=== PATIENT | male | born 1950 | race Caucasian/White ===

== ENCOUNTER → 2016-06-01 | Outpatient (CLI) | payer OTHER ==
[~2016-06-01] MED LIST: ACET325T96 PO; ASCO250T4 PO; ASPI81TA28 PO; ATOR-24 PO; BACL10TA PO; BISA10SU3 PR; BUME0.5T3 PO; CHOL100010 PO; CHOL20007 PO; CITA10TA8 PO; CMD5 PO; CYAN10005 PO; EMOL1CRE10 TOP; ENOX1INJ14 INJ; ERGO500037 PO; ESCI10TA17 PO; FAMO20TA11 PO; FENO160T PO; FERR325T5 PO; INSDGI SC; INSDGIPEN SC; LACT3000 PO; LACTASE PO; LOPE1TAB25 PO; LSN25 PO; LUTE6TAB PO; MAGN400T5 PO; METF1000 PO; MULT-513 PO; NVLG SC; NVLGI SC; NYST100010 TOP; OXYC-164 PO; OXYC1TAB3 PO; OYST500T12 PO; PANT1TAB48 PO; PANT40TA PO; POLY335019 PO; PROM25SU28 PR; SENN-61 PO; WARF3TAB6 PO; WARF4TAB8 PO; [UNRECOGNIZED DRUG - CODE] PO; senna
[2016-06-01 09:21] LABS: PROTHROMBIN TIME (PATIENT) 21.9 SECONDS (9.0-12.0)
== END | disposition home or self-care (01) ==
LOC: C.LABUPUNI 08:54
PROVIDERS: ATTEND Family Medicine
DX: I50.9 Heart failure, unspecified (principal)

== ENCOUNTER → 2016-06-09 | Outpatient (CLI) | payer OTHER ==
[2016-06-09 09:23] LABS: INR 2.4 (0.9-1.1); PROTHROMBIN TIME (PATIENT) 26.8 SECONDS (9.0-12.0)
== END ==
LOC: C.LABUPUNI 09:03
PROVIDERS: ATTEND Family Medicine
DX: R79.1 Abnormal coagulation profile (principal)

== ENCOUNTER → 2016-06-19 | Outpatient (CLI) | payer OTHER ==
[2016-06-19 08:58] LABS: INR 2.4 (0.9-1.1); PROTHROMBIN TIME (PATIENT) 26.3 SECONDS (9.0-12.0)
== END | disposition home or self-care (01) ==
LOC: C.LABUPUNI 08:20
PROVIDERS: ATTEND Family Medicine
DX: D64.9 Anemia, unspecified (principal)

== ENCOUNTER → 2016-07-03 | Outpatient (CLI) | payer OTHER ==
[2016-07-03 09:19] LABS: INR 1.5 (0.9-1.1); PROTHROMBIN TIME (PATIENT) 15.9 SECONDS (9.0-12.0)
== END ==
LOC: C.LABUPUNI 08:56
PROVIDERS: ATTEND Family Medicine
DX: Z79.01 Long term (current) use of anticoagulants (principal)

== ENCOUNTER → 2016-07-04 | Outpatient (CLI) | payer OTHER ==
[2016-07-04 07:32] LABS: BASO % 0.1 %; BASO ABS # 0.01 K/uL (0-0.2); COMPLETE YES; HEMATOCRIT 33.3 % (42-52); IG% 0.3 %; MEAN CELL VOLUME 86.7 fL (80-100); MEAN CORPUSCULAR HEMOGLOBIN 26.3 pg (25-34); MEAN CORPUSCULAR HGB CONC 30.3 g/dl (32-36); MEAN PLATELET VOLUME 10.6 fL (7.4-10.4); MONO % 5.6 %; PLATELET COUNT 282 K/uL (130-400); RED BLOOD COUNT 3.84 M/uL (4.7-6.1); WHITE BLOOD COUNT 10.02 K/uL (4.8-10.8)
[2016-07-04 07:41] LABS: ALT/SGPT 16 U/L (12-78); BLOOD UREA NITROGEN 55 mg/dl (7-18); BUN/CREATININE RATIO 49.8 (10-20); CALCIUM 8.6 mg/dl (8.5-10.1); CARBON DIOXIDE 29 mmol/L (21-32); CHLORIDE 103 mmol/L (98-107); CHOLESTEROL 82 mg/dl (0-200); GLUCOSE 120 mg/dl (70-99); POTASSIUM 4.3 mmol/L (3.5-5.1); SODIUM 139 mmol/L (136-145); TRIGLYCERIDES 138 mg/dl (0-150); VERY LOW DENSITY LIPOPROT CALC 28 mg/dl
[2016-07-04 07:50] LABS: ALB/GLOB RATIO 0.7 (0.9-2); ALKALINE PHOSPHATASE 44 U/L (45-117); AST/SGOT 13 U/L (15-37); CHOLESTEROL/HDL RATIO 2.1; FERRITIN 29.5 ng/ml (8.0-388.0); HDL CHOLESTEROL 40 mg/dl; LDL CHOLESTEROL CALCULATED 14 mg/dl; TOTAL IRON BINDING CAPACITY 439 mcg/dl (250-450)
[2016-07-04 08:41] LABS: ESTIMATED AVERAGE GLUCOSE 111 mg/dl; HA1C FLAG Normal (Normal)
== END ==
LOC: C.LABUPUNI 12:24
PROVIDERS: ATTEND Family Medicine
DX: E11.9 Type 2 diabetes mellitus without complications (principal); L02.31 Cutaneous abscess of buttock; D50.9 Iron deficiency anemia, unspecified; E78.5 Hyperlipidemia, unspecified; E55.9 Vitamin D deficiency, unspecified; E66.01 Morbid (severe) obesity due to excess calories; Z90.49 Acquired absence of other specified parts of digestive tract

== ENCOUNTER → 2016-07-06 | Outpatient (CLI) | payer OTHER ==
[2016-07-06 09:07] LABS: INR 1.9 (0.9-1.1); PROTHROMBIN TIME (PATIENT) 21.4 SECONDS (9.0-12.0)
== END ==
LOC: C.LABUPUNI 08:39
PROVIDERS: ATTEND Family Medicine
DX: I48.2 Chronic atrial fibrillation (principal)

== ENCOUNTER → 2016-07-20 | Outpatient (CLI) | payer OTHER ==
[2016-07-20 09:40] LABS: INR 1.8 (0.9-1.1); PROTHROMBIN TIME (PATIENT) 19.4 SECONDS (9.0-12.0)
== END ==
LOC: C.LABUPUNI 09:14
PROVIDERS: ATTEND Family Medicine
DX: I48.91 Unspecified atrial fibrillation (principal)

== ENCOUNTER → 2016-08-03 | Outpatient (CLI) | payer OTHER ==
[2016-08-03 10:38] LABS: PROTHROMBIN TIME (PATIENT) 65.5 SECONDS (9.0-12.0)
[2016-08-03 10:46] LABS: INR 5.7 (0.9-1.1)
== END ==
LOC: C.LABUPBEA 09:56
PROVIDERS: ATTEND Family Medicine
DX: I48.2 Chronic atrial fibrillation (principal)

== ENCOUNTER → 2016-08-05 | Outpatient (CLI) | payer OTHER ==
[~2016-08-05] MED LIST changes: -CITA10TA8 PO; -CMD5 PO; -senna
[2016-08-05 09:23] LABS: INR 2.5 (0.9-1.1); PROTHROMBIN TIME (PATIENT) 27.8 SECONDS (9.0-12.0)
== END ==
LOC: C.LABUPBEA 09:00
PROVIDERS: ATTEND Family Medicine
DX: I48.2 Chronic atrial fibrillation (principal)

== ENCOUNTER → 2016-08-12 | Outpatient (CLI) | payer OTHER ==
[2016-08-12 10:21] LABS: INR 1.7 (0.9-1.1)
--- NOTE | 2016-08-13 10:09 | CODING QUERY NO DIAGNOSIS ---
TREATMENT RENDERED WITHOUT A DIAGNOSIS To promote full compliance with coding requirements relating to patient care, physician participation is requested in all cases of plastic molding operator uncertainty. Please assist us with providing a diagnosis/symptom for the test(s) below: A diagnosis/symptom was not documented on your Order. A valid diagnosis/symptom is required to bill all insurances. Please remember that we are unable to code a diagnosis of rule out, probable, possible, questionable, or suspected. Tests that require a diagnosis: DOS 08/12 * PTINR DIAGNOSIS: Provider Signature: Date: Thank you Ivette El [facility] Information Management Once completed, please kindly fax back to [phone] For questions please call [phone]
== END ==
LOC: C.LABUPBEA 09:52
PROVIDERS: ATTEND Family Medicine
DX: Z76.89 Persons encountering health services in other specified circumstances (principal)

== ENCOUNTER → 2016-08-19 | Outpatient (CLI) | payer OTHER ==
[2016-08-19 09:31] LABS: INR 2.2 (0.9-1.1); PROTHROMBIN TIME (PATIENT) 24.1 SECONDS (9.0-12.0)
== END ==
LOC: C.LABUPBEA 09:04
PROVIDERS: ATTEND Family Medicine
DX: I48.91 Unspecified atrial fibrillation (principal)

== ENCOUNTER → 2016-08-26 | Outpatient (CLI) | payer OTHER ==
[2016-08-26 09:56] LABS: INR 2.2 (0.9-1.1); PROTHROMBIN TIME (PATIENT) 24.7 SECONDS (9.0-12.0)
--- NOTE | 2016-08-27 09:21 | CODING QUERY NO DIAGNOSIS ---
TREATMENT RENDERED WITHOUT A DIAGNOSIS To promote full compliance with coding requirements relating to patient care, physician participation is requested in all cases of remote medical coder uncertainty. Please assist us with providing a diagnosis/symptom for the test(s) below: A diagnosis/symptom was not documented on your Order. A valid diagnosis/symptom is required to bill all insurances. Please remember that we are unable to code a diagnosis of rule out, probable, possible, questionable, or suspected. Tests that require a diagnosis: DOS: 08/26/16 * PT/INR DIAGNOSIS: Provider Signature: Date: Thank you Shanel Quorum [facility] Information Management Once completed, please kindly fax back to [phone] For questions please call [phone]
== END ==
LOC: C.LABUPUNI 08:48
PROVIDERS: ATTEND Family Medicine
DX: Z51.81 Encounter for therapeutic drug level monitoring (principal); Z79.01 Long term (current) use of anticoagulants

== ENCOUNTER → 2016-09-08 | Outpatient (CLI) | payer OTHER ==
[2016-09-08 08:54] LABS: INR 1.8 (0.9-1.1); PROTHROMBIN TIME (PATIENT) 19.2 SECONDS (9.0-12.0)
== END ==
LOC: C.LABUPUNI 08:08
PROVIDERS: ATTEND Family Medicine
DX: I48.91 Unspecified atrial fibrillation (principal)

== ENCOUNTER → 2016-09-15 | Outpatient (CLI) | payer OTHER ==
[2016-09-15 09:48] LABS: INR 1.8 (0.9-1.1); PROTHROMBIN TIME (PATIENT) 19.3 SECONDS (9.0-12.0)
== END | disposition home or self-care (01) ==
LOC: C.LABUPUNI 09:26
PROVIDERS: ATTEND Family Medicine
DX: I48.91 Unspecified atrial fibrillation (principal)

== ENCOUNTER → 2016-09-18 | Outpatient (CLI) | payer OTHER ==
[2016-09-18 09:07] LABS: PROTHROMBIN TIME (PATIENT) 21.8 SECONDS (9.0-12.0)
== END | disposition home or self-care (01) ==
LOC: C.LABUPUNI 08:30
PROVIDERS: ATTEND Family Medicine
DX: I48.91 Unspecified atrial fibrillation (principal)

== ENCOUNTER → 2016-09-25 | Outpatient (CLI) | payer OTHER ==
[2016-09-25 09:25] LABS: INR 2.4 (0.9-1.1); PROTHROMBIN TIME (PATIENT) 26.2 SECONDS (9.0-12.0)
== END ==
LOC: C.LABUPUNI 08:52
PROVIDERS: ATTEND Nurse Practitioner Family
DX: I48.91 Unspecified atrial fibrillation (principal)

== ENCOUNTER → 2016-10-02 | Outpatient (CLI) | payer OTHER ==
[2016-10-02 10:32] LABS: INR 2.5 (0.9-1.1); PROTHROMBIN TIME (PATIENT) 27.3 SECONDS (9.0-12.0)
== END ==
LOC: C.LABUPUNI 09:28
PROVIDERS: ATTEND Nurse Practitioner Family
DX: D64.9 Anemia, unspecified (principal)

== ENCOUNTER → 2016-10-16 | Outpatient (CLI) | payer OTHER ==
[2016-10-16 10:14] LABS: PROTHROMBIN TIME (PATIENT) 22.2 SECONDS (9.0-12.0)
== END ==
LOC: C.LABUPUNI 09:39
PROVIDERS: ATTEND Family Medicine
DX: I48.2 Chronic atrial fibrillation (principal)

== ENCOUNTER → 2016-10-22 | Outpatient (CLI) | payer OTHER ==
[2016-10-22 10:10] LABS: HEMATOCRIT 35.7 % (42-52); MEAN CELL VOLUME 87.9 fL (80-100); MEAN CORPUSCULAR HEMOGLOBIN 26.6 pg (25-34); MEAN CORPUSCULAR HGB CONC 30.3 g/dl (32-36); MEAN PLATELET VOLUME 10.7 fL (7.4-10.4); PLATELET COUNT 252 K/uL (130-400); RED BLOOD COUNT 4.06 M/uL (4.7-6.1); WHITE BLOOD COUNT 7.44 K/uL (4.8-10.8)
[2016-10-22 10:25] LABS: ESTIMATED AVERAGE GLUCOSE 123 mg/dl; HA1C FLAG Normal (Normal)
[2016-10-22 10:32] LABS: CALCIUM 9.2 mg/dl (8.5-10.1)
[2016-10-22 10:35] LABS: ALT/SGPT 16 U/L (12-78); BLOOD UREA NITROGEN 37 mg/dl (7-18); BUN/CREATININE RATIO 37.2 (10-20); CARBON DIOXIDE 32 mmol/L (21-32); CHLORIDE 104 mmol/L (98-107); CHOLESTEROL 89 mg/dl (0-200); GLUCOSE 135 mg/dl (70-99); POTASSIUM 4.3 mmol/L (3.5-5.1); SODIUM 140 mmol/L (136-145); TRIGLYCERIDES 136 mg/dl (0-150); VERY LOW DENSITY LIPOPROT CALC 27 mg/dl
[2016-10-22 10:43] LABS: ALB/GLOB RATIO 0.8 (0.9-2); ALKALINE PHOSPHATASE 41 U/L (45-117); AST/SGOT 14 U/L (15-37); CHOLESTEROL/HDL RATIO 2.5; FERRITIN 34.2 ng/ml (8.0-388.0); HDL CHOLESTEROL 36 mg/dl; LDL CHOLESTEROL CALCULATED 26 mg/dl; THYROID STIMULATING HORMONE 0.796 uIu/ml (0.300-4.500)
== END ==
LOC: C.LABUPUNI 09:00
PROVIDERS: ATTEND Nurse Practitioner Family
DX: E11.9 Type 2 diabetes mellitus without complications (principal); I50.9 Heart failure, unspecified; I10 Essential (primary) hypertension; D64.9 Anemia, unspecified; E78.9 Disorder of lipoprotein metabolism, unspecified; E55.9 Vitamin D deficiency, unspecified; R53.82 Chronic fatigue, unspecified

== ENCOUNTER → 2016-11-12 | Outpatient (CLI) | payer OTHER ==
[2016-11-12 09:18] LABS: INR 2.6 (0.9-1.1); PROTHROMBIN TIME (PATIENT) 28.8 SECONDS (9.0-12.0)
== END ==
LOC: C.LABUPUNI 08:31
PROVIDERS: ATTEND Nurse Practitioner Family
DX: I48.2 Chronic atrial fibrillation (principal)

== ENCOUNTER → 2016-11-20 | Outpatient (CLI) | payer OTHER ==
[2016-11-20 10:38] LABS: BASO % 0.2 %; BASO ABS # 0.02 K/uL (0-0.2); COMPLETE YES; IG% 0.5 %; LYMPH % 25.2 %; MEAN CELL VOLUME 91.3 fL (80-100); MEAN CORPUSCULAR HEMOGLOBIN 26.7 pg (25-34); MEAN CORPUSCULAR HGB CONC 29.2 g/dl (32-36); MEAN PLATELET VOLUME 10.7 fL (7.4-10.4); MONO % 6.9 %; NEUT % 66.2 %; PLATELET COUNT 255 K/uL (130-400); RED BLOOD COUNT 4.16 M/uL (4.7-6.1); WHITE BLOOD COUNT 9.11 K/uL (4.8-10.8)
[2016-11-20 10:58] LABS: INR 2.4 (0.9-1.1); PROTHROMBIN TIME (PATIENT) 26.1 SECONDS (9.0-12.0)
== END ==
LOC: C.LABUPUNI 09:20
PROVIDERS: ATTEND Family Medicine
DX: I50.9 Heart failure, unspecified (principal); D50.9 Iron deficiency anemia, unspecified; I48.2 Chronic atrial fibrillation

== ENCOUNTER → 2016-11-27 | Outpatient (CLI) | payer OTHER ==
[2016-11-27 09:27] LABS: PROTHROMBIN TIME (PATIENT) 21.7 SECONDS (9.0-12.0)
== END ==
LOC: C.LABUPUNI 08:34
PROVIDERS: ATTEND Nurse Practitioner Family
DX: I48.2 Chronic atrial fibrillation (principal)

== ENCOUNTER → 2016-12-10 | Outpatient (CLI) | payer OTHER ==
[2016-12-10 08:58] LABS: INR 1.8 (0.9-1.1); PROTHROMBIN TIME (PATIENT) 20.1 SECONDS (9.0-12.0)
--- NOTE | 2016-12-12 12:24 | CODING QUERY MEDICAL NECESSITY ---
CQTREATMENT RENDERED WITHOUT A DIAGNOSIS To promote full compliance with coding requirements relating to patient care, physician participation is requested in all cases of floor mechanic uncertainty. Please assist us with providing a diagnosis/symptom for the test(s) below: A diagnosis/symptom was not documented on your Order. A valid diagnosis/symptom is required to bill all insurances. Please remember that we are unable to code a diagnosis of rule out, probable, possible, questionable, or suspected. Tests that require a diagnosis: DOS 12/10/16 DIAGNOSIS IS ON CHART I48.2 BUT NO SIGNATURE IS ON ORDER PLEASE RETURN QUERY WITH DIAGNOSIS AND SIGNATURE THANK YOU Provider Signature: Date: Thank you Leighann Lopes Health Information Management Once completed, please kindly fax back to [phone] For questions please call [phone]
== END | disposition home or self-care (01) ==
LOC: C.LABUPUNI 08:40
PROVIDERS: ATTEND Family Medicine
DX: I48.2 Chronic atrial fibrillation (principal)

== ENCOUNTER 2016-12-13 21:46 | Inpatient (IN) | payer OTHER ==
[~2016-12-13] VITALS: Ht 188 cm; Wt 217.0 kg
[~2016-12-13 21:46] MED LIST changes: -ASCO250T4 PO; -CHOL20007 PO; -ENOX1INJ14 INJ; -ERGO500037 PO; -INSDGIPEN SC; -LACT3000 PO; -NVLG SC; -OXYC-164 PO; -OYST500T12 PO; -PANT1TAB48 PO; -PANT40TA PO; -WARF3TAB6 PO
[2016-12-13] MEDS ORDERED: SODIUM CHLORIDE 0.9% 1000ML 1,000 ML IV STA (21:54)
[2016-12-13] MEDS ORDERED: ONDANSETRON INJ 2 MG/ML 2 ML VIAL IV STA ×2 (21:57→22:59)
[2016-12-13 22:18] LABS: BASO % 0.1 %; BASO ABS # 0.01 K/uL (0-0.2); COMPLETE YES; HEMATOCRIT 42.4 % (42-52); IG% 0.4 %; LYMPH % 5.7 %; LYMPH ABS # 0.98 K/uL (1.2-3.4); MEAN CELL VOLUME 87.8 fL (80-100); MEAN CORPUSCULAR HEMOGLOBIN 26.7 pg (25-34); MEAN CORPUSCULAR HGB CONC 30.4 g/dl (32-36); MEAN PLATELET VOLUME 10.5 fL (7.4-10.4); MONO % 4.6 %; NEUT % 89.2 %; PLATELET COUNT 324 K/uL (130-400); RED BLOOD COUNT 4.83 M/uL (4.7-6.1); WHITE BLOOD COUNT 17.12 K/uL (4.8-10.8)
[2016-12-13] MEDS ORDERED: ERGO500037 PO (22:18)
[2016-12-13] MEDS ORDERED: OYST500T12 PO (22:18)
[2016-12-13] MEDS ORDERED: ASCO250T4 PO (22:18)
[2016-12-13] MEDS ORDERED: NVLG SC ×3 (22:18)
[2016-12-13] MEDS ORDERED: INSDGIPEN SC (22:18)
[2016-12-13] MEDS ORDERED: OXYC-164 PO (22:18)
[2016-12-13] MEDS ORDERED: CHOL20007 PO (22:18)
[2016-12-13] MEDS ORDERED: WARF3TAB6 PO (22:18)
[2016-12-13] MEDS ORDERED: LACT3000 PO (22:18)
[2016-12-13 22:30] LABS: ISTAT HEMOGLOBIN 14.3 g/dl (14.0-18.0); ISTAT IONIZED CALCIUM 1.13 mmol/l (1.12-1.32)
[2016-12-13 22:30] LABS: INR 2.2 (0.9-1.1); PARTIAL THROMBOPLASTIN RATIO 1.4; PROTHROMBIN TIME (PATIENT) 23.8 SECONDS (9.0-12.0)
[2016-12-13 22:39] LABS: BUN/CREATININE RATIO 41.9 (10-20); CALCIUM 9.5 mg/dl (8.5-10.1); POTASSIUM 4.2 mmol/L (3.5-5.1)
[2016-12-13] MEDS ORDERED: PANTOprazole INJ 80 MG in DEXTROSE 5% 100ML IV STA (23:30)
[2016-12-13] MEDS ORDERED: PANTOprazole INJ 40 MG in DEXTROSE 5% 100ML IV SCH (23:45)
[2016-12-14] VITALS (10 sets, daily range): BP systolic 125–186; BP diastolic 65–101; PULSE 55–96; TEMP 36.8–37.2; O2SAT 93–98; Ht 188 cm; Wt 217.0 kg
--- NOTE | 2016-12-14 00:05 | EMERGENCY ROOM VISIT NOTE ---
History Report prepared by Niko: Ismael Dubois Under the Supervision of: Dr. Quoc Nick D.O. First contact with patient: 21:47 Chief Complaint: GI ASSESSMENT Stated Complaint: GI ASSESSMENT History of Present Illness The patient is a 66 year old male who presents to the Emergency Room via EMS from [facility] with complaints of vomiting starting today. The patient describes the vomit as clear, intermittently containing a small amount of blood. His emesis was tested which was positive for blood. He reports abdominal fullness but currently denies any abdominal pain. He has not had a bowel movement in the past few days. He has a history of constipation and states that he is due for a suppository. The patient denies any worse than normal difficulty breathing. Pt denies headache, change in vision, fevers, chest pain, diarrhea, pain with urination, and melena. He is on Coumadin. Source of History: patient Onset: today Position: other (global) Quality: other (vomiting) Associated Symptoms: No fevers, No headache, No chest pain, No abdominal pain, No diarrhea Review of Systems See HPI for pertinent positives & negatives. A total of 10 systems reviewed and were otherwise negative. Past Medical & Surgical Medical Problems: (1) Atrial fibrillation (2) Chronic venous stasis (3) Diabetes mellitus, type II (4) History of osteomyelitis (5) Hyperlipidemia (6) Hypertension (7) Klinefelter syndrome (8) Obesity Family History Coronary artery disease FATHER Social History Marital Status: single Occupation Status: disabled Current/Historical Medications Scheduled Ascorbic Acid (Vitamin C), 250 MG PO BID Aspirin (Aspirin Ec), 81 MG PO WK Atorvastatin (Lipitor), 40 MG PO HS Bumetanide (Bumetanide), 0.5 MG PO DAILY Cholecalciferol (Vitamin D3), 2,000 UNITS PO DAILY Cyanocobalamin (Vitamin B-12), 1,000 MCG PO DAILY Ergocalciferol (Vitamin D 61855 Unit), 50,000 UNIT PO WK Escitalopram (Lexapro), 15 MG PO HS Fenofibrate (Tricor), 160 MG PO HS Ferrous Sulfate (Ferrous Sulfate), 325 MG PO TID Insulin Aspart (Novolog), 4 UNITS SC PM Insulin Aspart (Novolog), 6 UNITS SC DAILY Insulin Aspart (Novolog), 7 UNITS SC HS Insulin Glargine (Lantus Solostar), 54 UNITS SC HS Lactase (Lactaid), 1 TAB PO TIDM Lisinopril (Lisinopril), 2.5 MG PO DAILY Lutein-Zeaxanthin (Lutein W/Zeaxanthin), 1 TAB PO BID Magnesium Oxide (Mag-Ox), 400 MG PO DAILY Metformin Hcl (Glucophage), 1,000 MG PO BID Multivitamins/Minerals (Mvi With Minerals), 1 TAB PO DAILY Oxycodone Hcl (Oxycodone Hcl), 10 MG PO TID Oyster Shell (Oyster Shell), 250 MG PO BID Polyethylene Glycol 3350 (Miralax), 17 GM PO DAILY Senna (Senokot), 1 TAB PO DAILY Warfarin Sod (Jantoven), 4 MG PO 4XWK Warfarin Sod (Jantoven), 3 MG PO 3XWK Scheduled PRN Acetaminophen Tab (Tylenol), 650 MG PO Q6H PRN for MILD PAIN/FEVER Baclofen (Lioresal), 10 MG PO Q8H PRN for Muscle Spasms Promethazine Hcl (Phenergan Suppository), 25 MG CA Q4H PRN for Nausea Allergies Coded Allergies: No Known Allergies (Verified , NONE, 08/04/16) Physical Exam Vital Signs Date Time Temp Pulse Resp B/P (MAP) Pulse Ox O2 Delivery O2 Flow Rate FiO2 12/14/16 00:18 80 18 158/75 96 Room Air 12/13/16 23:53 82 22 152/119 95 Nasal Cannula 12/13/16 23:14 86 18 177/109 94 Nasal Cannula 2.0 12/13/16 22:00 95 Nasal Cannula 2.0 12/13/16 21:59 Room Air 12/13/16 21:55 88 12/13/16 21:47 36.8 87 20 160/101 88 Room Air Physical Exam GENERAL: Morbidly obese, chronically ill appearing, sitting in bed, disheveled, in no acute distress. EYE EXAM: normal conjunctiva, PERRL and EOM's grossly intact OROPHARYNX: no exudate, no erythema, lips, buccal mucosa, and tongue normal and mucous membranes are moist NECK: supple, no nuchal rigidity, no adenopathy, non-tender LUNGS: Clear to auscultation. Normal chest wall mechanics HEART: no murmurs, S1 normal and S2 normal ABDOMEN: abdomen soft, non-tender, normo-active bowel sounds, no masses, no rebound or guarding. Obese and distended. Old midline incision with scabs in place. RECTAL: Heme negative. BACK: Back is symmetrical on inspection and there is no deformity, no midline tenderness, no CVA tenderness. SKIN: no rashes and no bruising UPPER EXTREMITIES: upper extremities are grossly normal. LOWER EXTREMITIES: No pitting edema. Calves are equal bilaterally. NEURO EXAM: Normal sensorium, cranial nerves II-XII grossly intact, normal speech, no gross weakness of arms, no gross weakness of legs. Medical Decision & Procedures ER Provider Diagnostic Interpretation: X-ray as per my interpretation: Portable AP upright one view Cephalization with calcified aortic arch. Enlarged heart. CT:Per my review, radiologist interpretation. CT ABDOMEN AND PELVIS Compared to 01/12/16. Portions of the left lateral abdomen not entirely included in the field-of- view. Markedly distended stomach. Distended duodenum is also noted with transition to normal caliber jejunum. No obstructing mass or lesion is noted. Correlate with clinical history for possibility of gastroparesis or other etiology. No evidence of free air. Mild duodenal wall thickening. No evidence of small bowel obstruction. Diverticulosis. Large amount of stool in the rectum. Prior bowel surgery noted. Duodenal diverticulum. Ventral hernia containing fat and nonobstructed bowel. Cholelithiasis. Age-indeterminate compression deformities at the T12-L2 vertebral bodies, new since 2016. Left adrenal nodule. Hepatosplenomegaly. Additional incidental findings. Radiologist: :subha Ann MD Laboratory Results 12/13/16 22:09 Red Blood Count 4.83, Mean Corpuscular Volume 87.8, Mean Corpuscular Hemoglobin 26.7, Mean Corpuscular Hemoglobin Concent 30.4, Mean Platelet Volume 10.5, Neutrophils (%) (Auto) 89.2, Lymphocytes (%) (Auto) 5.7, Monocytes (%) (Auto) 4.6, Eosinophils (%) (Auto) 0.0, Basophils (%) (Auto) 0.1, Neutrophils # (Auto) 15.28, Lymphocytes # (Auto) 0.98, Monocytes # (Auto) 0.79, Eosinophils # (Auto) 0.00, Basophils # (Auto) 0.01 12/13/16 22:09 Test 12/13/16 22:09 12/13/16 22:13 White Blood Count 17.12 K/uL (4.8-10.8) Red Blood Count 4.83 M/uL (4.7-6.1) Hemoglobin 12.9 g/dL (14.0-18.0) Hematocrit 42.4 % (42-52) Mean Corpuscular Volume 87.8 fL (80-100) Mean Corpuscular Hemoglobin 26.7 pg (25-34) Mean Corpuscular Hemoglobin Concent 30.4 g/dl (32-36) Platelet Count 324 K/uL (130-400) Mean Platelet Volume 10.5 fL (7.4-10.4) Neutrophils (%) (Auto) 89.2 % Lymphocytes (%) (Auto) 5.7 % Monocytes (%) (Auto) 4.6 % Eosinophils (%) (Auto) 0.0 % Basophils (%) (Auto) 0.1 % Neutrophils # (Auto) 15.28 K/uL (1.4-6.5) Lymphocytes # (Auto) 0.98 K/uL (1.2-3.4) Monocytes # (Auto) 0.79 K/uL (0.11-0.59) Eosinophils # (Auto) 0.00 K/uL (0-0.5) Basophils # (Auto) 0.01 K/uL (0-0.2) RDW Standard Deviation 53.7 fL (36.4-46.3) RDW Coefficient of Variation 16.9 % (11.5-14.5) Immature Granulocyte % (Auto) 0.4 % Immature Granulocyte # (Auto) 0.06 K/uL (0.00-0.02) Prothrombin Time 23.8 SECONDS (9.0-12.0) Prothromb Time International Ratio 2.2 (0.9-1.1) Activated Partial Thromboplast Time 37.3 SECONDS (21.0-31.0) Partial Thromboplastin Ratio 1.4 Est Creatinine Clear Calc Drug Dose 113.4 ml/min Estimated GFR () 90.5 Estimated GFR (Non- 78.1 BUN/Creatinine Ratio 41.9 (10-20) Calcium Level 9.5 mg/dl (8.5-10.1) Total Bilirubin 0.4 mg/dl (0.2-1) Direct Bilirubin 0.2 mg/dl (0-0.2) Aspartate Amino Transf (AST/SGOT) 14 U/L (15-37) Alanine Aminotransferase (ALT/SGPT) 17 U/L (12-78) Alkaline Phosphatase 52 U/L (45-117) Total Protein 7.5 gm/dl (6.4-8.2) Albumin 3.2 gm/dl (3.4-5.0) Lipase 198 U/L (73-393) Bedside Hemoglobin 14.3 g/dl (14.0-18.0) Bedside Hematocrit 42 % (42-52) Bedside Sodium 142 mEq/L (135-144) Bedside Potassium 4.1 mEq/L (3.3-5.0) Bedside Chloride 95 mEq/L (101-112) Bedside Total CO2 33 mEq/l (24-31) Anion Gap 19.0 mmol/L (16-25) Bedside Blood Urea Nitrogen 41 mg/dl (7-18) Bedside Creatinine 1.0 mg/dl (0.6-1.3) Bedside Glucose (other) 161 mg/dl (70-99) Bedside Ionized Calcium (Bernadette) 1.13 mmol/l (1.12-1.32) Laboratory results per my review. Medications Administered Medications (Trade) Dose Ordered Sig/Carlton Route Start Time Stop Time Status Last Admin Dose Admin Sodium Chloride 1,000 ml @ 999 mls/hr Q1H1M STAT IV 12/13/16 21:54 12/13/16 22:54 DC 12/13/16 22:16 999 MLS/HR Ondansetron HCl (Zofran Inj) 4 mg NOW STAT IV 12/13/16 21:57 12/13/16 21:58 DC 12/13/16 22:16 4 MG Ondansetron HCl (Zofran Inj) 4 mg NOW STAT IV 12/13/16 22:59 12/13/16 23:00 DC 12/13/16 23:09 4 MG Pantoprazole Sodium (Protonix IV Bolus/Drip) 1 ea NOW STAT IV 12/13/16 23:21 12/13/16 23:23 DC 12/13/16 23:49 1 EA Pantoprazole Sodium 80 mg/ Dextrose 120 ml @ 480 mls/hr NOW STAT IV 12/13/16 23:30 12/13/16 23:44 DC 12/13/16 23:48 480 MLS/HR Pantoprazole Sodium 40 mg/ Dextrose 100 ml @ 20 mls/hr Q5H IV 12/13/16 23:45 12/14/16 04:44 12/14/16 00:18 20 MLS/HR ECG Indication: vomiting Rate (beats per minute): 81 Rhythm: atrial fibrillation Findings: RBBB, T-wave inversion (septal, anterior), left axis deviation, other (Slight ST depression) ED Course ED COURSE: Vital signs were reviewed and showed hypoxic. The patients medical record was reviewed The above diagnostic studies were performed and reviewed. ED treatments and interventions as stated above. 2146: The patient was evaluated in room B12B. A complete history and physical examination was performed. 2153: Sodium Chloride 1000 ml @ 999 mls/hr IV 2156: Zofran Inj 4 mg IV 2201: I discussed the patient's case with [facility]. They reported that the patient has a history of gastric bleeds. His last INR was checked on 11/27 which was 2.0. Yesterday, he started having nausea. Today, the patient started having vomiting with coffee grounds quality. The emesis was checked and it was positive for blood. 2259: Zofran Inj 4 mg IV 2321: Pantoprazole Sodium 1 ea IV 2330: Pantoprazole Sodium 80 mg/Dextrose 120 ml @ 480 mls/hr IV 2345: Pantoprazole Sodium 40 mg/Dextrose 100 ml @ 20 mls/hr IV 0027: Upon reevaluation, the patient is resting comfortably.I discussed my findings with the patient and he understands and agrees with the treatment plan. Based on the patients age, coexisting illnesses, exam and lab findings the decision to treat as an inpatient was made. The patient remained stable while under my care. The patient will be evaluated for further management. 0030: Phytonadione 5 mg/Sodium Chloride 50.5 ml @ 101 mls/hr Protocol IV 0040: I discussed the patient's case [facility] Medical Decision Medication Reconciliation: I attest that I have personally reviewed the patient' s current medication list. Differential diagnoses includes but is not limited to gastritis, peptic ulcer disease, GERD, gallbladder disease, pancreatitis, small bowel obstruction, acute coronary syndrome, pericarditis, ischemic bowel, irritable bowel disease, irritable bowel syndrome, appendicitis, diverticulitis, malignancy, hernia, urinary tract infection, torsion, [/ectopic (if female)], perforation, trauma, infectious. Patient is a 66-year-old male who presents the ER for nausea which started 48 hours ago. Today this gentleman started vomiting blood. He is currently taking Coumadin. He has no abdominal pain. Labs were obtained today show a leukocytosis 17,000. Hemoglobin is 13. BMP along with LFTs, bilirubin and lipase were unremarkable. INR is therapeutic at 2.2. INR will. Reverse with a total of 10 mg of IV vitamin K. Rectal was heme-negative. EKG shows atrial fib. Chest x-ray was fairly unchanged from previous. Patient has no upper respiratory symptoms. CT of the abdomen and pelvis shows a distended stomach and a lot of them within normal gentleman. No obvious cause of obstruction. CT questions gastroparesis. Patient had one episode of vomiting here which was clear with a small amount of blood streaks. Favor the leukocytosis likely secondary to the vomiting. Patient was updated at bedside and will be admitted to internal medicine for hematemesis on Coumadin. An NG was not placed as patient has remained comfortable in the ER with no vomiting for over 2 hours. Patient is a full code. Consults Time Called: 2157 Consulting Physician: Amira Returned Call: 2201 I discussed the patient's case with [facility]. They reported that the patient has a history of gastric bleeds. His last INR was checked on 11/27 which was 2.0. Yesterday, he started having nausea. Today, the patient started having vomiting with coffee grounds quality. The emesis was checked and it was positive for blood. Additional Consults: Time Called: 27 Consulted Physician: [facility] Maxim [facility] Returned Call: 39 Additional Comments: I discussed the patient's case with Dr[facility] Impression Primary Impression: Hematemesis Additional Impressions: Therapeutic INR Leukocytosis Scribe Attestation The scribe's documentation has been prepared under my direction and personally reviewed by me in its entirety. I confirm that the note above accurately reflects all work, treatment, procedures, and medical decision making performed by me. Departure Information Dispostion Being Evaluated By Hospitalist Patient Instructions [facility] Problem Qualifiers Primary Impression: Hematemesis Nausea presence: with nausea Qualified Codes: K92.0 - Hematemesis; R11.0 - Nausea Additional Impressions: Leukocytosis Leukocytosis type: unspecified Qualified Codes: D72.829 - Elevated white blood cell count, unspecified
[2016-12-14] MEDS ORDERED: PHYTONADIONE INJ 5 MG in SODIUM CHLORIDE 0.9% 50ML 50 ML IV ONE ×2 (00:30→00:45)
[2016-12-14] MEDS ORDERED: ONDANSETRON INJ 2 MG/ML 2 ML VIAL IV PRN ×2 (01:30→03:30)
[2016-12-14] MEDS ORDERED: ACETAMINOPHEN 325 MG TAB PO PRN ×2 (01:30→03:30)
--- NOTE | 2016-12-14 01:40 | History and Physical ---
History & Physical Date & Time of Service: Dec 14, 2016 at 01:39 Chief Complaint: Gi Assessment Primary Care Physician: [facility] History of Present Illness Mr Escobar is a 66 year old male resident of [facility] with Klinefelter's and Hx of esophageal rupture in 2016 who presents with nausea, vomiting and hematemesis. He also has some abdominal fullness but denies any pain. He reports feeling nauseous with epigastric palpation. Previous BM 2 days previous, he is on iron tablets therefore his stool is usually dark. He takes a varying range of laxatives and suppositories for chronic constipation at the senior care. He takes warfarin for chronic atrial fibrillation. He denies any presyncope, syncope, chest pain, dizziness or shortness of breath. At baseline he is wheelchair bound due to previous osteomyelitis in his ankle. Past Medical/Surgical History Medical Problems: (1) Atrial fibrillation Status: Chronic (2) Chronic venous stasis Status: Chronic (3) Diabetes mellitus, type II Status: Chronic (4) History of osteomyelitis Status: Chronic (5) Hyperlipidemia Status: Chronic (6) Hypertension Status: Chronic (7) Klinefelter syndrome Status: Chronic (8) Obesity Status: Chronic Family History Coronary artery disease FATHER Social History Smoking Status: Never Smoker Drug Use: none Marital Status: single Housing status: senior care Occupational Status: disabled Immunizations History of Influenza Vaccine: Yes Influenza Vaccine Date: Mar 01, 2014 History of Tetanus Vaccine?: No History of Pneumococcal: No History of Hepatitis B Vaccine: No Multi-Drug Resistant Organisms History of MDRO: Yes Type of MDRO: MRSA Allergies Coded Allergies: No Known Allergies (Verified , NONE, 08/04/16) Home Medications Scheduled Ascorbic Acid (Vitamin C), 250 MG PO BID Aspirin (Aspirin Ec), 81 MG PO WK Atorvastatin (Lipitor), 40 MG PO HS Bumetanide (Bumetanide), 0.5 MG PO DAILY Cholecalciferol (Vitamin D3), 2,000 UNITS PO DAILY Cyanocobalamin (Vitamin B-12), 1,000 MCG PO DAILY Ergocalciferol (Vitamin D 05943 Unit), 50,000 UNIT PO WK Escitalopram (Lexapro), 15 MG PO HS Fenofibrate (Tricor), 160 MG PO HS Ferrous Sulfate (Ferrous Sulfate), 325 MG PO TID Insulin Aspart (Novolog), 4 UNITS SC PM Insulin Aspart (Novolog), 6 UNITS SC DAILY Insulin Aspart (Novolog), 7 UNITS SC HS Insulin Glargine (Lantus Solostar), 54 UNITS SC HS Lactase (Lactaid), 1 TAB PO TIDM Lisinopril (Lisinopril), 2.5 MG PO DAILY Lutein-Zeaxanthin (Lutein W/Zeaxanthin), 1 TAB PO BID Magnesium Oxide (Mag-Ox), 400 MG PO DAILY Metformin Hcl (Glucophage), 1,000 MG PO BID Multivitamins/Minerals (Mvi With Minerals), 1 TAB PO DAILY Oxycodone Hcl (Oxycodone Hcl), 10 MG PO TID Oyster Shell (Oyster Shell), 250 MG PO BID Polyethylene Glycol 3350 (Miralax), 17 GM PO DAILY Senna (Senokot), 1 TAB PO DAILY Warfarin Sod (Jantoven), 4 MG PO 4XWK Warfarin Sod (Jantoven), 3 MG PO 3XWK Scheduled PRN Acetaminophen Tab (Tylenol), 650 MG PO Q6H PRN for MILD PAIN/FEVER Baclofen (Lioresal), 10 MG PO Q8H PRN for Muscle Spasms Promethazine Hcl (Phenergan Suppository), 25 MG CO Q4H PRN for Nausea Review of Systems Constitutional: No fever, No chills Eyes: No worsening of vision, No diplopia ENT: No hearing loss, No trouble swallowing Respiratory: No cough, No sputum, No wheezing, No shortness of breath, No hemoptysis Cardiovascular: + edema (chronic, at baseline), No chest pain Abdomen: + nausea, + vomiting (see HPI), + constipation (chronic), + GI bleeding (blood noted in vomit), No pain, No diarrhea Musculoskeletal: No joint pain, No muscle pain Genitourinary - Male: No hematuria, No dysuria, No urinary frequency Endocrine: No excessive thirst, No excessive urination Integumentary: + problem reported (chronic skin healing areas), No rash, No itch Physical Exam Vital Signs Date Time Temp Pulse Resp B/P (MAP) Pulse Ox O2 Delivery O2 Flow Rate FiO2 12/14/16 01:25 78 12/14/16 00:18 80 18 158/75 96 Room Air 12/13/16 23:53 82 22 152/119 95 Nasal Cannula 12/13/16 23:14 86 18 177/109 94 Nasal Cannula 2.0 12/13/16 22:00 95 Nasal Cannula 2.0 12/13/16 21:59 Room Air 12/13/16 21:55 88 12/13/16 21:47 36.8 87 20 160/101 88 Room Air General Appearance: no apparent distress, + obese Head: atraumatic Eyes: PERRL Neck: supple, trachea midline Respiratory/Chest: chest non-tender, lungs clear (anteriorly and at the sides, patient unable to move enough to listen to back), no respiratory distress, no accessory muscle use, + pertinent finding (gynecomastia) Cardiovascular: regular rate, rhythm, no murmur, normal peripheral pulses, + irregularly irregular Abdomen/GI: normal bowel sounds, non tender, soft Extremities/Musculoskelatal: no calf tenderness, + slow capillary refill (4 seconds) Neurologic/Psych: garment sorter II-XII nml as tested, no motor/sensory deficits, alert, oriented x 3 Skin: no rash, + mottled (cool peripheries), + pertinent finding (multiple areas of healing scars with large scabs. No cellulitic areas seen. Limited examination due to patient mobility.) Diagnostics Laboratory Results Results Past 24 Hours Test 12/13/16 22:09 12/13/16 22:13 12/14/16 01:29 Range/Units White Blood Count 17.12 4.8-10.8 K/uL Red Blood Count 4.83 4.7-6.1 M/uL Hemoglobin 12.9 14.0-18.0 g/dL Hematocrit 42.4 42-52 % Mean Corpuscular Volume 87.8 80-100 fL Mean Corpuscular Hemoglobin 26.7 25-34 pg Mean Corpuscular Hemoglobin Concent 30.4 32-36 g/dl Platelet Count 324 130-400 K/uL Mean Platelet Volume 10.5 7.4-10.4 fL Neutrophils (%) (Auto) 89.2 % Lymphocytes (%) (Auto) 5.7 % Monocytes (%) (Auto) 4.6 % Eosinophils (%) (Auto) 0.0 % Basophils (%) (Auto) 0.1 % Neutrophils # (Auto) 15.28 1.4-6.5 K/uL Lymphocytes # (Auto) 0.98 1.2-3.4 K/uL Monocytes # (Auto) 0.79 0.11-0.59 K/uL Eosinophils # (Auto) 0.00 0-0.5 K/uL Basophils # (Auto) 0.01 0-0.2 K/uL RDW Standard Deviation 53.7 36.4-46.3 fL RDW Coefficient of Variation 16.9 11.5-14.5 % Immature Granulocyte % (Auto) 0.4 % Immature Granulocyte # (Auto) 0.06 0.00-0.02 K/uL Prothrombin Time 23.8 9.0-12.0 SECONDS Prothromb Time International Ratio 2.2 0.9-1.1 Activated Partial Thromboplast Time 37.3 21.0-31.0 SECONDS Partial Thromboplastin Ratio 1.4 Sodium Level 143 136-145 mmol/L Potassium Level 4.2 3.5-5.1 mmol/L Chloride Level 102 98-107 mmol/L Carbon Dioxide Level 35 21-32 mmol/L Anion Gap 6.0 19.0 16-25 mmol/L Blood Urea Nitrogen 42 7-18 mg/dl Creatinine 1.00 0.60-1.40 mg/dl Est Creatinine Clear Calc Drug Dose 113.4 ml/min Estimated GFR () 90.5 Estimated GFR (Non- 78.1 BUN/Creatinine Ratio 41.9 10-20 Random Glucose 154 70-99 mg/dl Calcium Level 9.5 8.5-10.1 mg/dl Total Bilirubin 0.4 0.2-1 mg/dl Direct Bilirubin 0.2 0-0.2 mg/dl Aspartate Amino Transf (AST/SGOT) 14 15-37 U/L Alanine Aminotransferase (ALT/SGPT) 17 12-78 U/L Alkaline Phosphatase 52 45-117 U/L Total Protein 7.5 6.4-8.2 gm/dl Albumin 3.2 3.4-5.0 gm/dl Lipase 198 73-393 U/L Bedside Hemoglobin 14.3 14.0-18.0 g/dl Bedside Hematocrit 42 42-52 % Bedside Sodium 142 135-144 mEq/L Bedside Potassium 4.1 3.3-5.0 mEq/L Bedside Chloride 95 101-112 mEq/L Bedside Total CO2 33 24-31 mEq/l Bedside Blood Urea Nitrogen 41 7-18 mg/dl Bedside Creatinine 1.0 0.6-1.3 mg/dl Bedside Glucose (other) 161 70-99 mg/dl Bedside Ionized Calcium (Bernadette) 1.13 1.12-1.32 mmol/l Diagnostic Radiology CT abdomen/pelvis with IV contrast only - [employer] reading (Marlyn Ann MD) Portions of the left lateral abdomen not entirely included in the field of view. Markedly distended stomach. Distended duodenum is also noted with transition to normal caliber jejunum. No obstructing mass or lesion is noted. Correlate with clinical history for the possibility of gastroparesis or other etiology. No evidence of free air. Mild duodenal wall thickening. No evidence of small bowel obstruction. Diverticulosis. Large amount of stool in rectum. Prior bowel surgery noted. Duodenal diverticulum. Ventral hernia containing fat and non-obstructed bowel. Cholelithiasis Age-inderterminate compression deformities at the T12-L2 vertebral bodies, new since 2016. Left adrenal nodule. Hepatomegaly. Additional incidental findings. EKG Atrial fibrillation TWI in inferior and anterior leads Left anterior fascicular block (new from EKG in Dec 2015) Impression Assessment and Plan 66 year old male with Klinefelter's syndrome and Hx esophageal rupture presents with nausea and hematemesis. Hematemesis - Pantoprazole bolus + drip - type and screen - serial H&H - Vit K 10mg IV given in ER for reversal of warfarin - NPO - Consult GI Gastroparesis - avoid opiate medications if possible - will defer NG tube insertion unless further vomiting due to history of esophageal rupture Elevated WBC - apyrexial, no clear source but suspect he may have aspirated - blood culture x2 - cover for aspiration pneumonia with Unasyn - RUQ US to assess for cholecystitis - known cholelithiasis Type 2 diabetes mellitus - continue lantus 53 units at night - Novolog Correction: 15, carb ratio 5 - diet currently NPO due to above Hyperlipidemia - continue atorvastatin once he can eat and drink HTN - hold lisinopril until H&H known to be stable. VTE Prophylaxis - contraindicated chemical prophylaxis - ABDOUL stockings and SCDs likely to lead to skin breakdown given poor skin integrity Code - Full as per patient wishes Disposition - admission to telemetry. Consider step down tomorrow if H&H remains stable. Attending Addendum: I have physically seen and examined this patient, have supervised the medical residents activities, and agree with the H&P as noted above with the following exceptions: NONE The patient is awake, well-developed and adequately nourished, alert and oriented 3, normocephalic and atraumatic, lying in bed and in no acute distress. HEENT--PERRL, EOMI, mucous membranes and oropharynx dry. Neck--supple, no JVD or bruits, thyroid normal, trachea midline, no adenopathy. Heart--normal S1 and S2, no extra beats, no murmurs, rubs or gallops. Lungs--coarse breath sounds bilaterally, no respiratory distress, no accessory muscle use. Abdomen--normal bowel sounds and soft, nontender and nondistended, no hernias or masses, no organomegaly. Extremities--no cyanosis, clubbing or edema. There are good distal pulses b/l. Dermatologic--normal skin turgor, normal color, warm and dry, no abnormal lymph nodes, no rash. Neurologic--cranial nerves II through XII grossly intact, motor and sensory examination normal. Rheumatologic--normal range of motion, nontender, muscles and joints. Psychiatric--normal affect. Assessment and Plan: 1. Coffee ground emesis/chronic anticoagulation/anemia--The patient will be admitted to telemetry for serial cardiac enzymes, cardiac rhythm monitoring and a 2-D echocardiogram with Dopplers. Reverse his INR of 2.2 with 10 mg of IV vitamin K, and hold warfarin daily. Follow H&H every 6 hours next 48 hours. Pantoprazole bolus then continuous infusion. Nothing by mouth status. Consults gastroenterology for EGD. CT of abdomen and pelvis shows distended stomach, swelling of duodenum. Unsafe for NG tube placement at this time due to history of esophageal rupture. 2. Aspiration pneumonia--place on vancomycin IV and ZosynIV. 3. Diabetes mellitus--place on Accu-Cheks every 6 hours with NovoLog coverage per scale. Reduce evening Lantus from 53 units to 20 units subcutaneous at bedtime while he is nothing by mouth. Level of Care Telemetry Resuscitation Status FULL RESUSCITATION VTE Prophylaxis VTE Risk Assessment Done? Y/N: Yes Risk Level: Moderate Given or contraindicated: Contraindicated Additional Copies To [facility] Resident Tracking Resident Involvement: Resident Care Provided Care Provided: Adult ED
[2016-12-14] MEDS ORDERED: PROMETHAZINE HCL INJ 12.5 MG in SODIUM CHLORIDE 0.9% 50ML 50 ML IV PRN (01:45)
[2016-12-14] MEDS ORDERED: GLUCOSE 40% GEL 15 GM TUBE PO PRN ×2 (03:15→04:45)
[2016-12-14] MEDS ORDERED: DEXTROSE 50% 50 ML SYR IV PRN ×2 (03:15→04:45)
[2016-12-14] MEDS ORDERED: GLUCOSE 10 TABS/TUBE PO PRN ×2 (03:15→04:45)
[2016-12-14] MEDS ORDERED: GLUCAGON FOR INJ 1 MG VIAL SQ PRN ×2 (03:15→04:45)
[2016-12-14] MEDS: AMPICILLIN/SULBACTAM SOD INJ 3,000 MG in SODIUM CHLORIDE 0.9% 100ML 100 ML IV SCH ×4 (03:42→22:01)
[2016-12-14] MEDS: PANTOprazole INJ 40 MG in DEXTROSE 5% 100ML IV SCH ×5 (03:42→23:16)
[2016-12-14] MEDS: SODIUM CHLORIDE 0.9% 1000ML 1,000 ML IV SCH ×3 (03:43→22:02)
[2016-12-14 04:40] LABS: HEMATOCRIT 39.7 % (42-52); MEAN CELL VOLUME 88.6 fL (80-100); MEAN CORPUSCULAR HEMOGLOBIN 27.2 pg (25-34); MEAN CORPUSCULAR HGB CONC 30.7 g/dl (32-36); MEAN PLATELET VOLUME 9.9 fL (7.4-10.4); PLATELET COUNT 291 K/uL (130-400); RED BLOOD COUNT 4.48 M/uL (4.7-6.1); WHITE BLOOD COUNT 14.88 K/uL (4.8-10.8)
[2016-12-14 04:51] LABS: INR 1.6 (0.9-1.1); PARTIAL THROMBOPLASTIN RATIO 1.3; PROTHROMBIN TIME (PATIENT) 17.8 SECONDS (9.0-12.0)
[2016-12-14 04:58] LABS: BUN/CREATININE RATIO 41.1 (10-20); CREATININE 0.92 mg/dl (0.60-1.40); POTASSIUM 4.1 mmol/L (3.5-5.1)
[2016-12-14 05:01] LABS: ALB/GLOB RATIO 0.7 (0.9-2)
[2016-12-14] MEDS: INSULIN ASPART 100 UNITS/ML 3 ML PEN SC SCH ×5 (06:00→20:39)
[2016-12-14 06:25] LABS: BASO % 0.1 %; BASO ABS # 0.01 K/uL (0-0.2); COMPLETE YES; IG% 0.3 %; LYMPH % 6.5 %; LYMPH ABS # 0.99 K/uL (1.2-3.4); MONO % 7.9 %; NEUT % 85.2 %
--- NOTE | 2016-12-14 06:46 | DIAGNOSTIC IMAGING REPORT ---
CT ABD/PELVIS IV CONTRAST ONLY CLINICAL HISTORY: abdominal pain w/ vomiting COMPARISON STUDY: 01/12/2016 TECHNIQUE: Following the IV administration of 115 mL of Optiray-320, CT scan of the abdomen and pelvis was performed from the lung bases to the proximal femurs. Images are reviewed in the axial, sagittal, and coronal planes. IV contrast was administered without complication. CT DOSE: 4800.60 mGy.cm FINDINGS: Lower chest: There are trace bilateral pleural effusions. There is a small hiatal hernia. There is minor basilar atelectasis. Liver: The contrast-enhanced liver is normal in size, contour, and attenuation. There is no intrahepatic biliary ductal dilatation. The hepatic veins and portal veins are patent. Gallbladder: Cholelithiasis. Minimal infiltration of the pericholecystic fat. Spleen: Mildly enlarged measuring 15 cm. Pancreas: Unremarkable. Adrenal glands: There is a 14 mm left adrenal gland nodule. Kidneys: There is symmetric renal cortical enhancement. The kidneys are normal in size without hydronephrosis. Bowel: There is diverticulosis. There is no evidence of acute diverticulitis. There are no findings to indicate acute appendicitis. There is marked gastric distention. There is rectus diastases with a ventral hernia. This does not result in bowel obstruction. Peritoneum: No free air is visualized. Vasculature: The abdominal aorta is normal in course and caliber. Adenopathy: None. Pelvic viscera: The bladder, and pelvic viscera are unremarkable. Skeletal structures: No destructive osseous lesions are seen. T12-L2 vertebral body compression deformities. Portions the left lateral abdomen are not included in the [id number]. IMPRESSION: 1. Marked gastric distention 2. Diverticulosis. No evidence of acute diverticulitis 3. Fecal retention 4. Ventral hernia 5. Splenomegaly 6. Cholelithiasis with minimal stranding of the pericholecystic fat 7. 14 mm left adrenal gland nodule 8. T12-L2 vertebral body compression deformities Electronically signed by: Conner Andres M.D. 12/14/2016 6:45 AM Dictated Date/Time: 12/14/2016 6:36 AM
[2016-12-14] MEDS ORDERED: INSULIN ASPART 100 UNITS/ML 3 ML PEN SC SCH (07:00)
--- NOTE | 2016-12-14 07:02 | DIAGNOSTIC IMAGING REPORT ---
CHEST ONE VIEW PORTABLE CLINICAL HISTORY: 66 years-old Male presenting with cough. TECHNIQUE: Portable upright AP view of the chest was obtained. COMPARISON: CT from 01/12/2016. FINDINGS: Atherosclerosis of the aortic arch. Enlarged cardiac silhouette. Prominence of the pulmonary vasculature. Although image quality is degraded by body habitus, suspected hazy basilar lung opacities. Moderate right and small left pleural effusions. No pneumothorax. IMPRESSION: 1. Cardiomegaly with bilateral pleural effusions and suspected mild pulmonary edema. Electronically signed by: Parker Giles M.D. 12/14/2016 7:00 AM Dictated Date/Time: 12/14/2016 6:58 AM
--- NOTE | 2016-12-14 07:28 | DIAGNOSTIC IMAGING REPORT ---
(LIVER) ABDOMEN LIMITED CLINICAL HISTORY: 66 years-old Male presenting with elevated WBC, cholelithiasis ?CBD dilatation ?thickening of GB. TECHNIQUE: Real-time grayscale and limited color Doppler ultrasound imaging of the abdomen limited to the right upper quadrant was performed. COMPARISON: CT from 12/13/2016. FINDINGS: Pancreas: Largely obscured due to overlying bowel gas. Liver: Mildly hyperechogenic parenchyma, although the right hemidiaphragm remains visible, likely indicating mild steatosis. The liver measures 23.8 cm in maximal sagittal dimension. Main portal vein patent with normal directional flow. Biliary: No intrahepatic biliary ductal dilatation. Common bile duct measures up to 3 mm in diameter. Gallbladder: Gallstones in the nondistended gallbladder. No evidence of gallbladder wall thickening or pericholecystic inflammatory change. Sonographic Valentine's sign negative. Right kidney: Normal. No hydronephrosis. Vasculature: Visualized portions of the IVC and abdominal aorta normal. Ascites: None. IMPRESSION: 1. Cholelithiasis without evidence of cholecystitis or biliary ductal dilatation. 2. Hepatomegaly with possible mild steatosis. Electronically signed by: Parker Giles M.D. 12/14/2016 7:27 AM Dictated Date/Time: 12/14/2016 7:24 AM
--- NOTE | 2016-12-14 08:10 | Medical Student: [facility] ---
Med Student Progress Note Date of Service Dec 14, 2016. Subjective Pt evaluation today including: conversation w/ patient, physical exam, chart review, lab review Pain: denies Voiding: no voiding problems No acute events overnight. Doing well without complaints. Denies any nausea, vomiting or abdominal pain overnight. Denies any fevers, chills, sweats or cough. Has not had a bowel movement in 4 days. He said this occasionally happens and is normally on a bowel regimen at [facility] with occasional need for suppositories. Review of Systems Constitutional: No fever, No chills, No sweats Respiratory: No cough, No sputum Cardiac: No chest pain, No orthopnea, No edema, No palpitations Abdomen: + constipation, No pain, No nausea, No vomiting, No diarrhea Male : No dysuria, No urinary frequency, No incontinence Neurologic: + weakness, No numbness/tingling Objective Vital Signs Date Time Temp Pulse Resp B/P (MAP) Pulse Ox O2 Delivery O2 Flow Rate FiO2 12/14/16 07:11 36.9 96 20 161/97 (118) 98 Nasal Cannula 1.0 12/14/16 04:56 165/101 (122) 12/14/16 03:22 37.2 79 20 186/101 95 Room Air 2.0 12/14/16 02:12 36.8 77 18 173/100 96 12/14/16 01:46 77 18 173/100 96 Nasal Cannula 2.0 12/14/16 01:25 78 12/14/16 00:18 80 18 158/75 96 Room Air 12/13/16 23:53 82 22 152/119 95 Nasal Cannula 12/13/16 23:14 86 18 177/109 94 Nasal Cannula 2.0 12/13/16 22:00 95 Nasal Cannula 2.0 12/13/16 21:59 Room Air 12/13/16 21:55 88 12/13/16 21:47 36.8 87 20 160/101 88 Room Air Physical Exam General Appearance: WD/WN, no apparent distress, + obese Eyes: bilateral eyes PERRL, bilateral eyes EOMI ENT: + pertinent finding (dry mucous membranes) Neck: supple, no adenopathy, no JVD Respiratory/Chest: chest non-tender, + decreased breath sounds Cardiovascular: + irregularly irregular Abdomen: soft, + tenderness (left upper quadrant), + pertinent finding ( scabbed over wound from hemicolectomy in 11/2015, no erythema or purulent drainage) Extremities: non-tender, no pedal edema, no calf tenderness Neurologic/Psychiatric: alert, normal mood/affect, oriented x 3 Skin: warm/dry, + pertinent finding (venous stasis changes on lower extremities bilaterally) Laboratory Results Last 24 Hours Test 12/13/16 22:09 12/13/16 22:13 12/14/16 04:13 12/14/16 06:20 White Blood Count 17.12 K/uL 14.88 K/uL Red Blood Count 4.83 M/uL 4.48 M/uL Hemoglobin 12.9 g/dL 12.2 g/dL Hematocrit 42.4 % 39.7 % Mean Corpuscular Volume 87.8 fL 88.6 fL Mean Corpuscular Hemoglobin 26.7 pg 27.2 pg Mean Corpuscular Hemoglobin Concent 30.4 g/dl 30.7 g/dl Platelet Count 324 K/uL 291 K/uL Mean Platelet Volume 10.5 fL 9.9 fL Neutrophils (%) (Auto) 89.2 % 85.2 % Lymphocytes (%) (Auto) 5.7 % 6.5 % Monocytes (%) (Auto) 4.6 % 7.9 % Eosinophils (%) (Auto) 0.0 % 0.0 % Basophils (%) (Auto) 0.1 % 0.1 % Neutrophils # (Auto) 15.28 K/uL 12.88 K/uL Lymphocytes # (Auto) 0.98 K/uL 0.99 K/uL Monocytes # (Auto) 0.79 K/uL 1.19 K/uL Eosinophils # (Auto) 0.00 K/uL 0.00 K/uL Basophils # (Auto) 0.01 K/uL 0.01 K/uL RDW Standard Deviation 53.7 fL 54.9 fL RDW Coefficient of Variation 16.9 % 16.9 % Immature Granulocyte % (Auto) 0.4 % 0.3 % Immature Granulocyte # (Auto) 0.06 K/uL 0.05 K/uL Prothrombin Time 23.8 SECONDS 17.8 SECONDS Prothromb Time International Ratio 2.2 1.6 Activated Partial Thromboplast Time 37.3 SECONDS 32.6 SECONDS Partial Thromboplastin Ratio 1.4 1.3 Sodium Level 143 mmol/L 144 mmol/L Potassium Level 4.2 mmol/L 4.1 mmol/L Chloride Level 102 mmol/L 102 mmol/L Carbon Dioxide Level 35 mmol/L 36 mmol/L Anion Gap 6.0 mmol/L 19.0 mmol/L 6.0 mmol/L Blood Urea Nitrogen 42 mg/dl 38 mg/dl Creatinine 1.00 mg/dl 0.92 mg/dl Est Creatinine Clear Calc Drug Dose 113.4 ml/min 119.6 ml/min Estimated GFR () 90.5 100.1 Estimated GFR (Non- 78.1 86.4 BUN/Creatinine Ratio 41.9 41.1 Random Glucose 154 mg/dl 155 mg/dl Calcium Level 9.5 mg/dl 9.0 mg/dl Total Bilirubin 0.4 mg/dl 0.4 mg/dl Direct Bilirubin 0.2 mg/dl Aspartate Amino Transf (AST/SGOT) 14 U/L 14 U/L Alanine Aminotransferase (ALT/SGPT) 17 U/L 14 U/L Alkaline Phosphatase 52 U/L 49 U/L Total Protein 7.5 gm/dl 6.8 gm/dl Albumin 3.2 gm/dl 2.9 gm/dl Lipase 198 U/L Bedside Hemoglobin 14.3 g/dl Bedside Hematocrit 42 % Bedside Sodium 142 mEq/L Bedside Potassium 4.1 mEq/L Bedside Chloride 95 mEq/L Bedside Total CO2 33 mEq/l Bedside Blood Urea Nitrogen 41 mg/dl Bedside Creatinine 1.0 mg/dl Bedside Glucose (other) 161 mg/dl Bedside Ionized Calcium (Bernadette) 1.13 mmol/l Nucleated RBC Absolute Count (auto) 0.00 K/uL Nucleated Red Blood Cells % 0.0 % Globulin 3.9 gm/dl Albumin/Globulin Ratio 0.7 Bedside Glucose 137 mg/dl Assessment and Plan Assessment and Plan: 66 year old male with Klinefelter's syndrome, afib on anticoagulation and hx esophageal rupture in 2016 presents with nausea, vomiting and hematemesis. Differential diagnosis includes peptic ulcer disease, gastritis, Georgina Irving tear and vascular lesions. Likely Georgina Irving tear given the clear/yellow emesis prior to hematemesis. Cannot rule out PUD or gastritis given the chronic use of aspirin. Hematemesis - on chronic anticoagulation for Afib, given Vit K 10mg IV in ED for reversal of INR 2.2 - holding aspirin and coumadin - CT Abd: Marked gastric distention, Diverticulosis w/o evidence of acute diverticulitis, Fecal retention - Pantoprazole bolus in ED, currently on drip - will defer NG tube insertion unless further vomiting due to history of esophageal rupture - type and screen - q12hr H&H - NPO for EGD - Consult GI for EGD Leukocytosis - afebrile, no clear source but suspected aspiration pneumonia - blood culture x2 - RUQ US performed to assess for cholecystitis given hx of cholelithiasis - negative - CXR - Cardiomegaly w/ bilateral pleural effusions and suspected mild pulm edema - covering for aspiration pneumonia with ampicillin/sulbactam Type 2 diabetes mellitus - hold metformin, continue lantus to 53u qhs - Novolog Correction: 15, carb ratio 5 - diet currently NPO for EGD Chronic Afib on anticoagulation - coumadin reversed in setting of acute bleed - continue to hold coumadin - continue telemetry Anemia, chronic - baseline Hgb ~9 - has history of B12 deficiency anemia - continue B12 supplementation Constipation, chronic - hold on bowel regimen until after EGD Hyperlipidemia - continue atorvastatin qhs HTN - continue home Bumex and lisinopril Left Adrenal Incidentaloma - 14mm on CT abdomen, unchanged from prior CT in 12/2015 FEN: NPO PPX: anticoagulation contraindicated in setting of acute bleed, ABDOUL and SCD likely to lead to skin breakdown given poor skin integrity Dispo: telemetry, consider step down tomorrow if H&H remains stable Code: Full
[2016-12-14] MEDS: CEROVITE ADV FORMULA TAB PO SCH (08:43)
[2016-12-14] MEDS: MAGNESIUM OXIDE 400 MG TAB PO SCH (08:43)
[2016-12-14] MEDS: CYANOCOBALAMIN 500 MCG TAB (VIT B-12) PO SCH (08:44)
[2016-12-14 08:51] LABS: URINE APPEARANCE CLEAR (CLEAR); URINE BILIRUBIN NEG (NEG); URINE COLOR DK YELLOW; URINE NITRITE NEG (NEG); URINE SPECIFIC GRAVITY > 1.045 (1.000-1.030); UROBILINOGEN POS (NEG); ZZUR CULT IF INDIC CLEAN CATCH NO
[2016-12-14 08:52] LABS: MANUAL MICROSCOPIC REQUIRED? NO; REVIEW REQ? NO
[2016-12-14] MEDS ORDERED: CEROVITE ADV FORMULA TAB PO SCH (09:00)
[2016-12-14] MEDS ORDERED: MAGNESIUM OXIDE 400 MG TAB PO SCH (09:00)
[2016-12-14] MEDS ORDERED: LISINOPRIL 2.5 MG TAB PO SCH (09:00)
[2016-12-14] MEDS ORDERED: BUMETANIDE 1 MG TAB PO SCH (09:00)
[2016-12-14] MEDS ORDERED: CYANOCOBALAMIN 500 MCG TAB (VIT B-12) PO SCH (09:00)
--- NOTE | 2016-12-14 09:00 | Family Medicine Progress Note ---
Progress Note Date of Service Dec 14, 2016. Subjective Pt evaluation today including: conversation w/ patient, physical exam, chart review, lab review Voiding: no voiding problems 66-year-old male with past medical history of Klinefelter's syndrome, atrial fibrillation currently on Coumadin , chronic constipation, type 2 diabetes, esophageal rupture presented to the ER with complaints of nausea vomiting and hematemesis. Last episode of vomiting was in the ER and he had no new episodes of vomiting overnight. afebrile Constitutional: No fever, No chills Eyes: No worsening of vision ENT: No hearing loss Respiratory: No cough, No sputum, No wheezing Cardiovascular: No chest pain Abdomen: + constipation, No pain, No nausea, No vomiting Musculoskeletal: No joint pain Male : No dysuria Neurologic: No memory loss Psychiatric: No depression symptoms Medications Current Inpatient Medications Medications (Trade) Dose Ordered Sig/[place] Route Start Time Stop Time Status Last Admin Dose Admin Promethazine HCl 12.5 mg/Sodium Chloride 50.5 ml @ 204 mls/hr Q6H PRN IV 12/14/16 01:45 01/13/17 01:44 Sodium Chloride 1,000 ml @ 100 mls/hr Q10H IV 12/14/16 02:00 01/13/17 01:59 12/14/16 14:21 100 MLS/HR Ampicillin Sodium/ Sulbactam Sodium 3000 mg/Sodium Chloride 108 ml @ 200 mls/hr Q6H IV 12/14/16 04:00 12/21/16 03:59 12/14/16 10:42 200 MLS/HR Insulin Glargine (Lantus Solostar Pen) 54 units HS SC 12/14/16 21:00 01/13/17 20:59 Glucose (Glucose 40% Gel) 15-30 GRAMS 15 GRAMS... UD PRN PO 12/14/16 03:15 01/13/17 03:14 Glucose (Glucose Chew Tab) 4-8 Tablets 4 Tabl... UD PRN PO 12/14/16 03:15 01/13/17 03:14 Dextrose (Dextrose 50% 50ML Syringe) 25-50ML OF 50% DW IV FOR... UD PRN IV 12/14/16 03:15 01/13/17 03:14 Glucagon (Glucagon Inj) 1 mg UD PRN SQ 12/14/16 03:15 01/13/17 03:14 Acetaminophen (Tylenol Tab) 650 mg Q6H PRN PO 12/14/16 03:30 01/13/17 03:29 Atorvastatin Calcium (Lipitor Tab) 40 mg HS PO 12/14/16 21:00 01/13/17 20:59 Cyanocobalamin (Vitamin B-12 Tab) 1,000 mcg DAILY PO 12/14/16 09:00 01/13/17 08:59 12/14/16 08:44 1,000 MCG Escitalopram Oxalate (Lexapro Tab) 15 mg HS PO 12/14/16 21:00 01/13/17 20:59 Lisinopril (Zestril Tab) 2.5 mg DAILY PO 12/14/16 09:00 01/13/17 08:59 Future Hold Magnesium Oxide (Mag-Ox Tab) 400 mg DAILY PO 12/14/16 09:00 01/13/17 08:59 12/14/16 08:43 400 MG Bumetanide (Bumex Tab) 0.5 mg QAM PO 12/14/16 09:00 01/13/17 08:59 Future Hold Ondansetron HCl (Zofran Inj) 4 mg Q6H PRN IV 12/14/16 03:30 01/13/17 03:29 Multivitamins/ Minerals (Multivitamin W/ Minerals Tab) 1 tab DAILY PO 12/14/16 09:00 01/13/17 08:59 12/14/16 08:43 1 TAB Pantoprazole Sodium 40 mg/ Dextrose 100 ml @ 20 mls/hr Q5H IV 12/14/16 04:30 01/13/17 04:29 12/14/16 14:26 20 MLS/HR Insulin Aspart (novoLOG ASPART) SLIDING SCALE G... Q6H SC 12/14/16 06:00 01/13/17 05:59 Objective Vital Signs Date Time Temp Pulse Resp B/P (MAP) Pulse Ox O2 Delivery O2 Flow Rate FiO2 12/14/16 15:23 37 80 20 124/67 (86) 96 Nasal Cannula 1 12/14/16 12:00 97 Nasal Cannula 1.0 12/14/16 10:44 37.2 82 16 162/73 (102) 95 Nasal Cannula 1.0 12/14/16 08:00 98 Nasal Cannula 1.0 12/14/16 07:11 36.9 96 20 161/97 (118) 98 Nasal Cannula 1.0 12/14/16 04:56 165/101 (122) 12/14/16 03:22 37.2 79 20 186/101 95 Room Air 2.0 12/14/16 02:12 36.8 77 18 173/100 96 12/14/16 01:46 77 18 173/100 96 Nasal Cannula 2.0 12/14/16 01:25 78 12/14/16 00:18 80 18 158/75 96 Room Air 12/13/16 23:53 82 22 152/119 95 Nasal Cannula 12/13/16 23:14 86 18 177/109 94 Nasal Cannula 2.0 12/13/16 22:00 95 Nasal Cannula 2.0 12/13/16 21:59 Room Air 12/13/16 21:55 88 12/13/16 21:47 36.8 87 20 160/101 88 Room Air Physical Exam General Appearance: WD/WN, no apparent distress Eyes: normal inspection ENT: hearing grossly normal Neck: supple Respiratory/Chest: lungs clear, normal breath sounds, no respiratory distress, no accessory muscle use Cardiovascular: + irregularly irregular Abdomen: normal bowel sounds, soft, + tenderness (left upper quadrant), + pertinent finding (midline scar with scabs) Extremities: normal inspection, no pedal edema Neurologic/Psychiatric: alert, normal mood/affect, oriented x 3 Skin: normal color Laboratory Results 12/14/16 04:13 Red Blood Count 4.48, Mean Corpuscular Volume 88.6, Mean Corpuscular Hemoglobin 27.2, Mean Corpuscular Hemoglobin Concent 30.7, Mean Platelet Volume 9.9, Neutrophils (%) (Auto) 85.2, Lymphocytes (%) (Auto) 6.5, Monocytes (%) (Auto) 7.9, Eosinophils (%) (Auto) 0.0, Basophils (%) (Auto) 0.1, Neutrophils # (Auto) 12.88, Lymphocytes # (Auto) 0.99, Monocytes # (Auto) 1.19, Eosinophils # (Auto) 0.00, Basophils # (Auto) 0.01 12/14/16 13:23 12/14/16 04:13 Test 12/13/16 22:09 7/16/17 22:13 12/14/16 04:13 12/14/16 08:10 Direct Bilirubin 0.2 mg/dl (0-0.2) Lipase 198 U/L (73-393) Bedside Hemoglobin 14.3 g/dl (14.0-18.0) Bedside Hematocrit 42 % (42-52) Bedside Sodium 142 mEq/L (135-144) Bedside Potassium 4.1 mEq/L (3.3-5.0) Bedside Chloride 95 mEq/L (101-112) Bedside Total CO2 33 mEq/l (24-31) Bedside Blood Urea Nitrogen 41 mg/dl (7-18) Bedside Creatinine 1.0 mg/dl (0.6-1.3) Bedside Glucose (other) 161 mg/dl (70-99) Bedside Ionized Calcium (Bernadette) 1.13 mmol/l (1.12-1.32) White Blood Count 14.88 K/uL (4.8-10.8) Red Blood Count 4.48 M/uL (4.7-6.1) Hemoglobin 12.2 g/dL (14.0-18.0) Hematocrit 39.7 % (42-52) Mean Corpuscular Volume 88.6 fL (80-100) Mean Corpuscular Hemoglobin 27.2 pg (25-34) Mean Corpuscular Hemoglobin Concent 30.7 g/dl (32-36) Platelet Count 291 K/uL (130-400) Mean Platelet Volume 9.9 fL (7.4-10.4) Neutrophils (%) (Auto) 85.2 % Lymphocytes (%) (Auto) 6.5 % Monocytes (%) (Auto) 7.9 % Eosinophils (%) (Auto) 0.0 % Basophils (%) (Auto) 0.1 % Neutrophils # (Auto) 12.88 K/uL (1.4-6.5) Lymphocytes # (Auto) 0.99 K/uL (1.2-3.4) Monocytes # (Auto) 1.19 K/uL (0.11-0.59) Eosinophils # (Auto) 0.00 K/uL (0-0.5) Basophils # (Auto) 0.01 K/uL (0-0.2) RDW Standard Deviation 54.9 fL (36.4-46.3) RDW Coefficient of Variation 16.9 % (11.5-14.5) Immature Granulocyte % (Auto) 0.3 % Immature Granulocyte # (Auto) 0.05 K/uL (0.00-0.02) Nucleated RBC Absolute Count (auto) 0.00 K/uL (0-0) Nucleated Red Blood Cells % 0.0 % Prothrombin Time 17.8 SECONDS (9.0-12.0) Prothromb Time International Ratio 1.6 (0.9-1.1) Activated Partial Thromboplast Time 32.6 SECONDS (21.0-31.0) Partial Thromboplastin Ratio 1.3 Anion Gap 6.0 mmol/L (3-11) Est Creatinine Clear Calc Drug Dose 119.6 ml/min Estimated GFR () 100.1 Estimated GFR (Non- 86.4 BUN/Creatinine Ratio 41.1 (10-20) Calcium Level 9.0 mg/dl (8.5-10.1) Total Bilirubin 0.4 mg/dl (0.2-1) Aspartate Amino Transf (AST/SGOT) 14 U/L (15-37) Alanine Aminotransferase (ALT/SGPT) 14 U/L (12-78) Alkaline Phosphatase 49 U/L (45-117) Total Protein 6.8 gm/dl (6.4-8.2) Albumin 2.9 gm/dl (3.4-5.0) Globulin 3.9 gm/dl (2.5-4.0) Albumin/Globulin Ratio 0.7 (0.9-2) Urine Color DK YELLOW Urine Appearance CLEAR (CLEAR) Urine pH 6.0 (4.5-7.5) Urine Specific [place] > 1.045 (1.000-1.030) Urine Protein 3+ (NEG) Urine Glucose (UA) NEG (NEG) Urine Ketones NEG (NEG) Urine Occult Blood NEG (NEG) Urine Nitrite NEG (NEG) Urine Bilirubin NEG (NEG) Urine Urobilinogen POS (NEG) Urine Leukocyte Esterase NEG (NEG) Urine WBC (Auto) 1-5 /hpf (0-5) Urine RBC (Auto) 0-4 /hpf (0-4) Urine Hyaline Casts (Auto) 0 /lpf (0-5) Urine Epithelial Cells (Auto) 10-20 /lpf (0-5) Urine Bacteria (Auto) NEG (NEG) Test 12/14/16 11:16 Bedside Glucose 132 mg/dl (70-99) Assessment and Plan 66-year-old male with past medical history of Klinefelter's syndrome, atrial fibrillation currently on Coumadin , chronic constipation, type 2 diabetes, esophageal rupture presented to the ER with complaints of nausea vomiting and hematemesis. Hematemesis/ H/o esophageal rupture - NPO - continue Protonix - EGD scheduled for this afternoon - GI consult - appreciate recs Atrial fibrillation: - Rate controlled - AC with coumadin -currently held - INR reversed with Vitamin K Diastolic heart failure: - Continue Bumex Leucocytosis: ?Stress vs aspiration - WBC count improved from 17 to 14 - Liver US to rule out cholecystitis: 1. Cholelithiasis without evidence of cholecystitis or biliary ductal dilatation. 2. Hepatomegaly with possible mild steatosis. - Continue unasyn Type 2 DM: - ISS Hyperlipidemia: Continue statin Full code DVT prophylaxis: SCDs Dispo: tele History Resident Physician Supervision Note: I was present with Dr. Gonzales during the history and exam. I discussed the case with the resident and agree with the findings and plan as documented in the note. Any exceptions or clarifications are listed here. At time of exam, Mr. Escobar is resting comfortably in bed. He complains of mild abdominal pain over the site of his abdominal surgery which is worse with palpation and with some skin crusting without rash or swelling. I reviewed the finding of the adrenal nodule, and he reports that this finding was discovered previously and he is aware. He reports no n/v, lightheadedness, CP/SOB. General Appearance: no apparent distress, obese Respiratory: lungs clear, normal breath sounds, no respiratory distress Cardiovascular: normal peripheral pulses, no gallop, irregularly irregular Gastrointestinal: normal bowel sounds, soft, tenderness (over surgical scarring ) Assessment/Plan 66 y/o male h/o Klinefelter's, AFib, esophageal rupture hx w/ hematemesis Hematemesis w/ h/o gastroparesis and esophageal rupture - currently on PPI therapy, GI aware and recommendations appreciated. Trending H/H, NPO this AM Atrial fibrillation on AC - warfarin reversed, currently holding AC, will monitor INR Leukocytosis - ?aspiration episode - f/u BCx, continue abx DMII - continue present insulin regimen HLD - will restart statin after no longer NPO HTN - can restart lisinopril now that H/H is stable FULL CODE
[2016-12-14] MEDS ORDERED: METOCLOPRAMIDE HCL INJ 5 MG/ML 2 ML VIAL IM STA (11:57)
--- NOTE | 2016-12-14 12:43 | Gastrointestinal Consultation ---
Gastrointestinal Consultation Date of Consultation: Dec 14, 2016 Attending Physician: Dr. Lance Consulting Physician: Alanna Jean PA-C Reason for Consultation: Hematemesis History of Present Illness Patient is a 66 year old male with a past medical history of a fib, venous stasis, DM2, osteomyelitis, hyperlipidemia, hypertension, and Klinefelter syndrome. The patient reports that he developed nausea and vomiting last evening. He reports hematemesis. He takes daily Coumadin. He denies NSAID use. He denies heartburn or abdominal pain. His nausea and vomiting has subsided. His hemoglobin is presently stable at 12.2. CT imaging shows significant distention of the stomach. The patient has a history of gastroparesis. He denies constipation or diarrhea. He reports chronically dark stools due to iron use. He denies family history of GI malignancy. He is presently on a Protonix infusion. He denies any further symptoms at present. He had an EGD in [address] Casarez that was unremarkable with the exception of a hiatal hernia. He subsequently had a colonoscopy that indicated diverticulosis. Past Medical/Surgical History Medical Problems: (1) Hematemesis Status: Acute (2) Leukocytosis Status: Acute (3) Perforated abdominal viscus Status: Acute (4) Pylephlebitis Status: Acute (5) Upper GI bleeding Status: Acute Past Medical History: A fib, Venous stasis, DM2, osteomyelitis, hypertension, Klinefelter syndrome Patient does not recall an esophageal perforation Past Surgical History: EGD, colonoscopy Family History Coronary artery disease FATHER Social History Smoking Status: Former Smoker Drug Use: none Marital Status: single Housing Status: group home Occupation Status: disabled Allergies Coded Allergies: No Known Allergies (Verified , NONE, 08/04/16) Current Medications Home Meds and Scripts Medications Dose Route/Sig Max Daily Dose Days Date Category Dose Instructions Oxycodone Hcl 10 Mg Tab 10 Mg PO TID 30 12/13/16 Reported Lactaid (Lactase) 3,000 Unit Tab 1 Tab PO TIDM 12/13/16 Reported Vitamin C (Ascorbic Acid) 250 Mg Tab 250 Mg PO BID 12/13/16 Reported Oyster Shell 500 Mg Tab 250 Mg PO BID 12/13/16 Reported Novolog (Insulin Aspart) 100 Units/Ml Inj 7 Units SC HS 12/13/16 Reported Novolog (Insulin Aspart) 100 Units/Ml Inj 6 Units SC DAILY 12/13/16 Reported TO BE GIVEN WITH LUNCH Novolog (Insulin Aspart) 100 Units/Ml Inj 4 Units SC PM 12/13/16 Reported TO BE GIVEN WITH DINNER Lantus Solostar (Insulin Glargine) 100 Unit/Ml Inj 54 Units SC HS 12/13/16 Reported Vitamin D 60053 Unit (Ergocalciferol) 50,000 Unit Cap 50,000 Unit PO WK 12/13/16 Reported SATURDAYS Jantoven (Warfarin Sodium) 3 Mg Tab 3 Mg PO 3XWK 12/13/16 Reported Vitamin D3 (Cholecalciferol) 2,000 Unit Tab 2,000 Units PO DAILY 90 12/13/16 Reported Senokot (Senna) 8.6 Mg Tab 1 Tab PO DAILY 08/04/16 Reported Mvi With Minerals (Multivitamins/Minerals) Tab 1 Tab PO DAILY 08/04/16 Reported Lexapro (Escitalopram Oxalate) 10 Mg Tab 15 Mg PO HS 08/04/16 Reported Jantoven (Warfarin Sodium) 4 Mg Tab 4 Mg PO 4XWK 08/04/16 Reported SUN,TUE,THBRANDON,SAT Lioresal (Baclofen) 10 Mg Tab 10 Mg PO Q8H PRN 08/04/16 Reported Phenergan Suppository (Promethazine HCl) 25 Mg Supp 25 Mg MT Q4H PRN 12/29/15 Reported Miralax (Polyethylene Glycol 3350) 1 Pow Pow 17 Gm PO DAILY 12/29/15 Reported Lisinopril 2.5 Mg Tab 2.5 Mg PO DAILY 12/29/15 Reported Aspirin Ec (Aspirin) 81 Mg Tab 81 Mg PO WK 12/29/15 Reported GIVEN ON WEDNESDAYS Tricor (Fenofibrate) 160 Mg Tab 160 Mg PO HS 12/29/15 Reported Lipitor (Atorvastatin Calcium) 40 Mg Tab 40 Mg PO HS 12/29/15 Reported Lutein W/Zeaxanthin (Lutein-Zeaxanthin) 1 Tab Tab 1 Tab PO BID 11/26/14 Reported Glucophage (Metformin Hcl) 1,000 Mg Tab 1,000 Mg PO BID 08/09/14 Reported Ferrous Sulfate 325 Mg Tab 325 Mg PO TID 08/09/14 Reported Mag-Ox (Magnesium Oxide) 400 Mg Tab 400 Mg PO DAILY 08/30/13 Reported Tylenol (Acetaminophen) 325 Mg Tab 650 Mg PO Q6H PRN 06/01/13 Reported NEEDED FOR MILD PAIN RATED 1-10 ON A SCALE OF "0-10" OR FOR ELEVATED TEMPERATURE GREATER THAN 101 F. DO NOT EXCEED 3 GM APAP/24 HOURS. Bumetanide 0.5 Mg Tab 0.5 Mg PO DAILY 06/01/13 Reported Vitamin B-12 (Cyanocobalamin) 1,000 Mcg Tab 1,000 Mcg PO DAILY 12/03/08 Reported Review of Systems Constitutional: No fever, No chills Eyes: No problem reported Respiratory: + shortness of breath, + dyspnea on exertion, No cough Cardiac: No chest pain Abdomen: + nausea, + vomiting, + GI bleeding, No pain, No diarrhea, No constipation Musculoskeletal: No joint pain Psych: No problem reported Skin: No problem reported Physical Exam Date Time Temp Pulse Resp B/P (MAP) Pulse Ox O2 Delivery O2 Flow Rate FiO2 12/14/16 10:44 37.2 82 16 162/73 (102) 95 Nasal Cannula 1.0 12/14/16 08:00 98 Nasal Cannula 1.0 12/14/16 07:11 36.9 96 20 161/97 (118) 98 Nasal Cannula 1.0 12/14/16 04:56 165/101 (122) 12/14/16 03:22 37.2 79 20 186/101 95 Room Air 2.0 12/14/16 02:12 36.8 77 18 173/100 96 12/14/16 01:46 77 18 173/100 96 Nasal Cannula 2.0 12/14/16 01:25 78 12/14/16 00:18 80 18 158/75 96 Room Air 12/13/16 23:53 82 22 152/119 95 Nasal Cannula 12/13/16 23:14 86 18 177/109 94 Nasal Cannula 2.0 12/13/16 22:00 95 Nasal Cannula 2.0 12/13/16 21:59 Room Air 12/13/16 21:55 88 12/13/16 21:47 36.8 87 20 160/101 88 Room Air General Appearance: WD/WN, no apparent distress Eyes: normal inspection, PERRL ENT: hearing grossly normal Respiratory/Chest: lungs clear Cardiovascular: regular rate, rhythm Abdomen: normal bowel sounds, non tender, soft Extremities: non-tender Neurologic/Psych: alert, oriented x 3 Skin: normal color Laboratory Results Last 24 Hours Test 12/13/16 22:09 12/13/16 22:13 12/14/16 04:13 12/14/16 06:20 White Blood Count 17.12 K/uL 14.88 K/uL Red Blood Count 4.83 M/uL 4.48 M/uL Hemoglobin 12.9 g/dL 12.2 g/dL Hematocrit 42.4 % 39.7 % Mean Corpuscular Volume 87.8 fL 88.6 fL Mean Corpuscular Hemoglobin 26.7 pg 27.2 pg Mean Corpuscular Hemoglobin Concent 30.4 g/dl 30.7 g/dl Platelet Count 324 K/uL 291 K/uL Mean Platelet Volume 10.5 fL 9.9 fL Neutrophils (%) (Auto) 89.2 % 85.2 % Lymphocytes (%) (Auto) 5.7 % 6.5 % Monocytes (%) (Auto) 4.6 % 7.9 % Eosinophils (%) (Auto) 0.0 % 0.0 % Basophils (%) (Auto) 0.1 % 0.1 % Neutrophils # (Auto) 15.28 K/uL 12.88 K/uL Lymphocytes # (Auto) 0.98 K/uL 0.99 K/uL Monocytes # (Auto) 0.79 K/uL 1.19 K/uL Eosinophils # (Auto) 0.00 K/uL 0.00 K/uL Basophils # (Auto) 0.01 K/uL 0.01 K/uL RDW Standard Deviation 53.7 fL 54.9 fL RDW Coefficient of Variation 16.9 % 16.9 % Immature Granulocyte % (Auto) 0.4 % 0.3 % Immature Granulocyte # (Auto) 0.06 K/uL 0.05 K/uL Prothrombin Time 23.8 SECONDS 17.8 SECONDS Prothromb Time International Ratio 2.2 1.6 Activated Partial Thromboplast Time 37.3 SECONDS 32.6 SECONDS Partial Thromboplastin Ratio 1.4 1.3 Sodium Level 143 mmol/L 144 mmol/L Potassium Level 4.2 mmol/L 4.1 mmol/L Chloride Level 102 mmol/L 102 mmol/L Carbon Dioxide Level 35 mmol/L 36 mmol/L Anion Gap 6.0 mmol/L 19.0 mmol/L 6.0 mmol/L Blood Urea Nitrogen 42 mg/dl 38 mg/dl Creatinine 1.00 mg/dl 0.92 mg/dl Est Creatinine Clear Calc Drug Dose 113.4 ml/min 119.6 ml/min Estimated GFR () 90.5 100.1 Estimated GFR (Non- 78.1 86.4 BUN/Creatinine Ratio 41.9 41.1 Random Glucose 154 mg/dl 155 mg/dl Calcium Level 9.5 mg/dl 9.0 mg/dl Total Bilirubin 0.4 mg/dl 0.4 mg/dl Direct Bilirubin 0.2 mg/dl Aspartate Amino Transf (AST/SGOT) 14 U/L 14 U/L Alanine Aminotransferase (ALT/SGPT) 17 U/L 14 U/L Alkaline Phosphatase 52 U/L 49 U/L Total Protein 7.5 gm/dl 6.8 gm/dl Albumin 3.2 gm/dl 2.9 gm/dl Lipase 198 U/L Bedside Hemoglobin 14.3 g/dl Bedside Hematocrit 42 % Bedside Sodium 142 mEq/L Bedside Potassium 4.1 mEq/L Bedside Chloride 95 mEq/L Bedside Total CO2 33 mEq/l Bedside Blood Urea Nitrogen 41 mg/dl Bedside Creatinine 1.0 mg/dl Bedside Glucose (other) 161 mg/dl Bedside Ionized Calcium (Bernadette) 1.13 mmol/l Nucleated RBC Absolute Count (auto) 0.00 K/uL Nucleated Red Blood Cells % 0.0 % Globulin 3.9 gm/dl Albumin/Globulin Ratio 0.7 Bedside Glucose 137 mg/dl Test 12/14/16 08:10 12/14/16 11:16 Urine Color DK YELLOW Urine Appearance CLEAR Urine pH 6.0 Urine Specific [place] > 1.045 Urine Protein 3+ Urine Glucose (UA) NEG Urine Ketones NEG Urine Occult Blood NEG Urine Nitrite NEG Urine Bilirubin NEG Urine Urobilinogen POS Urine Leukocyte Esterase NEG Urine WBC (Auto) 1-5 /hpf Urine RBC (Auto) 0-4 /hpf Urine Hyaline Casts (Auto) 0 /lpf Urine Epithelial Cells (Auto) 10-20 /lpf Urine Bacteria (Auto) NEG Bedside Glucose 132 mg/dl Impression Patient is a 66 year old male with hematemesis and mild anemia (hgb 12.1). The patient is on chronic anticoagulation. Plan 1) Continue Protonix infusion at present. 2) Keep patient NPO for EGD today. 3) Give 10 mg Reglan IV now. 4) Further recommendations pending results of EGD. Thank you for allowing us to participate in the care of this patient. If you should have any further questions or concerns, do not hesitate to contact us. Agree with AKI Bravo as above Abd: Soft, NT, ND, +BS Continue current therapy EGD today
[2016-12-14 13:36] LABS: HEMATOCRIT 39.4 % (42-52)
[2016-12-14] MEDS ORDERED: METOCLOPRAMIDE HCL INJ 5 MG/ML 2 ML VIAL ONE (14:18)
[2016-12-14] MEDS ORDERED: PROPOFOL IV EMULSION 10 MG/ML 20 ML VIAL IV ONE (16:50)
[2016-12-14] MEDS ORDERED: LIDOCAINE HCL 2% 2 ML VIAL (20MG/ML) ONE (16:50)
--- NOTE | 2016-12-14 16:56 | Anesthesiology Progress Note ---
Anesthesia Post Op Note Date & Time Dec 14, 2016 at 16:56 Vital Signs Pain Intensity: 0 Vital Signs Past 12 Hours Date Time Temp Pulse Resp B/P (MAP) Pulse Ox O2 Delivery O2 Flow Rate FiO2 12/14/16 16:49 76 18 153/71 (98) 99 Room Air 12/14/16 15:23 37 80 20 124/67 (86) 96 Nasal Cannula 1 12/14/16 12:00 97 Nasal Cannula 1.0 12/14/16 10:44 37.2 82 16 162/73 (102) 95 Nasal Cannula 1.0 12/14/16 08:00 98 Nasal Cannula 1.0 12/14/16 07:11 36.9 96 20 161/97 (118) 98 Nasal Cannula 1.0 Notes Mental Status: alert / awake / arousable, participated in evaluation Pt Amnestic to Procedure: Yes Nausea / Vomiting: adequately controlled Pain: adequately controlled Airway Patency, RR, SpO2: stable & adequate BP & HR: stable & adequate Hydration State: stable & adequate Anesthetic Complications: no major complications apparent
--- NOTE | 2016-12-14 17:04 | GI REPORT ---
Procedure Date: 12/14/2016 4:18 PM Procedure: Upper GI endoscopy Indications: Coffee-ground emesis Medicines: Monitored Anesthesia Care Complications: No immediate complications. Estimated Blood Loss: Estimated blood loss: none. Procedure: Pre-Anesthesia Assessment: - Prior to the procedure, a History and Physical was performed, and patient medications and allergies were reviewed. The patient's tolerance of previous anesthesia was also reviewed. The risks and benefits of the procedure and the sedation options and risks were discussed with the patient. All questions were answered, and informed consent was obtained. Prior Anticoagulants: The patient has taken Coumadin (warfarin), last dose was 2 days prior to procedure. ASA Grade Assessment: III - A patient with severe systemic disease. After reviewing the risks and benefits, the patient was deemed in satisfactory condition to undergo the procedure. After obtaining informed consent, the endoscope was passed under direct vision. Throughout the procedure, the patient's blood pressure, pulse, and oxygen saturations were monitored continuously. The scope was introduced through the mouth, and advanced to the second part of duodenum. The upper GI endoscopy was accomplished without difficulty. The patient tolerated the procedure well. Findings: The esophagus was normal. A large amount of food (residue) was found in the gastric fundus. Many non-bleeding cratered gastric ulcers with no stigmata of bleeding were found on the greater curvature of the stomach. The largest lesion was 4 mm in largest dimension. Biopsies were taken with a cold forceps for histology. The examined duodenum was normal. Impression: - Normal esophagus. - A large amount of food (residue) in the stomach. - Non-bleeding gastric ulcers with no stigmata of bleeding. Biopsied. - Normal examined duodenum. Recommendation: - Return patient to [facility] for ongoing care. - Clear liquid diet. - Continue present medications. Camron Casarez DO 12/14/2016 5:03:48 PM This report has been signed electronically. Note Initiated On: 12/14/2016 4:18 PM I attest to the content of the Intraoperative Record and orders documented therein, exceptions below
[2016-12-14] MEDS ORDERED: NURSING VERBAL MED ORDER ONE (19:00)
[2016-12-14 20:06] LABS: HEMATOCRIT 36.9 % (42-52)
[2016-12-14] MEDS: ESCITALOPRAM OXALATE 10 MG TAB PO SCH (20:37)
[2016-12-14] MEDS: ATORVASTATIN 20 MG TAB PO SCH (20:38)
[2016-12-14] MEDS ORDERED: INSULIN GLARGINE SOLOSTAR 100 UNITS/ML 3 ML PEN SC SCH ×2 (21:00)
[2016-12-14] MEDS ORDERED: ATORVASTATIN 20 MG TAB PO SCH (21:00)
[2016-12-14] MEDS ORDERED: ESCITALOPRAM OXALATE 10 MG TAB PO SCH (21:00)
[2016-12-14] MEDS: INSULIN GLARGINE SOLOSTAR 100 UNITS/ML 3 ML PEN SC SCH (22:01)
[2016-12-15] MEDS: AMPICILLIN/SULBACTAM SOD INJ 3,000 MG in SODIUM CHLORIDE 0.9% 100ML 100 ML IV SCH ×4 (04:14→22:04)
[2016-12-15] MEDS: PANTOprazole INJ 40 MG in DEXTROSE 5% 100ML IV SCH ×5 (04:28→23:55)
[2016-12-15 04:42] VITALS: BP 151/65; PULSE 57; TEMP 36.7; O2SAT 96
--- NOTE | 2016-12-15 05:59 | Clinical Documentation Query ---
CLINICAL DOCUMENTATION QUERY 66 year old male who presents to the Emergency Room via EMS from [facility] with hematemesis. In your clinical opinion is this patient being managed for: (X) Warfarin therapy related hematemesis/GIB treated with reversal of INR and EGD. ( ) Other explanation of clinical findings (Please Explain) ( ) Unable to determine (Please Define) ( ) Need to Discuss ( ) Not Agree The medical record reflects the following clinical findings, treatment, and risk factors. Clinical Indicators: Hematemesis, INR 2.2 on presentation, EGD showing many cratered ulcers w/o current bleeding, worsening anemia (Hgb 10.7, Hct 36.9) Treatment: reversal of Warfarin therapy with IV Vitamin K, GI consult, EGD, Risk Factors: Warfarin therapy and gastric ulcers Please clarify and document your clinical opinion in the progress notes and discharge summary. Terms such as "probable", "suspected", "likely", "questionable", "possible", or "still to be ruled out" are acceptable. IF IN AGREEMENT, YOU MUST DOCUMENT ABOVE DIAGNOSTIC STATEMENT IN DAILY PROGRESS NOTES AND DISCHARGE SUMMARY. This document is not part of the patient's record. Thank You, Gabriel England, DANTE [phone]
[2016-12-15 07:34] VITALS: BP 151/75; PULSE 64; TEMP 36.6; O2SAT 91
--- NOTE | 2016-12-15 07:47 | Family Medicine Progress Note ---
Progress Note Date of Service Dec 15, 2016. Subjective Pt evaluation today including: conversation w/ patient 66-year-old male with past medical history of Klinefelter's syndrome, atrial fibrillation currently on Coumadin , chronic constipation, type 2 diabetes, esophageal rupture presented to the ER with complaints of nausea vomiting and hematemesis. Last episode of vomiting was in the ER and he had no new episodes of vomiting overnight. afebrile. had an EGD done yesterday which revealed gastric ulcers. Constitutional: No fever, No chills Eyes: No worsening of vision ENT: No hearing loss Respiratory: No cough, No sputum Cardiovascular: No chest pain Abdomen: No pain, No nausea, No vomiting, No diarrhea Musculoskeletal: No joint pain Male : No dysuria Neurologic: No memory loss Psychiatric: No depression symptoms Medications Current Inpatient Medications Medications (Trade) Dose Ordered Sig/Carl[place] Route Start Time Stop Time Status Last Admin Dose Admin Promethazine HCl 12.5 mg/Sodium Chloride 50.5 ml @ 204 mls/hr Q6H PRN IV 12/14/16 01:45 01/13/17 01:44 Sodium Chloride 1,000 ml @ 100 mls/hr Q10H IV 12/14/16 02:00 01/13/17 01:59 12/15/16 16:52 100 MLS/HR Ampicillin Sodium/ Sulbactam Sodium 3000 mg/Sodium Chloride 108 ml @ 200 mls/hr Q6H IV 12/14/16 04:00 12/21/16 03:59 12/15/16 16:52 200 MLS/HR Glucose (Glucose 40% Gel) 15-30 GRAMS 15 GRAMS... UD PRN PO 12/14/16 03:15 01/13/17 03:14 Glucose (Glucose Chew Tab) 4-8 Tablets 4 Tabl... UD PRN PO 12/14/16 03:15 01/13/17 03:14 Dextrose (Dextrose 50% 50ML Syringe) 25-50ML OF 50% DW IV FOR... UD PRN IV 12/14/16 03:15 01/13/17 03:14 Glucagon (Glucagon Inj) 1 mg UD PRN SQ 12/14/16 03:15 01/13/17 03:14 Acetaminophen (Tylenol Tab) 650 mg Q6H PRN PO 12/14/16 03:30 01/13/17 03:29 Atorvastatin Calcium (Lipitor Tab) 40 mg HS PO 12/14/16 21:00 01/13/17 20:59 12/14/16 20:38 40 MG Cyanocobalamin (Vitamin B-12 Tab) 1,000 mcg DAILY PO 12/14/16 09:00 01/13/17 08:59 12/15/16 09:23 1,000 MCG Escitalopram Oxalate (Lexapro Tab) 15 mg HS PO 12/14/16 21:00 01/13/17 20:59 12/14/16 20:37 15 MG Lisinopril (Zestril Tab) 2.5 mg DAILY PO 12/14/16 09:00 01/13/17 08:59 Future Hold Magnesium Oxide (Mag-Ox Tab) 400 mg DAILY PO 12/14/16 09:00 01/13/17 08:59 12/15/16 09:22 400 MG Bumetanide (Bumex Tab) 0.5 mg QAM PO 12/14/16 09:00 01/13/17 08:59 Future hold Ondansetron HCl (Zofran Inj) 4 mg Q6H PRN IV 12/14/16 03:30 01/13/17 03:29 Multivitamins/ Minerals (Multivitamin W/ Minerals Tab) 1 tab DAILY PO 12/14/16 09:00 01/13/17 08:59 12/15/16 09:23 1 TAB Pantoprazole Sodium 40 mg/ Dextrose 100 ml @ 20 mls/hr Q5H IV 12/14/16 04:30 01/13/17 04:29 12/15/16 14:29 20 MLS/HR Insulin Aspart (novoLOG ASPART) SLIDING SCALE G... ACHS SC 12/14/16 19:03 01/13/17 05:59 12/15/16 16:50 7 UNITS Insulin Glargine (Lantus Solostar Pen) 27 units BID SC 12/14/16 22:00 01/13/17 21:59 12/15/16 09:25 27 UNITS Objective Vital Signs Date Time Temp Pulse Resp B/P (MAP) Pulse Ox O2 Delivery O2 Flow Rate FiO2 12/15/16 16:36 36.4 53 18 148/72 (97) 97 Nasal Cannula 2.0 12/15/16 11:29 36.4 51 16 139/55 (83) 95 2.0 12/15/16 07:34 36.6 64 16 151/75 (100) 91 1.0 12/15/16 07:30 Nasal Cannula 1.0 12/15/16 04:42 36.7 57 16 151/65 (93) 96 Nasal Cannula 2.0 12/15/16 04:00 Nasal Cannula 1.0 12/14/16 23:59 Nasal Cannula 1.0 12/14/16 23:57 37.1 64 18 139/67 (91) 97 Nasal Cannula 2.0 12/14/16 21:09 37.1 55 15 139/65 (89) 95 Room Air 12/14/16 20:00 Nasal Cannula 2.0 12/14/16 18:49 36.8 65 23 125/69 (87) 93 Room Air 12/14/16 17:19 62 18 146/68 (94) 100 Nasal Cannula 2 Physical Exam General Appearance: WD/WN, no apparent distress Eyes: normal inspection ENT: hearing grossly normal Neck: supple Respiratory/Chest: chest non-tender, lungs clear, normal breath sounds Cardiovascular: + irregularly irregular Abdomen: normal bowel sounds, non tender Extremities: normal range of motion, non-tender Neurologic/Psychiatric: alert, normal mood/affect, oriented x 3 Laboratory Results 12/15/16 08:19 Test 12/15/16 08:19 12/15/16 16:23 Red Blood Count 4.20 M/uL (4.7-6.1) Mean Corpuscular Volume 92.6 fL (80-100) Mean Corpuscular Hemoglobin 26.7 pg (25-34) Mean Corpuscular Hemoglobin Concent 28.8 g/dl (32-36) RDW Standard Deviation 56.9 fL (36.4-46.3) RDW Coefficient of Variation 16.9 % (11.5-14.5) Mean Platelet Volume 9.5 fL (7.4-10.4) Bedside Glucose 71 mg/dl (70-99) Assessment and Plan 66-year-old male with past medical history of Klinefelter's syndrome, atrial fibrillation currently on Coumadin , chronic constipation, type 2 diabetes, esophageal rupture presented to the ER with complaints of nausea vomiting and hematemesis. EGD done yesterday which revealed gastric ulcers which were biopsied Hematemesis likely secondary to gastric ulcers: EGD done 12/14:multiple gastric ulcerations without stigmata - Continue Protonix - Advance diet as tolerated Atrial fibrillation: - Rate controlled - AC with coumadin -currently held - INR reversed with Vitamin K Diastolic heart failure: - Continue Bumex Leucocytosis: ?Stress - WBC count improved from 17 on admission to 9.3 - Liver US to rule out cholecystitis: 1. Cholelithiasis without evidence of cholecystitis or biliary ductal dilatation. 2. Hepatomegaly with possible mild steatosis. - Unasyn Dc Type 2 DM: - ISS - continue lisinopril Neuropathy in bilateral feet: - likely sec to DM - B12 and folic levels ordered Hyperlipidemia: Continue statin Full code DVT prophylaxis: SCDs Dispo: tele History Resident Physician Supervision Note: I was present with Dr. Gonzales during the history and exam. I discussed the case with the resident and agree with the findings and plan as documented in the note. Any exceptions or clarifications are listed here. Pt reports improvement in abdominal pain at rest in the region of surgical scar. Resolution of nausea/vomiting. Reports no fever, Cp/SOB, palpitations, lightheadedness. Still no BM, passing flatus. Poor historian for even basic issues - inquired re: minimal activity and h/o bedbound - patient unaware of why he does not walk but reports he does not have pain with it, nor is his gait historically unstable. He is fully oriented. General Appearance: no apparent distress, obese Respiratory: chest non-tender, no respiratory distress, decreased breath sounds (throughout 2/2 habitus) Cardiovascular: normal peripheral pulses, no murmur, irregularly irregular Gastrointestinal: normal bowel sounds, non tender, soft, no organomegaly Extremities: other (multiple visible scars and superficial deformity) Assessment/Plan 66 y/o male h/o Klinefelter's, AFib, esophageal rupture hx w/ hematemesis Hematemesis w/ h/o gastroparesis and esophageal rupture - likely warfarin related - continue PPI IV until tomorrow, GI aware and recommendations appreciated. Trending H/H, f/u EGD pathology Atrial fibrillation on AC - warfarin reversed on admission - restart AC tomorrow w/ bridge, trend INR Leukocytosis - ?aspiration episode - f/u BCx (7.19), continue abx Evening apneic episodes w/ some desaturation req O2 - nocturnal pulse O2 w/ consideration of outpatient sleep study Constipation - consider addition of phenergan supp (home medication) if no response to MOM diastolic CHF - continue bumex, lisinopril DMII - continue present insulin regimen HLD - will restart statin after no longer NPO HTN - continue lisinopril FULL CODE Resident Tracking Resident Involvement: Resident Care Provided Care Provided: Adult Hospital Medicine
--- NOTE | 2016-12-15 08:42 | Medical Student: [facility] ---
Med Student Progress Note Date of Service Dec 15, 2016. Subjective Pt evaluation today including: conversation w/ patient, physical exam, chart review Pain: denies pain Voiding: no voiding problems Episode of bradycardia overnight. Patient was asleep and asymptomatic. No complaints this AM. Doing well. No nausea, vomiting, abdominal pain, chest pain, SOB or cough. Still has not had a bowel movement. Review of Systems Constitutional: + fatigue, No fever, No chills, No sweats Respiratory: No cough, No sputum Cardiac: + edema, No chest pain, No orthopnea, No palpitations Breast: + nipple discharge Abdomen: + constipation, No pain, No nausea, No vomiting Male : No dysuria, No urinary frequency, No incontinence Heme: No abnormal bleeding/bruising, No clotting problems Objective Vital Signs Date Time Temp Pulse Resp B/P (MAP) Pulse Ox O2 Delivery O2 Flow Rate FiO2 12/15/16 07:34 36.6 64 16 151/75 (100) 91 1.0 12/15/16 07:30 Nasal Cannula 1.0 12/15/16 04:42 36.7 57 16 151/65 (93) 96 Nasal Cannula 2.0 12/15/16 04:00 Nasal Cannula 1.0 12/14/16 23:59 Nasal Cannula 1.0 12/14/16 23:57 37.1 64 18 139/67 (91) 97 Nasal Cannula 2.0 12/14/16 21:09 37.1 55 15 139/65 (89) 95 Room Air 12/14/16 20:00 Nasal Cannula 2.0 12/14/16 18:49 36.8 65 23 125/69 (87) 93 Room Air 12/14/16 17:19 62 18 146/68 (94) 100 Nasal Cannula 2 12/14/16 17:04 66 18 140/75 (96) 100 Nasal Cannula 2 12/14/16 16:49 76 18 153/71 (98) 99 Nasal Cannula 2 12/14/16 16:00 95 Nasal Cannula 2.0 12/14/16 15:23 37 80 20 124/67 (86) 96 Nasal Cannula 1 12/14/16 12:00 97 Nasal Cannula 1.0 12/14/16 10:44 37.2 82 16 162/73 (102) 95 Nasal Cannula 1.0 Physical Exam General Appearance: no apparent distress, + obese Neck: supple, no adenopathy Respiratory/Chest: chest non-tender, lungs clear, + decreased breath sounds Cardiovascular: no JVD, + irregularly irregular Abdomen: soft, + abnormal bowel sounds (hypoactive), + tenderness (LUQ) Extremities: non-tender, no calf tenderness, + pedal edema (trace to mid tibia) Neurologic/Psychiatric: alert, normal mood/affect, oriented x 3 Skin: warm/dry, + pertinent finding (venous stasis changes bilaterally above ankles) Laboratory Results Last 24 Hours Test 12/14/16 11:16 12/14/16 13:23 12/14/16 17:35 12/14/16 19:45 Bedside Glucose 132 mg/dl 117 mg/dl Hemoglobin 11.7 g/dL 10.7 g/dL Hematocrit 39.4 % 36.9 % Test 12/14/16 20:13 12/15/16 04:56 12/15/16 08:19 Bedside Glucose 85 mg/dl 92 mg/dl Medications Current Inpatient Medications Medications (Trade) Dose Ordered Sig/[place] Route Start Time Stop Time Status Last Admin Dose Admin Promethazine HCl 12.5 mg/Sodium Chloride 50.5 ml @ 204 mls/hr Q6H PRN IV 12/14/16 01:45 01/13/17 01:44 Sodium Chloride 1,000 ml @ 100 mls/hr Q10H IV 12/14/16 02:00 01/13/17 01:59 12/14/16 22:02 100 MLS/HR Ampicillin Sodium/ Sulbactam Sodium 3000 mg/Sodium Chloride 108 ml @ 200 mls/hr Q6H IV 12/14/16 04:00 12/21/16 03:59 12/15/16 04:14 200 MLS/HR Glucose (Glucose 40% Gel) 15-30 GRAMS 15 GRAMS... UD PRN PO 12/14/16 03:15 01/13/17 03:14 Glucose (Glucose Chew Tab) 4-8 Tablets 4 Tabl... UD PRN PO 12/14/16 03:15 01/13/17 03:14 Dextrose (Dextrose 50% 50ML Syringe) 25-50ML OF 50% DW IV FOR... UD PRN IV 12/14/16 03:15 01/13/17 03:14 Glucagon (Glucagon Inj) 1 mg UD PRN SQ 12/14/16 03:15 01/13/17 03:14 Acetaminophen (Tylenol Tab) 650 mg Q6H PRN PO 12/14/16 03:30 01/13/17 03:29 Atorvastatin Calcium (Lipitor Tab) 40 mg HS PO 12/14/16 21:00 01/13/17 20:59 12/14/16 20:38 40 MG Cyanocobalamin (Vitamin B-12 Tab) 1,000 mcg DAILY PO 12/14/16 09:00 01/13/17 08:59 12/14/16 08:44 1,000 MCG Escitalopram Oxalate (Lexapro Tab) 15 mg HS PO 12/14/16 21:00 01/13/17 20:59 12/14/16 20:37 15 MG Lisinopril (Zestril Tab) 2.5 mg DAILY PO 12/14/16 09:00 01/13/17 08:59 Future Hold Magnesium Oxide (Mag-Ox Tab) 400 mg DAILY PO 12/14/16 09:00 01/13/17 08:59 12/14/16 08:43 400 MG Bumetanide (Bumex Tab) 0.5 mg QAM PO 12/14/16 09:00 01/13/17 08:59 Future Hold Ondansetron HCl (Zofran Inj) 4 mg Q6H PRN IV 12/14/16 03:30 01/13/17 03:29 Multivitamins/ Minerals (Multivitamin W/ Minerals Tab) 1 tab DAILY PO 12/14/16 09:00 01/13/17 08:59 12/14/16 08:43 1 TAB Pantoprazole Sodium 40 mg/ Dextrose 100 ml @ 20 mls/hr Q5H IV 12/14/16 04:30 01/13/17 04:29 12/15/16 04:28 20 MLS/HR Insulin Aspart (novoLOG ASPART) SLIDING SCALE G... ACHS SC 12/14/16 19:03 01/13/17 05:59 Insulin Glargine (Lantus Solostar Pen) 27 units BID SC 12/14/16 22:00 01/13/17 21:59 12/14/16 22:01 27 UNITS Bisacodyl (Dulcolax Supp) 10 mg NOW ONCE [place] 12/15/16 09:00 12/15/16 09:01 Assessment and Plan Assessment and Plan: 66 year old male with Klinefelter's syndrome, Chronic Afib on anticoagulation and hx esophageal rupture in 2016 presented with nausea, vomiting and hematemesis found to have multiple gastric ulcers on EGD. Nausea/vomiting/ hematemesis resolved and H&H stable. Doing well clinically. Hematemesis secondary to gastric ulcers - on chronic anticoagulation for Afib, holding warfarin and aspirin, INR 1.6 s/ p Vit K 10mg IV in ED - CT Abd: Marked gastric distention, Diverticulosis w/o evidence of acute diverticulitis, Fecal retention - EGD with normal esophagus, non bleeding gastric ulcers in greater curvature ( largest 4mm) - biopsies taken, normal duodenum - H&H stable at 11.2, continue q12hr H&H - continue pantoprazole drip at 8mg/hr for total 72 hours to decrease rebleeding rate and will transition to bid po PPI in morning - will follow up results of ulcer bx to determine need for triple therapy - GI following Leukocytosis, resolved - afebrile w/o clear source of infection, now resolved - suspect etiology aspiration pneumonitis from vomiting or stress reaction - blood culture x2 negative - RUQ US performed to assess for cholecystitis given hx of cholelithiasis - negative - CXR - Cardiomegaly w/ bilateral pleural effusions and suspected mild pulm edema - will discontinue antibiotics given likely aspiration pneumonitis or stress reaction Type 2 diabetes mellitus - hold metformin, lantus 27u BID - Novolog Correction: 15, carb ratio 5 Chronic Afib on anticoagulation - coumadin reversed in setting of acute bleed - continue to hold coumadin - continue telemetry Anemia, chronic - baseline Hgb ~9 - has history of B12 deficiency anemia and iron deficiency anemia s/p hemicolectomy - continue B12 supplementation, holding ferous sulfate due to constipation Constipation, chronic - dulcolax suppositories - consider enema CHF, diastolic - continue home Bumex 0.5mg and lisinopril 2.5mg Deconditioning - unable to state why he is bed bound, does have loss of sensation to ankles bilaterally and history of both diabetes and B12 deficiency - will check B12 and folate level - PT/OT ordered Hyperlipidemia - continue atorvastatin qhs Left Adrenal Incidentaloma - 14mm on CT abdomen, unchanged from prior CT in 12/2015 FEN: clear liquid diet, advance as tolerated PPX: anticoagulation contraindicated in setting of acute bleed, ABDOUL and SCD likely to lead to skin breakdown given poor skin integrity Dispo: telemetry, pending PT/OT eval Code: Full
[2016-12-15] MEDS ORDERED: BISACODYL 10 MG SUPP PR ONE ×2 (09:00→13:00)
[2016-12-15] MEDS: MAGNESIUM OXIDE 400 MG TAB PO SCH (09:22)
[2016-12-15] MEDS: SODIUM CHLORIDE 0.9% 1000ML 1,000 ML IV SCH ×2 (09:22→16:52)
[2016-12-15] MEDS: CYANOCOBALAMIN 500 MCG TAB (VIT B-12) PO SCH (09:23)
[2016-12-15] MEDS: CEROVITE ADV FORMULA TAB PO SCH (09:23)
[2016-12-15] MEDS: INSULIN GLARGINE SOLOSTAR 100 UNITS/ML 3 ML PEN SC SCH ×2 (09:25→20:58)
[2016-12-15 09:29] LABS: HEMATOCRIT 38.9 % (42-52); MEAN CELL VOLUME 92.6 fL (80-100); MEAN CORPUSCULAR HEMOGLOBIN 26.7 pg (25-34); MEAN CORPUSCULAR HGB CONC 28.8 g/dl (32-36); MEAN PLATELET VOLUME 9.5 fL (7.4-10.4); PLATELET COUNT 228 K/uL (130-400)
[2016-12-15] MEDS: INSULIN ASPART 100 UNITS/ML 3 ML PEN SC SCH ×4 (09:29→20:59)
--- NOTE | 2016-12-15 09:58 | Gastroenterology Progress Note ---
Progress Note Date of Service: Dec 15, 2016 Subjective Pt evaluation today including: conversation w/ patient, physical exam, chart review, lab review, review of studies, review of inpatient medication list Patient reports feeling well. No abdominal pain, nausea or vomiting or other GI complaints. H&H remains stable at 11.2 and 38.9 respectively today. Continues Protonix ggt at 8 mg/hr. Patient remains on a clear liquid diet. Review of Systems Constitutional: No fever, No chills Respiratory: No shortness of breath Cardiac: No chest pain Abdomen: + see HPI Medications Current Inpatient Medications Medications (Trade) Dose Ordered Sig/[place] Route Start Time Stop Time Status Last Admin Dose Admin Promethazine HCl 12.5 mg/Sodium Chloride 50.5 ml @ 204 mls/hr Q6H PRN IV 12/14/16 01:45 01/13/17 01:44 Sodium Chloride 1,000 ml @ 100 mls/hr Q10H IV 12/14/16 02:00 01/13/17 01:59 12/15/16 09:22 100 MLS/HR Ampicillin Sodium/ Sulbactam Sodium 3000 mg/Sodium Chloride 108 ml @ 200 mls/hr Q6H IV 12/14/16 04:00 12/21/16 03:59 12/15/16 09:22 200 MLS/HR Glucose (Glucose 40% Gel) 15-30 GRAMS 15 GRAMS... UD PRN PO 12/14/16 03:15 01/13/17 03:14 Glucose (Glucose Chew Tab) 4-8 Tablets 4 Tabl... UD PRN PO 12/14/16 03:15 01/13/17 03:14 Dextrose (Dextrose 50% 50ML Syringe) 25-50ML OF 50% DW IV FOR... UD PRN IV 12/14/16 03:15 01/13/17 03:14 Glucagon (Glucagon Inj) 1 mg UD PRN SQ 12/14/16 03:15 01/13/17 03:14 Acetaminophen (Tylenol Tab) 650 mg Q6H PRN PO 12/14/16 03:30 01/13/17 03:29 Atorvastatin Calcium (Lipitor Tab) 40 mg HS PO 12/14/16 21:00 01/13/17 20:59 12/14/16 20:38 40 MG Cyanocobalamin (Vitamin B-12 Tab) 1,000 mcg DAILY PO 12/14/16 09:00 01/13/17 08:59 12/15/16 09:23 1,000 MCG Escitalopram Oxalate (Lexapro Tab) 15 mg HS PO 12/14/16 21:00 01/13/17 20:59 12/14/16 20:37 15 MG Lisinopril (Zestril Tab) 2.5 mg DAILY PO 12/14/16 09:00 01/13/17 08:59 Future Hold Magnesium Oxide (Mag-Ox Tab) 400 mg DAILY PO 12/14/16 09:00 01/13/17 08:59 12/15/16 09:22 400 MG Bumetanide (Bumex Tab) 0.5 mg QAM PO 12/14/16 09:00 01/13/17 08:59 Future Hold Ondansetron HCl (Zofran Inj) 4 mg Q6H PRN IV 12/14/16 03:30 01/13/17 03:29 Multivitamins/ Minerals (Multivitamin W/ Minerals Tab) 1 tab DAILY PO 12/14/16 09:00 01/13/17 08:59 12/15/16 09:23 1 TAB Pantoprazole Sodium 40 mg/ Dextrose 100 ml @ 20 mls/hr Q5H IV 12/14/16 04:30 01/13/17 04:29 12/15/16 09:21 20 MLS/HR Insulin Aspart (novoLOG ASPART) SLIDING SCALE G... ACHS SC 12/14/16 19:03 01/13/17 05:59 12/15/16 09:29 5 UNITS Insulin Glargine (Lantus Solostar Pen) 27 units BID SC 12/14/16 22:00 01/13/17 21:59 12/15/16 09:25 27 UNITS Objective Vital Signs Date Time Temp Pulse Resp B/P (MAP) Pulse Ox O2 Delivery O2 Flow Rate FiO2 12/15/16 07:34 36.6 64 16 151/75 (100) 91 1.0 12/15/16 07:30 Nasal Cannula 1.0 12/15/16 04:42 36.7 57 16 151/65 (93) 96 Nasal Cannula 2.0 12/15/16 04:00 Nasal Cannula 1.0 12/14/16 23:59 Nasal Cannula 1.0 12/14/16 23:57 37.1 64 18 139/67 (91) 97 Nasal Cannula 2.0 12/14/16 21:09 37.1 55 15 139/65 (89) 95 Room Air 12/14/16 20:00 Nasal Cannula 2.0 12/14/16 18:49 36.8 65 23 125/69 (87) 93 Room Air 12/14/16 17:19 62 18 146/68 (94) 100 Nasal Cannula 2 12/14/16 17:04 66 18 140/75 (96) 100 Nasal Cannula 2 12/14/16 16:49 76 18 153/71 (98) 99 Nasal Cannula 2 12/14/16 16:00 95 Nasal Cannula 2.0 12/14/16 15:23 37 80 20 124/67 (86) 96 Nasal Cannula 1 12/14/16 12:00 97 Nasal Cannula 1.0 12/14/16 10:44 37.2 82 16 162/73 (102) 95 Nasal Cannula 1.0 Physical Exam General Appearance: no apparent distress Eyes: EOMI Respiratory/Chest: lungs clear, normal breath sounds, no respiratory distress Cardiovascular: regular rate, rhythm, no gallop, no murmur Abdomen: normal bowel sounds, non tender, soft Neurologic/Psych: alert, normal mood/affect, oriented x 3 Skin: warm/dry Laboratory Results Last 24 Hours Test 12/14/16 11:16 12/14/16 13:23 12/14/16 17:35 12/14/16 19:45 Bedside Glucose 132 mg/dl 117 mg/dl Hemoglobin 11.7 g/dL 10.7 g/dL Hematocrit 39.4 % 36.9 % Test 12/14/16 20:13 12/15/16 04:56 12/15/16 08:19 Bedside Glucose 85 mg/dl 92 mg/dl White Blood Count 9.30 K/uL Red Blood Count 4.20 M/uL Hemoglobin 11.2 g/dL Hematocrit 38.9 % Mean Corpuscular Volume 92.6 fL Mean Corpuscular Hemoglobin 26.7 pg Mean Corpuscular Hemoglobin Concent 28.8 g/dl RDW Standard Deviation 56.9 fL RDW Coefficient of Variation 16.9 % Platelet Count 228 K/uL Mean Platelet Volume 9.5 fL Assessment and Plan Patient is a 66 year-old male with hematemesis noted to have multiple gastric ulcerations without stigmata on EGD yesterday. 1. Can advance diet as tolerated. 2. Continue PPI ggt at 8 mg/hr. 3. Supportive care per primary team. Agree with YON Babcock as above Abd: Soft, NT, ND, +BS Doing, "Much better today." Advance diet as tolerated Continue current therapy
[2016-12-15 11:29] VITALS: BP 139/55; PULSE 51; TEMP 36.4; O2SAT 95
[2016-12-15 16:36] VITALS: BP 148/72; PULSE 53; TEMP 36.4; O2SAT 97
[2016-12-15 20:20] VITALS: BP 155/53; PULSE 68; TEMP 36.5; O2SAT 95
[2016-12-15] MEDS: ESCITALOPRAM OXALATE 10 MG TAB PO SCH (20:25)
[2016-12-15] MEDS: ATORVASTATIN 20 MG TAB PO SCH (20:26)
[2016-12-15 23:59] VITALS: O2SAT 95
[2016-12-16] VITALS (12 sets, daily range): BP systolic 133–164; BP diastolic 71–97; PULSE 61–85; TEMP 36.7–37; O2SAT 95–98
[2016-12-16] MEDS: AMPICILLIN/SULBACTAM SOD INJ 3,000 MG in SODIUM CHLORIDE 0.9% 100ML 100 ML IV SCH ×4 (04:00→21:54)
[2016-12-16] MEDS: SODIUM CHLORIDE 0.9% 1000ML 1,000 ML IV SCH (04:01)
[2016-12-16] MEDS: PANTOprazole INJ 40 MG in DEXTROSE 5% 100ML IV SCH ×2 (04:02→11:51)
[2016-12-16] MEDS: INSULIN ASPART 100 UNITS/ML 3 ML PEN SC SCH ×4 (07:00→21:00)
[2016-12-16 07:10] LABS: BUN/CREATININE RATIO 25.1 (10-20); CALCIUM 8.7 mg/dl (8.5-10.1); CREATININE 0.82 mg/dl (0.60-1.40); POTASSIUM 4.1 mmol/L (3.5-5.1)
[2016-12-16 07:14] LABS: HEMATOCRIT 35.7 % (42-52); MEAN CELL VOLUME 91.5 fL (80-100); MEAN CORPUSCULAR HEMOGLOBIN 26.4 pg (25-34); MEAN CORPUSCULAR HGB CONC 28.9 g/dl (32-36); MEAN PLATELET VOLUME 9.9 fL (7.4-10.4); PLATELET COUNT 249 K/uL (130-400)
[2016-12-16] MEDS: CEROVITE ADV FORMULA TAB PO SCH (08:40)
[2016-12-16] MEDS: BUMETANIDE 1 MG TAB PO SCH (08:40)
[2016-12-16] MEDS: CYANOCOBALAMIN 500 MCG TAB (VIT B-12) PO SCH (08:40)
[2016-12-16] MEDS: MAGNESIUM OXIDE 400 MG TAB PO SCH (08:40)
[2016-12-16] MEDS: INSULIN GLARGINE SOLOSTAR 100 UNITS/ML 3 ML PEN SC SCH ×3 (08:44→22:35)
--- NOTE | 2016-12-16 09:41 | Gastroenterology Progress Note ---
Progress Note Date of Service: Dec 16, 2016 Subjective Pt evaluation today including: conversation w/ patient, physical exam, chart review, review of inpatient medication list Patient without any overt GIB. Denies any abdominal pain, nausea or vomiting, or other GI complaints. Tolerating diet. Continues PPI ggt. Hemoglobin did drop slightly to 10.3 today although again no hematemesis, melena, or hematochezia. Review of Systems Constitutional: No problem reported Abdomen: + see HPI Medications Current Inpatient Medications Medications (Trade) Dose Ordered Sig/Carlton Route Start Time Stop Time Status Last Admin Dose Admin Promethazine HCl 12.5 mg/Sodium Chloride 50.5 ml @ 204 mls/hr Q6H PRN IV 12/14/16 01:45 01/13/17 01:44 Sodium Chloride 1,000 ml @ 100 mls/hr Q10H IV 12/14/16 02:00 01/13/17 01:59 12/16/16 04:01 100 MLS/HR Ampicillin Sodium/ Sulbactam Sodium 3000 mg/Sodium Chloride 108 ml @ 200 mls/hr Q6H IV 12/14/16 04:00 12/21/16 03:59 12/16/16 09:30 200 MLS/HR Glucose (Glucose 40% Gel) 15-30 GRAMS 15 GRAMS... UD PRN PO 12/14/16 03:15 01/13/17 03:14 Glucose (Glucose Chew Tab) 4-8 Tablets 4 Tabl... UD PRN PO 12/14/16 03:15 01/13/17 03:14 Dextrose (Dextrose 50% 50ML Syringe) 25-50ML OF 50% DW IV FOR... UD PRN IV 12/14/16 03:15 01/13/17 03:14 Glucagon (Glucagon Inj) 1 mg UD PRN SQ 12/14/16 03:15 01/13/17 03:14 Acetaminophen (Tylenol Tab) 650 mg Q6H PRN PO 12/14/16 03:30 01/13/17 03:29 Atorvastatin Calcium (Lipitor Tab) 40 mg HS PO 12/14/16 21:00 01/13/17 20:59 12/15/16 20:26 40 MG Cyanocobalamin (Vitamin B-12 Tab) 1,000 mcg DAILY PO 12/14/16 09:00 01/13/17 08:59 12/16/16 08:40 1,000 MCG Escitalopram Oxalate (Lexapro Tab) 15 mg HS PO 12/14/16 21:00 01/13/17 20:59 12/15/16 20:25 15 MG Lisinopril (Zestril Tab) 2.5 mg DAILY PO 12/14/16 09:00 01/13/17 08:59 Future hold Magnesium Oxide (Mag-Ox Tab) 400 mg DAILY PO 12/14/16 09:00 01/13/17 08:59 12/16/16 08:40 400 MG Bumetanide (Bumex Tab) 0.5 mg QAM PO 12/14/16 09:00 01/13/17 08:59 Future hold 12/16/16 08:40 0.5 MG Ondansetron HCl (Zofran Inj) 4 mg Q6H PRN IV 12/14/16 03:30 01/13/17 03:29 Multivitamins/ Minerals (Multivitamin W/ Minerals Tab) 1 tab DAILY PO 12/14/16 09:00 01/13/17 08:59 12/16/16 08:40 1 TAB Pantoprazole Sodium 40 mg/ Dextrose 100 ml @ 20 mls/hr Q5H IV 12/14/16 04:30 01/13/17 04:29 12/16/16 04:02 20 MLS/HR Insulin Aspart (novoLOG ASPART) SLIDING SCALE G... ACHS ID 12/14/16 19:03 01/13/17 05:59 12/15/16 16:50 7 UNITS Insulin Glargine (Lantus Solostar Pen) 27 units BID SC 12/14/16 22:00 01/13/17 21:59 12/16/16 08:44 27 UNITS Objective Vital Signs Date Time Temp Pulse Resp B/P (MAP) Pulse Ox O2 Delivery O2 Flow Rate FiO2 12/16/16 08:04 Nasal Cannula 1.0 12/16/16 07:33 36.7 73 18 133/85 (101) 95 2.0 12/16/16 04:19 36.8 70 18 160/71 (100) 96 Nasal Cannula 12/16/16 04:00 95 Nasal Cannula 1.0 12/16/16 00:42 36.8 68 20 133/97 (109) 98 Nasal Cannula 12/15/16 23:59 95 Nasal Cannula 1.0 12/15/16 20:20 36.5 68 18 155/53 (87) 95 Nasal Cannula 1.0 12/15/16 20:00 Nasal Cannula 1.0 12/15/16 16:36 36.4 53 18 148/72 (97) 97 Nasal Cannula 2.0 12/15/16 16:00 Nasal Cannula 1.0 12/15/16 12:00 Nasal Cannula 1.0 12/15/16 11:29 36.4 51 16 139/55 (83) 95 2.0 Physical Exam General Appearance: no apparent distress Eyes: EOMI Respiratory/Chest: no respiratory distress, + decreased breath sounds Cardiovascular: + irregularly irregular Abdomen: normal bowel sounds, non tender, soft Neurologic/Psych: alert, normal mood/affect, oriented x 3 Laboratory Results Last 24 Hours Test 12/15/16 11:15 12/15/16 16:23 12/15/16 20:13 12/16/16 05:49 Bedside Glucose 91 mg/dl 71 mg/dl 80 mg/dl White Blood Count 9.50 K/uL Red Blood Count 3.90 M/uL Hemoglobin 10.3 g/dL Hematocrit 35.7 % Mean Corpuscular Volume 91.5 fL Mean Corpuscular Hemoglobin 26.4 pg Mean Corpuscular Hemoglobin Concent 28.9 g/dl RDW Standard Deviation 55.0 fL RDW Coefficient of Variation 16.4 % Platelet Count 249 K/uL Mean Platelet Volume 9.9 fL Sodium Level 143 mmol/L Potassium Level 4.1 mmol/L Chloride Level 107 mmol/L Carbon Dioxide Level 32 mmol/L Anion Gap 4.0 mmol/L Blood Urea Nitrogen 21 mg/dl Creatinine 0.82 mg/dl Est Creatinine Clear Calc Drug Dose 170.6 ml/min Estimated GFR () 106.8 Estimated GFR (Non- 92.1 BUN/Creatinine Ratio 25.1 Random Glucose 84 mg/dl Calcium Level 8.7 mg/dl Vitamin B12 Level 362 pg/mL Folate 20.60 ng/mL Test 12/16/16 07:05 Bedside Glucose 86 mg/dl Assessment and Plan Patient is a 66 year-old male with hematemesis noted to have multiple gastric ulcerations without stigmata. 1. Diet as tolerated. 2. Can consider transition of Protonix to 40 mg IV push BID as no overt GIB. 3. Supportive care per primary team. Agree with YON Babcock as above Abd: Soft, NT, ND, +BS Continue current therapy Primary team to restart Coumadin therapy based on risk versus benefit
[2016-12-16 12:43] LABS: HEMATOCRIT 37.6 % (42-52); MEAN CELL VOLUME 92.2 fL (80-100); MEAN CORPUSCULAR HEMOGLOBIN 26.5 pg (25-34); MEAN CORPUSCULAR HGB CONC 28.7 g/dl (32-36); MEAN PLATELET VOLUME 10.2 fL (7.4-10.4); PLATELET COUNT 229 K/uL (130-400); RED BLOOD COUNT 4.08 M/uL (4.7-6.1); WHITE BLOOD COUNT 11.18 K/uL (4.8-10.8)
[2016-12-16] MEDS ORDERED: NURSING VERBAL MED ORDER ONE (13:00)
[2016-12-16] MEDS: LISINOPRIL 2.5 MG TAB PO SCH (13:09)
[2016-12-16] MEDS ORDERED: FUROSEMIDE 20 MG TAB PO ONE (14:00)
[2016-12-16] MEDS ORDERED: PANT40TA PO (14:28)
[2016-12-16] MEDS ORDERED: PANT1TAB48 PO (14:28)
--- NOTE | 2016-12-16 14:39 | Discharge Instructions ---
Discharge Instructions Date of Service Dec 16, 2016. Admission Reason for Admission: Hematemesis Discharge Discharge Diagnosis / Problem: Gastric ulcers Discharge Goals Goal(s): Decrease discomfort, Improve function Activity Recommendations Activity Level: Bedrest . Additional Information Patient informed of condition: Yes Advance Directives: No DNR: No Level of Care: Skilled Communicable Disease: No Prognosis: Stable Oxygen at (LPM): 2l at night time Tracy Catheter: No Instructions / Follow-Up Instructions / Follow-Up 66-year-old male with past medical history of Klinefelter's syndrome, atrial fibrillation currently on Coumadin , chronic constipation, type 2 diabetes, esophageal rupture presented to the ER with complaints of nausea vomiting and hematemesis. EGD done which revealed gastric ulcers which were biopsied, the biopsies were negative for cancer and for H.pylori infection Hematemesis likely secondary to gastric ulcers: - Continue to use Protonix twice daily for 14 days followed by Protonix once daily thereafter - Follow up with gastroenterology, Dr. Casarez's office in 7-10 days Atrial fibrillation: - Anticoagulation will be restarted today. Please give 150 milligrams of Lovenox twice daily. Resume his home schedule of Coumadin and adjust accordingly for a goal INR of 2-3 and stop lovenox Diastolic heart failure: - Continue Bumex as scheduled Type 2 DM: -Continue lisinopril 2.5 mg - Continue insulin as prescribed Hyperlipidemia: Continue Lipitor Sleep apnea: He had a nocturnal pulse oximetry during his stay and will require the use 2 L of O2 at bedtime. Prescription is enclosed - He will require a formal sleep study for further evaluation Please follow up with gastroenterology in 7-10 days. Please follow-up with PCP in about a week. Current Hospital Diet Patient's current hospital diet: Diabetes Type 2 Diet Discharge Diet Recommended Diet: Diabetes Type 2 Diet Procedures Procedures Performed: EGD WITH BX Pending Studies Studies pending at discharge: no Laboratory Results Hemoglobin A1c Test 10/22/16 05:32 Range/Units Estimated Average Glucose 123 mg/dl Hemoglobin A1c 5.9 H 4.5-5.6 % Lipid Panel Test 10/22/16 05:32 Range/Units Triglycerides Level 136 0-150 mg/dl Cholesterol Level 89 0-200 mg/dl HDL Cholesterol 36 mg/dl Cholesterol/HDL Ratio 2.5 LDL Cholesterol, Calculated 26 mg/dl Medical Emergencies . Who to Call and When: Medical Emergencies: If at any time you feel your situation is an emergency, please call 911 immediately. . Non-Emergent Contact Non-Emergency issues call your: Primary Care Provider . . "Provider Documentation" section prepared by Sue Gonzales. . Core Measure Problem Core Measures: None
[2016-12-16] MEDS ORDERED: ENOX1INJ14 INJ (14:42)
[2016-12-16] MEDS ORDERED: ENOXAPARIN 150 MG/1ML SYR SQ ONE (14:45)
[2016-12-16] MEDS ORDERED: WARFARIN SOD 4 MG TAB PO ONE (14:45)
--- NOTE | 2016-12-16 14:46 | Discharge Summary ---
Discharge Summary Date of Service Dec 17, 2016. (Sue Gonzales MD) Discharge Summary Admission Date: Dec 14, 2016 at 01:30 Discharge Date: Dec 17, 2016 Discharge Disposition: alf facility Principal Diagnosis: Gastric ulcers Immunizations: Have You Had Influenza Vaccine: Yes Influenza Vaccine Date: Mar 01, 2014 History of Tetanus Vaccine?: No History of Pneumococcal: No History of Hepatitis B Vaccine: No Procedures: EGD with biopsy Consultations: gastroenterology (Sue Gonzales MD) Medication Reconciliation New Medications: Enoxaparin Sodium (Enoxaparin Sodium) 150 Mg/Ml Inj 150 MG INJ BID, #14 Pantoprazole (Protonix) 40 Mg Tab 1 TAB PO DAILY for 30 Days, #30 TAB 3 Refills Pantoprazole (Protonix) 40 Mg Tab 40 MG PO BID for 14, #30 TAB Continued Medications: Acetaminophen Tab (Tylenol) 325 Mg Tab 650 MG PO Q6H PRN for MILD PAIN/FEVER, TAB NEEDED FOR MILD PAIN RATED 1-10 ON A SCALE OF "0-10" OR FOR ELEVATED TEMPERATURE GREATER THAN 101 F. DO NOT EXCEED 3 GM APAP/24 HOURS. Ascorbic Acid (Vitamin C) 250 Mg Tab 250 MG PO BID Aspirin (Aspirin Ec) 81 Mg Tab 81 MG PO WK GIVEN ON WEDNESDAYS Atorvastatin (Lipitor) 40 Mg Tab 40 MG PO HS Baclofen (Lioresal) 10 Mg Tab 10 MG PO Q8H PRN for Muscle Spasms Bumetanide (Bumetanide) 0.5 Mg Tab 0.5 MG PO DAILY Cholecalciferol (Vitamin D3) 2,000 Unit Tab 2000 UNITS PO DAILY for 90 Days, TAB 3 Refills Cyanocobalamin (Vitamin B-12) 1,000 Mcg Tab 1000 MCG PO DAILY Ergocalciferol (Vitamin D 28730 Unit) 50,000 Unit Cap 83579 UNIT PO WK, CAP SATURDAYS Escitalopram (Lexapro) 10 Mg Tab 15 MG PO HS Fenofibrate (Tricor) 160 Mg Tab 160 MG PO HS, TAB Ferrous Sulfate (Ferrous Sulfate) 325 Mg Tab 325 MG PO TID Insulin Aspart (Novolog) 100 Units/Ml Inj 4 UNITS SC PM TO BE GIVEN WITH DINNER Insulin Aspart (Novolog) 100 Units/Ml Inj 6 UNITS SC DAILY TO BE GIVEN WITH LUNCH Insulin Aspart (Novolog) 100 Units/Ml Inj 7 UNITS SC HS Insulin Glargine (Lantus Solostar) 100 Unit/Ml Inj 54 UNITS SC HS, PEN Lactase (Lactaid) 3,000 Unit Tab 1 TAB PO TIDM Lisinopril (Lisinopril) 2.5 Mg Tab 2.5 MG PO DAILY Lutein-Zeaxanthin (Lutein W/Zeaxanthin) 1 Tab Tab 1 TAB PO BID Magnesium Oxide (Mag-Ox) 400 Mg Tab 400 MG PO DAILY Metformin Hcl (Glucophage) 1,000 Mg Tab 1000 MG PO BID, TAB Multivitamins/Minerals (Mvi With Minerals) Tab 1 TAB PO DAILY Oxycodone Hcl (Oxycodone Hcl) 10 Mg Tab 10 MG PO TID for 30 Days, #90 TAB Oyster Shell (Oyster Shell) 500 Mg Tab 250 MG PO BID Polyethylene Glycol 3350 (Miralax) 1 Pow Pow 17 GM PO DAILY Promethazine Hcl (Phenergan Suppository) 25 Mg Supp 25 MG SD Q4H PRN for Nausea, SUPP Senna (Senokot) 8.6 Mg Tab 1 TAB PO DAILY Warfarin Sod (Jantoven) 4 Mg Tab 4 MG PO 4XWK SUN,TUE,THUR,SAT Warfarin Sod (Jantoven) 3 Mg Tab 3 MG PO 3XWK, TAB Discharge Exam Review of Systems: Constitutional: No fever, No chills ENT: No hearing loss Respiratory: No cough, No sputum Cardiovascular: No chest pain Abdomen: No pain, No nausea, No vomiting Genitourinary - Female: No dysuria, No urinary frequency, No urinary urgency Neurologic: No memory loss Psychiatric: No depression symptoms Physical Exam: General Appearance: WD/WN, no apparent distress, + obese Eyes: normal inspection ENT: hearing grossly normal Neck: supple Respiratory/Chest: lungs clear, normal breath sounds, no respiratory distress Cardiovascular: + irregularly irregular Abdomen / GI: non tender, soft Extremities: + pedal edema Neurologic/Psychiatric: alert, normal mood/affect, oriented x 3 Skin: normal color (Sue Gonzales MD) Hospital Course 66-year-old male with past medical history of Klinefelter's syndrome, atrial fibrillation currently on Coumadin , chronic constipation, type 2 diabetes, esophageal rupture presented to the ER with complaints of nausea vomiting and hematemesis. EGD done which revealed gastric ulcers which were biopsied, the biopsies were negative for cancer and for H.pylori infection Hematemesis likely secondary to gastric ulcers: - EGD was performed by gastroenterology which revealed several ulcers which were biopsied and found to be negative for cancer and H. pylori. He was initially on Protonix drip which was switched to IV Protonix twice a day and later to by mouth Protonix -Continue to use Protonix twice daily for 14 days followed by Protonix once daily thereafter - Follow up with gastroenterology, Dr. Casarez's office in 7-10 days Atrial fibrillation: -On arrival, his Coumadin was held and INR reversed with vitamin K. Once he was deemed stable anticoagulation was restarted with Lovenox bridge. Diastolic heart failure: - Continue Bumex as scheduled Type 2 DM: -Continue lisinopril 2.5 mg - Continue insulin as prescribed Hyperlipidemia: Continue Lipitor Sleep apnea: He had a nocturnal pulse oximetry during his stay and will require the use 2 L of O2 at bedtime. Prescription is enclosed - He will require a formal sleep study for further evaluation Total Time Spent: Greater than 30 minutes This includes examination of the patient, discharge planning, medication reconciliation, and communication with other providers. (Sue Gonzales MD) Discharge Instructions Please refer to the electronic Patient Visit Report (Discharge Instructions) for additional information. (Sue Gonzales MD) History Resident Physician Supervision Note: I was present with Dr. Gonzales during the history and exam. I discussed the case with the resident and agree with the findings and plan as documented in the note. Any exceptions or clarifications are listed here. Pt resting in bed without complaint at this time, tolerating POI at baseline. Reports no cough, CP/SOB, palpitations, worsening leg swelling, n/v/d/c (Isaiah Lance MD) General Appearance: no apparent distress, obese Respiratory: chest non-tender, no respiratory distress, decreased breath sounds (throughout 2/2 habitus) Cardiovascular: normal peripheral pulses, no murmur, irregularly irregular Gastrointestinal: normal bowel sounds, non tender, soft, no organomegaly (Isaiah Lance MD) Assessment/Plan 66 y/o male h/o Klinefelter's, AFib, esophageal rupture hx w/ hematemesis Hematemesis w/ h/o gastroparesis and esophageal rupture - likely warfarin related - EGD showed multiple ulcerations - PO PPI therapy. Reviewed risks/ benefits of AC in setting of atrial fibrillation and will continue as below with precautions and monitoring for further bleeding as outpatient. Atrial fibrillation on AC - warfarin reversed on admission - lovenox --> warfarin bridge Evening apneic episodes w/ some desaturation req O2 - nocturnal pulse O2 w/ consideration of outpatient sleep study Constipation - continue home bowel regimen diastolic CHF - continue bumex, lisinopril DMII - continue present insulin regimen HLD - statin therapy HTN - continue lisinopril FULL CODE (Isaiah Lance MD) Resident Tracking Resident Involvement: Resident Care Provided Care Provided: Adult Hospital Medicine (Sue Gonzales MD)
--- NOTE | 2016-12-16 15:49 | Family Medicine Progress Note ---
Progress Note Date of Service Dec 16, 2016. Subjective Pt evaluation today including: conversation w/ patient, physical exam, chart review, lab review Pain: denies pain Doing well today. No more episodes of vomiting or hematemesis. No abdominal pain. Constitutional: No fever, No chills Eyes: No worsening of vision ENT: No hearing loss Respiratory: No cough, No sputum Cardiovascular: No chest pain Breast: No breast lump Abdomen: No pain, No nausea Male : No dysuria, No urinary frequency Neurologic: No memory loss Psychiatric: No depression symptoms Medications Current Inpatient Medications Medications (Trade) Dose Ordered Sig/Carlton Route Start Time Stop Time Status Last Admin Dose Admin Promethazine HCl 12.5 mg/Sodium Chloride 50.5 ml @ 204 mls/hr Q6H PRN IV 12/14/16 01:45 01/13/17 01:44 Ampicillin Sodium/ Sulbactam Sodium 3000 mg/Sodium Chloride 108 ml @ 200 mls/hr Q6H IV 12/14/16 04:00 12/21/16 03:59 12/16/16 15:41 200 MLS/HR Glucose (Glucose 40% Gel) 15-30 GRAMS 15 GRAMS... UD PRN PO 12/14/16 03:15 01/13/17 03:14 Glucose (Glucose Chew Tab) 4-8 Tablets 4 Tabl... UD PRN PO 12/14/16 03:15 01/13/17 03:14 Dextrose (Dextrose 50% 50ML Syringe) 25-50ML OF 50% DW IV FOR... UD PRN IV 12/14/16 03:15 01/13/17 03:14 Glucagon (Glucagon Inj) 1 mg UD PRN SQ 12/14/16 03:15 01/13/17 03:14 Acetaminophen (Tylenol Tab) 650 mg Q6H PRN PO 12/14/16 03:30 01/13/17 03:29 Atorvastatin Calcium (Lipitor Tab) 40 mg HS PO 12/14/16 21:00 01/13/17 20:59 12/15/16 20:26 40 MG Cyanocobalamin (Vitamin B-12 Tab) 1,000 mcg DAILY PO 12/14/16 09:00 01/13/17 08:59 12/16/16 08:40 1,000 MCG Escitalopram Oxalate (Lexapro Tab) 15 mg HS PO 12/14/16 21:00 01/13/17 20:59 12/15/16 20:25 15 MG Lisinopril (Zestril Tab) 2.5 mg DAILY PO 12/14/16 09:00 01/13/17 08:59 Future hold 12/16/16 13:09 2.5 MG Magnesium Oxide (Mag-Ox Tab) 400 mg DAILY PO 12/14/16 09:00 01/13/17 08:59 12/16/16 08:40 400 MG Bumetanide (Bumex Tab) 0.5 mg QAM PO 12/14/16 09:00 01/13/17 08:59 Future hold 12/16/16 08:40 0.5 MG Ondansetron HCl (Zofran Inj) 4 mg Q6H PRN IV 12/14/16 03:30 01/13/17 03:29 Multivitamins/ Minerals (Multivitamin W/ Minerals Tab) 1 tab DAILY PO 12/14/16 09:00 01/13/17 08:59 12/16/16 08:40 1 TAB Insulin Aspart (novoLOG ASPART) SLIDING SCALE G... ACHS SC 12/14/16 19:03 01/13/17 05:59 12/16/16 17:24 8 UNITS Insulin Glargine (Lantus Solostar Pen) 27 units BID SC 12/14/16 22:00 01/13/17 21:59 12/16/16 08:44 27 UNITS Pantoprazole Sodium (Protonix Tab) 40 mg BID PO 12/16/16 20:00 01/15/17 20:59 Enoxaparin Sodium (Lovenox Inj) 150 mg Q12 SQ 12/16/16 23:00 01/15/17 22:59 Objective Vital Signs Date Time Temp Pulse Resp B/P (MAP) Pulse Ox O2 Delivery O2 Flow Rate FiO2 12/16/16 18:33 37.0 85 18 97 1.0 12/16/16 16:00 97 Nasal Cannula 1.0 12/16/16 15:53 37.0 85 18 146/89 (108) 97 Nasal Cannula 2.0 12/16/16 12:02 Nasal Cannula 1.0 12/16/16 11:03 36.9 76 18 164/85 (111) 98 2.0 12/16/16 10:50 36.7 73 18 95 Nasal Cannula 12/16/16 08:04 Nasal Cannula 1.0 12/16/16 07:33 36.7 73 18 133/85 (101) 95 2.0 12/16/16 04:19 36.8 70 18 160/71 (100) 96 Nasal Cannula 12/16/16 04:00 95 Nasal Cannula 1.0 12/16/16 00:42 36.8 68 20 133/97 (109) 98 Nasal Cannula 12/15/16 23:59 95 Nasal Cannula 1.0 12/15/16 20:20 36.5 68 18 155/53 (87) 95 Nasal Cannula 1.0 12/15/16 20:00 Nasal Cannula 1.0 Physical Exam General Appearance: WD/WN ENT: normal ENT inspection, hearing grossly normal Neck: supple Respiratory/Chest: chest non-tender, lungs clear, normal breath sounds, no respiratory distress Cardiovascular: + irregularly irregular Abdomen: normal bowel sounds, non tender Extremities: non-tender Neurologic/Psychiatric: alert, normal mood/affect, oriented x 3 Skin: normal color Laboratory Results 12/16/16 12:16 12/16/16 05:49 Test 12/16/16 05:49 12/16/16 12:16 12/16/16 16:28 Anion Gap 4.0 mmol/L (3-11) Est Creatinine Clear Calc Drug Dose 170.6 ml/min Estimated GFR () 106.8 Estimated GFR (Non- 92.1 BUN/Creatinine Ratio 25.1 (10-20) Calcium Level 8.7 mg/dl (8.5-10.1) Vitamin B12 Level 362 pg/mL (211-911) Folate 20.60 ng/mL (>5.38) Red Blood Count 4.08 M/uL (4.7-6.1) Mean Corpuscular Volume 92.2 fL (80-100) Mean Corpuscular Hemoglobin 26.5 pg (25-34) Mean Corpuscular Hemoglobin Concent 28.7 g/dl (32-36) RDW Standard Deviation 55.2 fL (36.4-46.3) RDW Coefficient of Variation 16.4 % (11.5-14.5) Mean Platelet Volume 10.2 fL (7.4-10.4) Bedside Glucose 99 mg/dl (70-99) Assessment and Plan 66-year-old male with past medical history of Klinefelter's syndrome, atrial fibrillation currently on Coumadin , chronic constipation, type 2 diabetes, esophageal rupture presented to the ER with complaints of nausea vomiting and hematemesis. EGD done yesterday which revealed gastric ulcers which were biopsied Hematemesis likely secondary to gastric ulcers: EGD done 12/14: multiple gastric ulcerations without stigmata - switched to Protonix PO BID - Advance diet as tolerated Atrial fibrillation: - Rate controlled - started on Lovenox bridging with Coumadin Diastolic heart failure: - Continue Bumex Leucocytosis: ?Stress - WBC count improved from 17 on admission to 9.3 - Liver US to rule out cholecystitis: 1. Cholelithiasis without evidence of cholecystitis or biliary ductal dilatation. 2. Hepatomegaly with possible mild steatosis. 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 Gonzales during the history and exam. I discussed the case with the resident and agree with the findings and plan as documented in the note. Any exceptions or clarifications are listed here. Improved lower abdominal pain w/ resolved nausea/vomiting. Resting comfortably in bed, breathing at baseline. reports no cough, f/c, lightheadedness, increased swelling. General Appearance: no apparent distress, obese Respiratory: chest non-tender, no respiratory distress, decreased breath sounds (througout 2/2 habitus) Cardiovascular: normal peripheral pulses, no murmur, irregularly irregular Gastrointestinal: normal bowel sounds, non tender, soft, no organomegaly Assessment/Plan 66 y/o male h/o Klinefelter's, AFib, esophageal rupture hx w/ hematemesis Hematemesis w/ h/o gastroparesis and esophageal rupture - PO PPI, GI aware and recommendations appreciated. Atrial fibrillation on AC - warfarin reversed on admission - Lovenox bridge to coumadin initiated. Risks of bleeding v. stroke detailed to patient w/ understanding. Evening apneic episodes w/ some desaturation req O2 - O2 ordered for outpatient use, recommend outpatient sleep study for OTONIEL Leukocytosis - mild, afebrile, BCx negative, without symptoms of focus - would recheck as outpatient Constipation - resolution, continue present bowel regimen and tritrate to 1-2 BM /day diastolic CHF - continue bumex, lisinopril DMII - continue present insulin regimen HLD - continue statin therapy HTN - continue lisinopril FULL CODE Resident Tracking Resident Involvement: Resident Care Provided Care Provided: Adult [facility] Medicine
--- NOTE | 2016-12-16 17:11 | Medical Student: [facility] ---
Med Student Progress Note Date of Service Dec 16, 2016. Subjective Pt evaluation today including: conversation w/ patient, physical exam, lab review Pain: none Voiding: no voiding problems No acute events overnight. Patient states he feels excellent. Denies chest pain, nausea, vomiting, abdominal pain. Does report 2-3 bowel movements overnight after the suppositories. Review of Systems Constitutional: No fever, No chills Respiratory: No cough, No sputum, No wheezing Cardiac: No chest pain, No orthopnea Abdomen: No pain, No nausea, No vomiting Male : No dysuria, No urinary frequency Objective Vital Signs Date Time Temp Pulse Resp B/P (MAP) Pulse Ox O2 Delivery O2 Flow Rate FiO2 12/16/16 15:53 37.0 85 18 146/89 (108) 97 Nasal Cannula 2.0 12/16/16 12:02 Nasal Cannula 1.0 12/16/16 11:03 36.9 76 18 164/85 (111) 98 2.0 12/16/16 10:50 36.7 73 18 95 Nasal Cannula 12/16/16 08:04 Nasal Cannula 1.0 12/16/16 07:33 36.7 73 18 133/85 (101) 95 2.0 12/16/16 04:19 36.8 70 18 160/71 (100) 96 Nasal Cannula 12/16/16 04:00 95 Nasal Cannula 1.0 12/16/16 00:42 36.8 68 20 133/97 (109) 98 Nasal Cannula 12/15/16 23:59 95 Nasal Cannula 1.0 12/15/16 20:20 36.5 68 18 155/53 (87) 95 Nasal Cannula 1.0 12/15/16 20:00 Nasal Cannula 1.0 Physical Exam General Appearance: no apparent distress, + obese Neck: supple, no adenopathy, no JVD Respiratory/Chest: lungs clear, no respiratory distress, + decreased breath sounds Cardiovascular: no JVD, no murmur, + irregularly irregular Abdomen: normal bowel sounds, non tender, soft Extremities: no calf tenderness, + pedal edema (trace bilateral) Neurologic/Psychiatric: alert, normal mood/affect, oriented x 3 Skin: normal color, warm/dry, no rash Laboratory Results Last 24 Hours Test 12/15/16 20:13 12/16/16 05:49 12/16/16 07:05 12/16/16 11:05 Bedside Glucose 80 mg/dl 86 mg/dl 101 mg/dl White Blood Count 9.50 K/uL Red Blood Count 3.90 M/uL Hemoglobin 10.3 g/dL Hematocrit 35.7 % Mean Corpuscular Volume 91.5 fL Mean Corpuscular Hemoglobin 26.4 pg Mean Corpuscular Hemoglobin Concent 28.9 g/dl RDW Standard Deviation 55.0 fL RDW Coefficient of Variation 16.4 % Platelet Count 249 K/uL Mean Platelet Volume 9.9 fL Sodium Level 143 mmol/L Potassium Level 4.1 mmol/L Chloride Level 107 mmol/L Carbon Dioxide Level 32 mmol/L Anion Gap 4.0 mmol/L Blood Urea Nitrogen 21 mg/dl Creatinine 0.82 mg/dl Est Creatinine Clear Calc Drug Dose 170.6 ml/min Estimated GFR () 106.8 Estimated GFR (Non- 92.1 BUN/Creatinine Ratio 25.1 Random Glucose 84 mg/dl Calcium Level 8.7 mg/dl Vitamin B12 Level 362 pg/mL Folate 20.60 ng/mL Test 12/16/16 12:16 12/16/16 16:28 White Blood Count 11.18 K/uL Red Blood Count 4.08 M/uL Hemoglobin 10.8 g/dL Hematocrit 37.6 % Mean Corpuscular Volume 92.2 fL Mean Corpuscular Hemoglobin 26.5 pg Mean Corpuscular Hemoglobin Concent 28.7 g/dl RDW Standard Deviation 55.2 fL RDW Coefficient of Variation 16.4 % Platelet Count 229 K/uL Mean Platelet Volume 10.2 fL Bedside Glucose 99 mg/dl Assessment and Plan Assessment and Plan: 66 year old male with Klinefelter's syndrome, Chronic Afib on anticoagulation and hx esophageal rupture in 2016 presented with nausea, vomiting and hematemesis found to have multiple gastric ulcers on EGD. Nausea/vomiting/ hematemesis resolved and H&H stable. Doing well clinically. Hematemesis secondary to gastric ulcers - CT Abd: Marked gastric distention, Diverticulosis w/o evidence of acute diverticulitis, Fecal retention - EGD with normal esophagus, non bleeding gastric ulcers in greater curvature ( largest 4mm) - biopsy without evidence of malignancy or H. 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, held warfarin and aspirin and reversed INR 2.2 - -> 1.6 s/p Vit K 10mg IV in ED - plan to restart warfarin today at 8mg with Lovenox bridge 150mg q12hr - H&H stable, CBC qAM - D/C protonix gtt and start 40mg omeprazole BID, patient to continue BID dosing for 2 weeks and then transition to qAM dosing - GI following CHF, diastolic - continue home Bumex 0.5mg and lisinopril 2.5mg - 20mg lasix today as still mildly fluid overloaded on exam Sleep apnea - 24 events <88% overnight - will require home oxygen - rec outpatient sleep study Leukocytosis, resolved - afebrile w/o clear source of infection, now resolved - suspect etiology aspiration pneumonitis from vomiting or stress reaction - blood culture x2 negative - RUQ US performed to assess for cholecystitis given hx of cholelithiasis - negative - CXR - Cardiomegaly w/ bilateral pleural effusions and suspected mild pulm edema - s/p 3 days ampicillin/sulbactam for suspected pneumonia, discontinued given likely aspiration pneumonitis or stress reaction Type 2 diabetes mellitus - hold metformin, lantus 27u BID - Novolog Correction: 15, carb ratio 5 Chronic Afib on anticoagulation - restart warfarin today at 8mg with 150mg Lovenox q12hr bridge - continue telemetry Deconditioning - unable to state why he is bed bound, does have loss of sensation to ankles bilaterally and history of both diabetes and B12 deficiency - B12 and folate WNL - PT consulted, patient at baseline, nothing to do Anemia, chronic - baseline Hgb ~9 - has history of B12 deficiency anemia and iron deficiency anemia s/p hemicolectomy - continue B12 supplementation, holding ferrous sulfate due to constipation Hyperlipidemia - continue atorvastatin qhs Constipation, chronic - 3 bowel movements today, resolved s/p 2 dulcolax suppositories Left Adrenal Incidentaloma - 14mm on CT abdomen, unchanged from prior CT in 12/2015 FEN: clear liquid diet, advance as tolerated PPX: anticoagulation contraindicated in setting of acute bleed, ABDOUL and SCD likely to lead to skin breakdown given poor skin integrity Dispo: telemetry, pending PT/OT eval Code: Full
[2016-12-16] MEDS: PANTOprazole SOD 40 MG TAB PO SCH (21:54)
[2016-12-16] MEDS: ESCITALOPRAM OXALATE 10 MG TAB PO SCH (21:54)
[2016-12-16] MEDS: ATORVASTATIN 20 MG TAB PO SCH (21:56)
[2016-12-16] MEDS: ENOXAPARIN 150 MG/1ML SYR SQ SCH (21:57)
[2016-12-17] MEDS: AMPICILLIN/SULBACTAM SOD INJ 3,000 MG in SODIUM CHLORIDE 0.9% 100ML 100 ML IV SCH ×2 (04:18→09:53)
[2016-12-17 07:29] VITALS: BP 135/74; PULSE 60; TEMP 36.5; O2SAT 97
[2016-12-17] MEDS: MAGNESIUM OXIDE 400 MG TAB PO SCH (08:37)
[2016-12-17] MEDS: CEROVITE ADV FORMULA TAB PO SCH (08:38)
[2016-12-17] MEDS: CYANOCOBALAMIN 500 MCG TAB (VIT B-12) PO SCH (08:38)
[2016-12-17] MEDS: PANTOprazole SOD 40 MG TAB PO SCH (08:39)
[2016-12-17] MEDS: LISINOPRIL 2.5 MG TAB PO SCH (08:40)
[2016-12-17] MEDS: BUMETANIDE 1 MG TAB PO SCH (08:40)
[2016-12-17] MEDS: ENOXAPARIN 150 MG/1ML SYR SQ SCH (08:41)
[2016-12-17] MEDS: INSULIN GLARGINE SOLOSTAR 100 UNITS/ML 3 ML PEN SC SCH (08:51)
[2016-12-17] MEDS: INSULIN ASPART 100 UNITS/ML 3 ML PEN SC SCH ×2 (08:51→12:58)
[2016-12-17] MEDS ORDERED: FUROSEMIDE INJ 20 MG in SYRINGE 0 ML IV ONE (10:00)
[2016-12-17] MEDS ORDERED: WARFARIN SOD 5 MG TAB PO ONE (13:00)
--- NOTE | 2016-12-19 10:56 | EDITING REQUIRED CODING QUERY ---
ANEMIA To promote full compliance with coding requirements relating to patient care, physician participation is requested in all cases of stem maker uncertainty. Please assist us with the question(s) below: Coding Question(s): The record reflects documentation in the presence of hematemesis. {lease specify the known or suspected type of anemia by placing an "X" within the parenthesis (x). If other, please document type. Examples are: ( ) Acute blood loss anemia ( ) Chronic blood loss anemia ( ) Aplastic anemia ( ) Iron deficient anemia ( ) Vitamin B12 deficiency anemia ( ) Anemia, unspecified or other ( ) Other: (please specify) Thank you for your time, MIMA Chávez, INTELLIGENCE OPERATIONS SPECIALIST
--- NOTE | 2016-12-19 10:58 | EDITING REQUIRED CODING QUERY ---
CODING QUERY To promote full compliance with coding requirements relating to patient care, provider participation is requested in all cases of bridge repair crew person uncertainty. Please assist us with the question(s) below: Coding Question(s): Dr. Lance, Possible aspiration pneumonia is documented throughout the patient's chart, but is not mentioned on the discharge summary. Please clarify if: ( ) aspiration pneumonia was present and treated during this admission ( ) aspiration pneumonia was ruled out ( ) other, please explain Physician's Response(s): Thank you for your time, MIMA Chávez, TOUR BUS DRIVER
--- NOTE | 2016-12-19 11:02 | EDITING REQUIRED CODING QUERY ---
CODING QUERY To promote full compliance with coding requirements relating to patient care, provider participation is requested in all cases of insulation supervisor uncertainty. Please assist us with the question(s) below: Coding Question(s): Dr. Lance, The medical record reflects the following clinical findings, treatment, and risk factors. Clinical Indicators: Hematemesis, INR 2.2 on presentation, EGD showing many cratered ulcers w/o current bleeding, worsening anemia (Hgb 10.7, Hct 36.9) Treatment: reversal of Warfarin therapy with IV Vitamin K, GI consult, EGD, Risk Factors: Warfarin therapy and gastric ulcers Please clarify if: ( ) GI bleeding was due to or related to anticoagulant therapy. ( ) GI bleeding was NOT due to or related to anticoagulant therapy. ( ) Other, please explain Physician's Response(s): Thank you for your time, MIMA Chávez, PICK UP ATTENDANT
== END 2016-12-17 15:12 | DRG 378 ==
LOC: EDBD 21:46 → C.EDB 21:48 → C.2E 12-14 01:30 → ENRESERV 12-14 01:39 → C.4E 12-16 19:00
PROVIDERS: ADMIT Hospitalist; ATTEND Family Medicine
PROC: 0DB68ZX Excision of Stomach, Via Natural or Artificial Opening Endoscopic, Diagnostic (ICD-10-PCS; principal; 2016-12-14 15:10)
DX: K25.4 Chronic or unspecified gastric ulcer with hemorrhage (principal); I50.30 Unspecified diastolic (congestive) heart failure; D72.829 Elevated white blood cell count, unspecified; D64.9 Anemia, unspecified; Q98.4 Klinefelter syndrome, unspecified; I48.2 Chronic atrial fibrillation; I11.0 Hypertensive heart disease with heart failure; E11.43 Type 2 diabetes mellitus with diabetic autonomic (poly)neuropathy; E11.42 Type 2 diabetes mellitus with diabetic polyneuropathy; J44.9 Chronic obstructive pulmonary disease, unspecified; K31.84 Gastroparesis; K59.09 Other constipation; G47.30 Sleep apnea, unspecified; Z74.01 Bed confinement status; Z87.891 Personal history of nicotine dependence; Z79.01 Long term (current) use of anticoagulants; Z79.4 Long term (current) use of insulin; Z79.82 Long term (current) use of aspirin; Z79.84 Long term (current) use of oral hypoglycemic drugs; Z79.891 Long term (current) use of opiate analgesic; Z79.899 Other long term (current) drug therapy

== ENCOUNTER → 2017-02-05 | Outpatient (CLI) | payer OTHER ==
[~2017-02-05] MED LIST changes: +ASCO250T4 PO; -BISA10SU3 PR; -CHOL100010 PO; +CHOL20007 PO; -EMOL1CRE10 TOP; +ENOX1INJ14 INJ; +ERGO500037 PO; -FAMO20TA11 PO; -INSDGI SC; +INSDGIPEN SC; +LACT3000 PO; -LACTASE PO; -LOPE1TAB25 PO; +NVLG SC; -NVLGI SC; -NYST100010 TOP; +OXYC-164 PO; -OXYC1TAB3 PO; +OYST500T12 PO; +PANT1TAB48 PO; +PANT40TA PO; +WARF3TAB6 PO; -[UNRECOGNIZED DRUG - CODE] PO
[2017-02-05 09:51] LABS: ALT/SGPT 14 U/L (12-78); BASO % 0.3 %; BASO ABS # 0.02 K/uL (0-0.2); BLOOD UREA NITROGEN 29 mg/dl (7-18); BUN/CREATININE RATIO 32.8 (10-20); CALCIUM 9.3 mg/dl (8.5-10.1); CARBON DIOXIDE 39 mmol/L (21-32); CHLORIDE 99 mmol/L (98-107); COMPLETE YES; CREATININE 0.89 mg/dl (0.60-1.40); EOS % 0.9 %; GLUCOSE 112 mg/dl (70-99); HEMATOCRIT 37.2 % (42-52); IG% 0.4 %; LYMPH % 22.8 %; LYMPH ABS # 1.69 K/uL (1.2-3.4); MEAN CELL VOLUME 96.6 fL (80-100); MEAN CORPUSCULAR HEMOGLOBIN 27.5 pg (25-34); MEAN CORPUSCULAR HGB CONC 28.5 g/dl (32-36); MEAN PLATELET VOLUME 11.5 fL (7.4-10.4); NEUT % 68.6 %; PLATELET COUNT 216 K/uL (130-400); POTASSIUM 4.6 mmol/L (3.5-5.1); RED BLOOD COUNT 3.85 M/uL (4.7-6.1); SODIUM 141 mmol/L (136-145); WHITE BLOOD COUNT 7.41 K/uL (4.8-10.8)
[2017-02-05 09:56] LABS: ALB/GLOB RATIO 0.7 (0.9-2); ALKALINE PHOSPHATASE 49 U/L (45-117); AST/SGOT 14 U/L (15-37); FERRITIN 34.2 ng/ml (8.0-388.0)
[2017-02-05 09:59] LABS: ESTIMATED AVERAGE GLUCOSE 108 mg/dl; HA1C FLAG Normal (Normal)
== END ==
LOC: C.LABUPUNI 09:14
PROVIDERS: ATTEND Nurse Practitioner Family
DX: E11.9 Type 2 diabetes mellitus without complications (principal); I73.9 Peripheral vascular disease, unspecified; I50.9 Heart failure, unspecified; D50.9 Iron deficiency anemia, unspecified; E55.9 Vitamin D deficiency, unspecified

== ENCOUNTER → 2017-05-13 | Outpatient (CLI) | payer OTHER ==
[~2017-05-13] MED LIST changes: +PANT1TAB3 PO; -PANT1TAB48 PO
[2017-05-13 09:12] LABS: HEMATOCRIT 37.5 % (42-52); MEAN CELL VOLUME 95.4 fL (80-100); MEAN CORPUSCULAR HEMOGLOBIN 27.2 pg (25-34); MEAN CORPUSCULAR HGB CONC 28.5 g/dl (32-36); MEAN PLATELET VOLUME 11.4 fL (7.4-10.4); PLATELET COUNT 238 K/uL (130-400); RED BLOOD COUNT 3.93 M/uL (4.7-6.1); WHITE BLOOD COUNT 6.97 K/uL (4.8-10.8)
[2017-05-13 09:24] LABS: FERRITIN 39.6 ng/ml (8.0-388.0)
== END ==
LOC: C.LABUPUNI 08:48
PROVIDERS: ATTEND Nurse Practitioner Family
DX: I50.9 Heart failure, unspecified (principal); D50.9 Iron deficiency anemia, unspecified; M62.81 Muscle weakness (generalized); E55.9 Vitamin D deficiency, unspecified

== ENCOUNTER → 2017-06-28 | Outpatient (CLI) | payer OTHER ==
[~2017-06-28] MED LIST changes: -PANT40TA PO
[2017-06-28 08:58] LABS: ALBUMIN 2.5 gm/dl (3.4-5.0); ALT/SGPT 19 U/L (12-78); AST/SGOT 21 U/L (15-37); BLOOD UREA NITROGEN 37 mg/dl (7-18); CALCIUM 8.7 mg/dl (8.5-10.1); CARBON DIOXIDE 32 mmol/L (21-32); CREATININE 0.82 mg/dl (0.60-1.40); GLUCOSE 123 mg/dl (70-99); POTASSIUM 4.1 mmol/L (3.5-5.1); SODIUM 141 mmol/L (136-145)
[2017-06-28 09:02] LABS: ALKALINE PHOSPHATASE 38 U/L (45-117); TOTAL PROTEIN 6.4 gm/dl (6.4-8.2); TRANSFERRIN 314 mg/dl (200-360)
[2017-06-28 09:04] LABS: HEMATOCRIT 34.9 % (42-52)
== END ==
LOC: C.LABUPUNI 08:30
PROVIDERS: ATTEND Nurse Practitioner Family
DX: I11.0 Hypertensive heart disease with heart failure (principal); I50.9 Heart failure, unspecified; D50.9 Iron deficiency anemia, unspecified; E83.42 Hypomagnesemia; M62.81 Muscle weakness (generalized); E66.01 Morbid (severe) obesity due to excess calories

== ENCOUNTER → 2017-07-19 | Outpatient (CLI) | payer OTHER ==
[~2017-07-19] MED LIST changes: +ACET-1693 PO; -ACET325T96 PO; +APIX1TAB3 PO; +FAMO40TA6 PO; +MULTCAP31 PO
[2017-07-19 11:11] LABS: BASO % 0.3 %; BASO ABS # 0.02 K/uL (0-0.2); EOS % 0.8 %; EOS ABS # 0.06 K/uL (0-0.5); HEMATOCRIT 36.7 % (42-52); HEMOGLOBIN 10.5 g/dL (14.0-18.0); IG# 0.03 K/uL (0.00-0.02); LYMPH % 16.7 %; LYMPH ABS # 1.25 K/uL (1.2-3.4); MEAN CELL VOLUME 100.3 fL (80-100); MEAN CORPUSCULAR HEMOGLOBIN 28.7 pg (25-34); MEAN CORPUSCULAR HGB CONC 28.6 g/dl (32-36); MEAN PLATELET VOLUME 11.1 fL (7.4-10.4); MONO % 7.5 %; MONO ABS # 0.56 K/uL (0.11-0.59); NEUT % 74.3 %; NEUT ABS # 5.55 K/uL (1.4-6.5); PLATELET COUNT 239 K/uL (130-400); RED CELL DISTRIBUTION WIDTH CV 17.5 % (11.5-14.5); RED CELL DISTRIBUTION WIDTH SD 64.1 fL (36.4-46.3); WHITE BLOOD COUNT 7.47 K/uL (4.8-10.8)
[2017-07-19 11:34] LABS: ALBUMIN 2.6 gm/dl (3.4-5.0); ALKALINE PHOSPHATASE 43 U/L (45-117); ALT/SGPT 19 U/L (12-78); AST/SGOT 20 U/L (15-37); BLOOD UREA NITROGEN 31 mg/dl (7-18); CALCIUM 9.4 mg/dl (8.5-10.1); CARBON DIOXIDE 41 mmol/L (21-32); CREATININE 0.57 mg/dl (0.60-1.40); GLUCOSE 61 mg/dl (70-99); SODIUM 142 mmol/L (136-145); TOTAL PROTEIN 6.6 gm/dl (6.4-8.2)
--- NOTE | 2017-07-25 07:52 | CODING QUERY NO DIAGNOSIS ---
TREATMENT RENDERED WITHOUT A DIAGNOSIS To promote full compliance with coding requirements relating to patient care, physician participation is requested in all cases of medical assistant instructor uncertainty. Please assist us with providing a diagnosis/symptom for the test(s) below: A diagnosis/symptom was not documented on your Order. A valid diagnosis/symptom is required to bill all insurances. Please remember that we are unable to code a diagnosis of rule out, probable, possible, questionable, or suspected. Tests that require a diagnosis: * CBC WITH AUTO DIFF DIAGNOSIS: * METABOLIC PROFILE DIAGNOSIS: Provider Signature: Date: Thank you Cheryl Sanchez [employer] Once completed, please kindly fax back to [phone] For questions please call [phone]
== END | disposition home or self-care (01) ==
LOC: C.LABUPUNI 10:47
PROVIDERS: ATTEND Nurse Practitioner Family
DX: Z00.00 Encounter for general adult medical examination without abnormal findings (principal)

== ENCOUNTER → 2017-07-20 | Outpatient (CLI) | payer OTHER ==
[2017-07-20 10:08] LABS: HEMOGLOBIN A1C 5.2 % (4.5-5.6)
[2017-07-20 10:41] LABS: BLOOD UREA NITROGEN 31 mg/dl (7-18); CALCIUM 9.4 mg/dl (8.5-10.1); CARBON DIOXIDE 41 mmol/L (21-32); CREATININE 0.74 mg/dl (0.60-1.40); GLUCOSE 71 mg/dl (70-99); POTASSIUM 4.9 mmol/L (3.5-5.1); SODIUM 141 mmol/L (136-145)
== END | disposition home or self-care (01) ==
LOC: C.LABUPUNI 08:57
PROVIDERS: ATTEND Nurse Practitioner Family
DX: E11.9 Type 2 diabetes mellitus without complications (principal)

== ENCOUNTER 2017-07-22 10:24 | Inpatient (IN) | payer OTHER ==
[~2017-07-22] VITALS: Ht 185.4 cm; Wt 139.0 kg
[2017-07-22] VITALS (8 sets, daily range): BP systolic 161–173; BP diastolic 65–78; PULSE 57–81; TEMP 36.3–36.4; O2SAT 93–100; BMI 42.7
[~2017-07-22 10:24] MED LIST changes: -APIX1TAB3 PO; -FAMO40TA6 PO; -MULTCAP31 PO
[2017-07-22] MEDS ORDERED: APIX1TAB3 PO ×2 (11:23)
[2017-07-22] MEDS ORDERED: MULTCAP31 PO ×2 (11:25)
--- NOTE | 2017-07-22 11:29 | DIAGNOSTIC IMAGING REPORT ---
CHEST ONE VIEW PORTABLE CLINICAL HISTORY: Altered mental status COMPARISON STUDY: 12/13/2016 FINDINGS: The heart is enlarged. There is diffuse elevation of the interstitium right greater than left. The findings likely represent asymmetric pulmonary edema. There is no lobar consolidation. There are no significant pleural effusions.[ IMPRESSION: Asymmetric pulmonary edema pattern right greater than left. Clinical and radiographic follow-up is recommended Electronically signed by: Conner Andres M.D. 07/22/2017 11:28 AM Dictated Date/Time: 07/22/2017 11:27 AM
[2017-07-22] MEDS ORDERED: FAMO40TA6 PO ×2 (11:31)
[2017-07-22 11:44] LABS: ALBUMIN 2.8 gm/dl (3.4-5.0); CALCIUM 9.3 mg/dl (8.5-10.1); CREATININE 0.75 mg/dl (0.60-1.40); POTASSIUM 4.8 mmol/L (3.5-5.1)
[2017-07-22 11:49] LABS: TOTAL PROTEIN 6.6 gm/dl (6.4-8.2)
[2017-07-22 11:50] LABS: HEMATOCRIT 35.7 % (42-52); MEAN CELL VOLUME 101.1 fL (80-100); MEAN CORPUSCULAR HEMOGLOBIN 28.3 pg (25-34); MEAN PLATELET VOLUME 10.6 fL (7.4-10.4); PLATELET COUNT 225 K/uL (130-400); RED CELL DISTRIBUTION WIDTH CV 17.8 % (11.5-14.5); RED CELL DISTRIBUTION WIDTH SD 65.5 fL (36.4-46.3); WHITE BLOOD COUNT 6.57 K/uL (4.8-10.8)
[2017-07-22 12:04] LABS: BASO % 0.2 %; BASO ABS # 0.01 K/uL (0-0.2); EOS % 0.6 %; EOS ABS # 0.04 K/uL (0-0.5); IG# 0.04 K/uL (0.00-0.02); LYMPH % 15.8 %; LYMPH ABS # 1.04 K/uL (1.2-3.4); MONO % 8.2 %; MONO ABS # 0.54 K/uL (0.11-0.59); NEUT % 74.6 %
[2017-07-22] MEDS ORDERED: BACLOFEN 10 MG TAB PO PRN (13:45)
[2017-07-22] MEDS ORDERED: MoRPHine SULFATE 2 MG/ML CARP IV PRN (14:00)
[2017-07-22] MEDS ORDERED: MAGNESIUM HYDROXIDE SUSP 30 ML UDC PO PRN (14:00)
[2017-07-22] MEDS ORDERED: ACETAMINOPHEN 325 MG TAB PO PRN (14:00)
[2017-07-22] MEDS ORDERED: ONDANSETRON INJ 2 MG/ML 2 ML VIAL IV PRN (14:00)
[2017-07-22] MEDS ORDERED: ALUMINUM/MAGNESIUM/SIMETH (MAALOX MAX) 30 ML UDC PO PRN (14:00)
[2017-07-22] MEDS ORDERED: GLUCOSE 10 TABS/TUBE PO PRN (14:30)
[2017-07-22] MEDS ORDERED: GLUCAGON FOR INJ 1 MG VIAL SQ PRN (14:30)
[2017-07-22] MEDS ORDERED: DEXTROSE 50% 50 ML SYR IV PRN (14:30)
[2017-07-22] MEDS ORDERED: GLUCOSE 40% GEL 15 GM TUBE PO PRN (14:30)
[2017-07-22] MEDS ORDERED: INFLUENZA ADMINISTRATION CHARGE ONE (15:00)
[2017-07-22] MEDS ORDERED: PNEUMOCOCCAL POLYSACCHARIDES 25 MCG/0.5 ML VIAL/SYR IM. ONE (15:00)
[2017-07-22] MEDS ORDERED: PNEUMOCOCCAL ADMINISTRATION CHARGE ONE (15:00)
[2017-07-22] MEDS ORDERED: INFLUENZA VACCINE HIGH DOSE 65+ 0.5 ML SYR IM. ONE (15:00)
[2017-07-22] MEDS ORDERED: BUMETANIDE IV 1 MG in SYRINGE 0 ML IV ONE (15:00)
--- NOTE | 2017-07-22 15:00 | History and Physical ---
History & Physical Date & Time of Service: Jul 22, 2017 at 14:26 Chief Complaint: Evaluation Primary Care Physician: Jaida Collier History of Present Illness Source: patient 67 y/o M Hx Klinefelter's, morbid obesity, atrial fibrillation, iron-deficient anemia, HTN, HPL, DM II. Pt resides in a correction. Overnight he was reported to develop SOB followed by episodes of confusion. He was transported to the ER this AM. He is markedly somnolent on admission and exhibited an 02 saturation in the 70s without supplemental 02. A VBG was obtained and is notable for a C02 of 100. The pt can nod his head to questioning, but otherwise tends to fall asleep and is unable to contribute to the HPI/ROS. There were no reports of a fever or productive cough. A CXR may be consistent with pulmonary edema. Past Medical/Surgical History 1) Klinfelter's 2) HPL 3) Iron-deficient anemia 4) Osteomyelitis 5) Wheel-chair bound 6) Morbid obesity 7) Esophageal rupture - hematemesis 12/14 8) HTN 9) HPL 10) DM II 11) Chronic atrial fibrillation 12) Lower extremity edema Family History Coronary artery disease FATHER Social History Smoking Status: Former Smoker Drug Use: none Marital Status: single Housing status: correction Occupational Status: disabled Immunizations History of Influenza Vaccine: Yes Influenza Vaccine Date: Mar 01, 2014 History of Tetanus Vaccine?: No History of Pneumococcal: No History of Hepatitis B Vaccine: No Multi-Drug Resistant Organisms History of MDRO: Yes Type of MDRO: MRSA Allergies Coded Allergies: NSAIDs (Unverified Allergy, Unknown, ., 07/22/17) Home Medications Scheduled Apixaban (Eliquis), 5 MG PO BID Ascorbic Acid (Vitamin C), 250 MG PO BID Aspirin (Aspirin Ec), 81 MG PO WK Atorvastatin (Lipitor), 40 MG PO HS Bumetanide (Bumetanide), 0.5 MG PO BID Cholecalciferol (Vitamin D3), 2,000 UNITS PO DAILY Cyanocobalamin (Vitamin B-12), 1,000 MCG PO DAILY Ergocalciferol (Vitamin D 83646 Unit), 50,000 UNIT PO WK Escitalopram (Lexapro), 10 MG PO HS Famotidine (Pepcid), 40 MG PO HS Fenofibrate (Tricor), 160 MG PO HS Ferrous Sulfate (Ferrous Sulfate), 325 MG PO TID Insulin Aspart (Novolog), 4 UNITS SC PM Insulin Aspart (Novolog), 6 UNITS SC DAILY Insulin Aspart (Novolog), 7 UNITS SC HS Insulin Glargine (Lantus Solostar), 54 UNITS SC HS Lactase (Lactaid), 1 TAB PO TIDM Lisinopril (Lisinopril), 2.5 MG PO DAILY Magnesium Oxide (Mag-Ox), 400 MG PO DAILY Metformin Hcl (Glucophage), 1,000 MG PO BID Multiple Vitamins W/ Minerals (Ocuvite Lutein), 1 CAP PO BID Oxycodone Hcl (Oxycodone Hcl), 10 MG PO TID Oyster Shell (Oyster Shell), 250 MG PO BID Polyethylene Glycol 3350 (Miralax), 17 GM PO DAILY Senna (Senokot), 1 TAB PO DAILY Scheduled PRN Acetaminophen Tab (Tylenol), 650 MG PO Q6H PRN for MILD PAIN/FEVER Baclofen (Lioresal), 10 MG PO Q8H PRN for Muscle Spasms Review of Systems Cannot obtain from pt Physical Exam Vital Signs Date Time Temp Pulse Resp B/P (MAP) Pulse Ox O2 Delivery O2 Flow Rate FiO2 07/22/17 13:20 69 22 139/74 100 BiPAP 5.0 40 07/22/17 12:34 69 100 40 07/22/17 10:53 95 Nasal Cannula 5.0 07/22/17 10:37 36.8 75 22 124/65 71 Room Air 07/22/17 10:37 71 Room Air 07/22/17 10:32 74 General Appearance: + pertinent finding (Obese. somnolent middle-aged male - on BIPAP - nods head to questioning) Head: normocephalic ENT: normal ENT inspection Neck: supple, + pertinent finding (CAnnot evaluate JVD) Respiratory/Chest: chest non-tender, lungs clear (Exam is limited = poor effort , obesity and large air noises ) Cardiovascular: regular rate, rhythm, no edema Abdomen/GI: normal bowel sounds, non tender, soft Back: normal inspection, no CVA tenderness Extremities/Musculoskelatal: + pertinent finding (Tinea of toes/tonails present - BL edema) Neurologic/Psych: + pertinent finding (Pt is somnolent - comprehends questioning) Skin: + pertinent finding (Tinea pedis likely) Diagnostics Laboratory Results Results Past 24 Hours Test 07/22/17 10:42 07/22/17 11:06 07/22/17 11:07 07/22/17 12:10 Range/Units Bedside Glucose 81 70-99 mg/dl White Blood Count 6.57 4.8-10.8 K/uL Red Blood Count 3.53 4.7-6.1 M/uL Hemoglobin 10.0 14.0-18.0 g/dL Hematocrit 35.7 42-52 % Mean Corpuscular Volume 101.1 80-100 fL Mean Corpuscular Hemoglobin 28.3 25-34 pg Mean Corpuscular Hemoglobin Concent 28.0 32-36 g/dl Platelet Count 225 130-400 K/uL Mean Platelet Volume 10.6 7.4-10.4 fL Neutrophils (%) (Auto) 74.6 % Lymphocytes (%) (Auto) 15.8 % Monocytes (%) (Auto) 8.2 % Eosinophils (%) (Auto) 0.6 % Basophils (%) (Auto) 0.2 % Neutrophils # (Auto) 4.90 1.4-6.5 K/uL Lymphocytes # (Auto) 1.04 1.2-3.4 K/uL Monocytes # (Auto) 0.54 0.11-0.59 K/uL Eosinophils # (Auto) 0.04 0-0.5 K/uL Basophils # (Auto) 0.01 0-0.2 K/uL RDW Standard Deviation 65.5 36.4-46.3 fL RDW Coefficient of Variation 17.8 11.5-14.5 % Immature Granulocyte % (Auto) 0.6 % Immature Granulocyte # (Auto) 0.04 0.00-0.02 K/uL Sodium Level 144 136-145 mmol/L Potassium Level 4.8 3.5-5.1 mmol/L Chloride Level 99 98-107 mmol/L Carbon Dioxide Level 44 21-32 mmol/L Anion Gap 1.0 3-11 mmol/L Blood Urea Nitrogen 39 7-18 mg/dl Creatinine 0.75 0.60-1.40 mg/dl Est Creatinine Clear Calc Drug Dose 144.1 ml/min Estimated GFR () 110.0 Estimated GFR (Non- 94.9 BUN/Creatinine Ratio 52.0 10-20 Random Glucose 71 70-99 mg/dl Calcium Level 9.3 8.5-10.1 mg/dl Total Bilirubin 0.5 0.2-1 mg/dl Direct Bilirubin 0.2 0-0.2 mg/dl Aspartate Amino Transf (AST/SGOT) 17 15-37 U/L Alanine Aminotransferase (ALT/SGPT) 17 12-78 U/L Alkaline Phosphatase 38 45-117 U/L Troponin I 0.023 0-0.045 ng/ml Total Protein 6.6 6.4-8.2 gm/dl Albumin 2.8 3.4-5.0 gm/dl Lipase 122 73-393 U/L Venous Blood pH 7.27 7.36-7.41 Venous Blood Partial Pressure CO2 100 38.0-50.0 mmHg Venous Blood Partial Pressure O2 48 mmHg Venous Blood HCO3 45 mmol/L Venous Blood Oxygen Saturation 78.6 % Venous Blood Base Excess 15.2 mEq/L Urine Color YELLOW Urine Appearance CLEAR CLEAR Urine pH 5.0 4.5-7.5 Urine Specific [place] 1.014 1.000-1.030 Urine Protein TRACE NEG Urine Glucose (UA) NEG NEG Urine Ketones NEG NEG Urine Occult Blood NEG NEG Urine Nitrite NEG NEG Urine Bilirubin NEG NEG Urine Urobilinogen NEG NEG Urine Leukocyte Esterase NEG NEG Urine WBC (Auto) 0 0-5 /hpf Urine RBC (Auto) 0-4 0-4 /hpf Urine Hyaline Casts (Auto) 0 0-5 /lpf Urine Epithelial Cells (Auto) 0-5 0-5 /lpf Urine Bacteria (Auto) NEG NEG EKG AF, incomplete RBBB, anterior inversions which are present on previous EKGs Impression Assessment and Plan 67 y/o M Hx Klinefelter's, morbid obesity, atrial fibrillation, iron-deficient anemia, HTN, HPL, DM II. Pt resides in a correction. Overnight he was reported to develop SOB followed by episodes of confusion. He was transported to the ER this AM. He is markedly somnolent on admission and exhibited an 02 saturation in the 70s without supplemental 02. A VBG was obtained and is notable for a C02 of 100. The pt can nod his head to questioning, but otherwise tends to fall asleep and is unable to contribute to the HPI/ROS. There were no reports of a fever or productive cough. A CXR may be consistent with pulmonary edema. 1) Hypercarbic and hypoxic respiratory failure. Placed on BiPAP - will obtain serial VBGs. Oxygen saturation has been adequate with supplemental 02. CXR read as possible asymmetric pulmonary edema. Provided with a dose of IV Bumex due to initial low sat. Bipap should help as well. Pulmonary consult requested. If VBGs do not show considerable improvement, will consider transfer to unit. Echo is pending. 2) DM II - placed on SS and Lantus 3) AF - rate is controlled - anticoagulated with Eliquis - does not require rate agents 4) Anemia - Hb is at baseline - cont iron supplements 5) HTN - cont Lisinopril 6) HPL - cont Atorvastatin 7) Tinea pedis - pt would benefit from podiatry as he is likely prone to infection and feet are very poorly kempt. We will provide a topical antifungal. Full code - Eliquis prophylaxis Total time for this admit including review of labs, meds, imaging, records, EKG - discussion with pt and ER attending - 38 min Level of Care Telemetry Resuscitation Status FULL RESUSCITATION VTE Prophylaxis VTE Risk Assessment Done? Y/N: Yes Risk Level: High Given or contraindicated: Other Anticoagulation
--- NOTE | 2017-07-22 16:54 | EMERGENCY ROOM VISIT NOTE ---
History Report prepared by Niko: Darius Lunsford Under the Supervision of: Dr. Quoc Nick D.O. First contact with patient: 10:35 Stated Complaint: EVALUATION History of Present Illness The patient is a 67 year old male who presents to the Emergency Room by EMS with complaints of confusion beginning shortly prior to arrival. He is a resident at [facility]. Per nursing staff, the patient is reported to have had increased confusion upon waking up this morning. They state that the patient has been not feeling well for the past few days. The patient is on 2 L of supplemental oxygen at all times. He notes that he had abdominal surgery recently. Pt denies headache, change in vision, fevers, abdominal pain, chest pain, new shortness of breath, nausea, vomiting, diarrhea, pain with urination, and melena. His last bowel movement was last week. He is unaware of any sores or open wounds on his body. Per [facility] [employer]ETING MANAGER, the patient has had intermittent episodes of hypoxia throughout the night associated with confusion. She states that the patient's confusion persisted today. She notes that the patient had his dose of Bumex increased recently. Source of History: patient, nursing staff Onset: Shortly prior to arrival Quality: other (confusion) Timing: constant Associated Symptoms: No fevers, No chills, No headache, No chest pain, No SOB (new), No nausea, No vomiting, No abdominal pain, No diarrhea, No urinary symptoms Review of Systems See HPI for pertinent positives & negatives. A total of 10 systems reviewed and were otherwise negative. Past Medical & Surgical Medical Problems: (1) Atrial fibrillation (2) Chronic venous stasis (3) Diabetes mellitus, type II (4) History of osteomyelitis (5) Hyperlipidemia (6) Hypertension (7) Klinefelter syndrome (8) Obesity (9) Respiratory failure Family History Coronary artery disease FATHER Social History Smoking Status: Former Smoker Drug Use: none Marital Status: single Housing Status: [facility] Occupation Status: disabled Current/Historical Medications Scheduled Apixaban (Eliquis), 5 MG PO BID Ascorbic Acid (Vitamin C), 250 MG PO BID Aspirin (Aspirin Ec), 81 MG PO WK Atorvastatin (Lipitor), 40 MG PO HS Bumetanide (Bumetanide), 0.5 MG PO BID Cholecalciferol (Vitamin D3), 2,000 UNITS PO DAILY Cyanocobalamin (Vitamin B-12), 1,000 MCG PO DAILY Ergocalciferol (Vitamin D 45616 Unit), 50,000 UNIT PO WK Escitalopram (Lexapro), 10 MG PO HS Famotidine (Pepcid), 40 MG PO HS Fenofibrate (Tricor), 160 MG PO HS Ferrous Sulfate (Ferrous Sulfate), 325 MG PO TID Insulin Aspart (Novolog), 4 UNITS SC PM Insulin Aspart (Novolog), 6 UNITS SC DAILY Insulin Aspart (Novolog), 7 UNITS SC HS Insulin Glargine (Lantus Solostar), 54 UNITS SC HS Lactase (Lactaid), 1 TAB PO TIDM Lisinopril (Lisinopril), 2.5 MG PO DAILY Magnesium Oxide (Mag-Ox), 400 MG PO DAILY Metformin Hcl (Glucophage), 1,000 MG PO BID Multiple Vitamins W/ Minerals (Ocuvite Lutein), 1 CAP PO BID Oxycodone Hcl (Oxycodone Hcl), 10 MG PO TID Oyster Shell (Oyster Shell), 250 MG PO BID Polyethylene Glycol 3350 (Miralax), 17 GM PO DAILY Senna (Senokot), 1 TAB PO DAILY Scheduled PRN Acetaminophen Tab (Tylenol), 650 MG PO Q6H PRN for MILD PAIN/FEVER Baclofen (Lioresal), 10 MG PO Q8H PRN for Muscle Spasms Allergies Coded Allergies: NSAIDs (Unverified Allergy, Unknown, ., 07/22/17) Physical Exam Vital Signs Date Time Temp Pulse Resp B/P (MAP) Pulse Ox O2 Delivery O2 Flow Rate FiO2 07/22/17 13:54 63 21 100 07/22/17 13:31 148/82 07/22/17 13:24 61 22 99 07/22/17 13:21 139/74 07/22/17 13:20 69 22 139/74 100 BiPAP 5.0 40 07/22/17 12:54 62 23 98 07/22/17 12:34 69 100 40 07/22/17 12:24 70 24 92 07/22/17 11:54 62 25 91 07/22/17 11:24 75 15 91 07/22/17 11:01 146/69 07/22/17 10:54 72 24 94 07/22/17 10:53 95 Nasal Cannula 5.0 07/22/17 10:37 36.8 75 22 124/65 71 Room Air 07/22/17 10:37 71 Room Air 07/22/17 10:32 74 07/22/17 10:31 124/65 Physical Exam GENERAL: Sitting up in bed, morbidly obese, alert, chronically ill-appearing, well nourished, no distress, non-toxic EYE EXAM: normal conjunctiva. PERRL and EOM's intact. OROPHARYNX: no exudate, no erythema, lips, buccal mucosa, and tongue normal and mucous membranes are moist NECK: supple, no nuchal rigidity, no adenopathy, non-tender LUNGS: Diminished at the bilateral bases. HEART: Distant heart sounds. No murmurs, S1 normal and S2 normal ABDOMEN: abdomen soft, non-tender, normo-active bowel sounds, no masses, no rebound or guarding. Healing wound in left abdomen. BACK: Back is symmetrical on inspection and there is no deformity, no midline tenderness, no CVA tenderness. SKIN: no rashes and no bruising UPPER EXTREMITIES: upper extremities are grossly normal. LOWER EXTREMITIES: No pitting edema. NEURO EXAM: Alert, oriented to person and year, not place. Intermittently confused throughout conservation. Bilateral weakness in the lower extremities. No focal deficit in upper or lower extremities. Medical Decision & Procedures ER Provider Diagnostic Interpretation: Radiology results as stated below per my review and the radiologist's interpretation: CHEST ONE VIEW PORTABLE FINDINGS: The heart is enlarged. There is diffuse elevation of the interstitium right greater than left. The findings likely represent asymmetric pulmonary edema. There is no lobar consolidation. There are no significant pleural effusions.[ IMPRESSION: Asymmetric pulmonary edema pattern right greater than left. Clinical and radiographic follow-up is recommended Electronically signed by: Conner Andres M.D. 07/22/2017 11:28 AM Laboratory Results 07/22/17 11:06 Red Blood Count 3.53, Mean Corpuscular Volume 101.1, Mean Corpuscular Hemoglobin 28.3, Mean Corpuscular Hemoglobin Concent 28.0, Mean Platelet Volume 10.6, Neutrophils (%) (Auto) 74.6, Lymphocytes (%) (Auto) 15.8, Monocytes (%) ( Auto) 8.2, Eosinophils (%) (Auto) 0.6, Basophils (%) (Auto) 0.2, Neutrophils # ( Auto) 4.90, Lymphocytes # (Auto) 1.04, Monocytes # (Auto) 0.54, Eosinophils # ( Auto) 0.04, Basophils # (Auto) 0.01 07/22/17 11:06 Test 07/22/17 10:42 07/22/17 11:06 07/22/17 12:10 Bedside Glucose 81 mg/dl (70-99) White Blood Count 6.57 K/uL (4.8-10.8) Red Blood Count 3.53 M/uL (4.7-6.1) Hemoglobin 10.0 g/dL (14.0-18.0) Hematocrit 35.7 % (42-52) Mean Corpuscular Volume 101.1 fL (80-100) Mean Corpuscular Hemoglobin 28.3 pg (25-34) Mean Corpuscular Hemoglobin Concent 28.0 g/dl (32-36) Platelet Count 225 K/uL (130-400) Mean Platelet Volume 10.6 fL (7.4-10.4) Neutrophils (%) (Auto) 74.6 % Lymphocytes (%) (Auto) 15.8 % Monocytes (%) (Auto) 8.2 % Eosinophils (%) (Auto) 0.6 % Basophils (%) (Auto) 0.2 % Neutrophils # (Auto) 4.90 K/uL (1.4-6.5) Lymphocytes # (Auto) 1.04 K/uL (1.2-3.4) Monocytes # (Auto) 0.54 K/uL (0.11-0.59) Eosinophils # (Auto) 0.04 K/uL (0-0.5) Basophils # (Auto) 0.01 K/uL (0-0.2) RDW Standard Deviation 65.5 fL (36.4-46.3) RDW Coefficient of Variation 17.8 % (11.5-14.5) Immature Granulocyte % (Auto) 0.6 % Immature Granulocyte # (Auto) 0.04 K/uL (0.00-0.02) Anion Gap 1.0 mmol/L (3-11) Est Creatinine Clear Calc Drug Dose 144.1 ml/min Estimated GFR () 110.0 Estimated GFR (Non- 94.9 BUN/Creatinine Ratio 52.0 (10-20) Calcium Level 9.3 mg/dl (8.5-10.1) Total Bilirubin 0.5 mg/dl (0.2-1) Direct Bilirubin 0.2 mg/dl (0-0.2) Aspartate Amino Transf (AST/SGOT) 17 U/L (15-37) Alanine Aminotransferase (ALT/SGPT) 17 U/L (12-78) Alkaline Phosphatase 38 U/L (45-117) Troponin I 0.023 ng/ml (0-0.045) Total Protein 6.6 gm/dl (6.4-8.2) Albumin 2.8 gm/dl (3.4-5.0) Lipase 122 U/L (73-393) Urine Color YELLOW Urine Appearance CLEAR (CLEAR) Urine pH 5.0 (4.5-7.5) Urine Specific [place] 1.014 (1.000-1.030) Urine Protein TRACE (NEG) Urine Glucose (UA) NEG (NEG) Urine Ketones NEG (NEG) Urine Occult Blood NEG (NEG) Urine Nitrite NEG (NEG) Urine Bilirubin NEG (NEG) Urine Urobilinogen NEG (NEG) Urine Leukocyte Esterase NEG (NEG) Urine WBC (Auto) 0 /hpf (0-5) Urine RBC (Auto) 0-4 /hpf (0-4) Urine Hyaline Casts (Auto) 0 /lpf (0-5) Urine Epithelial Cells (Auto) 0-5 /lpf (0-5) Urine Bacteria (Auto) NEG (NEG) Laboratory results per my review. ECG Per My Interpretation Indication: altered mental status Rate (beats per minute): 68 Rhythm: atrial fibrillation Findings: RBBB, left axis deviation, other (Poor baseline) ED Course ED COURSE: Vital signs were reviewed and showed hypoxia The patients medical record was reviewed The above diagnostic studies were performed and reviewed. ED treatments and interventions as stated above. 1042: The patient was evaluated in room B7. A complete history and physical examination was performed. 1058: I spoke with a YON from [facility] over the phone and discussed the patient's case. 1215: Upon reevaluation, the patient is still slightly confused. I discussed my findings with the patient and he understands and agrees with the treatment plan. Based on the patients age, coexisting illnesses, exam and lab findings the decision to treat as an inpatient was made. The patient remained stable while under my care. The patient will be evaluated for further management. Medical Decision Differential diagnoses includes but is not limited to toxic, metabolic, infectious, traumatic, cardiac, neurologic, hematologic, psychiatric and inflammatory etiologies. Patient is a 67-year-old male presents to the ER for altered mental status associated with shortness of breath and hypoxia from heart side. CBC shows a mild anemia. BMP shows an elevated CO2 of 44. Bilirubin along with LFTs and troponin was negative. Lipase is normal. UA was unremarkable. VBG shows CO2 greater than 100 with a pH of 7.27. Patient was placed on BiPAP. Patient tolerated BiPAP. He was admitted to internal medicine for further workup of confusion likely secondary to the elevated CO2. Medication Reconcilliation Current Medication List: was personally reviewed by me Blood Pressure Screening Patient's blood pressure: Normal blood pressure Blood pressure disposition: Did not require urgent referral Consults Time Called: 1215 Consulting Physician: Dr. Vergara - LIZETH Hospitalist Returned Call: 1225 I reviewed the patient's case with Dr. Vergara. LIZETH will evaluate the patient for further management. Impression Primary Impression: Altered mental status Additional Impression: Acute respiratory failure with hypoxia and hypercarbia Critical Care I have personally spent 35 minutes of critical care time in the direct management of this patient. This includes bedside care, interpretation of diagnostic studies, and testing, discussion with consultants, patient, and family members, and other required patient management activities. This 35 minutes is in excess of all separately billable procedures. Scribe Attestation The scribe's documentation has been prepared under my direction and personally reviewed by me in its entirety. I confirm that the note above accurately reflects all work, treatment, procedures, and medical decision making performed by me. Departure Information Dispostion Being Evaluated By Hospitalist Referrals [facility] (PCP) Problem Qualifiers Primary Impression: Altered mental status Altered mental status type: unspecified Qualified Codes: R41.82 - Altered mental status, unspecified
[2017-07-22] MEDS: LACTASE 3000 UNIT TAB PO SCH (21:00)
[2017-07-22] MEDS: OXYCODONE HCL IR 5 MG TAB (IMMEDIATE RELEASE) PO SCH (21:00)
[2017-07-22] MEDS ORDERED: FENOFIBRATE 160 MG PO SCH (21:00)
[2017-07-22] MEDS: INSULIN ASPART 100 UNITS/ML 3 ML PEN SC SCH (21:00)
[2017-07-22] MEDS: INSULIN GLARGINE SOLOSTAR 100 UNITS/ML 3 ML PEN SC SCH (21:20)
[2017-07-22] MEDS: ESCITALOPRAM OXALATE 10 MG TAB PO SCH (22:00)
[2017-07-22] MEDS: APIXABAN 2.5 MG TAB PO SCH (22:00)
[2017-07-22] MEDS: FERROUS SULFATE 325 MG TAB PO SCH (22:01)
[2017-07-22] MEDS: ATORVASTATIN 40 MG TAB PO SCH (22:01)
[2017-07-22] MEDS: BUMETANIDE 1 MG TAB PO SCH (22:01)
[2017-07-22] MEDS: FAMOTIDINE 20 MG TAB PO SCH (22:02)
[2017-07-23] VITALS (11 sets, daily range): BP systolic 115–177; BP diastolic 64–109; PULSE 60–93; TEMP 36.4–37.6; O2SAT 90–96; Ht 185.4 cm; Wt 139.0 kg
[2017-07-23 06:28] LABS: HEMATOCRIT 37.3 % (42-52); HEMOGLOBIN 10.5 g/dL (14.0-18.0); MEAN CELL VOLUME 98.7 fL (80-100); MEAN CORPUSCULAR HEMOGLOBIN 27.8 pg (25-34); MEAN CORPUSCULAR HGB CONC 28.2 g/dl (32-36); MEAN PLATELET VOLUME 10.6 fL (7.4-10.4); PLATELET COUNT 218 K/uL (130-400); RED CELL DISTRIBUTION WIDTH CV 17.4 % (11.5-14.5); RED CELL DISTRIBUTION WIDTH SD 63.2 fL (36.4-46.3); WHITE BLOOD COUNT 7.11 K/uL (4.8-10.8)
[2017-07-23 07:05] LABS: CALCIUM 9.9 mg/dl (8.5-10.1); CREATININE 0.73 mg/dl (0.60-1.40); POTASSIUM 4.4 mmol/L (3.5-5.1)
--- NOTE | 2017-07-23 07:16 | DIAGNOSTIC IMAGING REPORT ---
CHEST ONE VIEW PORTABLE CLINICAL HISTORY: CHF dyspnea COMPARISON STUDY: 07/22/2017 FINDINGS: Findings of asymmetric pulmonary edema are again noted. This is progressive on the left and perhaps slightly improved on the right. Small left pleural effusion. IMPRESSION: Asymmetric pulmonary edema slightly progressive on the left and slightly improved on the right. Small left pleural effusion. The above report was generated using voice recognition software. It may contain grammatical, syntax or spelling errors. Electronically signed by: Johnny Hernandez M.D. 07/23/2017 7:14 AM Dictated Date/Time: 07/23/2017 7:11 AM
--- NOTE | 2017-07-23 07:56 | Family Medicine Progress Note ---
Progress Note Date of Service Jul 23, 2017. Subjective Pt evaluation today including: conversation w/ patient, physical exam, chart review, lab review Pain: None Voiding: no voiding problems, no incontinence Notes he is feeling better today States breathing is improved Feels he is able to lie flat comfortably Legs both feel slightly swollen No chest pain, no palpitations, no syncope or pre-syncope Tolerating BiPAP overnight Additional Comments: A 10 point review of systems was negative unless stated above. Medications Current Inpatient Medications Medications (Trade) Dose Ordered Sig/Carlton Route Start Time Stop Time Status Last Admin Dose Admin Aspirin (Ecotrin Tab) 81 mg DAILY PO 07/23/17 09:00 08/22/17 08:59 07/23/17 08:12 81 MG Atorvastatin Calcium (Lipitor Tab) 40 mg HS PO 07/22/17 21:00 08/21/17 20:59 07/22/17 22:01 40 MG Baclofen (Lioresal Tab) 10 mg Q8H PRN PO 07/22/17 13:45 08/21/17 13:44 Cyanocobalamin (Vitamin B-12 Tab) 1,000 mcg DAILY PO 07/23/17 09:00 08/22/17 08:59 07/23/17 08:13 1,000 MCG Ergocalciferol (Vitamin D Cap) 50,000 interunit Sa@0900 PO 07/24/17 09:00 08/23/17 08:59 Escitalopram Oxalate (Lexapro Tab) 10 mg HS PO 07/22/17 21:00 08/21/17 20:59 07/22/17 22:00 10 MG Famotidine (Pepcid Tab) 40 mg HS PO 07/22/17 21:00 08/21/17 20:59 07/22/17 22:02 40 MG Ferrous Sulfate (Feosol Tab) 325 mg TID PO 07/22/17 21:00 08/21/17 20:59 07/23/17 08:14 325 MG Insulin Glargine (Lantus Solostar Pen) 20 units BID SC 07/22/17 21:00 08/21/17 20:59 07/23/17 08:03 20 UNITS Lisinopril (Zestril Tab) 2.5 mg DAILY PO 07/23/17 09:00 3/25/18 08:59 07/23/17 08:15 2.5 MG Magnesium Oxide (Mag-Ox Tab) 400 mg DAILY PO 07/23/17 09:00 08/22/17 08:59 07/23/17 08:15 400 MG Senna (Senokot Tab) 8.6 mg DAILY PO 07/23/17 09:00 08/22/17 08:59 07/23/17 08:15 8.6 MG Apixaban (Eliquis Tab) 5 mg BID PO 07/22/17 21:00 08/21/17 20:59 07/23/17 08:14 5 MG Bumetanide (Bumex Tab) 0.5 mg BID17 PO 07/22/17 17:00 08/21/17 16:59 07/23/17 08:12 0.5 MG Cholecalciferol (Vitamin D Tab) 2,000 inter.unit DAILY PO 07/23/17 09:00 08/22/17 08:59 07/23/17 08:13 2,000 INTER.UNIT Oxycodone HCl (Roxicodone Immediate Rel Tab) 10 mg TID PO 07/22/17 21:00 08/05/17 20:59 07/23/17 08:14 10 MG Polyethylene (Miralax Powder Packet) 17 gm QAM PO 07/23/17 09:00 08/22/17 08:59 07/23/17 08:06 17 GM Lactase (Lactaid Tab) 3,000 units TIDM PO 07/22/17 16:45 08/21/17 17:59 07/23/17 11:59 3,000 UNITS Acetaminophen (Tylenol Tab) 650 mg Q4H PRN PO 07/22/17 14:00 08/21/17 13:59 Al Hydrox/Mg Hydrox/Simethicone (Maalox Max Susp) 15 ml Q4H PRN PO 07/22/17 14:00 08/21/17 13:59 Magnesium Hydroxide (Milk Of Magnesia Susp) 30 ml Q12H PRN PO 07/22/17 14:00 08/21/17 13:59 Ondansetron HCl (Zofran Inj) 4 mg Q6H PRN IV 07/22/17 14:00 08/21/17 13:59 Morphine Sulfate (MoRPHine SULFATE INJ) 2 mg Q30M PRN IV 07/22/17 14:00 08/05/17 13:59 Glucose (Glucose 40% Gel) 15-30 GRAMS 15 GRAMS... UD PRN PO 07/22/17 14:30 08/21/17 14:29 Glucose (Glucose Chew Tab) 4-8 Tablets 4 Tabl... UD PRN PO 07/22/17 14:30 08/21/17 14:29 Dextrose (Dextrose 50% 50ML Syringe) 25-50ML OF 50% DW IV FOR... UD PRN IV 07/22/17 14:30 08/21/17 14:29 07/22/17 21:23 50 ML Glucagon (Glucagon Inj) 1 mg UD PRN SQ 07/22/17 14:30 08/21/17 14:29 Insulin Aspart (novoLOG ASPART) SLIDING SCALE G... ACHS SC 07/22/17 21:00 08/21/17 20:59 07/23/17 11:59 7 UNITS Miscellaneous Information (Order Awaiting Action) 1 ea QS N/A 07/23/17 00:00 08/22/17 00:00 Albuterol/ Ipratropium (Duoneb) 3 ml QIDR INH 07/23/17 12:00 08/22/17 11:59 07/23/17 11:10 3 ML Albuterol/ Ipratropium (Duoneb) 3 ml Q2H PRN INH 07/23/17 11:00 08/22/17 10:59 Objective Vital Signs Date Time Temp Pulse Resp B/P (MAP) Pulse Ox O2 Delivery O2 Flow Rate FiO2 07/23/17 11:51 37.1 78 18 174/87 (116) 94 2.0 07/23/17 11:47 75 22 93 Nasal Cannula 6.0 07/23/17 08:00 Nasal Cannula 3.0 07/23/17 07:59 37.0 79 24 166/72 (103) 93 Room Air 07/23/17 05:04 65 95 60 07/23/17 04:50 36.4 79 22 115/88 (97) 96 BiPAP 07/23/17 04:00 BiPAP 40 07/23/17 02:21 60 92 60 07/23/17 01:47 67 94 30 07/23/17 01:00 BiPAP 40 07/22/17 23:54 36.3 60 20 173/78 (109) 96 BiPAP 07/22/17 22:25 57 98 40 07/22/17 21:04 36.4 67 20 161/69 (99) 93 BiPAP 07/22/17 20:30 93 BiPAP 40 07/22/17 19:41 63 95 40 07/22/17 16:54 36.4 81 20 164/65 96 BiPAP 5.0 40 07/22/17 16:21 66 24 147/70 96 07/22/17 15:22 66 24 147/70 96 BiPAP 07/22/17 14:31 139/71 Physical Exam General Appearance: WD/WN, + obese Eyes: normal inspection, EOMI ENT: hearing grossly normal, pharynx normal Neck: supple, no adenopathy, no JVD Respiratory/Chest: + pertinent finding (coarse breath sounds; bilateral end expiratory wheezing) Cardiovascular: regular rate, rhythm, no gallop, no murmur Abdomen: normal bowel sounds, non tender, soft Extremities: + pertinent finding (1+ pitting edema bilatearlly; soles of feet are peeling) Neurologic/Psychiatric: alert, normal mood/affect Skin: normal color, warm/dry, no rash Lymphatic: no adenopathy Laboratory Results Last 24 Hours Test 07/22/17 16:06 07/22/17 19:55 07/22/17 20:31 07/22/17 21:43 Venous Blood pH 7.34 7.40 Venous Blood Partial Pressure CO2 87 mmHg 76 mmHg Venous Blood Partial Pressure O2 53 mmHg 64 mmHg Venous Blood HCO3 46 mmol/L 46 mmol/L Venous Blood Oxygen Saturation 84.6 % 91.0 % Venous Blood Base Excess 16.6 mEq/L 17.9 mEq/L Bedside Glucose 48 mg/dl 144 mg/dl Test 07/23/17 00:01 07/23/17 04:13 07/23/17 05:52 07/23/17 07:06 Bedside Glucose 95 mg/dl 74 mg/dl 121 mg/dl White Blood Count 7.11 K/uL Red Blood Count 3.78 M/uL Hemoglobin 10.5 g/dL Hematocrit 37.3 % Mean Corpuscular Volume 98.7 fL Mean Corpuscular Hemoglobin 27.8 pg Mean Corpuscular Hemoglobin Concent 28.2 g/dl RDW Standard Deviation 63.2 fL RDW Coefficient of Variation 17.4 % Platelet Count 218 K/uL Mean Platelet Volume 10.6 fL Sodium Level 142 mmol/L Potassium Level 4.4 mmol/L Chloride Level 97 mmol/L Carbon Dioxide Level 45 mmol/L Anion Gap 1.0 mmol/L Blood Urea Nitrogen 38 mg/dl Creatinine 0.73 mg/dl Est Creatinine Clear Calc Drug Dose 143.6 ml/min Estimated GFR () 111.2 Estimated GFR (Non- 96.0 BUN/Creatinine Ratio 51.4 Random Glucose 88 mg/dl Calcium Level 9.9 mg/dl Magnesium Level 1.8 mg/dl Test 07/23/17 08:08 07/23/17 08:12 07/23/17 11:38 Influenza Type A Antigen Neg for Influ A Influenza Type B Antigen Neg for Influ B Venous Blood pH 7.38 Venous Blood Partial Pressure CO2 82 mmHg Venous Blood Partial Pressure O2 48 mmHg Venous Blood HCO3 47 mmol/L Venous Blood Oxygen Saturation 79.6 % Venous Blood Base Excess 18.2 mEq/L Procalcitonin 0.05 ng/ml Bedside Glucose 101 mg/dl Assessment and Plan Pleasant 67 year old male, [facility] resident, with history of morbid obesity , Klinefelters, type 2 diabetes, atrial fibrillation, iron-deficiency anemia, hypertension, hyperlipidemia, DM2 and GERD, presenting with acute hypoxemic/ hypercapneic respiratory failure due to acute CHF exaccerbation. Patient is admitted for treatment of acute congestive heart failure. Asymmetric distribution on CXR also prompts consideration for underlying pneumonia. Acute Congestive Heart Failure, subtype otherwise not specified - Subtype unclear at this point ?systolic vs diastolic? - Most recent echo in 2013 denotes EF 60-65%; no indication of diastolic failure - Repeat echo pending - Troponin negative, no acute EKG changes - Continue Bumex - Repeat CXR in the AM - Watch weight, I/Os daily - Patient does have wheezing on exam; possible "cardiac wheeze" Will start Duonebs - Low suspicion for PNA - CXR today denotes progression on left and resolution on right; atypical radiographic behavior - No fevers, no leukocytosis, procalcitonin negative Acute Type 2 Respiratory Failure - Pulmonary consultation appreciated - Multifactorial: Acute CHF, stable COPD, OTONIEL, obesity hypventilation, possible cor pulmonale (echo pending) - Patient mentating well; confusion appears to be resolved and patient is at baseline mentation - VCO2 this AM 82 but mentating well - Pulm recs: Start Symbicort Chronic Anemia - 10 on admission; stable compared to historical Hb readings - Continue iron supplementation per home regimen Chronic Atrial Fibrillation - Rate controlled - Continue Eliquis Type 2 Diabetes Mellitus - SSI - Lantus 20 U BID - Goal 140-180 Hypertension - Continue Lisinopril daily Hyperlipidemia - Continue Atorvastatin Depression - Continue Lexapro GERD - Continue Famotidine DVT Prophylaxis - SCD Knee, ABDOUL Hose - Eliquis Code Status - Level I Full Code Disposition - Telemetry - OT and PT evaluations Resident Physician Supervision Note: I interviewed and examined the patient. Discussed with Dr. Webb and agree with findings and plan as documented in the note. Any exceptions or clarifications are listed here: None Documented By: Quoc Sampson feeling better breathing easier remembers discussing sleep study with me last year but notes that for some reason it never got done; recently eating meat with gravy, ham, doesn't deny eating potato chips vitals noted nad breathing unlabored quiet but coarse lower > upper acute on chronic diastolic CHF normally maintained on PO bumex - likely worse due to Na intake - educated on such. appears to be improving hypercapnic respiratory failure - strongly suspect OTONIEL/OHS - likely worse due to respiratory fatigue from pulmonary edema. bipap for now - hopefully can qualfiy for bipap after discharge if not will need sleep study as soon as can be arranged otherwise as above improving Continued [facility] stay due to: abnormal vital signs Discharge planning: correction facility
[2017-07-23] MEDS: INSULIN ASPART 100 UNITS/ML 3 ML PEN SC SCH ×4 (08:02→20:14)
[2017-07-23] MEDS: INSULIN GLARGINE SOLOSTAR 100 UNITS/ML 3 ML PEN SC SCH ×2 (08:03→20:15)
[2017-07-23] MEDS: POLYETHYLENE (MIRALAX) 17 GM PACK PO SCH (08:06)
[2017-07-23] MEDS: LACTASE 3000 UNIT TAB PO SCH ×3 (08:12→16:44)
[2017-07-23] MEDS: ASPIRIN 81 MG ECTAB PO SCH (08:12)
[2017-07-23] MEDS: BUMETANIDE 1 MG TAB PO SCH ×2 (08:12→16:44)
[2017-07-23] MEDS: CHOLECALCIFEROL 1000 INTER.UNIT TAB PO SCH (08:13)
[2017-07-23] MEDS: CYANOCOBALAMIN 500 MCG TAB (VIT B-12) PO SCH (08:13)
[2017-07-23] MEDS: OXYCODONE HCL IR 5 MG TAB (IMMEDIATE RELEASE) PO SCH ×2 (08:14→14:38)
[2017-07-23] MEDS: FERROUS SULFATE 325 MG TAB PO SCH ×3 (08:14→20:11)
[2017-07-23] MEDS: APIXABAN 2.5 MG TAB PO SCH ×2 (08:14→20:10)
[2017-07-23] MEDS: SENNA 8.6 MG TAB PO SCH (08:15)
[2017-07-23] MEDS: MAGNESIUM OXIDE 400 MG TAB PO SCH (08:15)
[2017-07-23] MEDS: LISINOPRIL 2.5 MG TAB PO SCH (08:15)
--- NOTE | 2017-07-23 08:24 | Clinical Documentation Query ---
CLINICAL DOCUMENTATION QUERY 67 year old male who presents to the Emergency Room by EMS with complaints of confusion In your clinical opinion is this patient being managed for: ( x ) Metabolic encephalopathy in setting of acute hypercarbic and hypoxic respiratory failure treated with O2 and BiPAP. ( ) Not Agree ( ) Other explanation of clinical findings (Please Explain) ( ) Unable to determine (Please Define) ( ) Need to Discuss The medical record reflects the following clinical findings, treatment, and risk factors. Clinical Indicators: Confusion above baseline. Respiratory acidosis and hypercarbia (VBG 7.27/100/48/45) Treatment: O2, BiPAP, IV Bumex, Risk Factors: Age, morbid obesity, ?pulmonary edema. Please clarify and document your clinical opinion in the progress notes and discharge summary. Terms such as "probable", "suspected", "likely", "questionable", "possible", or "still to be ruled out" are acceptable. IF IN AGREEMENT, YOU MUST DOCUMENT ABOVE DIAGNOSTIC STATEMENT IN DAILY PROGRESS NOTES AND DISCHARGE SUMMARY. This document is not part of the patient's record. Thank You, Gabriel England, RN [phone]
--- NOTE | 2017-07-23 08:25 | Clinical Documentation Query ---
CLINICAL DOCUMENTATION QUERY 67 year old male who presents to the Emergency Room by EMS with complaints of confusion In your clinical opinion is this patient being managed for: ( ) Metabolic encephalopathy in setting of acute hypercarbic and hypoxic respiratory failure treated with O2 and BiPAP. ( ) Not Agree ( ) Other explanation of clinical findings (Please Explain) ( ) Unable to determine (Please Define) ( ) Need to Discuss The medical record reflects the following clinical findings, treatment, and risk factors. Clinical Indicators: Confusion above baseline. Respiratory acidosis and hypercarbia (VBG 7.27/100/48/45) Treatment: O2, BiPAP, IV Bumex, Risk Factors: Age, morbid obesity, ?pulmonary edema. Please clarify and document your clinical opinion in the progress notes and discharge summary. Terms such as "probable", "suspected", "likely", "questionable", "possible", or "still to be ruled out" are acceptable. IF IN AGREEMENT, YOU MUST DOCUMENT ABOVE DIAGNOSTIC STATEMENT IN DAILY PROGRESS NOTES AND DISCHARGE SUMMARY. This document is not part of the patient's record. Thank You, Gabriel England, DANTE [phone]
[2017-07-23 08:38] LABS: INFLUENZA B ANTIGEN Neg for Influ B (NEG)
[2017-07-23] MEDS ORDERED: ALBUT/IPRATROP 3MG/0.5MG NEB 3 ML VIAL INH PRN (11:00)
[2017-07-23] MEDS ORDERED: ALBUT/IPRATROP 3MG/0.5MG NEB 3 ML VIAL INH SCH (12:00)
--- NOTE | 2017-07-23 14:42 | Pulmonary Consultation ---
History General Date of Service: Jul 23, 2017. Stated Complaint: Respiratory Failure HPI This is 67-year-old gentleman with history of Klinefelter syndrome, history of over than [id number] smoking quit 3 years ago, bedridden, chronic [facility], presented to the hospital with confusion. The patient uses oxygen on 24/7 basis. On arrival the patient was found to have acute on chronic hypercapnic respiratory failure, he was started on a BiPAP and bridged to nasal cannula today. The patient did not have any chest pain but he continued to have occasional cough nonproductive according to him. The patient is a poor historian but he was able to answer most of my questions. He denies any shortness of breath except with laying down. He does not ambulate. He did not have any nausea or vomiting or heartburn. No abdominal pain. His body weight has been increasing for the past 3 years according to the patient. In the past the patient underwent GI workup which showed peptic ulcer disease. The patient did not have any recent episode of GI bleeding. Apparently, the patient uses never lies treatment at the [facility] occasionally. He is not on inhalers. In his review of system in addition to the above, patient did not have any hemoptysis, no hematemesis, no hematochezia, no diarrhea. The rest of his review of system was unremarkable. In review of his records, the patient had a chest x-ray on this admission 2 which showed asymmetrical pulmonary edema. In fact the most recent chest x-ray showed atelectasis of the left lower lobe in addition to increased markings. His laboratory work consistent with acute on chronic hypercapnic respiratory failure. Historian: patient Onset: just prior to arrival Severity: moderate Complaint Status: improved Modifying Factors: none Review of Systems Constitutional: reports: no symptoms Eyes: reports: no symptoms ENT: reports: no symptoms Cardiovascular: reports: no symptoms Respiratory: reports: cough, shortness of breath Gastrointestinal: denies: no symptoms, as stated in HPI, abdominal pain, constipation, diarrhea, nausea, vomiting, hematemesis, hematochezia, hemorrhoids , anorexia, appetite changes, stool changes, flatulence, belching, food intolerance, jaundice, other Genitourinary - Male: denies: no symptoms, as stated in HPI, dysuria, hematuria , hesitancy, impotence, itching, penile discharge, rash, urinary frequency, urinary incontinence, urinary retention, urinary urgency, other Integumentary: denies: no symptoms, as stated in HPI, rash, redness, warmth, itching, dryness, lesions, lumps, change in color, change in hair/nails, other Neurologic: reports: other (bedridden), denies: no symptoms, as stated in HPI, headache, dizziness, general weakness, focal weakness, numbness, tingling, paresthesia, pre-existing deficit, tremors, tics, vertigo, seizure, lethargy, memory loss Endocrine: denies: no symptoms, as stated in HPI, cold intolerance, heat intolerance, hair changes, goiter, polydipsia, polyuria, skin changes, other Hematologic / Lymphatic: denies: no symptoms, as stated in HPI, abnormal clotting, adenopathy, anemia, easy bleeding, easy bruising, gums bleeding, petechiae, other Past Medical History Past Medical History: As above in the first paragraph. The rest of his past medical history reviewed from the H&P. Family History Coronary artery disease FATHER Social History Hx Tobacco Use In Past Year?: No Smoking Status: Former Smoker Marital status: single Housing status: [facility] Occupational Status: disabled Immunizations History of Influenza Vaccine: Yes Influenza Vaccine Date: Mar 01, 2014 History of Tetanus Vaccine?: No History of Pneumococcal: No History of Hepatitis B Vaccine: No History of MDRO History of MDRO: Yes Type of MDRO: MRSA Allergies Coded Allergies: NSAIDs (Unverified Allergy, Unknown, ., 07/22/17) Current Medications Reported Home Medications Medications Dose Route/Sig Max Daily Dose Days Date Category Dose Instructions Pepcid (Famotidine) 40 Mg Tab 40 Mg PO HS 07/22/17 Reported Ocuvite Lutein (Multiple Vitamins W/ Minerals) 1 Cap Cap 1 Cap PO BID 07/22/17 Reported HOLD DATE FROM 07-08-17 TO 07-29-17 Eliquis (Apixaban) 5 Mg Tab 5 Mg PO BID 07/22/17 Reported Oxycodone Hcl 10 Mg Tab 10 Mg PO TID 12/13/16 Reported Lactaid (Lactase) 3,000 Unit Tab 1 Tab PO TIDM 12/13/16 Reported Vitamin C (Ascorbic Acid) 250 Mg Tab 250 Mg PO BID 12/13/16 Reported Oyster Shell 500 Mg Tab 250 Mg PO BID 12/13/16 Reported Novolog (Insulin Aspart) 100 Units/Ml Inj 7 Units SC HS 12/13/16 Reported Novolog (Insulin Aspart) 100 Units/Ml Inj 6 Units SC DAILY 12/13/16 Reported TO BE GIVEN WITH LUNCH Novolog (Insulin Aspart) 100 Units/Ml Inj 4 Units SC PM 12/13/16 Reported TO BE GIVEN WITH DINNER Lantus Solostar (Insulin Glargine) 100 Unit/Ml Inj 54 Units SC HS 12/13/16 Reported Vitamin D 51320 Unit (Ergocalciferol) 50,000 Unit Cap 50,000 Unit PO WK 12/13/16 Reported SATURDAYS Vitamin D3 (Cholecalciferol) 2,000 Unit Tab 2,000 Units PO DAILY 12/13/16 Reported Senokot (Senna) 8.6 Mg Tab 1 Tab PO DAILY 08/04/16 Reported Lexapro (Escitalopram Oxalate) 10 Mg Tab 10 Mg PO HS 08/04/16 Reported Lioresal (Baclofen) 10 Mg Tab 10 Mg PO Q8H PRN 08/04/16 Reported Miralax (Polyethylene Glycol 3350) 1 17 Gm PO DAILY 12/29/15 Reported Lisinopril 2.5 Mg Tab 2.5 Mg PO DAILY 12/29/15 Reported Aspirin Ec (Aspirin) 81 Mg Tab 81 Mg PO WK 12/29/15 Reported GIVEN ON WEDNESDAYS Tricor (Fenofibrate) 160 Mg Tab 160 Mg PO HS 12/29/15 Reported Lipitor (Atorvastatin Calcium) 40 Mg Tab 40 Mg PO HS 12/29/15 Reported Glucophage (Metformin Hcl) 1,000 Mg Tab 1,000 Mg PO BID 08/09/14 Reported Ferrous Sulfate 325 Mg Tab 325 Mg PO TID 08/09/14 Reported Mag-Ox (Magnesium Oxide) 400 Mg Tab 400 Mg PO DAILY 08/30/13 Reported Tylenol (Acetaminophen) 325 Mg Tab 650 Mg PO Q6H PRN 06/01/13 Reported NEEDED FOR MILD PAIN RATED 1-10 ON A SCALE OF "0-10" OR FOR ELEVATED TEMPERATURE GREATER THAN 101 F. DO NOT EXCEED 3 GM APAP/24 HOURS. Bumetanide 0.5 Mg Tab 0.5 Mg PO BID 06/01/13 Reported Vitamin B-12 (Cyanocobalamin) 1,000 Mcg Tab 1,000 Mcg PO DAILY 12/03/08 Reported Physical Physical Exam Vital Signs: Date Time Temp Pulse Resp B/P (MAP) Pulse Ox O2 Delivery O2 Flow Rate FiO2 07/23/17 11:51 37.1 78 18 174/87 (116) 94 2.0 07/23/17 11:47 75 22 93 Nasal Cannula 6.0 07/23/17 08:00 Nasal Cannula 3.0 07/23/17 07:59 37.0 79 24 166/72 (103) 93 Room Air 07/23/17 05:04 65 95 60 07/23/17 04:50 36.4 79 22 115/88 (97) 96 BiPAP 07/23/17 04:00 BiPAP 40 07/23/17 02:21 60 92 60 07/23/17 01:47 67 94 30 07/23/17 01:00 BiPAP 40 07/22/17 23:54 36.3 60 20 173/78 (109) 96 BiPAP 07/22/17 22:25 57 98 40 07/22/17 21:04 36.4 67 20 161/69 (99) 93 BiPAP 07/22/17 20:30 93 BiPAP 40 07/22/17 19:41 63 95 40 07/22/17 16:54 36.4 81 20 164/65 96 BiPAP 5.0 40 07/22/17 16:21 66 24 147/70 96 07/22/17 15:22 66 24 147/70 96 BiPAP General Appearance: NO APPARENT DISTRESS Eyes: PERRLA, EOMI ENT: NORMAL EAR EXAM, NORMAL MOUTH EXAM Neck: NORMAL RANGE OF MOTION, TRACHEA MIDLINE, NO STRIDOR Respiratory: NO RESPIRATORY DISTRESS, NO TENDERNESS Abdomen: NON TENDER, NO MASSES Edema: Bilateral UE, Bilateral LE (1+) Neuro: ALERT, ORIENTED x 3, NORMAL MOTOR EXAM Psychiatric: NORMAL AFFECT Diagnostics Labs Results Past 24 Hours Test 07/22/17 16:06 07/22/17 19:55 07/22/17 20:31 07/22/17 21:43 Range/Units Venous Blood pH 7.34 7.40 7.36-7.41 Venous Blood Partial Pressure CO2 87 76 38.0-50.0 mmHg Venous Blood Partial Pressure O2 53 64 mmHg Venous Blood HCO3 46 46 mmol/L Venous Blood Oxygen Saturation 84.6 91.0 % Venous Blood Base Excess 16.6 17.9 mEq/L Bedside Glucose 48 144 70-99 mg/dl Test 07/23/17 00:01 07/23/17 04:13 07/23/17 05:52 07/23/17 07:06 Range/Units Bedside Glucose 95 74 121 70-99 mg/dl White Blood Count 7.11 4.8-10.8 K/uL Red Blood Count 3.78 4.7-6.1 M/uL Hemoglobin 10.5 14.0-18.0 g/dL Hematocrit 37.3 42-52 % Mean Corpuscular Volume 98.7 80-100 fL Mean Corpuscular Hemoglobin 27.8 25-34 pg Mean Corpuscular Hemoglobin Concent 28.2 32-36 g/dl RDW Standard Deviation 63.2 36.4-46.3 fL RDW Coefficient of Variation 17.4 11.5-14.5 % Platelet Count 218 130-400 K/uL Mean Platelet Volume 10.6 7.4-10.4 fL Sodium Level 142 136-145 mmol/L Potassium Level 4.4 3.5-5.1 mmol/L Chloride Level 97 98-107 mmol/L Carbon Dioxide Level 45 21-32 mmol/L Anion Gap 1.0 3-11 mmol/L Blood Urea Nitrogen 38 7-18 mg/dl Creatinine 0.73 0.60-1.40 mg/dl Est Creatinine Clear Calc Drug Dose 143.6 ml/min Estimated GFR () 111.2 Estimated GFR (Non- 96.0 BUN/Creatinine Ratio 51.4 10-20 Random Glucose 88 70-99 mg/dl Calcium Level 9.9 8.5-10.1 mg/dl Magnesium Level 1.8 1.8-2.4 mg/dl Test 07/23/17 08:08 07/23/17 08:12 07/23/17 11:38 Range/Units Influenza Type A Antigen Neg for Influ A NEG Influenza Type B Antigen Neg for Influ B NEG Venous Blood pH 7.38 7.36-7.41 Venous Blood Partial Pressure CO2 82 38.0-50.0 mmHg Venous Blood Partial Pressure O2 48 mmHg Venous Blood HCO3 47 mmol/L Venous Blood Oxygen Saturation 79.6 % Venous Blood Base Excess 18.2 mEq/L Procalcitonin 0.05 0-0.5 ng/ml Bedside Glucose 101 70-99 mg/dl Microbiology Results 07/22/17 MRSA DNA Surveillance Screen - Final, Complete Specimen Positive for MRSA by DNA Probe Diagnostic Radiology Chest x-ray with asymmetrical infiltrates, left lower lobe atelectasis, small pleural effusion, cardiomegaly with mediastinal shift to the left. Labs were reviewed consistent with acute and chronic hypercapnia. Impression Assessment and Plan #1 acute on chronic hypercapnic respiratory failure. #2 COPD, not in exacerbation. #3 morbid obesity with obstructive sleep apnea and obesity hypoventilation syndrome. #4 history of Klinefelter syndrome which placed the patient at risk for bronchiectasis. #5 CO2 retention. Cor pulmonale. Plan: #1 continue with bronchodilators 4 times daily. #2 I will stop DuoNeb every 2 hours when necessary to avoid overdosing on anticholinergic drugs. #3 I will start the patient on Symbicort 2 puffs twice daily for maintenance therapy. #4 the patient should be on the BiPAP every night for life. #5 obtain echocardiogram to evaluate for cor pulmonale. #6 percussion therapy to the left side to avoid further atelectasis in the left lower lobe. #7 agree with aggressive your management. Thank you, will follow.
[2017-07-23] MEDS ORDERED: PERFLUTREN LIPID MICROSPHERE (DEFINITY) IV ONE (15:08)
--- NOTE | 2017-07-23 16:55 | ECHOCARDIOGRAM REPORT ---
*NOTICE TO RECEIVING REPUBLICAN AGENCY This information is strictly Confidential and protected under [place] law. [place] law prohibits you from making any further disclosure of this information unless further disclosure is expressly permitted by the written consent of the person to whom it pertains or is authorized by law. A general authorization for the release of medical or other information is not sufficient for this purpose. Hospital accepts no responsibility if the information is made available to any other person, INCLUDING THE PATIENT. Interpretation Summary * Name: MICHAEL MAGUIRE Study Date: 07/23/2017 02:26 PM BP: 174/87 mmHg * Patient Location: C.2E\S\E208\S\1 HR: 78 * : 1950 (M/d/yyyy) Gender: Male Height: 73 in * Age: 67 yrs Ethnicity: [place] Weight: 305 lb * Ordering Physician: Pawel Webb * Referring Physician: [facility] * Performed By: Desi Eller RCS * * Reason For Study: Eval for CHF * BSA: 2.6 m2 * -- Conclusions -- * 1. Technically difficult study depsite use of Definity ultrasound contrast. * 2. Grossly normal LV size. Normal LV function. LVEF 55-60%. * 3. Mildly dilated RV. Normal RV function. * 4. No significant valvular pathology. * 5. Normal estimated CVP. * 6. Compared with prior study on 08/10/2014: No significant changes. Procedure Details * Left Ventricle The left ventricle is grossly normal size. There is normal left ventricular wall thickness. Ejection Fraction = >70 %. * Right Ventricle The right ventricle is not well visualized. The right ventricle is mildly dilated. The right ventricular systolic function is normal as assessed by tricuspid annular plane systolic excursion (TAPSE) (normal >1.5 cm). * Atria The left atrial size is normal. The right atrium is mildly dilated. No ASD detected; PFO is not assessed. * Mitral Valve There is mild mitral annular calcification. There is no mitral valve stenosis. There is trace mitral regurgitation. * Tricuspid Valve The tricuspid valve is not well visualized. There is trace tricuspid regurgitation. * Aortic Valve The aortic valve is not well visualized. No hemodynamically significant valvular aortic stenosis. There is no significant aortic regurgitation. * Pulmonic Valve The pulmonary valve is inadequately visualized, but the Doppler data is adequate for interpretation. There is no pulmonic valvular stenosis. There is no significant pulmonary regurgitation. * Great Vessels The aortic root and proximal ascending aorta are normal sized. Normal inferior vena cava size and collapsability with sniff indicates a normal right atrial pressure of 3 mmHg * * MMode 2D Measurements and Calculations * IVSd 1.2 cm * IVSs 1.5 cm * * LVIDd 4.5 cm * LVIDs 3.1 cm * LVPWd 1.2 cm * LVPWs 1.4 cm * * IVS/LVPW 0.98 * FS 32.5 % * EDV(Teich) 93.7 ml * ESV(Teich) 36.6 ml * EF(Teich) 60.9 % * * EDV(cubed) 92.7 ml * ESV(cubed) 28.5 ml * EF(cubed) 69.2 % * % IVS thick 25.5 % * % LVPW thick 14.2 % * * LV mass(C)d 206.6 grams * LV mass(C)dI 80.2 grams/m\S\2 * LV mass(C)s 156.3 grams * LV mass(C)sI 60.7 grams/m\S\2 * * SV(Teich) 57.1 ml * SI(Teich) 22.2 ml/m\S\2 * SV(cubed) 64.2 ml * SI(cubed) 24.9 ml/m\S\2 * * Ao root diam 3.3 cm * Ao root area 8.7 cm\S\2 * ACS 1.8 cm * LA dimension 4.8 cm * * asc Aorta Diam 3.1 cm * * LA/Ao 1.4 * * EDV(MOD-sp4) 77.3 ml * ESV(MOD-sp4) 12.6 ml * EF(MOD-sp4) 83.7 % * * EDV(MOD-sp2) 80.8 ml * ESV(MOD-sp2) 18.0 ml * EF(MOD-sp2) 77.7 % * * SV(MOD-sp4) 64.7 ml * SI(MOD-sp4) 25.1 ml/m\S\2 * * SV(MOD-sp2) 62.8 ml * SI(MOD-sp2) 24.4 ml/m\S\2 * * * * * * Doppler Measurements and Calculations * MV E max anjali 146.4 cm/sec * * MV P1/2t max anjali 197.7 cm/sec * MV P1/2t 77.6 msec * MVA(P1/2t) 2.8 cm\S\2 * MV dec slope 746.2 cm/sec\S\2 * MV dec time 0.27 sec * * Ao V2 max 138.7 cm/sec * Ao max PG 7.7 mmHg * Ao max PG (full) 3.8 mmHg * * LV V1 max PG 3.9 mmHg * * LV V1 max 98.9 cm/sec * * PA V2 max 118.9 cm/sec * PA max PG 5.7 mmHg * * TR max anjali 207.1 cm/sec * * *
[2017-07-23] MEDS: ESCITALOPRAM OXALATE 10 MG TAB PO SCH (20:09)
[2017-07-23] MEDS: BUDESONIDE/FORMOTEROL FUMARATE 160/4.5 60 PUFFS/INHALER INH SCH (20:09)
[2017-07-23] MEDS: ATORVASTATIN 40 MG TAB PO SCH (20:10)
[2017-07-23] MEDS: FAMOTIDINE 20 MG TAB PO SCH (20:11)
[2017-07-23] MEDS ORDERED: OXYCODONE HCL IR 5 MG TAB (IMMEDIATE RELEASE) PO PRN (21:00)
[2017-07-24] VITALS (7 sets, daily range): BP systolic 115–154; BP diastolic 58–77; PULSE 66–83; TEMP 36.9–37.5; O2SAT 92–97
[2017-07-24] MEDS: INSULIN ASPART 100 UNITS/ML 3 ML PEN SC SCH ×4 (07:00→21:10)
[2017-07-24 07:03] LABS: HEMATOCRIT 33.8 % (42-52); MEAN CELL VOLUME 95.2 fL (80-100); MEAN CORPUSCULAR HEMOGLOBIN 28.2 pg (25-34); MEAN CORPUSCULAR HGB CONC 29.6 g/dl (32-36); MEAN PLATELET VOLUME 10.2 fL (7.4-10.4); PLATELET COUNT 208 K/uL (130-400); RED CELL DISTRIBUTION WIDTH CV 17.6 % (11.5-14.5); RED CELL DISTRIBUTION WIDTH SD 61.5 fL (36.4-46.3); WHITE BLOOD COUNT 9.03 K/uL (4.8-10.8)
[2017-07-24 07:40] LABS: CALCIUM 9.3 mg/dl (8.5-10.1); CREATININE 0.86 mg/dl (0.60-1.40); POTASSIUM 3.8 mmol/L (3.5-5.1)
[2017-07-24] MEDS ORDERED: ERGOCALCIFEROL 50,000 INTER.UNIT CAP PO SCH (09:00)
[2017-07-24] MEDS: CHOLECALCIFEROL 1000 INTER.UNIT TAB PO SCH (09:06)
[2017-07-24] MEDS: BUDESONIDE/FORMOTEROL FUMARATE 160/4.5 60 PUFFS/INHALER INH SCH ×2 (09:06→21:03)
[2017-07-24] MEDS: FERROUS SULFATE 325 MG TAB PO SCH ×3 (09:06→21:04)
[2017-07-24] MEDS: SENNA 8.6 MG TAB PO SCH (09:06)
[2017-07-24] MEDS: POLYETHYLENE (MIRALAX) 17 GM PACK PO SCH (09:06)
[2017-07-24] MEDS: LISINOPRIL 2.5 MG TAB PO SCH (09:06)
--- NOTE | 2017-07-24 09:06 | Family Medicine Progress Note ---
Progress Note Date of Service Jul 24, 2017. Subjective Pt evaluation today including: conversation w/ patient, physical exam, chart review, lab review, review of studies, review of inpatient medication list No acute concerns overnight. No acute pains this morning. Currently on BiPAP Feels he is improving All Other Systems: Reviewed and Negative Medications Current Inpatient Medications Medications (Trade) Dose Ordered Sig/Carlton Route Start Time Stop Time Status Last Admin Dose Admin Aspirin (Ecotrin Tab) 81 mg DAILY PO 07/23/17 09:00 08/22/17 08:59 07/23/17 08:12 81 MG Atorvastatin Calcium (Lipitor Tab) 40 mg HS PO 07/22/17 21:00 08/21/17 20:59 07/23/17 20:10 40 MG Baclofen (Lioresal Tab) 10 mg Q8H PRN PO 07/22/17 13:45 08/21/17 13:44 Cyanocobalamin (Vitamin B-12 Tab) 1,000 mcg DAILY PO 07/23/17 09:00 08/22/17 08:59 07/23/17 08:13 1,000 MCG Ergocalciferol (Vitamin D Cap) 50,000 interunit Sa@0900 PO 07/24/17 09:00 08/23/17 08:59 Escitalopram Oxalate (Lexapro Tab) 10 mg HS PO 07/22/17 21:00 08/21/17 20:59 07/23/17 20:09 10 MG Famotidine (Pepcid Tab) 40 mg HS PO 07/22/17 21:00 08/21/17 20:59 07/23/17 20:11 40 MG Ferrous Sulfate (Feosol Tab) 325 mg TID PO 07/22/17 21:00 08/21/17 20:59 07/23/17 20:11 325 MG Lisinopril (Zestril Tab) 2.5 mg DAILY PO 07/23/17 09:00 08/22/17 08:59 07/23/17 08:15 2.5 MG Magnesium Oxide (Mag-Ox Tab) 400 mg DAILY PO 07/23/17 09:00 08/22/17 08:59 07/23/17 08:15 400 MG Senna (Senokot Tab) 8.6 mg DAILY PO 07/23/17 09:00 08/22/17 08:59 07/23/17 08:15 8.6 MG Apixaban (Eliquis Tab) 5 mg BID PO 07/22/17 21:00 08/21/17 20:59 07/23/17 20:10 5 MG Bumetanide (Bumex Tab) 0.5 mg BID17 PO 07/22/17 17:00 08/21/17 16:59 07/23/17 16:44 0.5 MG Cholecalciferol (Vitamin D Tab) 2,000 inter.unit DAILY PO 07/23/17 09:00 08/22/17 08:59 07/23/17 08:13 2,000 INTER.UNIT Polyethylene (Miralax Powder Packet) 17 gm QAM PO 07/23/17 09:00 08/22/17 08:59 07/23/17 08:06 17 GM Lactase (Lactaid Tab) 3,000 units TIDM PO 07/22/17 16:45 08/21/17 17:59 07/23/17 16:44 3,000 UNITS Acetaminophen (Tylenol Tab) 650 mg Q4H PRN PO 07/22/17 14:00 08/21/17 13:59 Al Hydrox/Mg Hydrox/Simethicone (Maalox Max Susp) 15 ml Q4H PRN PO 07/22/17 14:00 08/21/17 13:59 Magnesium Hydroxide (Milk Of Magnesia Susp) 30 ml Q12H PRN PO 07/22/17 14:00 08/21/17 13:59 Ondansetron HCl (Zofran Inj) 4 mg Q6H PRN IV 07/22/17 14:00 08/21/17 13:59 Morphine Sulfate (MoRPHine SULFATE INJ) 2 mg Q30M PRN IV 07/22/17 14:00 08/05/17 13:59 Glucose (Glucose 40% Gel) 15-30 GRAMS 15 GRAMS... UD PRN PO 07/22/17 14:30 08/21/17 14:29 Glucose (Glucose Chew Tab) 4-8 Tablets 4 Tabl... UD PRN PO 07/22/17 14:30 08/21/17 14:29 Dextrose (Dextrose 50% 50ML Syringe) 25-50ML OF 50% DW IV FOR... UD PRN IV 07/22/17 14:30 08/21/17 14:29 07/22/17 21:23 50 ML Glucagon (Glucagon Inj) 1 mg UD PRN SQ 07/22/17 14:30 08/21/17 14:29 Insulin Aspart (novoLOG ASPART) SLIDING SCALE G... ACHS SC 07/22/17 21:00 08/21/17 20:59 07/23/17 20:14 4 UNITS Miscellaneous Information (Order Awaiting Action) 1 ea QS N/A 07/23/17 00:00 08/22/17 00:00 Albuterol/ Ipratropium (Duoneb) 3 ml QIDR INH 07/23/17 12:00 08/22/17 11:59 Future Hold 07/23/17 11:10 3 ML Budesonide/ Formoterol Fumarate (Symbicort 160/ 4.5 Inh) 2 puffs BID INH 07/23/17 21:00 08/22/17 20:59 07/23/17 20:09 2 PUFFS Oxycodone HCl (Roxicodone Immediate Rel Tab) 10 mg TID PRN PO 07/23/17 21:00 08/05/17 20:59 Insulin Glargine (Lantus Solostar Pen) 15 units BID SC 07/24/17 21:00 08/21/17 20:59 UNV Objective Vital Signs Date Time Temp Pulse Resp B/P (MAP) Pulse Ox O2 Delivery O2 Flow Rate FiO2 07/24/17 07:38 37.1 68 20 115/61 (79) 97 BiPAP 07/24/17 04:00 BiPAP 50 07/24/17 03:35 37.5 83 19 133/58 (83) 96 BiPAP 07/23/17 23:59 BiPAP 50 07/23/17 23:45 37.1 78 16 126/64 (84) 96 BiPAP 07/23/17 22:12 80 96 50 07/23/17 20:00 Nasal Cannula 6.0 07/23/17 18:46 37.3 90 22 156/93 (114) 90 Nasal Cannula 6.0 07/23/17 16:00 Nasal Cannula 6.0 07/23/17 15:51 37.6 93 20 177/109 (131) 96 Nasal Cannula 6.0 07/23/17 11:51 37.1 78 18 174/87 (116) 94 2.0 07/23/17 11:47 75 22 93 Nasal Cannula 6.0 Physical Exam General Appearance: + obese (morbid) Neck: + pertinent finding (unable to assess JVD due to neck size) Respiratory/Chest: no respiratory distress, no accessory muscle use, + decreased breath sounds (throughout, mild end exp wheeze, no crackles) Cardiovascular: regular rate, rhythm, no murmur Abdomen: normal bowel sounds, non tender, soft Extremities: no calf tenderness, normal capillary refill, + pedal edema (1+ bilaterally) Neurologic/Psychiatric: no motor/sensory deficits (moving all 4 limbs), alert Laboratory Results 07/24/17 06:32 07/24/17 06:32 Test 07/24/17 06:32 07/24/17 07:10 Red Blood Count 3.55 M/uL (4.7-6.1) Mean Corpuscular Volume 95.2 fL (80-100) Mean Corpuscular Hemoglobin 28.2 pg (25-34) Mean Corpuscular Hemoglobin Concent 29.6 g/dl (32-36) RDW Standard Deviation 61.5 fL (36.4-46.3) RDW Coefficient of Variation 17.6 % (11.5-14.5) Mean Platelet Volume 10.2 fL (7.4-10.4) Anion Gap 6.0 mmol/L (3-11) Est Creatinine Clear Calc Drug Dose 122.1 ml/min Estimated GFR () 104.0 Estimated GFR (Non- 89.7 BUN/Creatinine Ratio 43.8 (10-20) Calcium Level 9.3 mg/dl (8.5-10.1) Bedside Glucose 85 mg/dl (70-99) Assessment and Plan Pleasant 67 year [facility] male[facility], with morbid obesity, Klinefelters, type 2 diabetes, atrial fibrillation, iron-deficiency anemia, hypertension, hyperlipidemia, DM2 and GERD, presenting with acute hypoxemic hypercapnic respiratory failure due to acute CHF exacerbation. Acute diastolic Congestive Heart Failure, subtype otherwise not specified - Echo LVEF >70% - Troponin negative, no acute EKG changes - Continue Bumex 0.5mg PO BID - Daily weight, I/Os daily Acute Type 2 Respiratory Failure - Pulmonary consultation appreciated - Multifactorial: Acute CHF, stable COPD, OTONIEL, obesity hypoventilation - Patient mentating well; confusion appears to be resolved and patient is at baseline mentation Chronic Anemia - 10 on admission; stable - Continue iron supplementation per home regimen Chronic Atrial Fibrillation - Rate controlled - Continue Eliquis Type 2 Diabetes Mellitus - SSI - Reduce lantus to 15 units BID due to hypoglycemia - Goal 140-180 Hypertension - Continue Lisinopril daily Hyperlipidemia - Continue Atorvastatin Depression - Continue Lexapro GERD - Continue Famotidine DVT Prophylaxis - SCD Knee, ABDOUL Andreae - Eliquis Code Status - Level I Full Code Disposition - Step down to med/surg Resident Physician Supervision Note: I interviewed and examined the patient. Discussed with Dr. Oneil and agree with findings and plan as documented in the note. Any exceptions or clarifications are listed here: None Documented By: Quoc Sampson breathing better wants to get out of hospital vitals noted nad breathing unlabored no pallor or icterus acute on chronic diastolic CHF OHS / OTONIEL - improving. overnight pulse ox and blood gas to hopefully qualify for bipap anticipate return to snf tmorrow
[2017-07-24] MEDS: ASPIRIN 81 MG ECTAB PO SCH (09:07)
[2017-07-24] MEDS: APIXABAN 2.5 MG TAB PO SCH ×2 (09:07→21:04)
[2017-07-24] MEDS: CYANOCOBALAMIN 500 MCG TAB (VIT B-12) PO SCH (09:07)
[2017-07-24] MEDS: BUMETANIDE 1 MG TAB PO SCH ×2 (09:07→17:16)
[2017-07-24] MEDS: LACTASE 3000 UNIT TAB PO SCH ×3 (09:07→17:15)
[2017-07-24] MEDS: MAGNESIUM OXIDE 400 MG TAB PO SCH (09:08)
[2017-07-24] MEDS: INSULIN GLARGINE SOLOSTAR 100 UNITS/ML 3 ML PEN SC SCH ×2 (11:50→21:11)
--- NOTE | 2017-07-24 20:53 | Pulmonology Progress Note ---
Pulmonary Progress Note Date of Service Jul 24, 2017. Attending Dr. Velasco Subjective The patient denies any shortness of breath, does not appear to be promoted, he is bedridden. He uses the BiPAP and tolerated last night but not to complete full night. Objective S1-S2, regular rate and rhythm, morbid obesity, abdomen is benign, edema in the periphery. Does not interact well with questioning. Assessment & Plan #1 COPD not in exacerbation, Gold level II. #2 obstructive sleep apnea, compliance with BiPAP would be an issue. #3 Klinefelter syndrome. #4 morbid obesity. Plan: #1 continue current BiPAP settings with 14 over 5 and 3 L of oxygen. #2 avoid smoking. Unclear whether the patient continued to smoke are not as his answers has been fluctuating. #3 continue Symbicort and albuterol. #4 the patient should use of BiPAP every night for life. The patient is bedridden likely would not have weight loss without exercise. #5 no further recommendation from primary standpoint. We'll follow as needed. Thank you for your kind referral. Data Medications: Current Inpatient Medications Medications (Trade) Dose Ordered Sig/Carlton Route Start Time Stop Time Status Last Admin Dose Admin Aspirin (Ecotrin Tab) 81 mg DAILY PO 07/23/17 09:00 08/22/17 08:59 07/24/17 09:07 81 MG Atorvastatin Calcium (Lipitor Tab) 40 mg HS PO 07/22/17 21:00 08/21/17 20:59 07/23/17 20:10 40 MG Baclofen (Lioresal Tab) 10 mg Q8H PRN PO 07/22/17 13:45 08/21/17 13:44 Cyanocobalamin (Vitamin B-12 Tab) 1,000 mcg DAILY PO 07/23/17 09:00 08/22/17 08:59 07/24/17 09:07 1,000 MCG Ergocalciferol (Vitamin D Cap) 50,000 interunit Sa@0900 PO 07/24/17 09:00 08/23/17 08:59 07/24/17 09:08 50,000 INTERUNIT Escitalopram Oxalate (Lexapro Tab) 10 mg HS PO 07/22/17 21:00 08/21/17 20:59 07/23/17 20:09 10 MG Famotidine (Pepcid Tab) 40 mg HS PO 07/22/17 21:00 08/21/17 20:59 07/23/17 20:11 40 MG Ferrous Sulfate (Feosol Tab) 325 mg TID PO 07/22/17 21:00 08/21/17 20:59 07/24/17 14:05 325 MG Lisinopril (Zestril Tab) 2.5 mg DAILY PO 07/23/17 09:00 08/22/17 08:59 07/24/17 09:06 2.5 MG Magnesium Oxide (Mag-Ox Tab) 400 mg DAILY PO 07/23/17 09:00 08/22/17 08:59 07/24/17 09:08 400 MG Senna (Senokot Tab) 8.6 mg DAILY PO 07/23/17 09:00 08/22/17 08:59 07/24/17 09:06 8.6 MG Apixaban (Eliquis Tab) 5 mg BID PO 07/22/17 21:00 08/21/17 20:59 07/24/17 09:07 5 MG Bumetanide (Bumex Tab) 0.5 mg BID17 PO 07/22/17 17:00 08/21/17 16:59 07/24/17 17:16 0.5 MG Cholecalciferol (Vitamin D Tab) 2,000 inter.unit DAILY PO 07/23/17 09:00 08/22/17 08:59 07/24/17 09:06 2,000 INTER.UNIT Polyethylene (Miralax Powder Packet) 17 gm QAM PO 07/23/17 09:00 08/22/17 08:59 07/24/17 09:06 17 GM Lactase (Lactaid Tab) 3,000 units TIDM PO 07/22/17 16:45 08/21/17 17:59 07/24/17 17:15 3,000 UNITS Acetaminophen (Tylenol Tab) 650 mg Q4H PRN PO 07/22/17 14:00 08/21/17 13:59 Al Hydrox/Mg Hydrox/Simethicone (Maalox Max Susp) 15 ml Q4H PRN PO 07/22/17 14:00 08/21/17 13:59 Magnesium Hydroxide (Milk Of Magnesia Susp) 30 ml Q12H PRN PO 07/22/17 14:00 08/21/17 13:59 Ondansetron HCl (Zofran Inj) 4 mg Q6H PRN IV 07/22/17 14:00 08/21/17 13:59 Morphine Sulfate (MoRPHine SULFATE INJ) 2 mg Q30M PRN IV 07/22/17 14:00 08/05/17 13:59 Glucose (Glucose 40% Gel) 15-30 GRAMS 15 GRAMS... UD PRN PO 07/22/17 14:30 08/21/17 14:29 Glucose (Glucose Chew Tab) 4-8 Tablets 4 Tabl... UD PRN PO 07/22/17 14:30 08/21/17 14:29 Dextrose (Dextrose 50% 50ML Syringe) 25-50ML OF 50% DW IV FOR... UD PRN IV 07/22/17 14:30 08/21/17 14:29 07/22/17 21:23 50 ML Glucagon (Glucagon Inj) 1 mg UD PRN SQ 07/22/17 14:30 08/21/17 14:29 Insulin Aspart (novoLOG ASPART) SLIDING SCALE G... ACHS SC 07/22/17 21:00 08/21/17 20:59 07/24/17 17:18 9 UNITS Miscellaneous Information (Order Awaiting Action) 1 ea QS N/A 07/23/17 00:00 08/22/17 00:00 Budesonide/ Formoterol Fumarate (Symbicort 160/ 4.5 Inh) 2 puffs BID INH 07/23/17 21:00 08/22/17 20:59 07/24/17 09:06 2 PUFFS Oxycodone HCl (Roxicodone Immediate Rel Tab) 10 mg TID PRN PO 07/23/17 21:00 08/05/17 20:59 Insulin Glargine (Lantus Solostar Pen) 15 units BID SC 07/24/17 09:00 08/21/17 08:59 07/24/17 11:50 15 UNITS I & O: 24-Hour Column 07/25/17 08:00 Intake Total 520 ml Balance 520 ml Vital Signs: Date Time Temp Pulse Resp B/P (MAP) Pulse Ox O2 Delivery O2 Flow Rate FiO2 07/24/17 19:37 36.9 68 20 130/77 (94) 95 Humidified Oxygen 4.0 07/24/17 16:22 37.4 69 20 94 4.0 07/24/17 16:00 Nasal Cannula 4.0 07/24/17 15:24 37.4 69 20 154/66 (95) 94 Nasal Cannula 4.0 07/24/17 12:00 Nasal Cannula 5.0 07/24/17 11:37 37.0 66 20 149/60 (89) 92 5.0 07/24/17 08:00 Nasal Cannula 6.0 07/24/17 07:38 37.1 68 20 115/61 (79) 97 BiPAP 07/24/17 04:00 BiPAP 50 07/24/17 03:35 37.5 83 19 133/58 (83) 96 BiPAP 07/23/17 23:59 BiPAP 50 07/23/17 23:45 37.1 78 16 126/64 (84) 96 BiPAP 07/23/17 22:12 80 96 50 Laboratory Results: Last 24 Hours Test 07/24/17 06:32 07/24/17 07:10 07/24/17 11:09 07/24/17 15:45 White Blood Count 9.03 K/uL Red Blood Count 3.55 M/uL Hemoglobin 10.0 g/dL Hematocrit 33.8 % Mean Corpuscular Volume 95.2 fL Mean Corpuscular Hemoglobin 28.2 pg Mean Corpuscular Hemoglobin Concent 29.6 g/dl RDW Standard Deviation 61.5 fL RDW Coefficient of Variation 17.6 % Platelet Count 208 K/uL Mean Platelet Volume 10.2 fL Sodium Level 140 mmol/L Potassium Level 3.8 mmol/L Chloride Level 93 mmol/L Carbon Dioxide Level 41 mmol/L Anion Gap 6.0 mmol/L Blood Urea Nitrogen 38 mg/dl Creatinine 0.86 mg/dl Est Creatinine Clear Calc Drug Dose 122.1 ml/min Estimated GFR () 104.0 Estimated GFR (Non- 89.7 BUN/Creatinine Ratio 43.8 Random Glucose 90 mg/dl Calcium Level 9.3 mg/dl Bedside Glucose 85 mg/dl 138 mg/dl 139 mg/dl Test 07/24/17 20:01 Bedside Glucose 178 mg/dl
[2017-07-24] MEDS: ESCITALOPRAM OXALATE 10 MG TAB PO SCH (21:04)
[2017-07-24] MEDS: ATORVASTATIN 40 MG TAB PO SCH (21:05)
[2017-07-24] MEDS: FAMOTIDINE 20 MG TAB PO SCH (21:05)
[2017-07-25 06:15] VITALS: PULSE 66; O2SAT 75
[2017-07-25 07:21] VITALS: O2SAT 96
[2017-07-25 07:46] LABS: HEMATOCRIT 32.2 % (42-52); HEMOGLOBIN 9.6 g/dL (14.0-18.0); MEAN CELL VOLUME 93.9 fL (80-100); MEAN CORPUSCULAR HGB CONC 29.8 g/dl (32-36); MEAN PLATELET VOLUME 10.2 fL (7.4-10.4); PLATELET COUNT 199 K/uL (130-400); RED CELL DISTRIBUTION WIDTH CV 17.4 % (11.5-14.5); RED CELL DISTRIBUTION WIDTH SD 59.9 fL (36.4-46.3); WHITE BLOOD COUNT 7.58 K/uL (4.8-10.8)
[2017-07-25 08:17] VITALS: BP 160/80; PULSE 85; TEMP 36.6; O2SAT 97
[2017-07-25 08:33] LABS: CALCIUM 9.2 mg/dl (8.5-10.1); CREATININE 0.79 mg/dl (0.60-1.40); POTASSIUM 3.8 mmol/L (3.5-5.1)
[2017-07-25] MEDS: BUDESONIDE/FORMOTEROL FUMARATE 160/4.5 60 PUFFS/INHALER INH SCH ×2 (08:41→20:13)
[2017-07-25] MEDS: ASPIRIN 81 MG ECTAB PO SCH (08:43)
[2017-07-25] MEDS: APIXABAN 2.5 MG TAB PO SCH ×2 (08:43→20:16)
[2017-07-25] MEDS: SENNA 8.6 MG TAB PO SCH (08:44)
[2017-07-25] MEDS: LISINOPRIL 2.5 MG TAB PO SCH (08:44)
[2017-07-25] MEDS: BUMETANIDE 1 MG TAB PO SCH ×2 (08:45→18:34)
[2017-07-25] MEDS: POLYETHYLENE (MIRALAX) 17 GM PACK PO SCH (08:45)
[2017-07-25] MEDS: CYANOCOBALAMIN 500 MCG TAB (VIT B-12) PO SCH (08:46)
[2017-07-25] MEDS: MAGNESIUM OXIDE 400 MG TAB PO SCH (08:46)
[2017-07-25] MEDS: LACTASE 3000 UNIT TAB PO SCH ×3 (08:46→18:33)
[2017-07-25] MEDS: FERROUS SULFATE 325 MG TAB PO SCH ×3 (08:47→20:16)
[2017-07-25] MEDS: CHOLECALCIFEROL 1000 INTER.UNIT TAB PO SCH (08:48)
[2017-07-25] MEDS: INSULIN ASPART 100 UNITS/ML 3 ML PEN SC SCH ×4 (09:00→20:24)
[2017-07-25] MEDS: INSULIN GLARGINE SOLOSTAR 100 UNITS/ML 3 ML PEN SC SCH ×2 (09:00→20:25)
--- NOTE | 2017-07-25 09:28 | Family Medicine Progress Note ---
Progress Note Date of Service Jul 25, 2017. Subjective Pt evaluation today including: conversation w/ patient, physical exam, chart review, lab review, review of studies, review of inpatient medication list Voiding: no voiding problems No acute events overnight. Discussed O2 sats 75 % recorded with RN and apparently error in reporting. Patient feels less short of breath today, feels he is improving. All Other Systems: Reviewed and Negative Medications Current Inpatient Medications Medications (Trade) Dose Ordered Sig/Carlton Route Start Time Stop Time Status Last Admin Dose Admin Aspirin (Ecotrin Tab) 81 mg DAILY PO 07/23/17 09:00 08/22/17 08:59 07/25/17 08:43 81 MG Atorvastatin Calcium (Lipitor Tab) 40 mg HS PO 07/22/17 21:00 08/21/17 20:59 07/24/17 21:05 40 MG Baclofen (Lioresal Tab) 10 mg Q8H PRN PO 07/22/17 13:45 08/21/17 13:44 07/25/17 08:43 10 MG Cyanocobalamin (Vitamin B-12 Tab) 1,000 mcg DAILY PO 07/23/17 09:00 08/22/17 08:59 07/25/17 08:46 1,000 MCG Ergocalciferol (Vitamin D Cap) 50,000 interunit Sa@0900 PO 07/24/17 09:00 08/23/17 08:59 07/24/17 09:08 50,000 INTERUNIT Escitalopram Oxalate (Lexapro Tab) 10 mg HS PO 07/22/17 21:00 08/21/17 20:59 07/24/17 21:04 10 MG Famotidine (Pepcid Tab) 40 mg HS PO 07/22/17 21:00 08/21/17 20:59 07/24/17 21:05 40 MG Ferrous Sulfate (Feosol Tab) 325 mg TID PO 07/22/17 21:00 08/21/17 20:59 07/25/17 08:47 325 MG Lisinopril (Zestril Tab) 2.5 mg DAILY PO 07/23/17 09:00 08/22/17 08:59 07/25/17 08:44 2.5 MG Magnesium Oxide (Mag-Ox Tab) 400 mg DAILY PO 07/23/17 09:00 08/22/17 08:59 07/25/17 08:46 400 MG Senna (Senokot Tab) 8.6 mg DAILY PO 07/23/17 09:00 08/22/17 08:59 07/25/17 08:44 8.6 MG Apixaban (Eliquis Tab) 5 mg BID PO 07/22/17 21:00 08/21/17 20:59 07/25/17 08:43 5 MG Bumetanide (Bumex Tab) 0.5 mg BID17 PO 07/22/17 17:00 08/21/17 16:59 07/25/17 08:45 0.5 MG Cholecalciferol (Vitamin D Tab) 2,000 inter.unit DAILY PO 07/23/17 09:00 08/22/17 08:59 07/25/17 08:48 2,000 INTER.UNIT Polyethylene (Miralax Powder Packet) 17 gm QAM PO 07/23/17 09:00 08/22/17 08:59 07/25/17 08:45 17 GM Lactase (Lactaid Tab) 3,000 units TIDM PO 07/22/17 16:45 08/21/17 17:59 07/25/17 08:46 3,000 UNITS Acetaminophen (Tylenol Tab) 650 mg Q4H PRN PO 07/22/17 14:00 08/21/17 13:59 Al Hydrox/Mg Hydrox/Simethicone (Maalox Max Susp) 15 ml Q4H PRN PO 07/22/17 14:00 08/21/17 13:59 Magnesium Hydroxide (Milk Of Magnesia Susp) 30 ml Q12H PRN PO 07/22/17 14:00 08/21/17 13:59 Ondansetron HCl (Zofran Inj) 4 mg Q6H PRN IV 07/22/17 14:00 08/21/17 13:59 Morphine Sulfate (MoRPHine SULFATE INJ) 2 mg Q30M PRN IV 07/22/17 14:00 08/05/17 13:59 Glucose (Glucose 40% Gel) 15-30 GRAMS 15 GRAMS... UD PRN PO 07/22/17 14:30 08/21/17 14:29 Glucose (Glucose Chew Tab) 4-8 Tablets 4 Tabl... UD PRN PO 07/22/17 14:30 3/24/18 14:29 Dextrose (Dextrose 50% 50ML Syringe) 25-50ML OF 50% DW IV FOR... UD PRN IV 07/22/17 14:30 08/21/17 14:29 07/22/17 21:23 50 ML Glucagon (Glucagon Inj) 1 mg UD PRN SQ 07/22/17 14:30 08/21/17 14:29 Insulin Aspart (novoLOG ASPART) SLIDING SCALE G... ACHS SC 07/22/17 21:00 08/21/17 20:59 07/25/17 09:00 8 UNITS Miscellaneous Information (Order Awaiting Action) 1 ea QS N/A 07/23/17 00:00 08/22/17 00:00 Budesonide/ Formoterol Fumarate (Symbicort 160/ 4.5 Inh) 2 puffs BID INH 07/23/17 21:00 08/22/17 20:59 07/25/17 08:41 2 PUFFS Oxycodone HCl (Roxicodone Immediate Rel Tab) 10 mg TID PRN PO 07/23/17 21:00 08/05/17 20:59 Insulin Glargine (Lantus Solostar Pen) 15 units BID SC 07/24/17 09:00 08/21/17 08:59 07/25/17 09:00 15 UNITS Objective Vital Signs Date Time Temp Pulse Resp B/P (MAP) Pulse Ox O2 Delivery O2 Flow Rate FiO2 07/25/17 08:17 36.6 85 17 160/80 (106) 97 Nasal Cannula 4.0 Humidified Oxygen 07/25/17 07:21 96 Nasal Cannula 4.0 Humidified Oxygen 07/25/17 06:15 66 18 75 Room Air 07/25/17 00:05 Nasal Cannula 4.0 Humidified Air 07/24/17 23:55 36.9 71 19 154/74 (100) 97 Nasal Cannula 4.0 07/24/17 19:37 36.9 68 20 130/77 (94) 95 Humidified Oxygen 4.0 07/24/17 16:22 37.4 69 20 94 4.0 07/24/17 16:00 Nasal Cannula 4.0 07/24/17 15:24 37.4 69 20 154/66 (95) 94 Nasal Cannula 4.0 07/24/17 12:00 Nasal Cannula 5.0 07/24/17 11:37 37.0 66 20 149/60 (89) 92 5.0 Physical Exam General Appearance: no apparent distress, + obese Neck: + pertinent finding (unable to assess JVD due to neck size) Respiratory/Chest: no respiratory distress, no accessory muscle use, + decreased breath sounds (throughout, no wheezing or crackles) Cardiovascular: no murmur, + irregularly irregular Abdomen: normal bowel sounds, non tender, soft Extremities: no calf tenderness, normal capillary refill, + pedal edema (1+ bilaterally) Neurologic/Psychiatric: no motor/sensory deficits (grossly normal), alert, oriented x 3 Laboratory Results 07/25/17 07:34 07/25/17 07:34 Test 07/25/17 07:34 07/25/17 08:07 Red Blood Count 3.43 M/uL (4.7-6.1) Mean Corpuscular Volume 93.9 fL (80-100) Mean Corpuscular Hemoglobin 28.0 pg (25-34) Mean Corpuscular Hemoglobin Concent 29.8 g/dl (32-36) RDW Standard Deviation 59.9 fL (36.4-46.3) RDW Coefficient of Variation 17.4 % (11.5-14.5) Mean Platelet Volume 10.2 fL (7.4-10.4) Arterial Blood pH 7.38 (7.35-7.45) Arterial Blood Partial Pressure CO2 75 mmHg (35-46) Arterial Blood Partial Pressure O2 93 mm/Hg (80-95) Arterial Blood HCO3 43 mmol/L (19-24) Arterial Blood Oxygen Saturation 95.8 % (90-95) Arterial Blood Base Excess 15.8 mEq/L (-9-1.8) Arterial Blood Gas Delivery 4L Gurpreet Test POS (POS) Anion Gap 5.0 mmol/L (3-11) Est Creatinine Clear Calc Drug Dose 132.9 ml/min Estimated GFR () 107.7 Estimated GFR (Non- 92.9 BUN/Creatinine Ratio 52.0 (10-20) Calcium Level 9.2 mg/dl (8.5-10.1) Bedside Glucose 108 mg/dl (70-99) Assessment and Plan 67 year old male, [facility] resident, with morbid obesity, Klinefelters, type 2 diabetes, atrial fibrillation, iron-deficiency anemia, hypertension, hyperlipidemia, DM2 and GERD, presenting with acute hypoxemic hypercapnic respiratory failure due to acute CHF exacerbation. Acute diastolic Congestive Heart Failure, subtype otherwise not specified - Echo LVEF >70% - Troponin negative, no acute EKG changes - Continue Bumex 0.5mg PO BID - Daily weight, I/Os daily Obesity hypoventilation, obstructive sleep apnea - morning pCO2 75 - Need to arrange BiPAP at night at [facility] Acute Type 2 Respiratory Failure - Pulmonary consultation appreciated - Multifactorial: Acute CHF, stable COPD, OTONIEL, obesity hypoventilation - Patient mentating well; confusion appears to be resolved and patient is at baseline mentation Chronic Anemia - 10 on admission; stable - Continue iron supplementation per home regimen Chronic Atrial Fibrillation - Rate controlled - Continue Eliquis Type 2 Diabetes Mellitus - SSI - Reduce lantus to 15 units BID due to hypoglycemia - Goal 140-180 Hypertension - Continue Lisinopril daily Hyperlipidemia - Continue Atorvastatin Depression - Continue Lexapro GERD - Continue Famotidine DVT Prophylaxis - SCD Knee, ABDOUL Hose - Eliquis Code Status - Level I Full Code Disposition - Plan on discharge to [facility] once he has BiPAP available Resident Physician Supervision Note: I interviewed and examined the patient. Discussed with Dr. Oneil and agree with findings and plan as documented in the note. Any exceptions or clarifications are listed here: None Documented By: Quoc Sampson physically feeling better, emotionally down since not able to return to snf today discussed critical need for bipap vitals noted nad breathing unlabored no pallor or icterus acute on chronic diastolic CHF - improved. stable OHS/OTONIEL - requires bipap to be safe when sleeping - hypoventilation appears fairly severe. return to SNF once this can be arranged, but overnight pulse ox and ABG appear to more than suffice, especially since this appears to be now done around his baseline status Resident Tracking Resident Involvement: Resident Care Provided Care Provided: Adult Hospital Medicine
[2017-07-25 15:36] VITALS: BP 149/82; PULSE 63; TEMP 36.5; O2SAT 97
[2017-07-25] MEDS: ATORVASTATIN 40 MG TAB PO SCH (20:16)
[2017-07-25] MEDS: ESCITALOPRAM OXALATE 10 MG TAB PO SCH (20:16)
[2017-07-25] MEDS: FAMOTIDINE 20 MG TAB PO SCH (20:17)
[2017-07-25 22:07] VITALS: BP 148/77; PULSE 64; TEMP 37.2; O2SAT 97
[2017-07-26 07:15] LABS: HEMATOCRIT 33.5 % (42-52); MEAN CELL VOLUME 94.1 fL (80-100); MEAN CORPUSCULAR HEMOGLOBIN 28.1 pg (25-34); MEAN CORPUSCULAR HGB CONC 29.9 g/dl (32-36); MEAN PLATELET VOLUME 10.4 fL (7.4-10.4); PLATELET COUNT 203 K/uL (130-400); RED CELL DISTRIBUTION WIDTH SD 58.6 fL (36.4-46.3)
[2017-07-26 07:38] LABS: CALCIUM 9.1 mg/dl (8.5-10.1); CREATININE 1.32 mg/dl (0.60-1.40); POTASSIUM 4.2 mmol/L (3.5-5.1)
[2017-07-26 07:46] VITALS: BP 138/82; PULSE 70; TEMP 36.9; O2SAT 97
[2017-07-26 07:49] VITALS: O2SAT 97
[2017-07-26] MEDS: ASPIRIN 81 MG ECTAB PO SCH (08:26)
[2017-07-26] MEDS: APIXABAN 2.5 MG TAB PO SCH ×2 (08:26→20:45)
[2017-07-26] MEDS: FERROUS SULFATE 325 MG TAB PO SCH ×3 (08:27→20:47)
[2017-07-26] MEDS: MAGNESIUM OXIDE 400 MG TAB PO SCH (08:28)
[2017-07-26] MEDS: LACTASE 3000 UNIT TAB PO SCH ×3 (08:28→18:05)
[2017-07-26] MEDS: SENNA 8.6 MG TAB PO SCH (08:29)
[2017-07-26] MEDS: POLYETHYLENE (MIRALAX) 17 GM PACK PO SCH (08:29)
[2017-07-26] MEDS: CYANOCOBALAMIN 500 MCG TAB (VIT B-12) PO SCH (08:30)
[2017-07-26] MEDS: CHOLECALCIFEROL 1000 INTER.UNIT TAB PO SCH (08:31)
[2017-07-26] MEDS: LISINOPRIL 2.5 MG TAB PO SCH (08:32)
[2017-07-26] MEDS: BUMETANIDE 1 MG TAB PO SCH ×2 (08:33→18:06)
[2017-07-26] MEDS: BUDESONIDE/FORMOTEROL FUMARATE 160/4.5 60 PUFFS/INHALER INH SCH ×2 (08:36→20:44)
[2017-07-26] MEDS: INSULIN ASPART 100 UNITS/ML 3 ML PEN SC SCH ×4 (09:10→20:48)
[2017-07-26] MEDS: INSULIN GLARGINE SOLOSTAR 100 UNITS/ML 3 ML PEN SC SCH ×2 (09:12→20:53)
[2017-07-26] MEDS ORDERED: NURSING DECISION MEDICATION ORDER SCH (14:15)
[2017-07-26 15:00] VITALS: BP 109/63; PULSE 56; TEMP 36.9; O2SAT 99
--- NOTE | 2017-07-26 16:18 | Family Medicine Progress Note ---
Progress Note Date of Service Jul 26, 2017. Subjective Pt evaluation today including: conversation w/ patient, physical exam, chart review, lab review, review of inpatient medication list Pain: No pain reported PO Intake: Tolerating PO intake Voiding: no voiding problems Mr. Escobar reports he feels well today. No new complaints. Patient eager for discharge. Denies chest pain, n/v, fever, chills. States breathing improved. Constitutional: No fever, No chills Respiratory: No cough, No sputum, No wheezing Cardiovascular: No chest pain Abdomen: No pain, No nausea, No vomiting All Other Systems: Reviewed and Negative Medications Current Inpatient Medications Medications (Trade) Dose Ordered Sig/Carlton Route Start Time Stop Time Status Last Admin Dose Admin Aspirin (Ecotrin Tab) 81 mg DAILY PO 07/23/17 09:00 08/22/17 08:59 07/26/17 08:26 81 MG Atorvastatin Calcium (Lipitor Tab) 40 mg HS PO 07/22/17 21:00 08/21/17 20:59 07/25/17 20:16 40 MG Baclofen (Lioresal Tab) 10 mg Q8H PRN PO 07/22/17 13:45 08/21/17 13:44 07/25/17 08:43 10 MG Cyanocobalamin (Vitamin B-12 Tab) 1,000 mcg DAILY PO 07/23/17 09:00 08/22/17 08:59 07/26/17 08:30 1,000 MCG Ergocalciferol (Vitamin D Cap) 50,000 interunit Sa@0900 PO 07/24/17 09:00 08/23/17 08:59 07/24/17 09:08 50,000 INTERUNIT Escitalopram Oxalate (Lexapro Tab) 10 mg HS PO 07/22/17 21:00 08/21/17 20:59 07/25/17 20:16 10 MG Famotidine (Pepcid Tab) 40 mg HS PO 07/22/17 21:00 08/21/17 20:59 07/25/17 20:17 40 MG Ferrous Sulfate (Feosol Tab) 325 mg TID PO 07/22/17 21:00 08/21/17 20:59 07/26/17 12:56 325 MG Lisinopril (Zestril Tab) 2.5 mg DAILY PO 07/23/17 09:00 08/22/17 08:59 07/26/17 08:32 2.5 MG Magnesium Oxide (Mag-Ox Tab) 400 mg DAILY PO 07/23/17 09:00 08/22/17 08:59 07/26/17 08:28 400 MG Senna (Senokot Tab) 8.6 mg DAILY PO 07/23/17 09:00 08/22/17 08:59 07/26/17 08:29 8.6 MG Apixaban (Eliquis Tab) 5 mg BID PO 07/22/17 21:00 08/21/17 20:59 07/26/17 08:26 5 MG Bumetanide (Bumex Tab) 0.5 mg BID17 PO 07/22/17 17:00 08/21/17 16:59 07/26/17 08:33 0.5 MG Cholecalciferol (Vitamin D Tab) 2,000 inter.unit DAILY PO 07/23/17 09:00 08/22/17 08:59 07/26/17 08:31 2,000 INTER.UNIT Polyethylene (Miralax Powder Packet) 17 gm QAM PO 07/23/17 09:00 08/22/17 08:59 07/26/17 08:29 17 GM Lactase (Lactaid Tab) 3,000 units TIDM PO 07/22/17 16:45 08/21/17 17:59 07/26/17 12:55 3,000 UNITS Acetaminophen (Tylenol Tab) 650 mg Q4H PRN PO 07/22/17 14:00 08/21/17 13:59 Al Hydrox/Mg Hydrox/Simethicone (Maalox Max Susp) 15 ml Q4H PRN PO 07/22/17 14:00 08/21/17 13:59 Magnesium Hydroxide (Milk Of Magnesia Susp) 30 ml Q12H PRN PO 07/22/17 14:00 08/21/17 13:59 Ondansetron HCl (Zofran Inj) 4 mg Q6H PRN IV 07/22/17 14:00 08/21/17 13:59 Morphine Sulfate (MoRPHine SULFATE INJ) 2 mg Q30M PRN IV 07/22/17 14:00 08/05/17 13:59 Glucose (Glucose 40% Gel) 15-30 GRAMS 15 GRAMS... UD PRN PO 07/22/17 14:30 08/21/17 14:29 Glucose (Glucose Chew Tab) 4-8 Tablets 4 Tabl... UD PRN PO 07/22/17 14:30 08/21/17 14:29 Dextrose (Dextrose 50% 50ML Syringe) 25-50ML OF 50% DW IV FOR... UD PRN IV 07/22/17 14:30 08/21/17 14:29 07/22/17 21:23 50 ML Glucagon (Glucagon Inj) 1 mg UD PRN SQ 07/22/17 14:30 08/21/17 14:29 Insulin Aspart (novoLOG ASPART) SLIDING SCALE G... ACHS SC 07/22/17 21:00 08/21/17 20:59 07/26/17 13:45 9 UNITS Miscellaneous Information (Order Awaiting Action) 1 ea QS N/A 07/23/17 00:00 08/22/17 00:00 Budesonide/ Formoterol Fumarate (Symbicort 160/ 4.5 Inh) 2 puffs BID INH 07/23/17 21:00 08/22/17 20:59 07/26/17 08:36 2 PUFFS Oxycodone HCl (Roxicodone Immediate Rel Tab) 10 mg TID PRN PO 07/23/17 21:00 08/05/17 20:59 Insulin Glargine (Lantus Solostar Pen) 15 units BID SC 07/24/17 09:00 08/21/17 08:59 07/26/17 09:12 15 UNITS Multi-Ingredient Ointment (Eucerin Unscented Cr) 1 appln BID EXT 07/26/17 20:00 08/25/17 19:59 Objective Vital Signs Date Time Temp Pulse Resp B/P (MAP) Pulse Ox O2 Delivery O2 Flow Rate FiO2 07/26/17 15:41 Nasal Cannula 2.0 07/26/17 15:00 36.9 56 18 109/63 (78) 99 2.0 07/26/17 09:15 Nasal Cannula 4.0 07/26/17 07:49 97 Nasal Cannula 4.0 07/26/17 07:46 36.9 70 18 138/82 (100) 97 Nasal Cannula 4.0 07/26/17 00:32 Nasal Cannula 4.0 07/25/17 22:07 37.2 64 20 148/77 (100) 97 Nasal Cannula 4.0 07/25/17 20:30 Nasal Cannula 4.0 07/25/17 16:19 Nasal Cannula 4.0 Physical Exam General Appearance: WD/WN, no apparent distress Respiratory/Chest: normal breath sounds, no respiratory distress, no accessory muscle use, + decreased breath sounds Cardiovascular: + irregularly irregular Abdomen: non tender, soft Extremities: non-tender Laboratory Results Last 24 Hours Test 07/25/17 17:07 07/25/17 20:19 07/26/17 06:20 07/26/17 07:55 Bedside Glucose 117 mg/dl 167 mg/dl 113 mg/dl White Blood Count 6.90 K/uL Red Blood Count 3.56 M/uL Hemoglobin 10.0 g/dL Hematocrit 33.5 % Mean Corpuscular Volume 94.1 fL Mean Corpuscular Hemoglobin 28.1 pg Mean Corpuscular Hemoglobin Concent 29.9 g/dl RDW Standard Deviation 58.6 fL RDW Coefficient of Variation 17.0 % Platelet Count 203 K/uL Mean Platelet Volume 10.4 fL Sodium Level 138 mmol/L Potassium Level 4.2 mmol/L Chloride Level 93 mmol/L Carbon Dioxide Level 42 mmol/L Anion Gap 2.0 mmol/L Blood Urea Nitrogen 37 mg/dl Creatinine 1.32 mg/dl Est Creatinine Clear Calc Drug Dose 79.5 ml/min Estimated GFR () 64.2 Estimated GFR (Non- 55.4 BUN/Creatinine Ratio 27.9 Random Glucose 110 mg/dl Calcium Level 9.1 mg/dl Test 07/26/17 11:50 Bedside Glucose 131 mg/dl Assessment and Plan 67 year old male, [facility] resident, with morbid obesity, Klinefelters, type 2 diabetes, atrial fibrillation, iron-deficiency anemia, hypertension, hyperlipidemia, DM2 and GERD, presenting with acute hypoxemic hypercapnic respiratory failure due to acute CHF exacerbation. Acute diastolic Congestive Heart Failure, subtype otherwise not specified - Echo LVEF >70% - Troponin negative, no acute EKG changes - Continue Bumex 0.5mg PO BID - Daily weight, I/Os daily - pt down 7kg - pt on 2L at home at nighttime - currently on 2L here - will likely require 24hr oxygen on d/c Obesity hypoventilation, obstructive sleep apnea - morning pCO2 75 - BiPAP will be available at [facility] tomorrow Acute Type 2 Respiratory Failure - Pulmonary consultation appreciated - Multifactorial: Acute CHF, stable COPD, OTONIEL, obesity hypoventilation - negative for influenza - patient at baseline Chronic Anemia - 10 on admission; stable - Continue iron supplementation per home regimen Chronic Atrial Fibrillation - Rate controlled - Continue Eliquis Type 2 Diabetes Mellitus - SSI - Continue lantus 15 units BID - Goal 140-180 - pt has been between 113-167 Hypertension - Continue Lisinopril daily Hyperlipidemia - Continue Atorvastatin Depression - Continue Lexapro GERD - Continue Famotidine DVT Prophylaxis - SCD Knee, ABDOUL Hose - Suhail Code Status - Level I Full Code Disposition - d/c tomorrow to [facility] as BiPAP available then Resident Physician Supervision Note: I was present with the resident physician during the history and exam. I discussed the case with the resident and agree with the findings and plan as documented in the note. BiPAP unit for home ([facility]) will be available tomorrow. Documented By: Delmer Danielle Resident Tracking Resident Involvement: Resident Care Provided Care Provided: Adult Hospital Medicine
--- NOTE | 2017-07-26 18:47 | Discharge Instructions ---
Discharge Instructions Date of Service Jul 27, 2017. Admission Reason for Admission: Respiratory Failure Discharge Discharge Diagnosis / Problem: Acute diastolic CHF exacerbation Discharge Goals Goal(s): Improve function, Increase independence, Improve disease control Activity Recommendations Activity Level: Bedrest . Additional Information Patient informed of condition: Yes Advance Directives: Yes DNR: No Level of Care: Skilled Communicable Disease: No Prognosis: Stable Oxygen at (LPM): 2L via nasal cannula Tracy Catheter: No Instructions / Follow-Up Instructions / Follow-Up 67 year old male, [facility] resident, with morbid obesity, Klinefelters, type 2 diabetes, atrial fibrillation, iron-deficiency anemia, hypertension, hyperlipidemia, DM2 and GERD, presenting with acute hypoxemic hypercapnic respiratory failure due to acute CHF exacerbation. Acute diastolic Congestive Heart Failure, subtype otherwise not specified - Echo LVEF >70% - Troponin negative, no acute EKG changes - Continue Bumex 0.5mg PO BID - pt down 7kg - pt on 2L at home at nighttime - currently on 2-4L here around the clock - will likely require 24hr oxygen on d/c Obesity hypoventilation, obstructive sleep apnea - BiPAP Acute Type 2 Respiratory Failure - Multifactorial: Acute CHF, stable COPD, OTONIEL, obesity hypoventilation - negative for influenza - patient at baseline Chronic Anemia - 10 on admission; stable - Continue iron supplementation Chronic Atrial Fibrillation - Rate controlled - Continue Eliquis Type 2 Diabetes Mellitus - Goal 140-180 - pt has been between 113-167 - pt has been on significantly less insulin in hospital setting than regular outpatient dose - recommend frequent sugar checks and slow introduction of regular home dosage - pt receiving 15 units of lantus BID here with approx 26 TOTAL insulin added over the day on sliding scale = total of 56 units a day Hypertension - Continue Lisinopril daily Hyperlipidemia - Continue Atorvastatin Depression - Continue Lexapro GERD - Continue Famotidine Current Hospital Diet Patient's current hospital diet: AHA Diet (Heart Healthy), Diabetes Type 2 Diet Discharge Diet Recommended Diet: AHA Diet (Heart Healthy), Diabetes Type 2 Diet Pending Studies Studies pending at discharge: no Laboratory Results Hemoglobin A1c Test 07/20/17 05:30 Range/Units Estimated Average Glucose 103 mg/dl Hemoglobin A1c 5.2 4.5-5.6 % Medical Emergencies . Who to Call and When: Medical Emergencies: If at any time you feel your situation is an emergency, please call 911 immediately. . Non-Emergent Contact Non-Emergency issues call your: Primary Care Provider . . "Provider Documentation" section prepared by Shivani Kat. . Core Measure Problem Core Measures: None
[2017-07-26] MEDS: EUCERIN CR 120 GM JAR EXT SCH (20:44)
[2017-07-26] MEDS: ESCITALOPRAM OXALATE 10 MG TAB PO SCH (20:47)
[2017-07-26] MEDS: FAMOTIDINE 20 MG TAB PO SCH (20:47)
[2017-07-26] MEDS: ATORVASTATIN 40 MG TAB PO SCH (20:47)
[2017-07-26 21:49] VITALS: PULSE 83; O2SAT 95
[2017-07-26 22:57] VITALS: BP 134/80; PULSE 69; TEMP 37.2; O2SAT 100
[2017-07-27 05:05] VITALS: PULSE 67; O2SAT 98
[2017-07-27 06:52] LABS: CALCIUM 9.4 mg/dl (8.5-10.1); CREATININE 1.11 mg/dl (0.60-1.40); POTASSIUM 4.4 mmol/L (3.5-5.1)
[2017-07-27 07:51] VITALS: BP 170/77; PULSE 71; TEMP 36.7
[2017-07-27] MEDS: POLYETHYLENE (MIRALAX) 17 GM PACK PO SCH (08:00)
[2017-07-27] MEDS: CYANOCOBALAMIN 500 MCG TAB (VIT B-12) PO SCH (08:43)
[2017-07-27] MEDS: CHOLECALCIFEROL 1000 INTER.UNIT TAB PO SCH (08:44)
[2017-07-27] MEDS: SENNA 8.6 MG TAB PO SCH (08:44)
[2017-07-27] MEDS: FERROUS SULFATE 325 MG TAB PO SCH ×2 (08:45→13:43)
[2017-07-27] MEDS: LACTASE 3000 UNIT TAB PO SCH ×2 (08:45→12:32)
--- NOTE | 2017-07-27 08:45 | Discharge Summary ---
Discharge Summary Date of Service Jul 27, 2017. Discharge Summary Admission Date: Jul 22, 2017 at 13:57 Discharge Date: Jul 27, 2017 Discharge Disposition: shelter facility Principal Diagnosis: Acute diastolic CHF exacerbation Problems/Secondary Diagnoses: 1) Obesity Hypoventilation 2) Obstructive Sleep Apnea 3) Chronic Anemia 4) Rate Controlled A fib 5) Type 2 DM 6) Hypertension 7) Hyperlipidemia 8) Depression 9) GERD Immunizations: Have You Had Influenza Vaccine: Yes Influenza Vaccine Date: Mar 01, 2014 History of Tetanus Vaccine?: No History of Pneumococcal: No History of Hepatitis B Vaccine: No Procedures: CHEST ONE VIEW PORTABLE CLINICAL HISTORY: CHF dyspnea COMPARISON STUDY: 07/22/2017 FINDINGS: Findings of asymmetric pulmonary edema are again noted. This is progressive on the left and perhaps slightly improved on the right. Small left pleural effusion. IMPRESSION: Asymmetric pulmonary edema slightly progressive on the left and slightly improved on the right. Small left pleural effusion. Medication Reconciliation Continued Medications: Acetaminophen Tab (Tylenol) 325 Mg Tab 650 MG PO Q6H PRN for MILD PAIN/FEVER, TAB NEEDED FOR MILD PAIN RATED 1-10 ON A SCALE OF "0-10" OR FOR ELEVATED TEMPERATURE GREATER THAN 101 F. DO NOT EXCEED 3 GM APAP/24 HOURS. Apixaban (Eliquis) 5 Mg Tab 5 MG PO BID, TAB Ascorbic Acid (Vitamin C) 250 Mg Tab 250 MG PO BID Aspirin (Aspirin Ec) 81 Mg Tab 81 MG PO WK GIVEN ON WEDNESDAYS Atorvastatin (Lipitor) 40 Mg Tab 40 MG PO HS Baclofen (Lioresal) 10 Mg Tab 10 MG PO Q8H PRN for Muscle Spasms Bumetanide (Bumetanide) 0.5 Mg Tab 0.5 MG PO BID Cholecalciferol (Vitamin D3) 2,000 Unit Tab 2000 UNITS PO DAILY, TAB Cyanocobalamin (Vitamin B-12) 1,000 Mcg Tab 1000 MCG PO DAILY Ergocalciferol (Vitamin D 89160 Unit) 50,000 Unit Cap 90764 UNIT PO WK, CAP SATURDAYS Escitalopram (Lexapro) 10 Mg Tab 10 MG PO HS Famotidine (Pepcid) 40 Mg Tab 40 MG PO HS, TAB Fenofibrate (Tricor) 160 Mg Tab 160 MG PO HS, TAB Ferrous Sulfate (Ferrous Sulfate) 325 Mg Tab 325 MG PO TID Insulin Aspart (Novolog) 100 Units/Ml Inj 4 UNITS SC PM TO BE GIVEN WITH DINNER Insulin Aspart (Novolog) 100 Units/Ml Inj 6 UNITS SC DAILY TO BE GIVEN WITH LUNCH Insulin Aspart (Novolog) 100 Units/Ml Inj 7 UNITS SC HS Insulin Glargine (Lantus Solostar) 100 Unit/Ml Inj 54 UNITS SC HS, PEN Lactase (Lactaid) 3,000 Unit Tab 1 TAB PO TIDM Lisinopril (Lisinopril) 2.5 Mg Tab 2.5 MG PO DAILY Magnesium Oxide (Mag-Ox) 400 Mg Tab 400 MG PO DAILY Metformin Hcl (Glucophage) 1,000 Mg Tab 1000 MG PO BID, TAB Multiple Vitamins W/ Minerals (Ocuvite Lutein) 1 Cap Cap 1 CAP PO BID HOLD DATE FROM 07-08-17 TO 07-29-17 Oxycodone Hcl (Oxycodone Hcl) 10 Mg Tab 10 MG PO TID, TAB Oyster Shell (Oyster Shell) 500 Mg Tab 250 MG PO BID Polyethylene Glycol 3350 (Miralax) 1 Pow Pow 17 GM PO DAILY Senna (Senokot) 8.6 Mg Tab 1 TAB PO DAILY Discharge Exam Mr. Escobar reports he feels well today and is eager for discharge. He states he feels he is at his baseline. He denies chest pain, SOB, n/v, fever, chills. Review of Systems: Constitutional: No fever, No chills Respiratory: No cough, No sputum, No wheezing, No shortness of breath Cardiovascular: No chest pain Abdomen: No pain, No nausea, No vomiting Physical Exam: General Appearance: WD/WN, + obese Respiratory/Chest: normal breath sounds, no respiratory distress, no accessory muscle use, + decreased breath sounds Cardiovascular: no gallop, no JVD, + irregularly irregular Abdomen / GI: non tender, soft Extremities: no calf tenderness Hospital Course 67 year old male, [facility] resident, with morbid obesity, Klinefelters, type 2 diabetes, atrial fibrillation, iron-deficiency anemia, hypertension, hyperlipidemia, DM2 and GERD, presenting with acute hypoxemic hypercapnic respiratory failure due to acute CHF exacerbation. Acute diastolic Congestive Heart Failure, subtype otherwise not specified - Echo LVEF >70% - Troponin negative, no acute EKG changes - Continue Bumex 0.5mg PO BID - pt down 7kg - pt on 2L at home at nighttime - currently on 2-4L here around the clock - will likely require 24hr oxygen on d/c Obesity hypoventilation, obstructive sleep apnea - BiPAP Acute Type 2 Respiratory Failure - Multifactorial: Acute CHF, stable COPD, OTONIEL, obesity hypoventilation - negative for influenza - patient at baseline Chronic Anemia - 10 on admission; stable - Continue iron supplementation Chronic Atrial Fibrillation - Rate controlled - Continue Eliquis Type 2 Diabetes Mellitus - Goal 140-180 - pt has been between 113-167 - pt has been on significantly less insulin in hospital setting than regular outpatient dose - recommend frequent sugar checks and slow introduction of regular home dosage - pt receiving 15 units of lantus BID here with approx 26 TOTAL insulin added over the day on sliding scale = total of 56 units a day Hypertension - Continue Lisinopril daily Hyperlipidemia - Continue Atorvastatin Depression - Continue Lexapro GERD - Continue Famotidine Resident Physician Supervision Note: I interviewed and examined the patient. Discussed with the resident and agree with findings and plan as documented in the note. Documented By: Delmer Danielle Total Time Spent: Less than 30 minutes This includes examination of the patient, discharge planning, medication reconciliation, and communication with other providers. Discharge Instructions Please refer to the electronic Patient Visit Report (Discharge Instructions) for additional information. Resident Tracking Resident Involvement: Resident Care Provided Care Provided: Adult Hospital Medicine
[2017-07-27] MEDS: ASPIRIN 81 MG ECTAB PO SCH (08:46)
[2017-07-27] MEDS: APIXABAN 2.5 MG TAB PO SCH (08:46)
[2017-07-27] MEDS: MAGNESIUM OXIDE 400 MG TAB PO SCH (08:46)
[2017-07-27] MEDS: LISINOPRIL 2.5 MG TAB PO SCH (08:47)
[2017-07-27] MEDS: EUCERIN CR 120 GM JAR EXT SCH (08:48)
[2017-07-27] MEDS: BUDESONIDE/FORMOTEROL FUMARATE 160/4.5 60 PUFFS/INHALER INH SCH (08:49)
[2017-07-27 08:50] VITALS: BP 170/77; PULSE 71; TEMP 36.7; O2SAT 98
[2017-07-27] MEDS: INSULIN ASPART 100 UNITS/ML 3 ML PEN SC SCH ×2 (08:59→11:00)
[2017-07-27] MEDS: INSULIN GLARGINE SOLOSTAR 100 UNITS/ML 3 ML PEN SC SCH (08:59)
[2017-07-27] MEDS: BUMETANIDE 1 MG TAB PO SCH (09:02)
== END 2017-07-27 14:39 | DRG 291 ==
LOC: EDBD 10:24 → C.EDB 10:26 → C.2E 13:57 → ENRESERV 16:11 → C.4E 07-24 16:39
PROVIDERS: ADMIT Internal Medicine; ATTEND Family Medicine
DX: I11.0 Hypertensive heart disease with heart failure (principal); I50.33 Acute on chronic diastolic (congestive) heart failure; J96.22 Acute and chronic respiratory failure with hypercapnia; J96.01 Acute respiratory failure with hypoxia; G93.41 Metabolic encephalopathy; E66.2 Morbid (severe) obesity with alveolar hypoventilation; Z68.41 Body mass index [BMI] 40.0-44.9, adult; J44.9 Chronic obstructive pulmonary disease, unspecified; I27.81 Cor pulmonale (chronic); E11.9 Type 2 diabetes mellitus without complications; I48.2 Chronic atrial fibrillation; D50.9 Iron deficiency anemia, unspecified; E78.5 Hyperlipidemia, unspecified; F32.9 Major depressive disorder, single episode, unspecified; B35.3 Tinea pedis; K21.9 Gastro-esophageal reflux disease without esophagitis; Z99.81 Dependence on supplemental oxygen; Z74.01 Bed confinement status; Q98.4 Klinefelter syndrome, unspecified; Z87.891 Personal history of nicotine dependence; Z86.14 Personal history of Methicillin resistant Staphylococcus aureus infection; Z87.11 Personal history of peptic ulcer disease; Z79.01 Long term (current) use of anticoagulants; Z79.4 Long term (current) use of insulin; Z79.82 Long term (current) use of aspirin; Z79.891 Long term (current) use of opiate analgesic; Z79.899 Other long term (current) drug therapy; Z88.6 Allergy status to analgesic agent; Z82.49 Family history of ischemic heart disease and other diseases of the circulatory system

== ENCOUNTER → 2017-07-22 | Outpatient (CLI) | payer OTHER ==
[2017-07-22 07:52] LABS: BLOOD UREA NITROGEN 41 mg/dl (7-18); CALCIUM 9.3 mg/dl (8.5-10.1); CARBON DIOXIDE 44 mmol/L (21-32); CREATININE 0.77 mg/dl (0.60-1.40); GLUCOSE 57 mg/dl (70-99); POTASSIUM 4.9 mmol/L (3.5-5.1); SODIUM 143 mmol/L (136-145)
== END ==
LOC: C.LABUPUNI 10:37
PROVIDERS: ATTEND Nurse Practitioner Family
DX: I10 Essential (primary) hypertension (principal)

== ENCOUNTER → 2017-08-03 | Outpatient (CLI) | payer OTHER ==
[~2017-08-03] MED LIST changes: +APIX1TAB3 PO; -ENOX1INJ14 INJ; +FAMO40TA6 PO; -LUTE6TAB PO; -MULT-513 PO; +MULTCAP31 PO; -PANT1TAB3 PO; -PROM25SU28 PR; -WARF3TAB6 PO; -WARF4TAB8 PO
[2017-08-03 08:36] LABS: HEMATOCRIT 33.3 % (42-52); MEAN CORPUSCULAR HEMOGLOBIN 27.9 pg (25-34); MEAN PLATELET VOLUME 10.6 fL (7.4-10.4); PLATELET COUNT 265 K/uL (130-400); RED CELL DISTRIBUTION WIDTH CV 16.7 % (11.5-14.5)
[2017-08-03 08:46] LABS: BLOOD UREA NITROGEN 43 mg/dl (7-18); CARBON DIOXIDE 31 mmol/L (21-32); GLUCOSE 81 mg/dl (70-99); POTASSIUM 3.9 mmol/L (3.5-5.1); SODIUM 138 mmol/L (136-145)
== END | disposition home or self-care (01) ==
LOC: C.LABUPUNI 08:20
PROVIDERS: ATTEND Nurse Practitioner Family
DX: E11.9 Type 2 diabetes mellitus without complications (principal); I10 Essential (primary) hypertension

== ENCOUNTER → 2017-08-26 | Outpatient (CLI) | payer OTHER ==
[2017-08-26 10:02] LABS: HEMATOCRIT 31.6 % (42-52); HEMOGLOBIN 9.8 g/dL (14.0-18.0)
== END ==
LOC: C.LABUPUNI 09:35
PROVIDERS: ATTEND Nurse Practitioner Family
DX: I48.2 Chronic atrial fibrillation (principal); D50.9 Iron deficiency anemia, unspecified

== ENCOUNTER → 2017-09-03 | Outpatient (CLI) | payer OTHER ==
[2017-09-03 08:50] LABS: HEMATOCRIT 30.8 % (42-52); MEAN CELL VOLUME 96.9 fL (80-100); MEAN CORPUSCULAR HEMOGLOBIN 28.3 pg (25-34); MEAN CORPUSCULAR HGB CONC 29.2 g/dl (32-36); MEAN PLATELET VOLUME 10.6 fL (7.4-10.4); PLATELET COUNT 229 K/uL (130-400); RED CELL DISTRIBUTION WIDTH CV 16.8 % (11.5-14.5); RED CELL DISTRIBUTION WIDTH SD 59.8 fL (36.4-46.3); WHITE BLOOD COUNT 6.51 K/uL (4.8-10.8)
== END | disposition home or self-care (01) ==
LOC: C.LABUPUNI 07:44
PROVIDERS: ATTEND Nurse Practitioner Family
DX: I48.2 Chronic atrial fibrillation (principal)

== ENCOUNTER → 2017-09-24 | Outpatient (CLI) | payer OTHER ==
[2017-09-24 10:47] LABS: ALBUMIN 3.1 gm/dl (3.4-5.0); ALT/SGPT 19 U/L (12-78); AST/SGOT 19 U/L (15-37); BLOOD UREA NITROGEN 51 mg/dl (7-18); CALCIUM 8.6 mg/dl (8.5-10.1); CARBON DIOXIDE 33 mmol/L (21-32); CREATININE 1.35 mg/dl (0.60-1.40); GLUCOSE 142 mg/dl (70-99); POTASSIUM 4.1 mmol/L (3.5-5.1); SODIUM 140 mmol/L (136-145)
[2017-09-24 10:52] LABS: ALKALINE PHOSPHATASE 43 U/L (45-117); TOTAL PROTEIN 6.9 gm/dl (6.4-8.2)
[2017-09-24 10:56] LABS: HEMATOCRIT 31.5 % (42-52); HEMOGLOBIN 9.3 g/dL (14.0-18.0)
== END ==
LOC: C.LABUPUNI 09:09
PROVIDERS: ATTEND Nurse Practitioner Family
DX: I48.2 Chronic atrial fibrillation (principal); I73.9 Peripheral vascular disease, unspecified; D50.9 Iron deficiency anemia, unspecified

== ENCOUNTER → 2017-12-23 | Outpatient (CLI) | payer OTHER | END | disposition home or self-care (01) | LOC: C.LABUPUNI 09:18 | PROVIDERS: ATTEND Nurse Practitioner Family | DX: E78.5 Hyperlipidemia, unspecified (principal); E55.9 Vitamin D deficiency, unspecified ==

== ENCOUNTER 2018-06-20 03:45 | Inpatient (IN) ==
[2018-06-20] MEDS ORDERED: SODIUM CHLORIDE 0.9% 500 ML IV ONE (04:27)
[2018-06-20] MEDS ORDERED: PIPERACILL/TAZOBAC CONSULT ACTIVE PRN ×2 (04:28→08:21)
[2018-06-20] MEDS ORDERED: PIPERACILLIN/TAZOBACTAM 4.5 GM/120 ML BAG IV ONE (04:28)
[2018-06-20] MEDS ORDERED: LEVOFLOXACIN/D5W 750 MG/150 ML BAG IV STA (04:29)
[2018-06-20 04:32] LABS: INR 1.2 (0.9-1.1); Partial Thromboplastin Time 27.2 Seconds (21.0-31.0); Prothrombin Time 11.9 Seconds (9.0-12.0)
[2018-06-20 04:40] LABS: Alanine Aminotransferase 329 U/L (12-78); Albumin Level 2.6 gm/dl (3.4-5.0); Aspartate Aminotransferase 430 U/L (15-37); BUN Creatinine Ratio 46.7 (10-20); Blood Urea Nitrogen 74 mg/dl (7-18); Calcium 9.1 mg/dl (8.5-10.1); Carbon Dioxide 31 mmol/L (21-32); Chloride 104 mmol/L (98-107); Est GFR (African American) 51.3; Est GFR (Non-African American) 44.3; Glucose 206 mg/dl (70-99); Potassium 5.9 mmol/L (3.5-5.1); Sodium 140 mmol/L (136-145)
[2018-06-20] MEDS ORDERED: SODIUM CHLORIDE 0.9% 1000ML 1,000 ML IV ONE ×2 (04:43→13:27)
[2018-06-20 04:44] LABS: Albumin Globulin Ratio 0.6 (0.9-2); Alkaline Phosphatase 70 U/L (45-117); Bilirubin,Total 0.9 mg/dl (0.2-1); Globulin 4.6 gm/dl (2.5-4.0); Total Protein 7.2 gm/dl (6.4-8.2); Troponin I 0.031 ng/ml (0-0.045)
[2018-06-20] MEDS ORDERED: NOREPINEPHRINE (Adult) 8 MG in DEXTROSE 5% 500 ML IV SCH (04:45)
[2018-06-20 05:11] LABS: Hematocrit (blood only) 35.4 % (42-52); Hemoglobin 9.5 g/dL (14.0-18.0); Mean Corpuscular Hgb Conc 26.8 g/dL (32-36); Mean Corpuscular Volume 104.7 fL (80-100); Mean Platelet Volume 11.3 fL (7.4-10.4); Nucleated RBC # (auto) 0.09 K/uL (0-0); Nucleated RBC % (auto) 0.6 %; Platelet Count 409 K/uL (130-400); RDW Standard Deviation 57.1 fL (36.4-46.3); Red Blood Count 3.38 M/uL (4.7-6.1); White Blood Count 13.57 K/uL (4.8-10.8)
[2018-06-20 05:12] LABS: Basophilic Stippling 1+; Basophils # (auto) 0.03 K/uL (0-0.2); Basophils % (auto) 0.2 %; Eosinophils # (auto) 0.01 K/uL (0-0.5); Eosinophils % (auto) 0.1 %; Immature Granulocytes % (auto) 3.7 %; Lymphocytes # (auto) 2.06 K/uL (1.2-3.4); Lymphocytes % (auto) 15.2 %; Monocytes % (auto) 5.2 %; Neutrophils # (auto) 10.27 K/uL (1.4-6.5); Neutrophils % (auto) 75.6 %
[2018-06-20 05:20] LABS: Base Excess VBG 0 mEq/L; HCO3 VBG 32 mmol/L; Oxygen Saturation VBG 67.2 %; PCO2 VBG 112 mmHg (38-50); PO2 VBG 39 mmHg; pH VBG 7.08 (7.36-7.41)
--- NOTE | 2018-06-20 05:48 | Critical Care Consultation ---
Date of Consultation June 20, 2018 Supervising Physician Co-Signing Physician Notes Reason Critically Ill: 68-year-old male status post cardiac arrest with return of spontaneous circulation PLAN: Neuro: Acute encephalopathy -Meets criteria for cooling -Will need EEG to rule out nonconvulsive status epilepticus Resp: Obstructive sleep apnea Obesity hypoventilation syndrome Acute respiratory failure -Wean mechanical ventilator as tolerated -Suspect cardiac arrest secondary to respiratory failure/respiratory etiology CV: Hypotension -Obtain echocardiogram -Trend troponins -CT chest to exclude PE History atrial fibrillation -Apixaban secondary to atrial fibrillation Prolonged QTC Fluids/Renal: Acute kidney injury Lactic acid acidosis Hyperkalemia -Likely secondary to acidosis ID: Vancomycin, Zosyn, Levaquin -Holding Levaquin until able to adequately evaluate QTC GI/Nutrition: Transaminitis -Follow-up CT scan -Question shock liver -May require liver duplex Heme: Anemia -Most likely multifactorial -Suspect anemia of chronic disease DVT prophylaxis: Would still be under effects of Eliquis -Will likely require heparin 7500 3 times daily given obesity Endocrine: ICU hyperglycemia protocol -Insulin infusion ordered Vascular access: Peripheral IVs Code Status: Full code I have personally spent 70 minutes of critical care time in the direct management of this patient. This is a life/limb threatening event. This includes time spent evaluating patient, direct bedside care, chart review, placing orders, interpretation of diagnostic studies, discussion with consultants, patient, and/or family members regarding treatment decisions, as well as other required patient management activities. This time is exclusive of all separately billable procedures, and teaching time and separate from and in addition to any other critical care service time. History of Present Illness Reason for Consultation: Cardiac arrest with return of spontaneous circulation Requesting Physician: Noris Attending Physician: Blaire Kearney DO History of Present Illness Patient is a 68-year-old male with a history of obstructive sleep apnea and obesity hypoventilation system rhythm who had previously been residing at a rehabilitation center who according to prior documentation had been noncompliant with his BiPAP. History is obtained from prior records, per report the patient was found to be unresponsive and pulseless he received 2 doses of epinephrine CPR and there was return of spontaneous circulation prior to his arrival in [facility]. During their evaluation the patient became more hypotensive and was started on vasoactive medications. He received reportedly 5 mg of Versed prior to his arrival and has not received any sedatives since. Allergies Allergy/AdvReac Type Severity Reaction Status Date / Time NSAIDS (Non-Steroidal Allergy Unknown . Unverified 06/20/18 06:08 Anti-Inflamma Home Medications Home Medications Medication Instructions Recorded Confirmed Type aspirin 81 mg PO DAILY 06/13/18 06/20/18 History atorvastatin [Lipitor] 40 mg PO HS 06/13/18 06/20/18 History escitalopram oxalate [Lexapro] 5 mg PO DAILY 06/13/18 06/20/18 History glucagon (human recombinant) 1 dose SUBCUT UD PRN 06/13/18 06/20/18 History [Glucagon Emergency Kit (human)] loratadine [Claritin] 10 mg PO DAILY 06/13/18 06/20/18 History magnesium oxide 400 mg PO DAILY 06/13/18 06/20/18 History acetaminophen 650 mg PO Q6H PRN MDD 3gm/24hr 06/20/18 06/20/18 History acetaminophen 650 mg PO Q6H PRN MDD 3gm/24hrs 06/20/18 06/20/18 History apixaban [Eliquis] 5 mg PO BID 06/20/18 06/20/18 History ascorbic acid (vitamin C) [Vitamin 250 mg PO BID 06/20/18 06/20/18 History C] baclofen 10 mg PO Q8 PRN 06/20/18 06/20/18 History bumetanide 0.5 mg PO BID 06/20/18 06/20/18 History calcium carbonate [Oyster Shell 500 mg PO DAILY 06/20/18 06/20/18 History Calcium] cyanocobalamin (vitamin B-12) 1,000 mcg PO DAILY 06/20/18 06/20/18 History [Vitamin B-12] ergocalciferol (vitamin D2) 50,000 unit PO WK 06/20/18 06/20/18 History famotidine 40 mg PO HS 06/20/18 06/20/18 History fenofibrate micronized 67 mg PO HS 06/20/18 06/20/18 History ferrous sulfate 325 mg PO BID 06/20/18 06/20/18 History insulin aspart U-100 [Novolog 4 unit SUBCUT QPM 06/20/18 06/20/18 History Flexpen U-100 Insulin] insulin aspart U-100 [Novolog 6 unit SUBCUT QAM 06/20/18 06/20/18 History Flexpen U-100 Insulin] insulin detemir U-100 [Levemir 15 unit SUBCUT BID 06/20/18 06/20/18 History FlexTouch U-100 Insuln] lactase 3,000 unit PO AC 06/20/18 06/20/18 History metformin 1,000 mg PO BID 06/20/18 06/20/18 History oxycodone 10 mg PO TID 06/20/18 06/20/18 History polyethylene glycol 3350 [Miralax] 17 g PO DAILY 06/20/18 06/20/18 History sennosides [senna] 8.6 mg PO DAILY 06/20/18 06/20/18 History vit A,C and V-[id number] 1 tab PO DAILY 06/20/18 06/20/18 History [Ocuvite with Lutein] Patient History Medical History Obesity hypoventilation syndrome OTONIEL (obstructive sleep apnea) Hypertension (Chronic) Obesity (Chronic) Hyperlipidemia (Chronic) Atrial fibrillation (Chronic) Diabetes mellitus, type II (Chronic) Klinefelter syndrome (Chronic) CHF (congestive heart failure) (Acute) Atrial fibrillation (Chronic) HTN (hypertension) (Chronic) Altered mental status Respiratory acidosis Family History Other No pertinent family history Social History Current Living Situation: Detention current occupational status: retired Feels Safe at Home: Yes Smoking Status: Unknown if ever smoked Hx Alcohol Use: No Beliefs That Will Affect Care: None Preferred Language: Iraqi Review of Systems Unable to obtain secondary to patient intubation Physical Exam 2 Vital Signs (Past 24 Hours): Last Vital Signs Temp 35.0 C L 06/20/18 04:49 Pulse 96 H 06/20/18 05:45 Resp 20 06/20/18 05:45 BP 107/67 06/20/18 05:45 Pulse Ox 100 06/20/18 05:45 General: Obese male I have reviewed the recorded vital signs Neurological: RASS score: -5, pupils pinpoint Psychological: 3T not following complex commands Eyes: Pupils are equal, round and reactive to light, anicteric sclera. Symmetrical lids. HENT: Oropharynx obscured by endotracheal tube, dry mucous membranes. Neck: Supple. Symmetric. trachea midline. No thyromegaly. Cardiovascular: Decreased peripheral perfusion. Distal pulses and capillary refill week. No JVD. Respiratory: Breath sounds are equal. Scattered rhonchi bilaterally Gastrointestinal: Obese non-distended. Difficult exam Lymphatic: No cervical lymphadenopathy. Musculoskeletal: No deformity. No clubbing. Results & Data Laboratory Results 06/20/18 06/20/18 06/20/18 Range/Units 06:13 06:13 06:13 WBC (4.8-10.8) K/uL RBC (4.7-6.1) M/uL Hgb (14.0-18.0) g/dL Hct (42-52) % MCV (80-100) fL MCH (25-34) pg MCHC (32-36) g/dL RDW Std Deviation (36.4-46.3) fL RDW Coeff of Johnny (11.5-14.5) % Plt Count (130-400) K/uL MPV (7.4-10.4) fL Immature Gran % (Auto) % Neut % (Auto) % Lymph % (Auto) % [place]mort[place] % (Auto) % Eos % (Auto) % Baso % (Auto) % Immature Gran # (Auto) (0.00-0.02) K/uL Neut # (Auto) (1.4-6.5) K/uL Lymph # (Auto) (1.2-3.4) K/uL [place]morton # (Auto) (0.11-0.59) K/uL Eos # (Auto) (0-0.5) K/uL Baso # (Auto) (0-0.2) K/uL Absolute Nucleated RBC (0-0) K/uL Nucleated RBC % (auto) % Basophilic Stippling PT (9.0-12.0) Seconds INR (0.9-1.1) APTT (21.0-31.0) Seconds PTT Ratio ABG pH ABG pCO2 ABG pO2 ABG HCO3 ABG O2 Saturation ABG Base Excess Gurpreet Test VBG pH (7.36-7.41) VBG pCO2 (38-50) mmHg VBG pO2 mmHg VBG HCO3 mmol/L VBG O2 Saturation % VBG Base Excess mEq/L Barometric Pressure Oxygen Given Sodium (136-145) mmol/L Potassium (3.5-5.1) mmol/L Chloride (98-107) mmol/L Carbon Dioxide (21-32) mmol/L Anion Gap (3-11) BUN (7-18) mg/dl Creatinine (0.6-1.4) mg/dl Est Cr Clr Drug Dosing Est GFR ( Amer) Est GFR (Non-Af Amer) BUN/Creatinine Ratio (10-20) Glucose (70-99) mg/dl Lactate 4.4 H* (0.4-2.0) mmol/L Calcium (8.5-10.1) mg/dl Ionized Calcium 1.13 (1.12-1.32) mmol/L Total Bilirubin (0.2-1) mg/dl AST (15-37) U/L ALT (12-78) U/L Alkaline Phosphatase (45-117) U/L Troponin I (0-0.045) ng/ml Total Protein (6.4-8.2) gm/dl Albumin (3.4-5.0) gm/dl Globulin (2.5-4.0) gm/dl Albumin/Globulin Ratio (0.9-2) Lipase (73-393) U/L Blood Type A Positive Antibody Screen NEGATIVE 06/20/18 06/20/18 06/20/18 Range/Units 04:39 04:29 04:29 WBC (4.8-10.8) K/uL RBC (4.7-6.1) M/uL Hgb (14.0-18.0) g/dL Hct (42-52) % MCV (80-100) fL MCH (25-34) pg MCHC (32-36) g/dL RDW Std Deviation (36.4-46.3) fL RDW Coeff of Johnny (11.5-14.5) % Plt Count (130-400) K/uL MPV (7.4-10.4) fL Immature Gran % (Auto) % Neut % (Auto) % Lymph % (Auto) % [place] % (Auto) % Eos % (Auto) % Baso % (Auto) % Immature Gran # (Auto) (0.00-0.02) K/uL Neut # (Auto) (1.4-6.5) K/uL Lymph # (Auto) (1.2-3.4) K/uL [place]mort[place] # (Auto) (0.11-0.59) K/uL Eos # (Auto) (0-0.5) K/uL Baso # (Auto) (0-0.2) K/uL Absolute Nucleated RBC (0-0) K/uL Nucleated RBC % (auto) % Basophilic Stippling PT (9.0-12.0) Seconds INR (0.9-1.1) APTT (21.0-31.0) Seconds PTT Ratio ABG pH Cancelled ABG pCO2 Cancelled ABG pO2 Cancelled ABG HCO3 Cancelled ABG O2 Saturation Cancelled ABG Base Excess Cancelled Gurpreet Test Cancelled VBG pH 7.08 L (7.36-7.41) VBG pCO2 112 H (38-50) mmHg VBG pO2 39 mmHg VBG HCO3 32 mmol/L VBG O2 Saturation 67.2 % VBG Base Excess 0 mEq/L Barometric Pressure Cancelled Oxygen Given Cancelled Sodium (136-145) mmol/L Potassium (3.5-5.1) mmol/L Chloride (98-107) mmol/L Carbon Dioxide (21-32) mmol/L Anion Gap (3-11) BUN (7-18) mg/dl Creatinine (0.6-1.4) mg/dl Est Cr Clr Drug Dosing Est GFR ( Amer) Est GFR (Non-Af Amer) BUN/Creatinine Ratio (10-20) Glucose (70-99) mg/dl Lactate 5.5 H* (0.4-2.0) mmol/L Calcium (8.5-10.1) mg/dl Ionized Calcium (1.12-1.32) mmol/L Total Bilirubin (0.2-1) mg/dl AST (15-37) U/L ALT (12-78) U/L Alkaline Phosphatase (45-117) U/L Troponin I (0-0.045) ng/ml Total Protein (6.4-8.2) gm/dl Albumin (3.4-5.0) gm/dl Globulin (2.5-4.0) gm/dl Albumin/Globulin Ratio (0.9-2) Lipase (73-393) U/L Blood Type Antibody Screen 01/21/19 01/21/19 01/21/19 Range/Units 04:00 04:00 04:00 WBC 13.57 H (4.8-10.8) K/uL RBC 3.38 L (4.7-6.1) M/uL Hgb 9.5 L (14.0-18.0) g/dL Hct 35.4 L (42-52) % MCV 104.7 H (80-100) fL MCH 28.1 (25-34) pg MCHC 26.8 L (32-36) g/dL RDW Std Deviation 57.1 H (36.4-46.3) fL RDW Coeff of Jhonny 15.0 H (11.5-14.5) % Plt Count 409 H D (130-400) K/uL MPV 11.3 H (7.4-10.4) fL Immature Gran % (Auto) 3.7 % Neut % (Auto) 75.6 % Lymph % (Auto) 15.2 % [place]mort[place] % (Auto) 5.2 % Eos % (Auto) 0.1 % Baso % (Auto) 0.2 % Immature Gran # (Auto) 0.50 H (0.00-0.02) K/uL Neut # (Auto) 10.27 H (1.4-6.5) K/uL Lymph # (Auto) 2.06 (1.2-3.4) K/uL [place]mort[place] # (Auto) 0.70 H (0.11-0.59) K/uL Eos # (Auto) 0.01 (0-0.5) K/uL Baso # (Auto) 0.03 (0-0.2) K/uL Absolute Nucleated RBC 0.09 H (0-0) K/uL Nucleated RBC % (auto) 0.6 % Basophilic Stippling 1+ PT 11.9 (9.0-12.0) Seconds INR 1.2 H (0.9-1.1) APTT 27.2 (21.0-31.0) Seconds PTT Ratio 1.0 ABG pH ABG pCO2 ABG pO2 ABG HCO3 ABG O2 Saturation ABG Base Excess Gurpreet Test VBG pH (7.36-7.41) VBG pCO2 (38-50) mmHg VBG pO2 mmHg VBG HCO3 mmol/L VBG O2 Saturation % VBG Base Excess mEq/L Barometric Pressure Oxygen Given Sodium 140 (136-145) mmol/L Potassium 5.9 H (3.5-5.1) mmol/L Chloride 104 (98-107) mmol/L Carbon Dioxide 31 (21-32) mmol/L Anion Gap 5.0 (3-11) BUN 74 H D (7-18) mg/dl Creatinine 1.58 H D (0.6-1.4) mg/dl Est Cr Clr Drug Dosing Not Reportable Est GFR ( Amer) 51.3 Est GFR (Non-Af Amer) 44.3 BUN/Creatinine Ratio 46.7 H (10-20) Glucose 206 H (70-99) mg/dl Lactate (0.4-2.0) mmol/L Calcium 9.1 (8.5-10.1) mg/dl Ionized Calcium (1.12-1.32) mmol/L Total Bilirubin 0.9 (0.2-1) mg/dl AST 430 H (15-37) U/L ALT 329 H (12-78) U/L Alkaline Phosphatase 70 (45-117) U/L Troponin I 0.031 (0-0.045) ng/ml Total Protein 7.2 (6.4-8.2) gm/dl Albumin 2.6 L (3.4-5.0) gm/dl Globulin 4.6 H (2.5-4.0) gm/dl Albumin/Globulin Ratio 0.6 L (0.9-2) Lipase 138 (73-393) U/L Blood Type Antibody Screen
[2018-06-20] MEDS ORDERED: VANCOMYCIN CONSULT ACTIVE PRN ×2 (05:54→08:21)
--- NOTE | 2018-06-20 05:54 | History & Physical Report ---
Date of Service June 20, 2018 Assessment & Plan (1) Cardiac arrest: Patient brought in s/p witnessed asystolic cardiac arrest in the field. ROSC achieved with CPR and epinephrine x 2 1. Neuro: patient intubated, sedated with Propofol for now. Has history of depression on Celexa. Presently is not following commands, tongue fasciculations raises concern for seizure activity -Versed gtt for sedation, goal RAAS 0 - -1 -Check EEG -Hold Celexa for now 2. Cardiovascular: s/p witnessed asystolic arrest with ROSC. ?aspiration event vs PE vs NE vs other. Also with history of HTN, HLP, AF. Last echocardiogram 07/23/17 with EF 55 - 60%. -Admit to MICU -Trend cardiac enzymes -Check 2D echocardiogram -Hold Aspirin, Apixaban, Lipitor, Fenofibrate -Check CT C/A/P 3. Respiratory: patient with adequate oxygenation on current ventilator settings AC 20/500/100%/10. Poor ventilation, respiratory acidosis with pH=7.08 , pCO2=12. Suspect aspiration event with resultant pneumonia/pneumonitis -Check blood culture and sputum culture -Ventilator management, wean O2 as tolerated -Repeat ABG on arrival to floor -Frequent suctioning, aggressive pulmonary toilet -Vancomycin and Zosyn for empiric antibiotic coverage 4. GI: patient with elevated LFTs, ?developing shock liver. INR=1.2 -Repeat LFTs in AM -Protonix 40mg IV for GI prophylaxis while intubated -Aggressive bowel regimen with Colace, Dulcolax and Miralax 5. - patient with ASHELY, BUN=74, Cr=1.58 from 1.19 on 06/18/18, eGFR=44.3. ? Prerenal vs renal -Avoid nephrotoxic agents -Renal dosing where appropriate -Monitor BUN, Cr, electrolytes and UOP -Tracy catheter in place -Check UA and urine Na and Urea -Hold Bumex 6. Heme - patient with leukocytosis, WBC=13.57, Hg=9.5, Hct=35.4. No evidence of bleeding -Monitor CBC daily 7. ID - suspect septic shock from pulmonary source, aspiration PNA -Sputum and blood cultures -Empiric Vancomycin and Zosyn -Administer 2 additional liters of NSS bolus for 30mL/kg resuscitation -Levophed gtt if patient remains hypotensive after adequate IVF resuscitation -Jesus Manuel nicholson for hypothermia 8. Endocrine - patient with DM II on insulin therapy at home -ICU insulin protocol -Lantus 10u BID -ISS -Goal blood sugar 140-180 F/E/N - NSS x 2 liters, monitor electrolytes and replete as needed, administer calcium gluconate x 1gm for hyperkalemia, NPO for now Ppx - SCDs to bilateral LE, Protonix IV Code - FULL Dispo - MICU Attempted to call patient's mother, Melina Escobar - number listed as primary contact. No answer. (2) Hypothermia: (3) Aspiration into airway: (4) Obesity hypoventilation syndrome: (5) OTONIEL (obstructive sleep apnea): (6) Hypertension: (7) Hyperlipidemia: (8) Atrial fibrillation: (9) Diabetes mellitus, type II: (10) Klinefelter syndrome: (11) CHF (congestive heart failure): History of Present Illness Chief Complaint: Cardiac arrest Primary Care Provider: Donaldo Martínez History obtained through chart review and discussion with ER attending. Patient is a 68yo male with history of OTONIEL, Obesity hypoventilation syndrome, non-adherence with home BiPAP, HTN, HLP, PAF on Eliquis, DM presenting from [facility] s/p cardiac arrest. Per report, patient [facility] to [facility]. He rang the call waller and was being changed by nursing staff when he developed respiratory distress and turned blue. He then proceeded to have an asystolic cardiac arrest. He was administered epinephrine x 2 with ROSC. He was intubated upon arrival to the ER - found to have considerable amount of thick yellow secretions that were removed. ER Course: Intubation, Vancomycin, Zosyn, Levaquin, NSS x 2 liters, Levophed gtt Allergies Allergy/AdvReac Type Severity Reaction Status Date / Time NSAIDS (Non-Steroidal Allergy Unknown . Unverified 06/20/18 06:08 Anti-Inflamma Home Medications Home Medications Medication Instructions Recorded Confirmed Type aspirin 81 mg PO DAILY 06/13/18 06/20/18 History atorvastatin [Lipitor] 40 mg PO HS 06/13/18 06/20/18 History escitalopram oxalate [Lexapro] 5 mg PO DAILY 06/13/18 06/20/18 History glucagon (human recombinant) 1 dose SUBCUT UD PRN 06/13/18 06/13/18 History [Glucagon Emergency Kit (human)] loratadine [Claritin] 10 mg PO DAILY 06/13/18 06/20/18 History magnesium oxide 400 mg PO DAILY 06/13/18 06/20/18 History acetaminophen 650 mg PO Q6H PRN MDD 3gm/24hr 06/20/18 06/20/18 History acetaminophen 650 mg PO Q6H PRN MDD 3gm/24hrs 06/20/18 06/20/18 History apixaban [Eliquis] 5 mg PO BID 06/20/18 06/20/18 History ascorbic acid (vitamin C) [Vitamin 250 mg PO BID 06/20/18 06/20/18 History C] baclofen 10 mg PO Q8 PRN 06/20/18 06/20/18 History bumetanide 0.5 mg PO BID 06/20/18 06/20/18 History calcium carbonate [Oyster Shell 500 mg PO DAILY 06/20/18 06/20/18 History Calcium] cyanocobalamin (vitamin B-12) 1,000 mcg PO DAILY 06/20/18 06/20/18 History [Vitamin B-12] ergocalciferol (vitamin D2) 50,000 unit PO WK 06/20/18 06/20/18 History famotidine 40 mg PO HS 06/20/18 06/20/18 History fenofibrate micronized 67 mg PO HS 06/20/18 06/20/18 History ferrous sulfate 325 mg PO BID 06/20/18 06/20/18 History insulin aspart U-100 [Novolog 4 unit SUBCUT QPM 06/20/18 06/20/18 History Flexpen U-100 Insulin] insulin aspart U-100 [Novolog 6 unit SUBCUT QAM 06/20/18 06/20/18 History Flexpen U-100 Insulin] insulin detemir U-100 [Levemir 15 unit SUBCUT BID 06/20/18 06/20/18 History FlexTouch U-100 Insuln] lactase 3,000 unit PO AC 06/20/18 06/20/18 History metformin 1,000 mg PO BID 06/20/18 06/20/18 History oxycodone 10 mg PO TID 06/20/18 06/20/18 History polyethylene glycol 3350 [Miralax] 17 g PO DAILY 06/20/18 06/20/18 History sennosides [senna] 8.6 mg PO DAILY 06/20/18 06/20/18 History vit A,C and N-vkofqf-jfvdtnrd 1 tab PO DAILY 06/20/18 06/20/18 History [Ocuvite with Lutein] Past Med/Surg History Medical History Obesity hypoventilation syndrome OTONIEL (obstructive sleep apnea) Hypertension (Chronic) Obesity (Chronic) Hyperlipidemia (Chronic) Atrial fibrillation (Chronic) Diabetes mellitus, type II (Chronic) Klinefelter syndrome (Chronic) CHF (congestive heart failure) (Acute) Atrial fibrillation (Chronic) HTN (hypertension) (Chronic) Altered mental status Respiratory acidosis Family History Other No pertinent family history Social History Current Living Situation: [facility] current occupational status: retired Feels Safe at Home: Yes Smoking Status: Unknown if ever smoked Hx Alcohol Use: No Beliefs That Will Affect Care: None Preferred Language: Hungarian Review of Systems Unobtainable due to endotracheal tube Physical Exam 2 Vital Signs (Past 24 Hours): Last Vital Signs Temp 35.0 C L 06/20/18 04:49 Pulse 99 H 06/20/18 05:51 Resp 20 06/20/18 05:51 BP 117/71 06/20/18 05:51 Pulse Ox 100 06/20/18 05:51 Physical Exam: General: patient intubated and sedated, NAD, not following commands Skin: warm, dry, intact, no rashes or lesions HEENT: NC/AT, pupils small bilaterally, reactive, anicteric sclera, conjunctiva without injection, external ear normal to inspection and nontender, nares patent, moist mucus membranes, dentition intact, no oropharyngeal lesions , neck supple, trachea midline, no LAD, no thyromegaly, no JVD, tongue fasciculations noted Heart: +S1/S2, irregularly irregular, no m/r/g, +gynecomastia Lungs: equal air entry bilaterally, coarse breath sounds Abd: obese, +BS, soft, NT/ND, no masses/organomegaly/ascites Ext: warm, 2+ pulses in UE/LE bilaterally, no clubbing/cyanosis or edema, RLE I /O in place, PIV x 2 22 and 20g in extremities Neuro: patient not following commands presently Results & Data Laboratory Results Lab Results 06/20/18 06/20/18 06/20/18 Range/Units 04:00 04:00 04:00 WBC 13.57 H (4.8-10.8) K/uL RBC 3.38 L (4.7-6.1) M/uL Hgb 9.5 L (14.0-18.0) g/dL Hct 35.4 L (42-52) % MCV 104.7 H (80-100) fL MCH 28.1 (25-34) pg MCHC 26.8 L (32-36) g/dL RDW Std Deviation 57.1 H (36.4-46.3) fL RDW Coeff of Johnny 15.0 H (11.5-14.5) % Plt Count 409 H D (130-400) K/uL MPV 11.3 H (7.4-10.4) fL Immature Gran % (Auto) 3.7 % Neut % (Auto) 75.6 % Lymph % (Auto) 15.2 % [place]ec[place] % (Auto) 5.2 % Eos % (Auto) 0.1 % Baso % (Auto) 0.2 % Immature Gran # (Auto) 0.50 H (0.00-0.02) K/uL Neut # (Auto) 10.27 H (1.4-6.5) K/uL Lymph # (Auto) 2.06 (1.2-3.4) K/uL [place] # (Auto) 0.70 H (0.11-0.59) K/uL Eos # (Auto) 0.01 (0-0.5) K/uL Baso # (Auto) 0.03 (0-0.2) K/uL Absolute Nucleated RBC 0.09 H (0-0) K/uL Nucleated RBC % (auto) 0.6 % Basophilic Stippling 1+ PT 11.9 (9.0-12.0) Seconds INR 1.2 H (0.9-1.1) APTT 27.2 (21.0-31.0) Seconds PTT Ratio 1.0 ABG pH ABG pCO2 ABG pO2 ABG HCO3 ABG O2 Saturation ABG Base Excess Gurpreet Test VBG pH (7.36-7.41) VBG pCO2 (38-50) mmHg VBG pO2 mmHg VBG HCO3 mmol/L VBG O2 Saturation % VBG Base Excess mEq/L Barometric Pressure Oxygen Given Sodium 140 (136-145) mmol/L Potassium 5.9 H (3.5-5.1) mmol/L Chloride 104 (98-107) mmol/L Carbon Dioxide 31 (21-32) mmol/L Anion Gap 5.0 (3-11) BUN 74 H D (7-18) mg/dl Creatinine 1.58 H D (0.6-1.4) mg/dl Est Cr Clr Drug Dosing Not Reportable Est GFR ( Amer) 51.3 Est GFR (Non-Af Amer) 44.3 BUN/Creatinine Ratio 46.7 H (10-20) Glucose 206 H (70-99) mg/dl Lactate (0.4-2.0) mmol/L Calcium 9.1 (8.5-10.1) mg/dl Total Bilirubin 0.9 (0.2-1) mg/dl AST 430 H (15-37) U/L ALT 329 H (12-78) U/L Alkaline Phosphatase 70 (45-117) U/L Troponin I 0.031 (0-0.045) ng/ml Total Protein 7.2 (6.4-8.2) gm/dl Albumin 2.6 L (3.4-5.0) gm/dl Globulin 4.6 H (2.5-4.0) gm/dl Albumin/Globulin Ratio 0.6 L (0.9-2) Lipase 138 (73-393) U/L 06/20/18 06/20/18 06/20/18 Range/Units 04:29 04:29 04:39 WBC (4.8-10.8) K/uL RBC (4.7-6.1) M/uL Hgb (14.0-18.0) g/dL Hct (42-52) % MCV (80-100) fL MCH (25-34) pg MCHC (32-36) g/dL RDW Std Deviation (36.4-46.3) fL RDW Coeff of Johnny (11.5-14.5) % Plt Count (130-400) K/uL MPV (7.4-10.4) fL Immature Gran % (Auto) % Neut % (Auto) % Lymph % (Auto) % [place] % (Auto) % Eos % (Auto) % Baso % (Auto) % Immature Gran # (Auto) (0.00-0.02) K/uL Neut # (Auto) (1.4-6.5) K/uL Lymph # (Auto) (1.2-3.4) K/uL [place] # (Auto) (0.11-0.59) K/uL Eos # (Auto) (0-0.5) K/uL Baso # (Auto) (0-0.2) K/uL Absolute Nucleated RBC (0-0) K/uL Nucleated RBC % (auto) % Basophilic Stippling PT (9.0-12.0) Seconds INR (0.9-1.1) APTT (21.0-31.0) Seconds PTT Ratio ABG pH Cancelled ABG pCO2 Cancelled ABG pO2 Cancelled ABG HCO3 Cancelled ABG O2 Saturation Cancelled ABG Base Excess Cancelled Gurpreet Test Cancelled VBG pH 7.08 L (7.36-7.41) VBG pCO2 112 H (38-50) mmHg VBG pO2 39 mmHg VBG HCO3 32 mmol/L VBG O2 Saturation 67.2 % VBG Base Excess 0 mEq/L Barometric Pressure Cancelled Oxygen Given Cancelled Sodium (136-145) mmol/L Potassium (3.5-5.1) mmol/L Chloride (98-107) mmol/L Carbon Dioxide (21-32) mmol/L Anion Gap (3-11) BUN (7-18) mg/dl Creatinine (0.6-1.4) mg/dl Est Cr Clr Drug Dosing Est GFR ( Amer) Est GFR (Non-Af Amer) BUN/Creatinine Ratio (10-20) Glucose (70-99) mg/dl Lactate 5.5 H* (0.4-2.0) mmol/L Calcium (8.5-10.1) mg/dl Total Bilirubin (0.2-1) mg/dl AST (15-37) U/L ALT (12-78) U/L Alkaline Phosphatase (45-117) U/L Troponin I (0-0.045) ng/ml Total Protein (6.4-8.2) gm/dl Albumin (3.4-5.0) gm/dl Globulin (2.5-4.0) gm/dl Albumin/Globulin Ratio (0.9-2) Lipase (73-393) U/L Diagnostic Findings Bilateral airspace disease, R>L ECG Additional Comments: Atrial fibrillation at 117bpm, HGM=663, DCh=824, RBBB, no acute ischemia Code Status & VTE Plan Code Status FULL VTE Prophylaxis Plan VTE Prophylaxis will be ordered: Yes Critical Care Time Critical Care Time: Yes Total Critical Care Time: 45 _ (1) Hypothermia Encounter type: initial encounter Qualified Code(s): T68.XXXA - Hypothermia, initial encounter (2) Aspiration into airway Encounter type: initial encounter Qualified Code(s): T17.908A - Unspecified foreign body in respiratory tract, part unspecified causing other injury, initial encounter
[2018-06-20] MEDS ORDERED: VANCOMYCIN HCL 2,500 MG in SODIUM CHLORIDE 0.9% 500 ML IV ONE ×2 (06:15→08:21)
--- NOTE | 2018-06-20 06:34 | XRay Report ---
XR chest 1V portable HISTORY: 68 years-old Male eval right lung and tube placement acute respiratory failure.r COMPARISON: Chest radiograph of same day at 3:38 AM TECHNIQUE: Portable supine AP view of the chest FINDINGS: Cardiac silhouette is enlarged, unchanged. Calcification the thoracic aortic arch. Endotracheal tube overlies the midline, 4.5 cm superior to the level of the yosef. An enteric tube has been placed wit h distal tip in the region of the distal esophagus. Pulmonary vascular congestion with mild interstitial coarsening. New consolidative retrocardiac left basilar opacities. Mild blunting of the costophrenic angles suggests trace effusions. No pneumothorax . Improved aeration of the right upper lung. Persistent patchy airspace opacities throughout the righ t lung including a 2.6 cm round density of the right lung base. IMPRESSION: 1. Endotracheal and enteric tube placement as above. 2. Cardiomegaly without overt pulmonary edema. 3. Improved aeration of the right upper lobe. Patchy right lung and left basilar opacities suggest ar eas of atelectasis or pneumonitis. 4. 2.6 cm round opacity of the right lung base. Correlation with ordered CTA chest of same day recomm ended. The above report was generated using voice recognition software. It may contain grammatical, syntax o r spelling errors. Electronically signed by: Ron Barrera M.D. 06/20/2018 6:32 AM
--- NOTE | 2018-06-20 06:41 | XRay Report ---
XR chest 1V portable HISTORY: 68 years-old Male Chest Pain acute atypical chest pain COMPARISON: Chest radiograph of same day at 5:27 AM, chest radiograph 06/13/2018 TECHNIQUE: Supine AP view of the chest FINDINGS: Cardiac silhouette is enlarged. Calcification of the thoracic aortic arch. Mild pulmonary vascular co ngestion. Endotracheal tube overlies the midline, 4.3 cm superior to the level of the yosef. Dense c onsolidation of the right upper lung. Mild blunting of the costophrenic angles suggests trace effusio ns. Mild right hemidiaphragmatic elevation. Bones appear unremarkable. IMPRESSION: 1. Endotracheal tube overlies the midline, 4.3 cm superior to the yosef. 2. Volume loss of the right lung with consolidation of the right upper lobe suggestive of atelectasis possibly from mucous plugging. 3. Cardiomegaly without overt pulmonary edema. The above report was generated using voice recognition software. It may contain grammatical, syntax o r spelling errors. Electronically signed by: Ron Barrera M.D. 06/20/2018 6:39 AM
[2018-06-20] MEDS ORDERED: SEVERE STRESS LEVEL ONE (07:39)
[2018-06-20] MEDS ORDERED: INSULIN PROTOCOL GOAL RANGE ONE (07:39)
[2018-06-20] MEDS ORDERED: OPTIRAY 320 125ml IV PRN (07:40)
[2018-06-20] MEDS ORDERED: INSULIN REGULAR 250 UNITS in SODIUM CHLORIDE 0.9% 247.5 ML IV SCH (07:45)
--- NOTE | 2018-06-20 07:47 | CT Scan Report ---
CT head/brain wo con CLINICAL HISTORY: 68 years-old Male presenting with cardiac arrest on eliquis. TECHNIQUE: Multidetector CT imaging of the head was performed without the use of intravenous contrast . IV contrast: None. A dose lowering technique was used consistent with the principles of ALARA (as l ow as reasonably achievable). COMPARISON: 06/13/2018. CT DOSE (mGy.cm): The estimated cumulative dose is 614.27 mGy.cm. FINDINGS: Clay Temperer topogram: Unremarkable. Ventricular and sulcal prominence with the exception of the vertex, where there is relative sulcal ef facement and gyral crowding. This appearance is unchanged since at least 2013. Stable prominence of t he lateral ventricles. No hemorrhage. Brain parenchyma normal in appearance with preserved camacho-white differentiation. No acute territorial infarct. No mass effect or midline shift. No extra-axial fluid collection. Paranasal sinuses and mastoid air cells clear. Calvarium intact. IMPRESSION: 1. No significant change compared to the prior study. No acute intracranial abnormality. Electronically signed by: Parker Giles M.D. 06/20/2018 7:46 AM
--- NOTE | 2018-06-20 07:55 | Emergency Department Note ---
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 Per EMS, the patient was in the process of getting changed at [facility] when he started turning blue. EMS states they were told he had respiratory distress but notes he was in cardiac arrest when they arrived. EMS notes the patient was asystolic on the monitor with no pulse. EMS notes the patient was fully resuscitated with ACLS protocols. An IO was initiated in the right leg. EMS notes the patient received 2 rounds of epinephrine and was intubated. the patient had ROSC. EMS notes the patient then began to breathe on his own. EMS states the patient was then given 5 mg of Versed as he was becoming agitated. EMS notes the patient has a C-Pap and and supplemental oxygen at [facility] but is non-compliant with them. The HPI is limited due to the patient being unconscious. Home Medications Home Medications Medication Instructions Recorded Confirmed Type aspirin 81 mg PO DAILY 06/13/18 06/20/18 History atorvastatin [Lipitor] 40 mg PO HS 06/13/18 06/20/18 History escitalopram oxalate [Lexapro] 5 mg PO DAILY 06/13/18 06/20/18 History glucagon (human recombinant) 1 dose SUBCUT UD PRN 06/13/18 06/20/18 History [Glucagon Emergency Kit (human)] loratadine [Claritin] 10 mg PO DAILY 06/13/18 06/20/18 History magnesium oxide 400 mg PO DAILY 06/13/18 06/20/18 History acetaminophen 650 mg PO Q6H PRN MDD 3gm/24hr 06/20/18 06/20/18 History acetaminophen 650 mg PO Q6H PRN MDD 3gm/24hrs 06/20/18 06/20/18 History apixaban [Eliquis] 5 mg PO BID 06/20/18 06/20/18 History ascorbic acid (vitamin C) [Vitamin 250 mg PO BID 06/20/18 06/20/18 History C] baclofen 10 mg PO Q8 PRN 06/20/18 06/20/18 History bumetanide 0.5 mg PO BID 06/20/18 06/20/18 History calcium carbonate [Oyster Shell 500 mg PO DAILY 06/20/18 06/20/18 History Calcium] cyanocobalamin (vitamin B-12) 1,000 mcg PO DAILY 06/20/18 06/20/18 History [Vitamin B-12] ergocalciferol (vitamin D2) 50,000 unit PO WK 06/20/18 06/20/18 History famotidine 40 mg PO HS 06/20/18 06/20/18 History fenofibrate micronized 67 mg PO HS 06/20/18 06/20/18 History ferrous sulfate 325 mg PO BID 06/20/18 06/20/18 History insulin aspart U-100 [Novolog 4 unit SUBCUT QPM 06/20/18 06/20/18 History Flexpen U-100 Insulin] insulin aspart U-100 [Novolog 6 unit SUBCUT QAM 06/20/18 06/20/18 History Flexpen U-100 Insulin] insulin detemir U-100 [Levemir 15 unit SUBCUT BID 06/20/18 06/20/18 History FlexTouch U-100 Insuln] lactase 3,000 unit PO AC 06/20/18 06/20/18 History metformin 1,000 mg PO BID 06/20/18 06/20/18 History oxycodone 10 mg PO TID 06/20/18 06/20/18 History polyethylene glycol 3350 [Miralax] 17 g PO DAILY 06/20/18 06/20/18 History sennosides [senna] 8.6 mg PO DAILY 06/20/18 06/20/18 History vit A,C and S-[id number] 1 tab PO DAILY 06/20/18 06/20/18 History [Ocuvite with Lutein] Allergies Allergy/AdvReac Type Severity Reaction Status Date / Time NSAIDS (Non-Steroidal Allergy Unknown . Unverified 06/20/18 06:08 Anti-Inflamma Past Med/Surg History Medical History Obesity hypoventilation syndrome OTONIEL (obstructive sleep apnea) Hypertension (Chronic) Obesity (Chronic) Hyperlipidemia (Chronic) Atrial fibrillation (Chronic) Diabetes mellitus, type II (Chronic) Klinefelter syndrome (Chronic) CHF (congestive heart failure) (Acute) Atrial fibrillation (Chronic) HTN (hypertension) (Chronic) Altered mental status Respiratory acidosis Family History Other No pertinent family history Social History Current Living Situation: Residential current occupational status: retired Other Information That Helps Us Care for You: No Feels Safe at Home: Yes Safety Concerns: Feels Safe At This Time Smoking Status: Former smoker Second Hand Exposure: No Hx Alcohol Use: No Beliefs That Will Affect Care: None Communication Ability: Unable Review of Systems See HPI for pertinent positives & negatives. and A total of 10 systems reviewed and were otherwise negative Physical Exam Vital Signs Vital Signs - 24 hr 06/20/18 03:50 06/20/18 03:59 06/20/18 04:08 Temperature Temperature [Source #1] Temperature [Source #2] Temperature Source Temperature Source [Source #1] Temperature Source [Source #2] Sepsis Action Taken by Nursing No Action Required Central Venous (RA) Pressure (mmHg) Pulse Rate 123 H Pulse Rate [Right Finger] Pulse Rhythm Respiratory Rate 16 Respiratory Effort / Characteristics Mechanically Ventilated Respiratory Depth Respiratory Pattern Blood Pressure 164/86 H Blood Pressure [Right Arm] Blood Pressure [Right Femoral Artery] Blood Pressure Mean 112 Blood Pressure Mean [Right Arm] Blood Pressure Mean [Right Femoral Artery] Blood Pressure Position Lying Blood Pressure Position [Right Arm] Blood Pressure Position [Right Femoral Artery] Pulse Oximetry 87 L 88 L Oxygen Delivery Method Mechanical Vent Mechanical Vent Mechanical Vent Fraction of Inspired Oxygen 06/20/18 04:17 06/20/18 04:34 06/20/18 04:36 Temperature Temperature [Source #1] Temperature [Source #2] Temperature Source Temperature Source [Source #1] Temperature Source [Source #2] Sepsis Action Taken by Nursing Central Venous (RA) Pressure (mmHg) Pulse Rate 94 H Pulse Rate [Right Finger] 105 H 90 Pulse Rhythm Respiratory Rate 16 20 20 Respiratory Effort / Characteristics Mechanically Ventilated Mechanically Ventilated Respiratory Depth Respiratory Pattern Blood Pressure Blood Pressure [Right Arm] 89/47 L 70/49 L Blood Pressure [Right Femoral Artery] Blood Pressure Mean Blood Pressure Mean [Right Arm] 61 56 Blood Pressure Mean [Right Femoral Artery] Blood Pressure Position Blood Pressure Position [Right Arm] Lying Lying Blood Pressure Position [Right Femoral Artery] Pulse Oximetry 92 94 99 Oxygen Delivery Method Mechanical Vent Mechanical Vent Fraction of Inspired Oxygen 100 06/20/18 04:49 06/20/18 05:05 06/20/18 05:17 Temperature 35.0 C L Temperature [Source #1] Temperature [Source #2] Temperature Source Rectal Temperature Source [Source #1] Temperature Source [Source #2] Sepsis Action Taken by Nursing Central Venous (RA) Pressure (mmHg) Pulse Rate 84 Pulse Rate [Right Finger] 90 89 Pulse Rhythm Respiratory Rate 20 20 20 Respiratory Effort / Characteristics Mechanically Ventilated Non-Labored Spontaneous Respiratory Depth Normal Respiratory Pattern Regular Blood Pressure Blood Pressure [Right Arm] 76/45 L 103/67 Blood Pressure [Right Femoral Artery] Blood Pressure Mean Blood Pressure Mean [Right Arm] 55 79 Blood Pressure Mean [Right Femoral Artery] Blood Pressure Position Blood Pressure Position [Right Arm] Lying Lying Blood Pressure Position [Right Femoral Artery] Pulse Oximetry 100 100 100 Oxygen Delivery Method Mechanical Vent Mechanical Vent Fraction of Inspired Oxygen 80 06/20/18 05:19 06/20/18 05:45 06/20/18 05:51 Temperature Temperature [Source #1] Temperature [Source #2] Temperature Source Temperature Source [Source #1] Temperature Source [Source #2] Sepsis Action Taken by Nursing Central Venous (RA) Pressure (mmHg) Pulse Rate Pulse Rate [Right Finger] 92 H 96 H 99 H Pulse Rhythm Respiratory Rate 20 20 20 Respiratory Effort / Characteristics Mechanically Ventilated Mechanically Ventilated Mechanically Ventilated Respiratory Depth Respiratory Pattern Blood Pressure Blood Pressure [Right Arm] 96/75 L 107/67 117/71 Blood Pressure [Right Femoral Artery] Blood Pressure Mean Blood Pressure Mean [Right Arm] 82 80 86 Blood Pressure Mean [Right Femoral Artery] Blood Pressure Position Blood Pressure Position [Right Arm] Lying Lying Lying Blood Pressure Position [Right Femoral Artery] Pulse Oximetry 100 100 100 Oxygen Delivery Method Mechanical Vent Room Air Mechanical Vent Mechanical Vent Fraction of Inspired Oxygen 06/20/18 06:04 06/20/18 06:19 06/20/18 07:01 Temperature 35.5 C L Temperature [Source #1] Temperature [Source #2] Temperature Source Rectal Temperature Source [Source #1] Temperature Source [Source #2] Sepsis Action Taken by Nursing Central Venous (RA) Pressure (mmHg) Pulse Rate Pulse Rate [Right Finger] 101 H 94 H 85 Pulse Rhythm Respiratory Rate 20 20 20 Respiratory Effort / Characteristics Mechanically Ventilated Mechanically Ventilated Mechanically Ventilated Respiratory Depth Respiratory Pattern Blood Pressure Blood Pressure [Right Arm] 139/76 82/56 L 81/51 L Blood Pressure [Right Femoral Artery] Blood Pressure Mean Blood Pressure Mean [Right Arm] 97 64 61 Blood Pressure Mean [Right Femoral Artery] Blood Pressure Position Blood Pressure Position [Right Arm] Lying Lying Lying Blood Pressure Position [Right Femoral Artery] Pulse Oximetry 100 100 100 Oxygen Delivery Method Mechanical Vent Mechanical Vent Mechanical Vent Fraction of Inspired Oxygen 06/20/18 07:10 06/20/18 08:00 06/20/18 08:28 Temperature Temperature [Source #1] Temperature [Source #2] Temperature Source Temperature Source [Source #1] Temperature Source [Source #2] Sepsis Action Taken by Nursing Central Venous (RA) Pressure (mmHg) Pulse Rate 97 H Pulse Rate [Right Finger] Pulse Rhythm Respiratory Rate 26 H Respiratory Effort / Characteristics Mechanically Ventilated Respiratory Depth Normal Respiratory Pattern Regular Blood Pressure 92/54 L Blood Pressure [Right Arm] Blood Pressure [Right Femoral Artery] Blood Pressure Mean Blood Pressure Mean [Right Arm] Blood Pressure Mean [Right Femoral Artery] Blood Pressure Position Blood Pressure Position [Right Arm] Blood Pressure Position [Right Femoral Artery] Pulse Oximetry 100 Oxygen Delivery Method Mechanical Vent Fraction of Inspired Oxygen 80 06/20/18 10:00 06/20/18 11:00 06/20/18 11:23 Temperature Temperature [Source #1] 36.8 C 35.9 C L Temperature [Source #2] 35.8 C L Temperature Source Temperature Source [Source #1] Rectal Rectal Temperature Source [Source #2] Tracy Cath ( Temp Sensing) Tracy Cath ( Temp Sensing) Sepsis Action Taken by Nursing Central Venous (RA) Pressure (mmHg) Pulse Rate 94 H 87 Pulse Rate [Right Finger] Pulse Rhythm Irregular Irregular Respiratory Rate 26 H 26 H 26 H Respiratory Effort / Characteristics Mechanically Ventilated Mechanically Ventilated Respiratory Depth Normal Normal Respiratory Pattern Regular Regular Blood Pressure Blood Pressure [Right Arm] 168/82 H 119/80 Blood Pressure [Right Femoral Artery] 141/62 H 161/61 H Blood Pressure Mean Blood Pressure Mean [Right Arm] 110 93 Blood Pressure Mean [Right Femoral Artery] 88 94 Blood Pressure Position Blood Pressure Position [Right Arm] Lying Lying Blood Pressure Position [Right Femoral Artery] Lying Lying Pulse Oximetry 100 97 Oxygen Delivery Method Mechanical Vent Mechanical Vent Fraction of Inspired Oxygen 80 50 50 06/20/18 12:00 06/20/18 13:00 06/20/18 14:00 Temperature Temperature [Source #1] 34.8 C L 33.6 C L Temperature [Source #2] 34.8 C L 33.6 C L 33.5 C L Temperature Source Temperature Source [Source #1] Rectal Rectal Temperature Source [Source #2] Tracy Cath ( Temp Sensing) Tracy Cath ( Temp Sensing) Tracy Cath ( Temp Sensing) Sepsis Action Taken by Nursing Central Venous (RA) Pressure (mmHg) Pulse Rate 99 H 88 67 Pulse Rate [Right Finger] Pulse Rhythm Irregular Irregular Irregular Respiratory Rate 26 H 26 H 26 H Respiratory Effort / Characteristics Mechanically Ventilated Mechanically Ventilated Respiratory Depth Normal Normal Respiratory Pattern Regular Regular Blood Pressure Blood Pressure [Right Arm] 147/102 H 148/104 H 169/83 H Blood Pressure [Right Femoral Artery] 139/55 L 140/57 L 132/54 L Blood Pressure Mean Blood Pressure Mean [Right Arm] 117 118 111 Blood Pressure Mean [Right Femoral Artery] 83 84 80 Blood Pressure Position Blood Pressure Position [Right Arm] Lying Lying Lying Blood Pressure Position [Right Femoral Artery] Pulse Oximetry 100 100 100 Oxygen Delivery Method Mechanical Vent Mechanical Vent Mechanical Vent Fraction of Inspired Oxygen 50 50 50 06/20/18 14:13 06/20/18 15:00 06/20/18 16:00 Temperature Temperature [Source #1] Temperature [Source #2] 33 C L 32.8 C L Temperature Source Temperature Source [Source #1] Temperature Source [Source #2] Tracy Cath ( Temp Sensing) Tracy Cath ( Temp Sensing) Sepsis Action Taken by Nursing Central Venous (RA) Pressure (mmHg) 6 Pulse Rate 66 64 Pulse Rate [Right Finger] Pulse Rhythm Irregular Irregular Respiratory Rate 26 H 26 H 26 H Respiratory Effort / Characteristics Mechanically Ventilated Mechanically Ventilated Respiratory Depth Normal Normal Respiratory Pattern Regular Regular Blood Pressure Blood Pressure [Right Arm] 177/82 H 150/77 H Blood Pressure [Right Femoral Artery] 137/55 L 133/54 L Blood Pressure Mean Blood Pressure Mean [Right Arm] 113 101 Blood Pressure Mean [Right Femoral Artery] 82 80 Blood Pressure Position Blood Pressure Position [Right Arm] Lying Lying Blood Pressure Position [Right Femoral Artery] Pulse Oximetry 100 100 Oxygen Delivery Method Mechanical Vent Mechanical Vent Fraction of Inspired Oxygen 40 40 40 06/20/18 16:25 06/20/18 17:00 Temperature Temperature [Source #1] Temperature [Source #2] 33.4 C L Temperature Source Temperature Source [Source #1] Temperature Source [Source #2] Tracy Cath ( Temp Sensing) Sepsis Action Taken by Nursing Central Venous (RA) Pressure (mmHg) 6 Pulse Rate 64 Pulse Rate [Right Finger] Pulse Rhythm Irregular Respiratory Rate 26 H 26 H Respiratory Effort / Characteristics Mechanically Ventilated Respiratory Depth Normal Respiratory Pattern Regular Blood Pressure Blood Pressure [Right Arm] 150/92 H Blood Pressure [Right Femoral Artery] 139/59 L Blood Pressure Mean Blood Pressure Mean [Right Arm] 111 Blood Pressure Mean [Right Femoral Artery] 85 Blood Pressure Position Blood Pressure Position [Right Arm] Lying Blood Pressure Position [Right Femoral Artery] Pulse Oximetry 100 Oxygen Delivery Method Mechanical Vent Fraction of Inspired Oxygen 40 40 General: Obese male who is currently intubated. GCS 3 T HEENT: Head - normocephalic and atraumatic Pupils are equal, round, and reactive to light. Extraocular eye muscles are intact, and sclera are anicteric. Nose - moist nasal mucosa without discharge. Mouth - moist buccal mucosa. Oropharynx is nonerythematous and there is no tonsillar exudate or edema noted. Neck: Supple; no JVD, nuchal rigidity, cervical lymphadenopathy, or auscultated bruits. Heart: Irregularly irregular rhythm. Tachycardic rate. There is a normal S1 and S2 with no murmurs, clicks, or gallops appreciated. Heart sounds are distant. Lungs: Absent breath sounds on right side and rales on left. Abdomen: Soft, completely nontender with good bowel sounds. There are no palpable pulsatile masses or hepatosplenomegaly. There is no guarding, rigidity , or rebound noted. Abdomen seems distended. Extremities: No evidence of cyanosis, clubbing, or edema. There are easily palpable peripheral pulses. IO in right proximal tibia. Skin: warm and dry with good turgor and no rashes. Course 0346: Past medical records reviewed. The patient was evaluated in room A1, and a complete history and physical examination were performed. Nursing staff attempted to place an IV line peripherally. They were successful in the right arm. A 12-lead EKG was obtained. Labs were drawn as above. A septic protocol was performed. A chest x-ray was obtained. O2 saturations were in the high 70s and low 80s. The endotracheal tube was suctioned aggressively. This brought the saturations up to the high 80s. 0406: I reevaluated the patient. I ordered the ET tube to be advanced by 2 cm. The patient was ordered to have a 500 cc bolus of normal saline solution through the IV line. 0427: I reevaluated the patient. O2 saturation is now in the 90s. Nurses could not get ABG, so I did a femoral stick for arterial blood. It was pulsating within the syringe. However, the lab felt that this was venous. I change the order to a VBG. 0428: Zosyn 4.5 gm in 120 mls @ 240 mls/hr IV 0429: Levaquin 750 mg in 150 mls @ 100mls/hr IV 0444: I reevaluated the patient. He is hypotensive at this time. A second IV site was initiated and the patient received a second 500 cc bolus of saline 0445: Because of the persistent hypotension, I started a Levophed drip 0448: I reviewed the patient's case with Dr. Morelos - [place] specialist. He will evaluate the patient for further management. 0515: I discussed the patient with Dr. Blaire Kearney. 0528: I ordered a OG tube and a second chest x-ray which confirmed improved placement of the endotracheal tube and clearing of the right chest as well as placement of the OG tube in the distal esophagus and this would need to be advanced. Administered Medications Dextrose (Dextrose 50%) 25 - 50 ml IV UD PRN; Protocol PRN Reason: Hypoglycemia Protocol Stop: 07/20/18 08:48 Last Admin: 06/20/18 16:50 Dose: 25 ml Admin: 06/20/18 14:39 Dose: 25 ml Insulin Human Regular 250 (units/ Sodium Chloride) 250 mls @ 0 mls/hr IV .Q0M [facility]; Protocol Stop: 07/20/18 07:44 Last Titration: 06/20/18 16:10 Dose: 0 units/hr, 0 mls/hr Titration: 06/20/18 15:00 Dose: 1.8 units/hr, 1.8 mls/hr Titration: 06/20/18 14:40 Dose: 0 units/hr, 0 mls/hr Titration: 06/20/18 13:35 Dose: 3 units/hr, 3 mls/hr Titration: 06/20/18 12:37 Dose: 3.8 units/hr, 3.8 mls/hr Admin: 06/20/18 11:18 Dose: 4.8 units/hr, 4.8 mls/hr Norepinephrine Bitartrate 8 mg (/ Dextrose) 508 mls @ 24.34 mls/hr IV .[id number] [facility]; Protocol Stop: 06/21/18 05:13 Last Admin: 06/20/18 12:59 Dose: Not Given Pantoprazole Sodium 40 mg/ (Syringe) 10 mls @ 5 mls/min IV DAILY@1100 [facility] Stop: 07/20/18 10:59 Last Admin: 06/20/18 11:18 Dose: 5 mls/min Piperacillin Sod/Tazobactam (Sod 4.5 gm/ Dextrose) 120 mls @ 30 mls/hr IV Q8H [facility]; Protocol Stop: 06/22/18 09:59 Last Admin: 06/20/18 18:09 Dose: 30 mls/hr Infusion: 06/20/18 15:20 Dose: 0 mls/hr Admin: 06/20/18 11:18 Dose: 30 mls/hr Midazolam HCl (Versed) 125 mg in 250 mls @ 8 mls/hr IV .Q24H [facility]; Protocol Stop: 07/20/18 08:20 Last Titration: 06/20/18 13:54 Dose: 4 mg/hr, 8 mls/hr Titration: 06/20/18 12:59 Dose: 3 mg/hr, 6 mls/hr Titration: 06/20/18 11:49 Dose: 2 mg/hr, 4 mls/hr Admin: 06/20/18 09:25 Dose: 1 mg/hr, 2 mls/hr Fentanyl Citrate (Fentanyl Drip) 1,250 mcg in 250 mls @ 20 mls/hr IV .Q24H [facility] ; Protocol Stop: 07/04/18 15:59 Last Titration: 06/20/18 17:29 Dose: 100 mcg/hr, 20 mls/hr Admin: 06/20/18 15:39 Dose: 75 mcg/hr, 15 mls/hr Insulin Aspart (Novolog Flexpen) 0 units SC [facility] Stop: 07/20/18 08:59 Last Admin: 06/20/18 12:59 Dose: Not Given Admin: 06/20/18 11:19 Dose: Not Given Admin: 06/20/18 09:40 Dose: Not Given Ioversol (Optiray 320 125ml) 119 ml IV ONCE PRN PRN Reason: Interaction Checking Stop: 06/24/18 07:39 Last Admin: 06/20/18 07:40 Dose: 119 ml Discontinued Medications Fentanyl Citrate (Fentanyl Citrate) Confirm Administered Dose 100 mcg .ROUTE .STK-MED ONE Stop: 06/20/18 09:20 Last Admin: 06/20/18 11:41 Dose: Not Given Fentanyl Citrate (Fentanyl Drip) Confirm Administered Dose 1,250 mcg IV .STK- MED ONE Stop: 06/20/18 15:28 Last Admin: 06/20/18 15:40 Dose: Not Given Sodium Chloride (Nss) 500 mls @ 999 mls/hr IV .Q31M ONE Stop: 06/20/18 04:57 Last Infusion: 06/20/18 05:18 Dose: Admin: 06/20/18 04:30 Dose: 999 mls/hr Piperacillin Sod/Tazobactam Sod (Zosyn) 4.5 gm in 120 mls @ 240 mls/hr IV NOW ONE Stop: 06/20/18 04:57 Last Infusion: 06/20/18 05:24 Dose: Admin: 06/20/18 04:54 Dose: 240 mls/hr Levofloxacin/Dextrose (Levaquin/D5w) 750 mg in 150 mls @ 100 mls/hr IV NOW STA Stop: 06/20/18 05:58 Last Infusion: 06/20/18 06:58 Dose: Admin: 06/20/18 05:18 Dose: 100 mls/hr Norepinephrine Bitartrate 8 mg (/ Dextrose) 508 mls @ 48.69 mls/hr IV .[id number] [facility]; Protocol Stop: 07/20/18 04:44 Last Titration: 06/20/18 07:40 Dose: 0 mcg/kg/min, 0 mls/hr Admin: 06/20/18 04:54 Dose: 0.1 mcg/kg/min, 48.7 mls/hr Sodium Chloride (Nss 1000ml) 1,000 mls @ 999 mls/hr IV .Q1H1M ONE Stop: 06/20/18 05:43 Last Infusion: 06/20/18 05:50 Dose: Admin: 06/20/18 04:51 Dose: 999 mls/hr Vancomycin HCl 2,500 mg/ (Sodium Chloride) 550 mls @ 200 mls/hr IV NOW ONE Stop: 06/20/18 08:59 Last Infusion: 06/20/18 09:42 Dose: 0 mls/hr Admin: 06/20/18 06:18 Dose: 200 mls/hr Sodium Chloride (Nss 1000ml) 1,000 mls @ 999 mls/hr IV .Q1H1M [facility] Stop: 06/20/18 10:21 Last Admin: 06/20/18 12:19 Dose: Not Given Admin: 06/20/18 12:18 Dose: Not Given Calcium Gluconate 1,000 mg/ (Sodium Chloride) 60 mls @ 240 mls/hr IV 0845 ONE Stop: 06/20/18 08:59 Last Infusion: 06/20/18 10:00 Dose: 0 mls/hr Admin: 06/20/18 09:42 Dose: 240 mls/hr Sodium Chloride (Nss 1000ml) 1,000 mls @ 999 mls/hr IV .Q1H1M ONE Stop: 06/20/18 14:27 Last Infusion: 06/20/18 15:15 Dose: 0 mls/hr Admin: 06/20/18 14:01 Dose: 999 mls/hr Insulin Human Regular (Novolin R Bolus From Bag) 5 units IV ONE ONE Stop: 06/20/18 11:16 Last Admin: 06/20/18 11:19 Dose: 5 units Miscellaneous (Insulin Protocol Goal Range) 1 ea N/A ONE ONE Stop: 06/20/18 07:40 Last Admin: 06/20/18 12:19 Dose: Not Given Miscellaneous (Insulin Protocol Severe Stress) 1 ea N/A ONE ONE Stop: 06/20/18 07:40 Last Admin: 06/20/18 12:19 Dose: Not Given Medical Decision Making Differential Diagnosis The patient is a 68 year old male who presents to the Emergency Room with 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 Differential Diagnosis includes: Cardiac arrest, aspiration, respiratory arrest , sepsis, PE, hypocapnia, and respiratory failure. Medical Records Attestation: I reviewed the patient's medical records. Home Medications Current Medication List: was personally reviewed by me Laboratory Data Attestation: I reviewed the patient's lab results. Result diagrams: 06/20/18 04:00 06/20/18 12:01 Lab Results 06/20/18 06/20/18 06/20/18 Range/Units 04:00 04:00 04:00 WBC 13.57 H (4.8-10.8) K/uL RBC 3.38 L (4.7-6.1) M/uL Hgb 9.5 L (14.0-18.0) g/dL Hct 35.4 L (42-52) % MCV 104.7 H (80-100) fL MCH 28.1 (25-34) pg MCHC 26.8 L (32-36) g/dL RDW Std Deviation 57.1 H (36.4-46.3) fL RDW Coeff of Johnny 15.0 H (11.5-14.5) % Plt Count 409 H D (130-400) K/uL MPV 11.3 H (7.4-10.4) fL Immature Gran % (Auto) 3.7 % Neut % (Auto) 75.6 % Lymph % (Auto) 15.2 % [place] % (Auto) 5.2 % Eos % (Auto) 0.1 % Baso % (Auto) 0.2 % Immature Gran # (Auto) 0.50 H (0.00-0.02) K/uL Neut # (Auto) 10.27 H (1.4-6.5) K/uL Lymph # (Auto) 2.06 (1.2-3.4) K/uL [place] # (Auto) 0.70 H (0.11-0.59) K/uL Eos # (Auto) 0.01 (0-0.5) K/uL Baso # (Auto) 0.03 (0-0.2) K/uL Absolute Nucleated RBC 0.09 H (0-0) K/uL Nucleated RBC % (auto) 0.6 % Basophilic Stippling 1+ PT 11.9 (9.0-12.0) Seconds INR 1.2 H (0.9-1.1) APTT 27.2 (21.0-31.0) Seconds PTT Ratio 1.0 Specimen Type Sample Site Patient Temperature POC pH (7.35-7.45) POC pCO2 (35-46) mmHg POC pO2 (80-95) mmHg POC HCO3 (19-24) gian/L POC Total CO2 (24-31) mEq/l POC Base Excess (-9-1.8) gian/L O2 Sat Pulse Oximetry ABG pH ABG pH (Temp Correct) (7.35-7.45) ABG pCO2 ABG pCO2 (Temp Corrct (35-46) mmHg ABG pO2 POC ABG pO2 at Pt Temp ABG HCO3 POC ABG O2 Sat (90-95) % ABG O2 Saturation ABG Base Excess Gurpreet Test VBG pH (7.36-7.41) VBG pCO2 (38-50) mmHg VBG pO2 mmHg VBG HCO3 mmol/L VBG O2 Saturation % VBG Base Excess mEq/L Barometric Pressure Oxygen Given O2 Delivery Device POC O2 Rate Minute Ventilation Vent Mode POC FiO2 % Tidal Volume End Tidal CO2 PEEP Sodium 140 (136-145) mmol/L Potassium 5.9 H (3.5-5.1) mmol/L Chloride 104 (98-107) mmol/L Carbon Dioxide 31 (21-32) mmol/L Anion Gap 5.0 (3-11) BUN 74 H D (7-18) mg/dl Creatinine 1.58 H D (0.6-1.4) mg/dl Est Cr Clr Drug Dosing Not Reportable Est GFR ( Amer) 51.3 Est GFR (Non-Af Amer) 44.3 BUN/Creatinine Ratio 46.7 H (10-20) Glucose 206 H (70-99) mg/dl POC Glucose (70-99) POC Glucose (other) (70-99) mg/dl Lactate (0.4-2.0) mmol/L Calcium 9.1 (8.5-10.1) mg/dl Ionized Calcium (1.12-1.32) mmol/L Magnesium (1.8-2.4) mg/dl Total Bilirubin 0.9 (0.2-1) mg/dl Direct Bilirubin (0-0.2) mg/dl AST 430 H (15-37) U/L ALT 329 H (12-78) U/L Alkaline Phosphatase 70 (45-117) U/L Troponin I 0.031 (0-0.045) ng/ml Total Protein 7.2 (6.4-8.2) gm/dl Albumin 2.6 L (3.4-5.0) gm/dl Globulin 4.6 H (2.5-4.0) gm/dl Albumin/Globulin Ratio 0.6 L (0.9-2) Lipase 138 (73-393) U/L Urine Color Urine Appearance (Clear) Urine pH (4.5-7.5) Ur Specific [place] (1.000-1.030) Urine Protein (Negative) Urine Glucose (UA) (Negative) Urine Ketones (Negative) Urine Blood (Negative) Urine Nitrite (Negative) Urine Bilirubin (Negative) Urine Urobilinogen (Negative) Ur Leukocyte Esterase (Negative) Urine WBC (Auto) (0-5) /hpf Urine RBC (Auto) (0-4) /hpf U Hyaline Cast (Auto) (0-5) /lpf U Epithel Cells (Auto) (0-5) /lpf Urine Bacteria (Auto) (Negative) Ur Random Sodium mmol/L Ur Random Urea Nitrogn mg/dl Nasal Screen MRSA (PCR) (Negative) Blood Type Antibody Screen 06/20/18 06/20/18 06/20/18 Range/Units 04:29 04:29 04:38 WBC (4.8-10.8) K/uL RBC (4.7-6.1) M/uL Hgb (14.0-18.0) g/dL Hct (42-52) % MCV (80-100) fL MCH (25-34) pg MCHC (32-36) g/dL RDW Std Deviation (36.4-46.3) fL RDW Coeff of Johnny (11.5-14.5) % Plt Count (130-400) K/uL MPV (7.4-10.4) fL Immature Gran % (Auto) % Neut % (Auto) % Lymph % (Auto) % [place] % (Auto) % Eos % (Auto) % Baso % (Auto) % Immature Gran # (Auto) (0.00-0.02) K/uL Neut # (Auto) (1.4-6.5) K/uL Lymph # (Auto) (1.2-3.4) K/uL [place] # (Auto) (0.11-0.59) K/uL Eos # (Auto) (0-0.5) K/uL Baso # (Auto) (0-0.2) K/uL Absolute Nucleated RBC (0-0) K/uL Nucleated RBC % (auto) % Basophilic Stippling PT (9.0-12.0) Seconds INR (0.9-1.1) APTT (21.0-31.0) Seconds PTT Ratio Specimen Type Sample Site Patient Temperature POC pH (7.35-7.45) POC pCO2 (35-46) mmHg POC pO2 (80-95) mmHg POC HCO3 (19-24) gian/L POC Total CO2 (24-31) mEq/l POC Base Excess (-9-1.8) gian/L O2 Sat Pulse Oximetry ABG pH Cancelled ABG pH (Temp Correct) (7.35-7.45) ABG pCO2 Cancelled ABG pCO2 (Temp Corrct (35-46) mmHg ABG pO2 Cancelled POC ABG pO2 at Pt Temp ABG HCO3 Cancelled POC ABG O2 Sat (90-95) % ABG O2 Saturation Cancelled ABG Base Excess Cancelled Gurpreet Test Cancelled VBG pH (7.36-7.41) VBG pCO2 (38-50) mmHg VBG pO2 mmHg VBG HCO3 mmol/L VBG O2 Saturation % VBG Base Excess mEq/L Barometric Pressure Cancelled Oxygen Given Cancelled O2 Delivery Device POC O2 Rate Minute Ventilation Vent Mode POC FiO2 % Tidal Volume End Tidal CO2 PEEP Sodium (136-145) mmol/L Potassium (3.5-5.1) mmol/L Chloride (98-107) mmol/L Carbon Dioxide (21-32) mmol/L Anion Gap (3-11) BUN (7-18) mg/dl Creatinine (0.6-1.4) mg/dl Est Cr Clr Drug Dosing Est GFR ( Amer) Est GFR (Non-Af Amer) BUN/Creatinine Ratio (10-20) Glucose (70-99) mg/dl POC Glucose (70-99) POC Glucose (other) (70-99) mg/dl Lactate 5.5 H* (0.4-2.0) mmol/L Calcium (8.5-10.1) mg/dl Ionized Calcium (1.12-1.32) mmol/L Magnesium (1.8-2.4) mg/dl Total Bilirubin (0.2-1) mg/dl Direct Bilirubin (0-0.2) mg/dl AST (15-37) U/L ALT (12-78) U/L Alkaline Phosphatase (45-117) U/L Troponin I (0-0.045) ng/ml Total Protein (6.4-8.2) gm/dl Albumin (3.4-5.0) gm/dl Globulin (2.5-4.0) gm/dl Albumin/Globulin Ratio (0.9-2) Lipase (73-393) U/L Urine Color Urine Appearance (Clear) Urine pH (4.5-7.5) Ur Specific [place] (1.000-1.030) Urine Protein (Negative) Urine Glucose (UA) (Negative) Urine Ketones (Negative) Urine Blood (Negative) Urine Nitrite (Negative) Urine Bilirubin (Negative) Urine Urobilinogen (Negative) Ur Leukocyte Esterase (Negative) Urine WBC (Auto) (0-5) /hpf Urine RBC (Auto) (0-4) /hpf U Hyaline Cast (Auto) (0-5) /lpf U Epithel Cells (Auto) (0-5) /lpf Urine Bacteria (Auto) (Negative) Ur Random Sodium 25 mmol/L Ur Random Urea Nitrogn mg/dl Nasal Screen MRSA (PCR) (Negative) Blood Type Antibody Screen 06/20/18 06/20/18 06/20/18 Range/Units 04:38 04:38 04:39 WBC (4.8-10.8) K/uL RBC (4.7-6.1) M/uL Hgb (14.0-18.0) g/dL Hct (42-52) % MCV (80-100) fL MCH (25-34) pg MCHC (32-36) g/dL RDW Std Deviation (36.4-46.3) fL RDW Coeff of Johnny (11.5-14.5) % Plt Count (130-400) K/uL MPV (7.4-10.4) fL Immature Gran % (Auto) % Neut % (Auto) % Lymph % (Auto) % [place] % (Auto) % Eos % (Auto) % Baso % (Auto) % Immature Gran # (Auto) (0.00-0.02) K/uL Neut # (Auto) (1.4-6.5) K/uL Lymph # (Auto) (1.2-3.4) K/uL [place] # (Auto) (0.11-0.59) K/uL Eos # (Auto) (0-0.5) K/uL Baso # (Auto) (0-0.2) K/uL Absolute Nucleated RBC (0-0) K/uL Nucleated RBC % (auto) % Basophilic Stippling PT (9.0-12.0) Seconds INR (0.9-1.1) APTT (21.0-31.0) Seconds PTT Ratio Specimen Type Sample Site Patient Temperature POC pH (7.35-7.45) POC pCO2 (35-46) mmHg POC pO2 (80-95) mmHg POC HCO3 (19-24) gian/L POC Total CO2 (24-31) mEq/l POC Base Excess (-9-1.8) gian/L O2 Sat Pulse Oximetry ABG pH ABG pH (Temp Correct) (7.35-7.45) ABG pCO2 ABG pCO2 (Temp Corrct (35-46) mmHg ABG pO2 POC ABG pO2 at Pt Temp ABG HCO3 POC ABG O2 Sat (90-95) % ABG O2 Saturation ABG Base Excess Gurpreet Test VBG pH 7.08 L (7.36-7.41) VBG pCO2 112 H (38-50) mmHg VBG pO2 39 mmHg VBG HCO3 32 mmol/L VBG O2 Saturation 67.2 % VBG Base Excess 0 mEq/L Barometric Pressure Oxygen Given O2 Delivery Device POC O2 Rate Minute Ventilation Vent Mode POC FiO2 % Tidal Volume End Tidal CO2 PEEP Sodium (136-145) mmol/L Potassium (3.5-5.1) mmol/L Chloride (98-107) mmol/L Carbon Dioxide (21-32) mmol/L Anion Gap (3-11) BUN (7-18) mg/dl Creatinine (0.6-1.4) mg/dl Est Cr Clr Drug Dosing Est GFR ( Amer) Est GFR (Non-Af Amer) BUN/Creatinine Ratio (10-20) Glucose (70-99) mg/dl POC Glucose (70-99) POC Glucose (other) (70-99) mg/dl Lactate (0.4-2.0) mmol/L Calcium (8.5-10.1) mg/dl Ionized Calcium (1.12-1.32) mmol/L Magnesium (1.8-2.4) mg/dl Total Bilirubin (0.2-1) mg/dl Direct Bilirubin (0-0.2) mg/dl AST (15-37) U/L ALT (12-78) U/L Alkaline Phosphatase (45-117) U/L Troponin I (0-0.045) ng/ml Total Protein (6.4-8.2) gm/dl Albumin (3.4-5.0) gm/dl Globulin (2.5-4.0) gm/dl Albumin/Globulin Ratio (0.9-2) Lipase (73-393) U/L Urine Color Dark Yellow Urine Appearance Cloudy H (Clear) Urine pH 5.0 (4.5-7.5) Ur Specific [place] 1.016 (1.000-1.030) Urine Protein Negative (Negative) Urine Glucose (UA) Negative (Negative) Urine Ketones Negative (Negative) Urine Blood Negative (Negative) Urine Nitrite Negative (Negative) Urine Bilirubin Negative (Negative) Urine Urobilinogen Negative (Negative) Ur Leukocyte Esterase Negative (Negative) Urine WBC (Auto) 0 (0-5) /hpf Urine RBC (Auto) 0-4 (0-4) /hpf U Hyaline Cast (Auto) 1-5 (0-5) /lpf U Epithel Cells (Auto) 5-10 H (0-5) /lpf Urine Bacteria (Auto) Negative (Negative) Ur Random Sodium mmol/L Ur Random Urea Nitrogn 466 mg/dl Nasal Screen MRSA (PCR) (Negative) Blood Type Antibody Screen 06/20/18 06/20/18 06/20/18 Range/Units 06:13 06:13 06:13 WBC (4.8-10.8) K/uL RBC (4.7-6.1) M/uL Hgb (14.0-18.0) g/dL Hct (42-52) % MCV (80-100) fL MCH (25-34) pg MCHC (32-36) g/dL RDW Std Deviation (36.4-46.3) fL RDW Coeff of Johnny (11.5-14.5) % Plt Count (130-400) K/uL MPV (7.4-10.4) fL Immature Gran % (Auto) % Neut % (Auto) % Lymph % (Auto) % [place] % (Auto) % Eos % (Auto) % Baso % (Auto) % Immature Gran # (Auto) (0.00-0.02) K/uL Neut # (Auto) (1.4-6.5) K/uL Lymph # (Auto) (1.2-3.4) K/uL [place] # (Auto) (0.11-0.59) K/uL Eos # (Auto) (0-0.5) K/uL Baso # (Auto) (0-0.2) K/uL Absolute Nucleated RBC (0-0) K/uL Nucleated RBC % (auto) % Basophilic Stippling PT (9.0-12.0) Seconds INR (0.9-1.1) APTT (21.0-31.0) Seconds PTT Ratio Specimen Type Sample Site Patient Temperature POC pH (7.35-7.45) POC pCO2 (35-46) mmHg POC pO2 (80-95) mmHg POC HCO3 (19-24) gian/L POC Total CO2 (24-31) mEq/l POC Base Excess (-9-1.8) gian/L O2 Sat Pulse Oximetry ABG pH ABG pH (Temp Correct) (7.35-7.45) ABG pCO2 ABG pCO2 (Temp Corrct (35-46) mmHg ABG pO2 POC ABG pO2 at Pt Temp ABG HCO3 POC ABG O2 Sat (90-95) % ABG O2 Saturation ABG Base Excess Gurpreet Test VBG pH (7.36-7.41) VBG pCO2 (38-50) mmHg VBG pO2 mmHg VBG HCO3 mmol/L VBG O2 Saturation % VBG Base Excess mEq/L Barometric Pressure Oxygen Given O2 Delivery Device POC O2 Rate Minute Ventilation Vent Mode POC FiO2 % Tidal Volume End Tidal CO2 PEEP Sodium (136-145) mmol/L Potassium (3.5-5.1) mmol/L Chloride (98-107) mmol/L Carbon Dioxide (21-32) mmol/L Anion Gap (3-11) BUN (7-18) mg/dl Creatinine (0.6-1.4) mg/dl Est Cr Clr Drug Dosing Est GFR ( Amer) Est GFR (Non-Af Amer) BUN/Creatinine Ratio (10-20) Glucose (70-99) mg/dl POC Glucose (70-99) POC Glucose (other) (70-99) mg/dl Lactate 4.4 H* (0.4-2.0) mmol/L Calcium (8.5-10.1) mg/dl Ionized Calcium 1.13 (1.12-1.32) mmol/L Magnesium (1.8-2.4) mg/dl Total Bilirubin (0.2-1) mg/dl Direct Bilirubin (0-0.2) mg/dl AST (15-37) U/L ALT (12-78) U/L Alkaline Phosphatase (45-117) U/L Troponin I (0-0.045) ng/ml Total Protein (6.4-8.2) gm/dl Albumin (3.4-5.0) gm/dl Globulin (2.5-4.0) gm/dl Albumin/Globulin Ratio (0.9-2) Lipase (73-393) U/L Urine Color Urine Appearance (Clear) Urine pH (4.5-7.5) Ur Specific [place] (1.000-1.030) Urine Protein (Negative) Urine Glucose (UA) (Negative) Urine Ketones (Negative) Urine Blood (Negative) Urine Nitrite (Negative) Urine Bilirubin (Negative) Urine Urobilinogen (Negative) Ur Leukocyte Esterase (Negative) Urine WBC (Auto) (0-5) /hpf Urine RBC (Auto) (0-4) /hpf U Hyaline Cast (Auto) (0-5) /lpf U Epithel Cells (Auto) (0-5) /lpf Urine Bacteria (Auto) (Negative) Ur Random Sodium mmol/L Ur Random Urea Nitrogn mg/dl Nasal Screen MRSA (PCR) (Negative) Blood Type A Positive Antibody Screen NEGATIVE 06/20/18 06/20/18 06/20/18 Range/Units 07:19 07:56 08:17 WBC (4.8-10.8) K/uL RBC (4.7-6.1) M/uL Hgb (14.0-18.0) g/dL Hct (42-52) % MCV (80-100) fL MCH (25-34) pg MCHC (32-36) g/dL RDW Std Deviation (36.4-46.3) fL RDW Coeff of Johnny (11.5-14.5) % Plt Count (130-400) K/uL MPV (7.4-10.4) fL Immature Gran % (Auto) % Neut % (Auto) % Lymph % (Auto) % [place] % (Auto) % Eos % (Auto) % Baso % (Auto) % Immature Gran # (Auto) (0.00-0.02) K/uL Neut # (Auto) (1.4-6.5) K/uL Lymph # (Auto) (1.2-3.4) K/uL [place] # (Auto) (0.11-0.59) K/uL Eos # (Auto) (0-0.5) K/uL Baso # (Auto) (0-0.2) K/uL Absolute Nucleated RBC (0-0) K/uL Nucleated RBC % (auto) % Basophilic Stippling PT (9.0-12.0) Seconds INR (0.9-1.1) APTT (21.0-31.0) Seconds PTT Ratio Specimen Type Sample Site R Brachial Patient Temperature POC pH 7.04 L* (7.35-7.45) POC pCO2 112 H (35-46) mmHg POC pO2 < 32 L (80-95) mmHg POC HCO3 30 H (19-24) gian/L POC Total CO2 34 H (24-31) mEq/l POC Base Excess 0.0 (-9-1.8) gian/L O2 Sat Pulse Oximetry ABG pH ABG pH (Temp Correct) (7.35-7.45) ABG pCO2 ABG pCO2 (Temp Corrct (35-46) mmHg ABG pO2 POC ABG pO2 at Pt Temp ABG HCO3 POC ABG O2 Sat 29.0 L (90-95) % ABG O2 Saturation ABG Base Excess Gurpreet Test Pass VBG pH (7.36-7.41) VBG pCO2 (38-50) mmHg VBG pO2 mmHg VBG HCO3 mmol/L VBG O2 Saturation % VBG Base Excess mEq/L Barometric Pressure Oxygen Given O2 Delivery Device Ventilator POC O2 Rate 20 Minute Ventilation 9.8 Vent Mode POC FiO2 80 % Tidal Volume 550 End Tidal CO2 PEEP 10 Sodium 140 (136-145) mmol/L Potassium 4.9 D (3.5-5.1) mmol/L Chloride 109 H (98-107) mmol/L Carbon Dioxide 25 (21-32) mmol/L Anion Gap 6.0 (3-11) BUN 79 H (7-18) mg/dl Creatinine 1.73 H (0.6-1.4) mg/dl Est Cr Clr Drug Dosing 57.3 Est GFR ( Amer) 46.0 Est GFR (Non-Af Amer) 39.7 BUN/Creatinine Ratio 45.8 H (10-20) Glucose 136 H (70-99) mg/dl POC Glucose (70-99) POC Glucose (other) (70-99) mg/dl Lactate (0.4-2.0) mmol/L Calcium 7.7 L D (8.5-10.1) mg/dl Ionized Calcium (1.12-1.32) mmol/L Magnesium 1.8 (1.8-2.4) mg/dl Total Bilirubin 0.6 (0.2-1) mg/dl Direct Bilirubin 0.4 H (0-0.2) mg/dl AST 416 H (15-37) U/L ALT 254 H (12-78) U/L Alkaline Phosphatase 51 (45-117) U/L Troponin I (0-0.045) ng/ml Total Protein 5.7 L D (6.4-8.2) gm/dl Albumin 2.1 L (3.4-5.0) gm/dl Globulin (2.5-4.0) gm/dl Albumin/Globulin Ratio (0.9-2) Lipase (73-393) U/L Urine Color Urine Appearance (Clear) Urine pH (4.5-7.5) Ur Specific [place] (1.000-1.030) Urine Protein (Negative) Urine Glucose (UA) (Negative) Urine Ketones (Negative) Urine Blood (Negative) Urine Nitrite (Negative) Urine Bilirubin (Negative) Urine Urobilinogen (Negative) Ur Leukocyte Esterase (Negative) Urine WBC (Auto) (0-5) /hpf Urine RBC (Auto) (0-4) /hpf U Hyaline Cast (Auto) (0-5) /lpf U Epithel Cells (Auto) (0-5) /lpf Urine Bacteria (Auto) (Negative) Ur Random Sodium mmol/L Ur Random Urea Nitrogn mg/dl Nasal Screen MRSA (PCR) Positive A (Negative) Blood Type Antibody Screen 06/20/18 06/20/18 06/20/18 Range/Units 09:00 09:06 10:34 WBC (4.8-10.8) K/uL RBC (4.7-6.1) M/uL Hgb (14.0-18.0) g/dL Hct (42-52) % MCV (80-100) fL MCH (25-34) pg MCHC (32-36) g/dL RDW Std Deviation (36.4-46.3) fL RDW Coeff of Johnny (11.5-14.5) % Plt Count (130-400) K/uL MPV (7.4-10.4) fL Immature Gran % (Auto) % Neut % (Auto) % Lymph % (Auto) % [place] % (Auto) % Eos % (Auto) % Baso % (Auto) % Immature Gran # (Auto) (0.00-0.02) K/uL Neut # (Auto) (1.4-6.5) K/uL Lymph # (Auto) (1.2-3.4) K/uL [place] # (Auto) (0.11-0.59) K/uL Eos # (Auto) (0-0.5) K/uL Baso # (Auto) (0-0.2) K/uL Absolute Nucleated RBC (0-0) K/uL Nucleated RBC % (auto) % Basophilic Stippling PT (9.0-12.0) Seconds INR (0.9-1.1) APTT (21.0-31.0) Seconds PTT Ratio Specimen Type Arterial Sample Site Art Line Patient Temperature 37.0 POC pH 7.32 L (7.35-7.45) POC pCO2 54 H (35-46) mmHg POC pO2 308 H (80-95) mmHg POC HCO3 28 H (19-24) gian/L POC Total CO2 30 (24-31) mEq/l POC Base Excess 2.0 H (-9-1.8) gian/L O2 Sat Pulse Oximetry 100 ABG pH ABG pH (Temp Correct) 7.320 L (7.35-7.45) ABG pCO2 ABG pCO2 (Temp Corrct 54 H (35-46) mmHg ABG pO2 POC ABG pO2 at Pt Temp 308 ABG HCO3 POC ABG O2 Sat 100.0 H (90-95) % ABG O2 Saturation ABG Base Excess Gurpreet Test Acceptable VBG pH (7.36-7.41) VBG pCO2 (38-50) mmHg VBG pO2 mmHg VBG HCO3 mmol/L VBG O2 Saturation % VBG Base Excess mEq/L Barometric Pressure Oxygen Given O2 Delivery Device Ventilator POC O2 Rate 26 Minute Ventilation 550 Vent Mode AC POC FiO2 80 % Tidal Volume 12.8 End Tidal CO2 40 PEEP 10 Sodium (136-145) mmol/L Potassium (3.5-5.1) mmol/L Chloride (98-107) mmol/L Carbon Dioxide (21-32) mmol/L Anion Gap (3-11) BUN (7-18) mg/dl Creatinine (0.6-1.4) mg/dl Est Cr Clr Drug Dosing Est GFR ( Amer) Est GFR (Non-Af Amer) BUN/Creatinine Ratio (10-20) Glucose (70-99) mg/dl POC Glucose 195 H (70-99) POC Glucose (other) (70-99) mg/dl Lactate (0.4-2.0) mmol/L Calcium (8.5-10.1) mg/dl Ionized Calcium (1.12-1.32) mmol/L Magnesium (1.8-2.4) mg/dl Total Bilirubin (0.2-1) mg/dl Direct Bilirubin (0-0.2) mg/dl AST (15-37) U/L ALT (12-78) U/L Alkaline Phosphatase (45-117) U/L Troponin I 0.520 H* (0-0.045) ng/ml Total Protein (6.4-8.2) gm/dl Albumin (3.4-5.0) gm/dl Globulin (2.5-4.0) gm/dl Albumin/Globulin Ratio (0.9-2) Lipase (73-393) U/L Urine Color Urine Appearance (Clear) Urine pH (4.5-7.5) Ur Specific [place] (1.000-1.030) Urine Protein (Negative) Urine Glucose (UA) (Negative) Urine Ketones (Negative) Urine Blood (Negative) Urine Nitrite (Negative) Urine Bilirubin (Negative) Urine Urobilinogen (Negative) Ur Leukocyte Esterase (Negative) Urine WBC (Auto) (0-5) /hpf Urine RBC (Auto) (0-4) /hpf U Hyaline Cast (Auto) (0-5) /lpf U Epithel Cells (Auto) (0-5) /lpf Urine Bacteria (Auto) (Negative) Ur Random Sodium mmol/L Ur Random Urea Nitrogn mg/dl Nasal Screen MRSA (PCR) (Negative) Blood Type Antibody Screen 06/20/18 06/20/18 06/20/18 Range/Units 12:01 12:01 12:01 WBC (4.8-10.8) K/uL RBC (4.7-6.1) M/uL Hgb (14.0-18.0) g/dL Hct (42-52) % MCV (80-100) fL MCH (25-34) pg MCHC (32-36) g/dL RDW Std Deviation (36.4-46.3) fL RDW Coeff of Johnny (11.5-14.5) % Plt Count (130-400) K/uL MPV (7.4-10.4) fL Immature Gran % (Auto) % Neut % (Auto) % Lymph % (Auto) % [place] % (Auto) % Eos % (Auto) % Baso % (Auto) % Immature Gran # (Auto) (0.00-0.02) K/uL Neut # (Auto) (1.4-6.5) K/uL Lymph # (Auto) (1.2-3.4) K/uL [place] # (Auto) (0.11-0.59) K/uL Eos # (Auto) (0-0.5) K/uL Baso # (Auto) (0-0.2) K/uL Absolute Nucleated RBC (0-0) K/uL Nucleated RBC % (auto) % Basophilic Stippling PT 12.8 H (9.0-12.0) Seconds INR 1.3 H (0.9-1.1) APTT 30.2 (21.0-31.0) Seconds PTT Ratio 1.2 Specimen Type Sample Site Patient Temperature POC pH (7.35-7.45) POC pCO2 (35-46) mmHg POC pO2 (80-95) mmHg POC HCO3 (19-24) gian/L POC Total CO2 (24-31) mEq/l POC Base Excess (-9-1.8) gian/L O2 Sat Pulse Oximetry ABG pH ABG pH (Temp Correct) (7.35-7.45) ABG pCO2 ABG pCO2 (Temp Corrct (35-46) mmHg ABG pO2 POC ABG pO2 at Pt Temp ABG HCO3 POC ABG O2 Sat (90-95) % ABG O2 Saturation ABG Base Excess Gurpreet Test VBG pH (7.36-7.41) VBG pCO2 (38-50) mmHg VBG pO2 mmHg VBG HCO3 mmol/L VBG O2 Saturation % VBG Base Excess mEq/L Barometric Pressure Oxygen Given O2 Delivery Device POC O2 Rate Minute Ventilation Vent Mode POC FiO2 % Tidal Volume End Tidal CO2 PEEP Sodium 142 (136-145) mmol/L Potassium 4.5 (3.5-5.1) mmol/L Chloride 106 (98-107) mmol/L Carbon Dioxide 26 (21-32) mmol/L Anion Gap 10.0 (3-11) BUN 78 H (7-18) mg/dl Creatinine 1.75 H (0.6-1.4) mg/dl Est Cr Clr Drug Dosing 56.6 Est GFR ( Amer) 45.4 Est GFR (Non-Af Amer) 39.1 BUN/Creatinine Ratio 44.4 H (10-20) Glucose 156 H (70-99) mg/dl POC Glucose (70-99) POC Glucose (other) (70-99) mg/dl Lactate (0.4-2.0) mmol/L Calcium 8.0 L (8.5-10.1) mg/dl Ionized Calcium 1.13 (1.12-1.32) mmol/L Magnesium 1.9 (1.8-2.4) mg/dl Total Bilirubin (0.2-1) mg/dl Direct Bilirubin (0-0.2) mg/dl AST (15-37) U/L ALT (12-78) U/L Alkaline Phosphatase (45-117) U/L Troponin I (0-0.045) ng/ml Total Protein (6.4-8.2) gm/dl Albumin (3.4-5.0) gm/dl Globulin (2.5-4.0) gm/dl Albumin/Globulin Ratio (0.9-2) Lipase (73-393) U/L Urine Color Urine Appearance (Clear) Urine pH (4.5-7.5) Ur Specific [place] (1.000-1.030) Urine Protein (Negative) Urine Glucose (UA) (Negative) Urine Ketones (Negative) Urine Blood (Negative) Urine Nitrite (Negative) Urine Bilirubin (Negative) Urine Urobilinogen (Negative) Ur Leukocyte Esterase (Negative) Urine WBC (Auto) (0-5) /hpf Urine RBC (Auto) (0-4) /hpf U Hyaline Cast (Auto) (0-5) /lpf U Epithel Cells (Auto) (0-5) /lpf Urine Bacteria (Auto) (Negative) Ur Random Sodium mmol/L Ur Random Urea Nitrogn mg/dl Nasal Screen MRSA (PCR) (Negative) Blood Type Antibody Screen 06/20/18 06/20/18 06/20/18 Range/Units 12:34 13:32 14:32 WBC (4.8-10.8) K/uL RBC (4.7-6.1) M/uL Hgb (14.0-18.0) g/dL Hct (42-52) % MCV (80-100) fL MCH (25-34) pg MCHC (32-36) g/dL RDW Std Deviation (36.4-46.3) fL RDW Coeff of Johnny (11.5-14.5) % Plt Count (130-400) K/uL MPV (7.4-10.4) fL Immature Gran % (Auto) % Neut % (Auto) % Lymph % (Auto) % [place] % (Auto) % Eos % (Auto) % Baso % (Auto) % Immature Gran # (Auto) (0.00-0.02) K/uL Neut # (Auto) (1.4-6.5) K/uL Lymph # (Auto) (1.2-3.4) K/uL [place] # (Auto) (0.11-0.59) K/uL Eos # (Auto) (0-0.5) K/uL Baso # (Auto) (0-0.2) K/uL Absolute Nucleated RBC (0-0) K/uL Nucleated RBC % (auto) % Basophilic Stippling PT (9.0-12.0) Seconds INR (0.9-1.1) APTT (21.0-31.0) Seconds PTT Ratio Specimen Type Sample Site Patient Temperature POC pH (7.35-7.45) POC pCO2 (35-46) mmHg POC pO2 (80-95) mmHg POC HCO3 (19-24) gian/L POC Total CO2 (24-31) mEq/l POC Base Excess (-9-1.8) gian/L O2 Sat Pulse Oximetry ABG pH ABG pH (Temp Correct) (7.35-7.45) ABG pCO2 ABG pCO2 (Temp Corrct (35-46) mmHg ABG pO2 POC ABG pO2 at Pt Temp ABG HCO3 POC ABG O2 Sat (90-95) % ABG O2 Saturation ABG Base Excess Gurpreet Test VBG pH (7.36-7.41) VBG pCO2 (38-50) mmHg VBG pO2 mmHg VBG HCO3 mmol/L VBG O2 Saturation % VBG Base Excess mEq/L Barometric Pressure Oxygen Given O2 Delivery Device POC O2 Rate Minute Ventilation Vent Mode POC FiO2 % Tidal Volume End Tidal CO2 PEEP Sodium (136-145) mmol/L Potassium (3.5-5.1) mmol/L Chloride (98-107) mmol/L Carbon Dioxide (21-32) mmol/L Anion Gap (3-11) BUN (7-18) mg/dl Creatinine (0.6-1.4) mg/dl Est Cr Clr Drug Dosing Est GFR ( Amer) Est GFR (Non-Af Amer) BUN/Creatinine Ratio (10-20) Glucose (70-99) mg/dl POC Glucose (70-99) POC Glucose (other) 141 H 121 H 103 H (70-99) mg/dl Lactate (0.4-2.0) mmol/L Calcium (8.5-10.1) mg/dl Ionized Calcium (1.12-1.32) mmol/L Magnesium (1.8-2.4) mg/dl Total Bilirubin (0.2-1) mg/dl Direct Bilirubin (0-0.2) mg/dl AST (15-37) U/L ALT (12-78) U/L Alkaline Phosphatase (45-117) U/L Troponin I (0-0.045) ng/ml Total Protein (6.4-8.2) gm/dl Albumin (3.4-5.0) gm/dl Globulin (2.5-4.0) gm/dl Albumin/Globulin Ratio (0.9-2) Lipase (73-393) U/L Urine Color Urine Appearance (Clear) Urine pH (4.5-7.5) Ur Specific [place] (1.000-1.030) Urine Protein (Negative) Urine Glucose (UA) (Negative) Urine Ketones (Negative) Urine Blood (Negative) Urine Nitrite (Negative) Urine Bilirubin (Negative) Urine Urobilinogen (Negative) Ur Leukocyte Esterase (Negative) Urine WBC (Auto) (0-5) /hpf Urine RBC (Auto) (0-4) /hpf U Hyaline Cast (Auto) (0-5) /lpf U Epithel Cells (Auto) (0-5) /lpf Urine Bacteria (Auto) (Negative) Ur Random Sodium mmol/L Ur Random Urea Nitrogn mg/dl Nasal Screen MRSA (PCR) (Negative) Blood Type Antibody Screen 06/20/18 06/20/18 06/20/18 Range/Units 14:59 16:09 16:14 WBC (4.8-10.8) K/uL RBC (4.7-6.1) M/uL Hgb (14.0-18.0) g/dL Hct (42-52) % MCV (80-100) fL MCH (25-34) pg MCHC (32-36) g/dL RDW Std Deviation (36.4-46.3) fL RDW Coeff of Johnny (11.5-14.5) % Plt Count (130-400) K/uL MPV (7.4-10.4) fL Immature Gran % (Auto) % Neut % (Auto) % Lymph % (Auto) % [place] % (Auto) % Eos % (Auto) % Baso % (Auto) % Immature Gran # (Auto) (0.00-0.02) K/uL Neut # (Auto) (1.4-6.5) K/uL Lymph # (Auto) (1.2-3.4) K/uL [place] # (Auto) (0.11-0.59) K/uL Eos # (Auto) (0-0.5) K/uL Baso # (Auto) (0-0.2) K/uL Absolute Nucleated RBC (0-0) K/uL Nucleated RBC % (auto) % Basophilic Stippling PT (9.0-12.0) Seconds INR (0.9-1.1) APTT (21.0-31.0) Seconds PTT Ratio Specimen Type Sample Site Patient Temperature POC pH (7.35-7.45) POC pCO2 (35-46) mmHg POC pO2 (80-95) mmHg POC HCO3 (19-24) gian/L POC Total CO2 (24-31) mEq/l POC Base Excess (-9-1.8) gian/L O2 Sat Pulse Oximetry ABG pH ABG pH (Temp Correct) (7.35-7.45) ABG pCO2 ABG pCO2 (Temp Corrct (35-46) mmHg ABG pO2 POC ABG pO2 at Pt Temp ABG HCO3 POC ABG O2 Sat (90-95) % ABG O2 Saturation ABG Base Excess Gurpreet Test VBG pH (7.36-7.41) VBG pCO2 (38-50) mmHg VBG pO2 mmHg VBG HCO3 mmol/L VBG O2 Saturation % VBG Base Excess mEq/L Barometric Pressure Oxygen Given O2 Delivery Device POC O2 Rate Minute Ventilation Vent Mode POC FiO2 % Tidal Volume End Tidal CO2 PEEP Sodium (136-145) mmol/L Potassium (3.5-5.1) mmol/L Chloride (98-107) mmol/L Carbon Dioxide (21-32) mmol/L Anion Gap (3-11) BUN (7-18) mg/dl Creatinine (0.6-1.4) mg/dl Est Cr Clr Drug Dosing Est GFR ( Amer) Est GFR (Non-Af Amer) BUN/Creatinine Ratio (10-20) Glucose (70-99) mg/dl POC Glucose (70-99) POC Glucose (other) 149 H 106 H (70-99) mg/dl Lactate (0.4-2.0) mmol/L Calcium (8.5-10.1) mg/dl Ionized Calcium (1.12-1.32) mmol/L Magnesium (1.8-2.4) mg/dl Total Bilirubin (0.2-1) mg/dl Direct Bilirubin (0-0.2) mg/dl AST (15-37) U/L ALT (12-78) U/L Alkaline Phosphatase (45-117) U/L Troponin I 0.683 H* (0-0.045) ng/ml Total Protein (6.4-8.2) gm/dl Albumin (3.4-5.0) gm/dl Globulin (2.5-4.0) gm/dl Albumin/Globulin Ratio (0.9-2) Lipase (73-393) U/L Urine Color Urine Appearance (Clear) Urine pH (4.5-7.5) Ur Specific [place] (1.000-1.030) Urine Protein (Negative) Urine Glucose (UA) (Negative) Urine Ketones (Negative) Urine Blood (Negative) Urine Nitrite (Negative) Urine Bilirubin (Negative) Urine Urobilinogen (Negative) Ur Leukocyte Esterase (Negative) Urine WBC (Auto) (0-5) /hpf Urine RBC (Auto) (0-4) /hpf U Hyaline Cast (Auto) (0-5) /lpf U Epithel Cells (Auto) (0-5) /lpf Urine Bacteria (Auto) (Negative) Ur Random Sodium mmol/L Ur Random Urea Nitrogn mg/dl Nasal Screen MRSA (PCR) (Negative) Blood Type Antibody Screen 06/20/18 06/20/18 06/20/18 Range/Units 16:17 16:31 16:47 WBC (4.8-10.8) K/uL RBC (4.7-6.1) M/uL Hgb (14.0-18.0) g/dL Hct (42-52) % MCV (80-100) fL MCH (25-34) pg MCHC (32-36) g/dL RDW Std Deviation (36.4-46.3) fL RDW Coeff of Johnny (11.5-14.5) % Plt Count (130-400) K/uL MPV (7.4-10.4) fL Immature Gran % (Auto) % Neut % (Auto) % Lymph % (Auto) % [place] % (Auto) % Eos % (Auto) % Baso % (Auto) % Immature Gran # (Auto) (0.00-0.02) K/uL Neut # (Auto) (1.4-6.5) K/uL Lymph # (Auto) (1.2-3.4) K/uL [place] # (Auto) (0.11-0.59) K/uL Eos # (Auto) (0-0.5) K/uL Baso # (Auto) (0-0.2) K/uL Absolute Nucleated RBC (0-0) K/uL Nucleated RBC % (auto) % Basophilic Stippling PT (9.0-12.0) Seconds INR (0.9-1.1) APTT (21.0-31.0) Seconds PTT Ratio Specimen Type Sample Site Art Line Patient Temperature POC pH 7.36 (7.35-7.45) POC pCO2 42 (35-46) mmHg POC pO2 141 H (80-95) mmHg POC HCO3 25 H (19-24) gian/L POC Total CO2 27 (24-31) mEq/l POC Base Excess -1.0 (-9-1.8) gian/L O2 Sat Pulse Oximetry ABG pH ABG pH (Temp Correct) (7.35-7.45) ABG pCO2 ABG pCO2 (Temp Corrct (35-46) mmHg ABG pO2 POC ABG pO2 at Pt Temp ABG HCO3 POC ABG O2 Sat 99.0 H (90-95) % ABG O2 Saturation ABG Base Excess Gurpreet Test NA VBG pH (7.36-7.41) VBG pCO2 (38-50) mmHg VBG pO2 mmHg VBG HCO3 mmol/L VBG O2 Saturation % VBG Base Excess mEq/L Barometric Pressure Oxygen Given O2 Delivery Device Ventilator POC O2 Rate 26 Minute Ventilation 12.8 Vent Mode POC FiO2 40 % Tidal Volume 550 End Tidal CO2 PEEP Sodium (136-145) mmol/L Potassium (3.5-5.1) mmol/L Chloride (98-107) mmol/L Carbon Dioxide (21-32) mmol/L Anion Gap (3-11) BUN (7-18) mg/dl Creatinine (0.6-1.4) mg/dl Est Cr Clr Drug Dosing Est GFR ( Amer) Est GFR (Non-Af Amer) BUN/Creatinine Ratio (10-20) Glucose (70-99) mg/dl POC Glucose (70-99) POC Glucose (other) 98 98 (70-99) mg/dl Lactate (0.4-2.0) mmol/L Calcium (8.5-10.1) mg/dl Ionized Calcium (1.12-1.32) mmol/L Magnesium (1.8-2.4) mg/dl Total Bilirubin (0.2-1) mg/dl Direct Bilirubin (0-0.2) mg/dl AST (15-37) U/L ALT (12-78) U/L Alkaline Phosphatase (45-117) U/L Troponin I (0-0.045) ng/ml Total Protein (6.4-8.2) gm/dl Albumin (3.4-5.0) gm/dl Globulin (2.5-4.0) gm/dl Albumin/Globulin Ratio (0.9-2) Lipase (73-393) U/L Urine Color Urine Appearance (Clear) Urine pH (4.5-7.5) Ur Specific [place] (1.000-1.030) Urine Protein (Negative) Urine Glucose (UA) (Negative) Urine Ketones (Negative) Urine Blood (Negative) Urine Nitrite (Negative) Urine Bilirubin (Negative) Urine Urobilinogen (Negative) Ur Leukocyte Esterase (Negative) Urine WBC (Auto) (0-5) /hpf Urine RBC (Auto) (0-4) /hpf U Hyaline Cast (Auto) (0-5) /lpf U Epithel Cells (Auto) (0-5) /lpf Urine Bacteria (Auto) (Negative) Ur Random Sodium mmol/L Ur Random Urea Nitrogn mg/dl Nasal Screen MRSA (PCR) (Negative) Blood Type Antibody Screen 06/20/18 06/20/18 06/20/18 Range/Units 17:19 17:19 17:38 WBC (4.8-10.8) K/uL RBC (4.7-6.1) M/uL Hgb (14.0-18.0) g/dL Hct (42-52) % MCV (80-100) fL MCH (25-34) pg MCHC (32-36) g/dL RDW Std Deviation (36.4-46.3) fL RDW Coeff of Johnny (11.5-14.5) % Plt Count (130-400) K/uL MPV (7.4-10.4) fL Immature Gran % (Auto) % Neut % (Auto) % Lymph % (Auto) % [place] % (Auto) % Eos % (Auto) % Baso % (Auto) % Immature Gran # (Auto) (0.00-0.02) K/uL Neut # (Auto) (1.4-6.5) K/uL Lymph # (Auto) (1.2-3.4) K/uL [place] # (Auto) (0.11-0.59) K/uL Eos # (Auto) (0-0.5) K/uL Baso # (Auto) (0-0.2) K/uL Absolute Nucleated RBC (0-0) K/uL Nucleated RBC % (auto) % Basophilic Stippling PT 12.7 H (9.0-12.0) Seconds INR 1.3 H (0.9-1.1) APTT 30.1 (21.0-31.0) Seconds PTT Ratio 1.2 Specimen Type Sample Site Patient Temperature POC pH (7.35-7.45) POC pCO2 (35-46) mmHg POC pO2 (80-95) mmHg POC HCO3 (19-24) gian/L POC Total CO2 (24-31) mEq/l POC Base Excess (-9-1.8) gian/L O2 Sat Pulse Oximetry ABG pH ABG pH (Temp Correct) (7.35-7.45) ABG pCO2 ABG pCO2 (Temp Corrct (35-46) mmHg ABG pO2 POC ABG pO2 at Pt Temp ABG HCO3 POC ABG O2 Sat (90-95) % ABG O2 Saturation ABG Base Excess Gurpreet Test VBG pH (7.36-7.41) VBG pCO2 (38-50) mmHg VBG pO2 mmHg VBG HCO3 mmol/L VBG O2 Saturation % VBG Base Excess mEq/L Barometric Pressure Oxygen Given O2 Delivery Device POC O2 Rate Minute Ventilation Vent Mode POC FiO2 % Tidal Volume End Tidal CO2 PEEP Sodium (136-145) mmol/L Potassium (3.5-5.1) mmol/L Chloride (98-107) mmol/L Carbon Dioxide (21-32) mmol/L Anion Gap (3-11) BUN (7-18) mg/dl Creatinine (0.6-1.4) mg/dl Est Cr Clr Drug Dosing Est GFR ( Amer) Est GFR (Non-Af Amer) BUN/Creatinine Ratio (10-20) Glucose (70-99) mg/dl POC Glucose (70-99) POC Glucose (other) 135 H (70-99) mg/dl Lactate (0.4-2.0) mmol/L Calcium (8.5-10.1) mg/dl Ionized Calcium 1.08 L (1.12-1.32) mmol/L Magnesium (1.8-2.4) mg/dl Total Bilirubin (0.2-1) mg/dl Direct Bilirubin (0-0.2) mg/dl AST (15-37) U/L ALT (12-78) U/L Alkaline Phosphatase (45-117) U/L Troponin I (0-0.045) ng/ml Total Protein (6.4-8.2) gm/dl Albumin (3.4-5.0) gm/dl Globulin (2.5-4.0) gm/dl Albumin/Globulin Ratio (0.9-2) Lipase (73-393) U/L Urine Color Urine Appearance (Clear) Urine pH (4.5-7.5) Ur Specific [place] (1.000-1.030) Urine Protein (Negative) Urine Glucose (UA) (Negative) Urine Ketones (Negative) Urine Blood (Negative) Urine Nitrite (Negative) Urine Bilirubin (Negative) Urine Urobilinogen (Negative) Ur Leukocyte Esterase (Negative) Urine WBC (Auto) (0-5) /hpf Urine RBC (Auto) (0-4) /hpf U Hyaline Cast (Auto) (0-5) /lpf U Epithel Cells (Auto) (0-5) /lpf Urine Bacteria (Auto) (Negative) Ur Random Sodium mmol/L Ur Random Urea Nitrogn mg/dl Nasal Screen MRSA (PCR) (Negative) Blood Type Antibody Screen Imaging Data Attestation: I personally reviewed and interpreted this imaging study as follows : My Impression: Chest X-ray: Near white out of right lung. ET tube is 4 cm above the yosef. Cardiomegaly noted. Repeat Chest X-Ray: Moderate clearing of right lung. ET tube 3 cm above yosef. OG tube in proper position. Radiologist's Impression: Radiology results as stated below per my review and the radiologist's interpretation: XR chest 1V portable HISTORY: 68 years-old Male eval right lung and tube placement acute respiratory failure.r COMPARISON: Chest radiograph of same day at 3:38 AM TECHNIQUE: Portable supine AP view of the chest FINDINGS: Cardiac silhouette is enlarged, unchanged. Calcification the thoracic aortic arch. Endotracheal tube overlies the midline, 4.5 cm superior to the level of the yosef. An enteric tube has been placed with distal tip in the region of the distal esophagus. Pulmonary vascular congestion with mild interstitial coarsening. New consolidative retrocardiac left basilar opacities. Mild blunting of the costophrenic angles suggests trace effusions. No pneumothorax. Improved aeration of the right upper lung. Persistent patchy airspace opacities throughout the right lung including a 2.6 cm round density of the right lung base. IMPRESSION: 1. Endotracheal and enteric tube placement as above. 2. Cardiomegaly without overt pulmonary edema. 3. Improved aeration of the right upper lobe. Patchy right lung and left basilar opacities suggest areas of atelectasis or pneumonitis. 4. 2.6 cm round opacity of the right lung base. Correlation with ordered CTA chest of same day recommended. The above report was generated using voice recognition software. It may contain grammatical, syntax or spelling errors. Electronically signed by: Ron Barrera M.D. 06/20/2018 6:32 AM XR chest 1V portable HISTORY: 68 years-old Male Chest Pain acute atypical chest pain COMPARISON: Chest radiograph of same day at 5:27 AM, chest radiograph 06/13/2018 TECHNIQUE: Supine AP view of the chest FINDINGS: Cardiac silhouette is enlarged. Calcification of the thoracic aortic arch. Mild pulmonary vascular congestion. Endotracheal tube overlies the midline, 4.3 cm superior to the level of the yosef. Dense consolidation of the right upper lung. Mild blunting of the costophrenic angles suggests trace effusions. Mild right hemidiaphragmatic elevation. Bones appear unremarkable. IMPRESSION: 1. Endotracheal tube overlies the midline, 4.3 cm superior to the yosef. 2. Volume loss of the right lung with consolidation of the right upper lobe suggestive of atelectasis possibly from mucous plugging. 3. Cardiomegaly without overt pulmonary edema. The above report was generated using voice recognition software. It may contain grammatical, syntax or spelling errors. Electronically signed by: Ron Barrera M.D. 06/20/2018 6:39 AM ECG Data Attestation: I personally reviewed and interpreted this ECG as follows: Indication: other (cardiac arrest) Rate (beats per minute): 117 Rhythm: atrial fibrillation (with RVR) Findings: + ST depression (significant in anterior and lateral leads, concerning for ischemia) Comparison ECG Date: from (06/13/18) Change: the following changes noted (significant st segment depression in anterior and lateral leads, concerning for ischemia.) Blood Pressure Blood Pressure Findings: Low blood pressure Blood Pressure Disposition: further management by hospitalist KRAIG Narrative The patient is a 68 year old male who presents to the Emergency Room with 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 The patient resides at [facility]. He is morbidly obese with a history of hypercapnic respiratory failure and obesity hypoventilation syndrome with a recent hospitalization. The patient had urinated himself and called for help. Upon their evaluation of the patient, he was in moderate to severe respiratory distress and was becoming cyanotic. He then went unresponsive and pulseless. CPR was initiated by staff. He was noted to be asystolic. EMS was able to perform ACLS guidelines and successfully resuscitate the patient to return of spontaneous circulation. Upon presentation to the emergency department, the patient remained unresponsive although he was breathing 8-10 times a minute on his own. A post resuscitation workup was initiated as well as a septic protocol. Initial chest x-ray showed obliteration of the right lung. With deep suctioning , there was thick yellow substance from the endotracheal tube. I was concerned about the possibility of acute aspiration or PE as the cause of the patient's initial cardiac arrest. O2 saturations came up nicely with suctioning and advancing the endotracheal tube. I treated the patient with IV antibiotics after blood cultures were obtained. The patient's blood pressure began to drop. He was bolused with normal saline solution and started on a Levophed drip. His blood pressure responded nicely to this. The charge nurse made multiple attempts at contacting the patient's power of estate planning attorney. She was unsuccessful. I discussed the case with the hospitalist and the supervisor tumbling and rolling and they will care for the patient. Impression & Plan Cardiac arrest, Hypothermia, Aspiration into airway Critical Care Time I have personally spent greater than 100 minutes of critical care time in the direct management of this patient. This includes bedside care, interpretation of diagnostic studies, and testing, discussion with consultants, patient, and family members, and other required patient management activities. This 100 minutes is in excess of all separately billable procedures. Critical Care Time: Yes Total Critical Care Time: 100 Discharge Plan Visit Data *Final* Discharge Date/Time: 06/20/18 07:10 Chief Complaint: Cardiac Arrest/CPR ED Provider: Tiffanie Hamm Discharge Problem: Cardiac arrest, Hypothermia, Aspiration into airway Patient Disposition: Admitted As Inpatient Discharge Instructions Interventions: ED Discharge Assessment Last Done: 06/20/18 07:10 The scribe's documentation has been prepared under my direction and personally reviewed by me in its entirety. I confirm that the note above accurately reflects all work, treatment, procedures, and medical decision making performed by me.
--- NOTE | 2018-06-20 08:07 | CT Scan Report ---
CT angio chest PE protocol CT DOSE: 4767.85 mGy.cm HISTORY: 68 years-old Male with PE. Acute shortness of breath with cardiac arrest TECHNIQUE: Multiple CTA images of the chest were obtained after the intravenous administration of ml Optiray 320. Coronal and sagittal MIPS were obtained from the axial data set and were submitted for review. All measurements were obtained according to NASCET criteria. A dose lowering technique w as utilized adhering to the principles of ALARA. COMPARISON: CT abdomen and pelvis and chest radiograph of same day, CTA chest 01/12/2016. FINDINGS: CTA: Moderate multichamber cardiac enlargement. Coronary arterial calcifications are noted. Calcification of the thoracic aortic arch. Patency of the imaged great vessels. No thoracic aortic aneurysm or diss ection. Dilation of the main pulmonary artery, 3.5 cm transversely. Streak artifact from positioning of the patient's upper extremities limits the study. Respiratory motion also limits the exam. No foca l filling defects identified within the pulmonary arterial tree to suggest thromboembolic disease. CT CHEST: No dominant thyroid nodule. Endotracheal tube is noted with distal tip noted within the trachea termi nating above the level of the yosef. Enteric tube is noted with distal tip terminating about the mid gastric body. No adenopathy. Moderate amount of trickle bronchial secretions are noted. Trace pleural effusions. No pneumothorax. Pulmonary vascular congestion with mild intralobular septal thickening. Layering consolidative opacit ies are noted within all lobes bilaterally, notably with consolidation seen within the left lung base . Thickening of the bronchovascular bundles. No acute process of the imaged upper abdomen. Moderate thickening of the left adrenal gland. Moderate at the paraspinal musculature. Acute bilateral anterior rib fractures involve the right second throu gh eighth ribs and the left third through seventh ribs. Several of the right-sided ribs are mildly di splaced. Multilevel spondylitic spurring of the spine. IMPRESSION: 1. Cardiomegaly with mild pulmonary edema and trace pleural effusions. 2. Endotracheal and enteric tube placement as above. 3. Moderate tracheobronchial secretions with patchy bilateral consolidative opacities, most pronounce d within the left lung base suggesting atelectasis or pneumonitis. 4. Acute bilateral rib fractures, several of which on the right are mildly displaced, likely sequela of recent resuscitation. 5. Suggestion of pulmonary arterial hypertension. The above report was generated using voice recognition software. It may contain grammatical, syntax o r spelling errors. Electronically signed by: Ron Barrera M.D. 06/20/2018 8:06 AM
--- NOTE | 2018-06-20 08:08 | CT Scan Report ---
CT OF THE ABDOMEN AND PELVIS WITH CONTRAST CLINICAL HISTORY: elevated lft, arrest COMPARISON STUDY: CT of the abdomen and pelvis December 29, 2015. Right upper quadrant ultrasound November 282016. TECHNIQUE: Following IV administration of 119 mL of Optiray-320, axial images of the abdomen and pelv is were obtained from the lung bases to the proximal femurs. Images were reviewed in the axial, sagit kenya, and coronal planes. IV contrast was administered without complication. Automated exposure contr ol was utilized for the study. A dose lowering technique was utilized adhering to the principles of ALARA. FINDINGS: Please note that the chest CT will be reported separately. Multiple anterior bilateral rib fractures are partially imaged on this exam. There is mild fissural widening of the liver. The spleen is mildly enlarged. A left adrenal nodule is benign. Right adrenal gland, kidneys and pancreas are u nremarkable. There is no hydronephrosis. There are gallstones within the gallbladder. The gallbladder is not distended. Mild pericholecystic infiltration. Trace ascites is noted. There is no biliary sandra kenya dilatation. A few tiny common bile duct calculi measure up to 3 mm. There is no biliary ductal di latation. There is no evidence for a bowel obstruction however portions of the left aspect of the abd omen were obscured on this exam. Evaluation is compromised by body wall contacting the gantry. There is a large amount stool within the rectum. Rectal tube is in place. There is no evidence for a bowel obstruction. Tracy balloon within the bladder is present. Muscular atrophy is noted. There are age in determinate compression fractures of T12, L1, L2 and L5. There is no lymphadenopathy. Major vasculatu re appears patent. IMPRESSION: 1. Several small common bile duct calculi which measure up to 3 mm. No biliary ductal dilatation. 2. Cholelithiasis. Mild pericholecystic infiltration however the findings are not highly suggestive o f acute cholecystitis given lack of gallbladder distention. 3. Portion of the left aspect of the abdomen excluded on this exam, as described above. However, no e vidence for a bowel obstruction. Large amount stool within the rectum. Colonic diverticulosis without evidence for acute diverticulitis. 4. Findings raising the possibility of early cirrhosis. Mild splenomegaly. 5. Age indeterminate mild compression fractures of T12, L1, L2 and L5. Electronically signed by: Ernesto Hull M.D. 06/20/2018 8:07 AM
[2018-06-20] MEDS ORDERED: INSULIN GLARGINE SOLOSTAR 100 UNITS/ML 3 ML PEN SC SCH (08:21)
[2018-06-20] MEDS ORDERED: BISACODYL 10 MG SUPP PR PRN (08:21)
[2018-06-20] MEDS ORDERED: POLYETHYLENE (MIRALAX) 17 GM PACK PO PRN (08:21)
[2018-06-20] MEDS ORDERED: NOREPINEPHRINE BIT INJ 8 MG in DEXTROSE 5% 500 ML IV STA (08:21)
[2018-06-20] MEDS ORDERED: ICU PROTOCOL FOR HYPERGLYCEMIA PRN (08:21)
[2018-06-20] MEDS ORDERED: DOCUSATE SODIUM 100 MG CAP PO PRN (08:21)
[2018-06-20] MEDS ORDERED: ACETAMINOPHEN 325 MG TAB PO PRN (08:21)
[2018-06-20 08:30] LABS: iSTAT Allen Test Pass; iSTAT Arterial Blood Gas HCO3 30 meg/L (19-24); iSTAT Carbon Dioxide 34 mEq/l (24-31); iSTAT FiO2 80 %
[2018-06-20] MEDS ORDERED: CALCIUM GLUCONATE 10% 1,000 MG in SODIUM CHLORIDE 0.9% 50 ML IV ONE (08:45)
[2018-06-20] MEDS ORDERED: GLUCAGON FOR INJ 1 MG VIAL IM PRN (08:49)
[2018-06-20] MEDS ORDERED: CARBOHYDRATES FOR HYPOGLYCEMIA PO PRN (08:49)
[2018-06-20] MEDS ORDERED: GLUCOSE 10 TABS/TUBE PO PRN (08:49)
[2018-06-20] MEDS ORDERED: GLUCOSE 40% GEL 15 GM TUBE PO PRN (08:49)
[2018-06-20] MEDS ORDERED: fentaNYL citrate 100 MCG/2 ML VIAL ONE (09:19)
[2018-06-20] MEDS: MIDAZOLAM HCL 125 MG/250 ML BAG IV SCH (09:25)
[2018-06-20] MEDS: INSULIN ASPART 100 UNITS/ML 3 ML PEN SC SCH ×5 (09:40→23:28)
--- NOTE | 2018-06-20 10:26 | Pharmacy Report ---
Pharmacy Abx Initial Consult - Date of Service June 20, 2018 - Pharmacy Dosing Scope Date of Consult: 06/20/18 Consultation requested by: Dr. Mary Kearney Pharmacy is consulted to initiate IV Vancomycin + Zosyn therapy, order appropriate labs and adjust drug dose/frequency. - Subjective The patient is a 68 year old M admitted on 06/20/18 05:46 for witnessed cardiac arrest, s/p ROSC. Cardiac arrest suspected to be secondary to resp failure. - Objective Height: 6 ft 1 in Weight: 127.8 kg Vital Signs (Past 12hrs): Vital Signs Temp Pulse Pulse Resp BP BP Pulse Ox 06/20/18 08:28 97 H 26 H 100 06/20/18 07:10 92/54 L 06/20/18 07:01 35.5 C L 85 20 81/51 L 100 06/20/18 06:19 94 H 20 82/56 L 100 06/20/18 06:04 101 H 20 139/76 100 06/20/18 05:51 99 H 20 117/71 100 06/20/18 05:45 96 H 20 107/67 100 06/20/18 05:19 92 H 20 96/75 L 100 06/20/18 05:17 84 20 100 06/20/18 05:05 89 20 103/67 100 06/20/18 04:49 35.0 C L 90 20 76/45 L 100 06/20/18 04:36 90 20 70/49 L 99 06/20/18 04:34 94 H 20 94 06/20/18 04:17 105 H 16 89/47 L 92 06/20/18 04:08 88 L 06/20/18 03:59 123 H 16 164/86 H 87 L Lab Results (24hrs): Laboratory Tests (24 Hours) 06/20/18 06/20/18 04:00 04:00 WBC 13.57 H Neut # (Auto) 10.27 H Creatinine 1.58 H D Est Cr Clr Drug Dosing Not Reportable Micro Results: 06/20/18 09:06 Blood Culture - Pending Blood 06/20/18 09:13 Blood Culture - Pending Blood 06/20/18 04:29 Blood Culture - Pending Blood 06/20/18 04:29 Blood Culture - Pending Blood - Risk Factors for Resistance * Resident in a [facility] or extended-care facility * Hospitalization for 48 hours or more within the past 90 days * 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 * CT read as: Moderate tracheobronchial secretions with patchy bilateral consolidative opacities, most pronounced within the left lung base suggesting atelectasis or pneumonitis * ASHELY present on admission (baseline SCr 0.9-1.1) * Empiric broad-spectrum abx coverage has been ordered (x48 hours) Plan Vancomycin IV * Estimated PK Parameters: Vd 0.6 L/kg (due to BMI > 35), t1/2 ~ 12-13 hr * Loading dose: 2500 mg (~20 mg/kg) * Maintenance dose: 1500 mg IV (~12 mg/kg) every 14 hours * Goal trough level for pulm infxn : 15 to 20 mcg/mL * No trough level has yet been ordered. If therapy continues beyond 48 hrs will check level w/ 3rd or 4th dose Piperacillin/tazobactam * 4.5 g bolus administered over 30 minutes, then 4.5 g IV extended infusion every 8 hours for CrCl greater than 20 mL/min * Aggressive dosing selected due to critically ill status/BMI 35 or more/ history of cystic fibrosis. Pharmacy will continue to follow and will adjust dose/frequency as necessary. Thank you.
[2018-06-20] MEDS ORDERED: NovoLIN-R BOLUS FROM BAG IV ONE (11:15)
[2018-06-20] MEDS: PANTOprazole 40 MG in SYRINGE 0 ML IV SCH (11:18)
[2018-06-20] MEDS: PIPERACILLIN/TAZOBACTAM 4.5 GM in DEXTROSE 5% 100 ML IV SCH ×2 (11:18→18:09)
--- NOTE | 2018-06-20 11:52 | Procedure Note ---
EEG Procedure Note Date of Service June 20, 2018 Start / End Times Start Time: 9:35 AM End Time: 9:55 AM Referring Physician Alessandro Morelos History This is a 68-year-old male who presented with cardiac arrest who is intubated and sedated in the ICU. EEG for further evaluation of subclinical seizure activity for johnny best. Home Medication List Home Medications Medication Instructions Recorded Confirmed Type aspirin 81 mg PO DAILY 06/13/18 06/20/18 History atorvastatin [Lipitor] 40 mg PO HS 06/13/18 06/20/18 History escitalopram oxalate [Lexapro] 5 mg PO DAILY 06/13/18 06/20/18 History glucagon (human recombinant) 1 dose SUBCUT UD PRN 06/13/18 06/20/18 History [Glucagon Emergency Kit (human)] loratadine [Claritin] 10 mg PO DAILY 06/13/18 06/20/18 History magnesium oxide 400 mg PO DAILY 06/13/18 06/20/18 History acetaminophen 650 mg PO Q6H PRN MDD 3gm/24hr 06/20/18 06/20/18 History acetaminophen 650 mg PO Q6H PRN MDD 3gm/24hrs 06/20/18 06/20/18 History apixaban [Eliquis] 5 mg PO BID 06/20/18 06/20/18 History ascorbic acid (vitamin C) [Vitamin 250 mg PO BID 06/20/18 06/20/18 History C] baclofen 10 mg PO Q8 PRN 06/20/18 06/20/18 History bumetanide 0.5 mg PO BID 06/20/18 06/20/18 History calcium carbonate [Oyster Shell 500 mg PO DAILY 06/20/18 06/20/18 History Calcium] cyanocobalamin (vitamin B-12) 1,000 mcg PO DAILY 06/20/18 06/20/18 History [Vitamin B-12] ergocalciferol (vitamin D2) 50,000 unit PO WK 06/20/18 06/20/18 History famotidine 40 mg PO HS 06/20/18 06/20/18 History fenofibrate micronized 67 mg PO HS 06/20/18 06/20/18 History ferrous sulfate 325 mg PO BID 06/20/18 06/20/18 History insulin aspart U-100 [Novolog 4 unit SUBCUT QPM 06/20/18 06/20/18 History Flexpen U-100 Insulin] insulin aspart U-100 [Novolog 6 unit SUBCUT QAM 06/20/18 06/20/18 History Flexpen U-100 Insulin] insulin detemir U-100 [Levemir 15 unit SUBCUT BID 06/20/18 06/20/18 History FlexTouch U-100 Insuln] lactase 3,000 unit PO AC 06/20/18 06/20/18 History metformin 1,000 mg PO BID 06/20/18 06/20/18 History oxycodone 10 mg PO TID 06/20/18 06/20/18 History polyethylene glycol 3350 [Miralax] 17 g PO DAILY 06/20/18 06/20/18 History sennosides [senna] 8.6 mg PO DAILY 06/20/18 06/20/18 History vit A,C and V-sdfato-rdtcmqcc 1 tab PO DAILY 06/20/18 06/20/18 History [Ocuvite with Lutein] Inpatient Medication List Insulin Human Regular 250 (units/ Sodium Chloride) 250 mls @ 4.8 mls/hr IV .Q24H [facility]; Protocol Stop: 07/20/18 07:44 Last Admin: 06/20/18 11:18 Dose: 4.8 units/hr, 4.8 mls/hr Pantoprazole Sodium 40 mg/ (Syringe) 10 mls @ 5 mls/min IV DAILY@1100 [facility] Stop: 07/20/18 10:59 Last Admin: 06/20/18 11:18 Dose: 5 mls/min Piperacillin Sod/Tazobactam (Sod 4.5 gm/ Dextrose) 120 mls @ 30 mls/hr IV Q8H [facility]; Protocol Stop: 06/22/18 09:59 Last Admin: 06/20/18 11:18 Dose: 30 mls/hr Midazolam HCl (Versed) 125 mg in 250 mls @ 2 mls/hr IV .Q24H [facility]; Protocol Stop: 07/20/18 08:20 Last Admin: 06/20/18 09:25 Dose: 1 mg/hr, 2 mls/hr Insulin Aspart (Novolog Flexpen) 0 units SC [facility] Stop: 07/20/18 08:59 Last Admin: 06/20/18 11:19 Dose: Not Given Admin: 06/20/18 09:40 Dose: Not Given Ioversol (Optiray 320 125ml) 119 ml IV ONCE PRN PRN Reason: Interaction Checking Stop: 06/24/18 07:39 Last Admin: 06/20/18 07:40 Dose: 119 ml Discontinued Medications Fentanyl Citrate (Fentanyl Citrate) Confirm Administered Dose 100 mcg .ROUTE .STK-MED ONE Stop: 06/20/18 09:20 Last Admin: 06/20/18 11:41 Dose: Not Given Sodium Chloride (Nss) 500 mls @ 999 mls/hr IV .Q31M ONE Stop: 06/20/18 04:57 Last Infusion: 06/20/18 05:18 Dose: Admin: 06/20/18 04:30 Dose: 999 mls/hr Piperacillin Sod/Tazobactam Sod (Zosyn) 4.5 gm in 120 mls @ 240 mls/hr IV NOW ONE Stop: 06/20/18 04:57 Last Infusion: 06/20/18 05:24 Dose: Admin: 06/20/18 04:54 Dose: 240 mls/hr Levofloxacin/Dextrose (Levaquin/D5w) 750 mg in 150 mls @ 100 mls/hr IV NOW STA Stop: 06/20/18 05:58 Last Infusion: 06/20/18 06:58 Dose: Admin: 06/20/18 05:18 Dose: 100 mls/hr Norepinephrine Bitartrate 8 mg (/ Dextrose) 508 mls @ 48.69 mls/hr IV .[id number] [facility]; Protocol Stop: 07/20/18 04:44 Last Titration: 06/20/18 07:40 Dose: 0 mcg/kg/min, 0 mls/hr Admin: 06/20/18 04:54 Dose: 0.1 mcg/kg/min, 48.7 mls/hr Sodium Chloride (Nss 1000ml) 1,000 mls @ 999 mls/hr IV .Q1H1M ONE Stop: 06/20/18 05:43 Last Infusion: 06/20/18 05:50 Dose: Admin: 06/20/18 04:51 Dose: 999 mls/hr Vancomycin HCl 2,500 mg/ (Sodium Chloride) 550 mls @ 200 mls/hr IV NOW ONE Stop: 06/20/18 08:59 Last Infusion: 06/20/18 09:42 Dose: 0 mls/hr Admin: 06/20/18 06:18 Dose: 200 mls/hr Calcium Gluconate 1,000 mg/ (Sodium Chloride) 60 mls @ 240 mls/hr IV 0845 ONE Stop: 06/20/18 08:59 Last Infusion: 06/20/18 10:00 Dose: 0 mls/hr Admin: 06/20/18 09:42 Dose: 240 mls/hr Insulin Human Regular (Novolin R Bolus From Bag) 5 units IV ONE ONE Stop: 06/20/18 11:16 Last Admin: 06/20/18 11:19 Dose: 5 units Description This is a 21 electrode EEG with a single channel dedicated to limited EKG. The electrodes were placed in accordance with the International 10-20 system. At the start of this recording the patient was reportedly unresponsive and intubated. This EEG was extremely limited due to diffuse background electrical artifact. Background activity was difficult to assess due to diffuse electrical artifact, but often appeared attenuated. There may have been some areas of possible theta activity in the background. There was no state changes. Hyperventilation and photic stimulation were not done. Interpretation This is an abnormal, although severely technically limited, routine EEG secondary to background disorganization and slowing. No electrographic seizures or epileptiform discharges were identified through electrical artifact. Clinical Correlation This EEG indicates a diffuse encephalopathy of nonspecific etiology. Sedating medications can contribute to encephalopathy. No neurological prognosis can be made based off of this EEG due to severe technical limitations.
[2018-06-20] MEDS: SODIUM CHLORIDE 0.9% 1000ML 1,000 ML IV SCH ×3 (12:18→22:28)
[2018-06-20 12:19] LABS: INR 1.3 (0.9-1.1); Partial Thromboplastin Ratio 1.2; Partial Thromboplastin Time 30.2 Seconds (21.0-31.0); Prothrombin Time 12.8 Seconds (9.0-12.0)
[2018-06-20 12:31] LABS: BUN Creatinine Ratio 44.4 (10-20); Creatinine Clr Calc Pharmacy 56.6 ml/min; Est GFR (African American) 45.4; Est GFR (Non-African American) 39.1; Magnesium 1.9 mg/dl (1.8-2.4); Potassium 4.5 mmol/L (3.5-5.1)
[2018-06-20 13:23] LABS: Appearance Urine Cloudy (Clear); Bacteria Urine Automated Negative (Negative); Bilirubin Urine Negative (Negative); Color Urine Dark Yellow; Glucose Urine UA Negative (Negative); Ketones Urine Negative (Negative); Leukocyte Esterase Urine Negative (Negative); Nitrite Urine Negative (Negative); Protein Urine Negative (Negative); Specific Gravity Urine 1.016 (1.000-1.030); Urobilinogen Urine Negative (Negative); WBC Urine Automated 0 /hpf (0-5)
--- NOTE | 2018-06-20 13:29 | History & Physical Bridge Note ---
Date of Service June 20, 2018 History & Physical Bridge Note Patient seen and examined, then discussed with Dr. Velasco at bedside. From noted history, he had respiratory-caused asystolic cardiac arrest. Intubated in the ED with thick secretions. Presently undergoing cooling protocol. Will follow along with critical care managing while critically ill.
[2018-06-20 14:30] LABS: iSTAT Arterial Blood Gas HCO3 28 meg/L (19-24); iSTAT Carbon Dioxide 30 mEq/l (24-31); iSTAT FiO2 80 %
[2018-06-20 14:31] LABS: iSTAT Allen Test Acceptable
[2018-06-20] MEDS: DEXTROSE 50% 50 ML SYRINGE IV PRN ×2 (14:39→16:50)
[2018-06-20] MEDS: fentaNYL DRIP 1,250 MCG/250 ML BAG IV SCH (15:39)
[2018-06-20 16:31] LABS: iSTAT Arterial Blood Gas HCO3 25 meg/L (19-24); iSTAT Carbon Dioxide 27 mEq/l (24-31); iSTAT FiO2 40 %
[2018-06-20 17:51] LABS: INR 1.3 (0.9-1.1); Partial Thromboplastin Ratio 1.2; Partial Thromboplastin Time 30.1 Seconds (21.0-31.0); Prothrombin Time 12.7 Seconds (9.0-12.0)
[2018-06-20 17:56] LABS: Albumin Level 2.1 gm/dl (3.4-5.0); BUN Creatinine Ratio 45.8 (10-20); Bilirubin Direct 0.4 mg/dl (0-0.2); Calcium 7.7 mg/dl (8.5-10.1); Creatinine Clr Calc Pharmacy 57.3 ml/min; Est GFR (Non-African American) 39.7; Magnesium 1.8 mg/dl (1.8-2.4)
[2018-06-20 18:02] LABS: Bilirubin,Total 0.6 mg/dl (0.2-1); Total Protein 5.7 gm/dl (6.4-8.2)
[2018-06-20 18:03] LABS: Potassium 4.9 mmol/L (3.5-5.1)
--- NOTE | 2018-06-20 19:08 | Procedure Note ---
Procedure Note Date of Service June 20, 2018 Note Placement of icy cool line for TTM, no consent was obtained, no family available at the moment, the patient is already intubated after cardiac arrest. The procedure was done under strict sterile field, right groin area, 38 cm line was used, using ultrasound guidance, the skin was prepped with chlorhexidine, injected with 5 mL 1% lidocaine, the line was placed using Seldinger technique, no scalpel but dilator, the line was placed to 38 cm, all ports were flushed with saline, connected to active cooling. Goal of temperature is 33-36. Was sutured with 2 sutures and covered with surgical dressing. No immediate complication.
--- NOTE | 2018-06-20 19:09 | Procedure Note ---
Procedure Note Date of Service June 20, 2018 Note Bronchoscopy was done as the patient showed signs of aspiration, consent was deferred as the procedure was done emergently, the patient was already intubated and monitored throughout the entire procedure with OR side of monitoring in ICU #10. Under strict sterile field, the bronchoscope passed through the blue adapter through the #8 ET tube. The tracheobronchial tree examined to the sub-�subsegmental level. Findings as follows: 1. The ET tube is in good position 3 cm above the yosef. 2. Moderate amount of secretions suctioned mainly from the right lower lobe and its branches. 3. Moderate amount of secretions from the right middle lobe. Suction to clear. 4. Left lower lobe moderate amount of secretions also were suctioned. 5. The specimen was sent for culture. 6. The bronchoscope was removed after that and the patient tolerated the procedure very well. 7. Noted edematous airways beyond the main yosef. 8. The patient did not require any sedation, minimal amount of lidocaine was used topical.
--- NOTE | 2018-06-20 19:10 | Procedure Note ---
Procedure Note Date of Service June 20, 2018 Note A line was placed in the right groin area, no axis radially, under strict sterile field, the skin was prepped with chlorhexidine, under ultrasound guidance, using Seldinger technique, no scalpel or dilator, femoral line was placed and connected to the monitor, a waves were noted. Was sutures were surgical sutures and covered with surgical dressing under strict sterile field.
[2018-06-20] MEDS ORDERED: PHARMACY GLYCEMIC MGMT CONSULT PRN (19:27)
[2018-06-20] MEDS ORDERED: INSULIN DETEMIR FLEXPEN/FLEX TOUCH 100 UNITS/ML 3ML SC STA (19:39)
[2018-06-20] MEDS: VANCOMYCIN HCL 1,500 MG in SODIUM CHLORIDE 0.9% 500 ML IV SCH (20:12)
[2018-06-20 22:42] LABS: iSTAT Arterial Blood Gas HCO3 25 meg/L (19-24); iSTAT Carbon Dioxide 26 mEq/l (24-31); iSTAT FiO2 30 %
[2018-06-20] MEDS ORDERED: VANCOMYCIN HCL 1,500 MG in SODIUM CHLORIDE 0.9% 500 ML IV SCH (23:00)
[2018-06-20] MEDS: MEPERIDINE HCL 25 MG/ML CARP IV PRN (23:27)
[2018-06-21 00:18] LABS: BUN Creatinine Ratio 45.9 (10-20); Calcium 7.9 mg/dl (8.5-10.1); Creatinine Clr Calc Pharmacy 54.7 ml/min; Est GFR (African American) 43.6; Est GFR (Non-African American) 37.6; Magnesium 1.8 mg/dl (1.8-2.4); Potassium 4.8 mmol/L (3.5-5.1)
[2018-06-21 00:20] LABS: INR 1.3 (0.9-1.1); Partial Thromboplastin Ratio 1.2; Partial Thromboplastin Time 30.8 Seconds (21.0-31.0); Prothrombin Time 12.5 Seconds (9.0-12.0)
[2018-06-21 00:23] LABS: Troponin I 0.478 ng/ml (0-0.045)
[2018-06-21] MEDS: PIPERACILLIN/TAZOBACTAM 4.5 GM in DEXTROSE 5% 100 ML IV SCH ×3 (02:01→17:13)
[2018-06-21] MEDS ORDERED: DOPAMINE / D5W 400 MG/250 ML BAG IV SCH (03:30)
[2018-06-21] MEDS: INSULIN ASPART 100 UNITS/ML 3 ML PEN SC SCH ×6 (03:43→23:15)
[2018-06-21 04:37] LABS: iSTAT Arterial Blood Gas HCO3 23 meg/L (19-24); iSTAT Carbon Dioxide 25 mEq/l (24-31); iSTAT FiO2 30 %
[2018-06-21] MEDS: fentaNYL DRIP 1,250 MCG/250 ML BAG IV SCH (05:28)
[2018-06-21 06:08] LABS: INR 1.3 (0.9-1.1); Partial Thromboplastin Ratio 1.2; Partial Thromboplastin Time 32.3 Seconds (21.0-31.0); Prothrombin Time 12.6 Seconds (9.0-12.0)
[2018-06-21 06:20] LABS: Albumin Level 2.1 gm/dl (3.4-5.0); Bilirubin Direct 0.3 mg/dl (0-0.2); Calcium 7.5 mg/dl (8.5-10.1); Creatinine Clr Calc Pharmacy 53.7 ml/min; Est GFR (African American) 40.6; Magnesium 1.8 mg/dl (1.8-2.4); Potassium 4.7 mmol/L (3.5-5.1)
[2018-06-21 06:23] LABS: Bilirubin,Total 0.6 mg/dl (0.2-1); Phosphorus 2.5 mg/dl (2.5-4.9)
[2018-06-21 06:27] LABS: Hematocrit (blood only) 29.8 % (42-52); Hemoglobin 8.7 g/dL (14.0-18.0); Mean Corpuscular Hgb Conc 29.2 g/dL (32-36); Mean Corpuscular Volume 95.5 fL (80-100); Mean Platelet Volume 9.8 fL (7.4-10.4); Platelet Count 217 K/uL (130-400); RDW Coefficient of Variation 14.5 % (11.5-14.5); RDW Standard Deviation 49.8 fL (36.4-46.3); Red Blood Count 3.12 M/uL (4.7-6.1); White Blood Count 6.78 K/uL (4.8-10.8)
[2018-06-21 06:28] LABS: Immature Granulocytes # (auto) 0.05 K/uL (0.00-0.02); Immature Granulocytes % (auto) 0.7 %; Lymphocytes # (auto) 0.67 K/uL (1.2-3.4); Lymphocytes % (auto) 9.9 %; Monocytes # (auto) 0.63 K/uL (0.11-0.59); Monocytes % (auto) 9.3 %; Neutrophils # (auto) 5.43 K/uL (1.4-6.5); Neutrophils % (auto) 80.1 %; RBC Morphology Unremarkable
[2018-06-21 07:24] LABS: Estimated Average Glucose 120 mg/dl
[2018-06-21] MEDS: SODIUM CHLORIDE 0.9% 1000ML 1,000 ML IV SCH ×2 (07:25→17:13)
[2018-06-21] MEDS: VANCOMYCIN HCL 1,500 MG in SODIUM CHLORIDE 0.9% 500 ML IV SCH (10:43)
[2018-06-21] MEDS: PANTOprazole 40 MG in SYRINGE 0 ML IV SCH (10:44)
[2018-06-21] MEDS: MAGNESIUM SULFATE / D5W 1 GM/100 ML BAG IV SCH ×2 (10:44→11:45)
[2018-06-21 10:52] LABS: iSTAT Arterial Blood Gas HCO3 23 meg/L (19-24); iSTAT Carbon Dioxide 24 mEq/l (24-31); iSTAT FiO2 40 %
--- NOTE | 2018-06-21 12:12 | Cardiology Consultation ---
Date of Consultation June 21, 2018 Assessment & Plan (1) Cardiac arrest: He reportedly had thick secretions on presentation and was found to be in asystole. This is suspicious for hypoxic event which could lead to asystole. There are no dynamic ST abnormalities on ECG. Troponin is mildly elevated however this is not unexpected given respiratory/cardiac arrest with hypoxia and also in the setting of ATN. He has undergone hypothermia protocol and is in the process of being warmed as per critical care team. (2) Atrial fibrillation: He has been bradycardic at times with nursing staff noting heart rates in the 20s to 30s intermittently. He has not had issues with hypotension however with bradycardia. Heart rate should improve as his body temperature increases. Avoid medications that will slow heart rate. He chronically has been on anticoagulation therapy. Would resume anticoagulation therapy when no contraindications are present. While hospitalized, can consider heparin drip. (3) Bradycardia: Cannot determine if he is symptomatic as he is currently on mechanical ventilator. He did not become hypotensive however with more significant bradycardia. Continue to monitor. Heart rate should improve while his core body temperature increases. (4) Hypertension: He has mostly been hypertensive. Treatment as per critical care team and primary service. (5) NSTEMI (non-ST elevated myocardial infarction): Troponins are mildly elevated in the setting of hypoxic event with respiratory failure/cardiac arrest. Small increase in troponin is not unexpected with recent events. He has hyperdynamic LV systolic function with normal wall motion on echocardiogram. His cardiac arrest is not likely secondary to primary ischemic event. Would recommend resuming home dose of aspirin 81 mg daily if no contraindications. (He also has history of peripheral arterial disease). Can resume statin therapy when transaminase levels improved. There is no indication for urgent cardiac catheterization at this time. Recommend conservative therapy. Disposition: Patient care communicated with primary service. Critical care team, Dr. Velasco, has discussed patient with me. Cardiology will continue to follow. Thank you for allowing me to participate in the care of your patient. Please call for any other questions or concerns. Sincerely, Damon Almanzar M.D. History of Present Illness Reason for Consultation: Cardiac arrest Requesting Physician: Dr. Velasco Attending Physician: Ollie Rois MD History of Present Illness Mr. Grant is a 68-year-old gentleman with a history significant for peripheral arterial disease, obesity hypoventilation syndrome, non adherence with home BiPAP, hypertension, atrial fibrillation on Eliquis, dyslipidemia, diabetes, and Klinefelter syndrome. Patient history was obtained via review of available records and discussing with other providers given the fact that he is currently on mechanical ventilation and unable to converse. According to H and P, he was being attended to by nursing staff at the [facility] side when he developed respiratory distress and became cyanotic. He then proceeded to developed asystolic cardiac arrest. He was given epinephrine doses x2 and developed rhythm. He was in atrial fibrillation, which he has been in the past. When he was intubated upon arrival to the emergency department, he was found to have considerable amount of thick yellow secretions, that were removed. He underwent hypothermic protocol. There has been episodes of bradycardia with heart rates in the 20 to 30s transiently overnight. He was intermittently placed on dopamine to improve heart rate. Despite bradycardia, he has maintained adequate blood pressures and has arterial line in his right femoral artery. His troponins became mildly elevated. His urine output has decreased and he is felt to be in ATN. Nephrology consultation is pending. Review of systems: As above and otherwise Review of systems unobtainable due to patient's mental status and also while on mechanical ventilator. Social history: Social history obtained by reviewing H&P. He resides at a half-way, the [facility]. His brother is reportedly [id number]. Family history: Unobtainable due to patient's current ventilated state. Allergies Allergy/AdvReac Type Severity Reaction Status Date / Time NSAIDS (Non-Steroidal Allergy Unknown . Unverified 06/20/18 06:08 Anti-Inflamma Home Medications Home Medications Medication Instructions Recorded Confirmed Type aspirin 81 mg PO DAILY 06/13/18 06/20/18 History atorvastatin [Lipitor] 40 mg PO HS 06/13/18 06/20/18 History escitalopram oxalate [Lexapro] 5 mg PO DAILY 06/13/18 06/20/18 History glucagon (human recombinant) 1 dose SUBCUT UD PRN 06/13/18 06/20/18 History [Glucagon Emergency Kit (human)] loratadine [Claritin] 10 mg PO DAILY 06/13/18 06/20/18 History magnesium oxide 400 mg PO DAILY 06/13/18 06/20/18 History acetaminophen 650 mg PO Q6H PRN MDD 3gm/24hr 06/20/18 06/20/18 History acetaminophen 650 mg PO Q6H PRN MDD 3gm/24hrs 06/20/18 06/20/18 History apixaban [Eliquis] 5 mg PO BID 06/20/18 06/20/18 History ascorbic acid (vitamin C) [Vitamin 250 mg PO BID 06/20/18 06/20/18 History C] baclofen 10 mg PO Q8 PRN 06/20/18 06/20/18 History bumetanide 0.5 mg PO BID 06/20/18 06/20/18 History calcium carbonate [Oyster Shell 500 mg PO DAILY 06/20/18 06/20/18 History Calcium] cyanocobalamin (vitamin B-12) 1,000 mcg PO DAILY 06/20/18 06/20/18 History [Vitamin B-12] ergocalciferol (vitamin D2) 50,000 unit PO WK 06/20/18 06/20/18 History famotidine 40 mg PO HS 06/20/18 06/20/18 History fenofibrate micronized 67 mg PO HS 06/20/18 06/20/18 History ferrous sulfate 325 mg PO BID 06/20/18 06/20/18 History insulin aspart U-100 [Novolog 4 unit SUBCUT QPM 06/20/18 06/20/18 History Flexpen U-100 Insulin] insulin aspart U-100 [Novolog 6 unit SUBCUT QAM 06/20/18 06/20/18 History Flexpen U-100 Insulin] insulin detemir U-100 [Levemir 15 unit SUBCUT BID 06/20/18 06/20/18 History FlexTouch U-100 Insuln] lactase 3,000 unit PO AC 06/20/18 06/20/18 History metformin 1,000 mg PO BID 06/20/18 06/20/18 History oxycodone 10 mg PO TID 06/20/18 06/20/18 History polyethylene glycol 3350 [Miralax] 17 g PO DAILY 06/20/18 06/20/18 History sennosides [senna] 8.6 mg PO DAILY 06/20/18 06/20/18 History vit A,C and N-ukvbfu-edkhnolp 1 tab PO DAILY 06/20/18 06/20/18 History [Ocuvite with Lutein] Patient History Medical History Obesity hypoventilation syndrome OTONIEL (obstructive sleep apnea) Hypertension (Chronic) Obesity (Chronic) Hyperlipidemia (Chronic) Atrial fibrillation (Chronic) Diabetes mellitus, type II (Chronic) Klinefelter syndrome (Chronic) CHF (congestive heart failure) (Acute) Atrial fibrillation (Chronic) HTN (hypertension) (Chronic) Altered mental status Respiratory acidosis Family History Other No pertinent family history Social History Current Living Situation: [facility] current occupational status: retired Other Information That Helps Us Care for You: No Feels Safe at Home: Yes Safety Concerns: Feels Safe At This Time Smoking Status: Former smoker Second Hand Exposure: No Hx Alcohol Use: No Beliefs That Will Affect Care: None Communication Ability: Unable Physical Exam 2 Vital Signs (Past 24 Hours): Last Vital Signs Temp 32.9 C L 06/21/18 11:00 Pulse 56 L 06/21/18 11:00 Resp 26 H 06/21/18 11:00 BP 155/76 H 06/21/18 11:00 Pulse Ox 100 06/21/18 11:00 Intake & Output 06/19/18 06/20/18 06/21/18 06/22/18 06:59 06:59 06:59 06:59 Intake Total 3107.133 / 3107.13 3 1146.740 / 1146.74 0 Output Total 230 / 230 53 / 53 Balance 2877.133 / 2877.13 3 1093.740 / 1093.74 0 Weight 127.8 kg 138.1 kg Physical Exam: Gen.: No acute distress. On mechanical ventilator. He did not respond to verbal stimuli but did open eyes during examination. HEENT: Anicteric sclera. Pupils were equal and round. Neck: Thick neck. No bruits. Normal carotid upstrokes bilaterally. Cardiac: PMI was nonpalpable . No ventricular heave. Irregularly irregular and bradycardic. Distant heart sounds. No audible murmurs, rubs, or gallops. Pulmonary: Clear to auscultation bilaterally without wheezes, rales, or rhonchi. Abdomen: Obese. Soft, nontender, nondistended, with hypoactive bowel sounds. No bruits noted. Extremities: Very weak radial pulses bilaterally. Right femoral arterial line noted. Left femoral pulse 2 +. No cyanosis. Trace to 1+ bilateral lower extremity edema. Results & Data Laboratory Results Laboratory Results - last 24 hr 06/20/18 06/20/18 06/20/18 04:38 04:38 04:38 WBC RBC Hgb Hct MCV MCH MCHC RDW Std Deviation RDW Coeff of Johnny Plt Count MPV Immature Gran % (Auto) Neut % (Auto) Lymph % (Auto) Clinch % (Auto) Eos % (Auto) Baso % (Auto) Immature Gran # (Auto) Neut # (Auto) Lymph # (Auto) Clinch # (Auto) Eos # (Auto) Baso # (Auto) RBC Morphology PT INR APTT PTT Ratio Specimen Type Sample Site Patient Temperature POC pH POC pCO2 POC pO2 POC HCO3 POC Total CO2 POC Base Excess O2 Sat Pulse Oximetry ABG pH (Temp Correct) ABG pCO2 (Temp Corrct POC ABG pO2 at Pt Temp POC ABG O2 Sat Gurpreet Test O2 Delivery Device POC O2 Rate Minute Ventilation Vent Mode POC FiO2 Tidal Volume End Tidal CO2 PEEP Sodium Potassium Chloride Carbon Dioxide Anion Gap BUN Creatinine Est Cr Clr Drug Dosing Est GFR ( Amer) Est GFR (Non-Af Amer) BUN/Creatinine Ratio Glucose POC Glucose (other) Estimat Average Glucose Hemoglobin A1c Calcium Ionized Calcium Phosphorus Magnesium Total Bilirubin Direct Bilirubin AST ALT Alkaline Phosphatase Troponin I Total Protein Albumin Urine Color Dark Yellow Urine Appearance Cloudy H Urine pH 5.0 Ur Specific [place] 1.016 Urine Protein Negative Urine Glucose (UA) Negative Urine Ketones Negative Urine Blood Negative Urine Nitrite Negative Urine Bilirubin Negative Urine Urobilinogen Negative Ur Leukocyte Esterase Negative Urine WBC (Auto) 0 Urine RBC (Auto) 0-4 U Hyaline Cast (Auto) 1-5 U Epithel Cells (Auto) 5-10 H Urine Bacteria (Auto) Negative Ur Random Sodium 25 Ur Random Urea Nitrogn 466 Stool Occult Bld Scrn 06/20/18 06/20/18 06/20/18 07:19 10:34 12:01 WBC RBC Hgb Hct MCV MCH MCHC RDW Std Deviation RDW Coeff of Johnny Plt Count MPV Immature Gran % (Auto) Neut % (Auto) Lymph % (Auto) Clinch % (Auto) Eos % (Auto) Baso % (Auto) Immature Gran # (Auto) Neut # (Auto) Lymph # (Auto) Clinch # (Auto) Eos # (Auto) Baso # (Auto) RBC Morphology PT 12.8 H INR 1.3 H APTT 30.2 PTT Ratio 1.2 Specimen Type Arterial Sample Site Art Line Patient Temperature 37.0 POC pH 7.32 L POC pCO2 54 H POC pO2 308 H POC HCO3 28 H POC Total CO2 30 POC Base Excess 2.0 H O2 Sat Pulse Oximetry 100 ABG pH (Temp Correct) 7.320 L ABG pCO2 (Temp Corrct 54 H POC ABG pO2 at Pt Temp 308 POC ABG O2 Sat 100.0 H Gurpreet Test Acceptable O2 Delivery Device Ventilator POC O2 Rate 26 Minute Ventilation 550 Vent Mode AC POC FiO2 80 Tidal Volume 12.8 End Tidal CO2 40 PEEP 10 Sodium 140 Potassium 4.9 D Chloride 109 H Carbon Dioxide 25 Anion Gap 6.0 BUN 79 H Creatinine 1.73 H Est Cr Clr Drug Dosing 57.3 Est GFR ( Amer) 46.0 Est GFR (Non-Af Amer) 39.7 BUN/Creatinine Ratio 45.8 H Glucose 136 H POC Glucose (other) Estimat Average Glucose Hemoglobin A1c Calcium 7.7 L D Ionized Calcium Phosphorus Magnesium 1.8 Total Bilirubin 0.6 Direct Bilirubin 0.4 H AST 416 H ALT 254 H Alkaline Phosphatase 51 Troponin I Total Protein 5.7 L D Albumin 2.1 L Urine Color Urine Appearance Urine pH Ur Specific [place] Urine Protein Urine Glucose (UA) Urine Ketones Urine Blood Urine Nitrite Urine Bilirubin Urine Urobilinogen Ur Leukocyte Esterase Urine WBC (Auto) Urine RBC (Auto) U Hyaline Cast (Auto) U Epithel Cells (Auto) Urine Bacteria (Auto) Ur Random Sodium Ur Random Urea Nitrogn Stool Occult Bld Scrn 06/20/18 06/20/18 06/20/18 12:01 12:01 12:34 WBC RBC Hgb Hct MCV MCH MCHC RDW Std Deviation RDW Coeff of Johnny Plt Count MPV Immature Gran % (Auto) Neut % (Auto) Lymph % (Auto) Clinch % (Auto) Eos % (Auto) Baso % (Auto) Immature Gran # (Auto) Neut # (Auto) Lymph # (Auto) Clinch # (Auto) Eos # (Auto) Baso # (Auto) RBC Morphology PT INR APTT PTT Ratio Specimen Type Sample Site Patient Temperature POC pH POC pCO2 POC pO2 POC HCO3 POC Total CO2 POC Base Excess O2 Sat Pulse Oximetry ABG pH (Temp Correct) ABG pCO2 (Temp Corrct POC ABG pO2 at Pt Temp POC ABG O2 Sat Gurpreet Test O2 Delivery Device POC O2 Rate Minute Ventilation Vent Mode POC FiO2 Tidal Volume End Tidal CO2 PEEP Sodium 142 Potassium 4.5 Chloride 106 Carbon Dioxide 26 Anion Gap 10.0 BUN 78 H Creatinine 1.75 H Est Cr Clr Drug Dosing 56.6 Est GFR ( Amer) 45.4 Est GFR (Non-Af Amer) 39.1 BUN/Creatinine Ratio 44.4 H Glucose 156 H POC Glucose (other) 141 H Estimat Average Glucose Hemoglobin A1c Calcium 8.0 L Ionized Calcium 1.13 Phosphorus Magnesium 1.9 Total Bilirubin Direct Bilirubin AST ALT Alkaline Phosphatase Troponin I Total Protein Albumin Urine Color Urine Appearance Urine pH Ur Specific [place] Urine Protein Urine Glucose (UA) Urine Ketones Urine Blood Urine Nitrite Urine Bilirubin Urine Urobilinogen Ur Leukocyte Esterase Urine WBC (Auto) Urine RBC (Auto) U Hyaline Cast (Auto) U Epithel Cells (Auto) Urine Bacteria (Auto) Ur Random Sodium Ur Random Urea Nitrogn Stool Occult Bld Scrn 06/20/18 06/20/18 06/20/18 13:32 14:32 14:59 WBC RBC Hgb Hct MCV MCH MCHC RDW Std Deviation RDW Coeff of Johnny Plt Count MPV Immature Gran % (Auto) Neut % (Auto) Lymph % (Auto) Clinch % (Auto) Eos % (Auto) Baso % (Auto) Immature Gran # (Auto) Neut # (Auto) Lymph # (Auto) Clinch # (Auto) Eos # (Auto) Baso # (Auto) RBC Morphology PT INR APTT PTT Ratio Specimen Type Sample Site Patient Temperature POC pH POC pCO2 POC pO2 POC HCO3 POC Total CO2 POC Base Excess O2 Sat Pulse Oximetry ABG pH (Temp Correct) ABG pCO2 (Temp Corrct POC ABG pO2 at Pt Temp POC ABG O2 Sat Gurpreet Test O2 Delivery Device POC O2 Rate Minute Ventilation Vent Mode POC FiO2 Tidal Volume End Tidal CO2 PEEP Sodium Potassium Chloride Carbon Dioxide Anion Gap BUN Creatinine Est Cr Clr Drug Dosing Est GFR ( Amer) Est GFR (Non-Af Amer) BUN/Creatinine Ratio Glucose POC Glucose (other) 121 H 103 H 149 H Estimat Average Glucose Hemoglobin A1c Calcium Ionized Calcium Phosphorus Magnesium Total Bilirubin Direct Bilirubin AST ALT Alkaline Phosphatase Troponin I Total Protein Albumin Urine Color Urine Appearance Urine pH Ur Specific [place] Urine Protein Urine Glucose (UA) Urine Ketones Urine Blood Urine Nitrite Urine Bilirubin Urine Urobilinogen Ur Leukocyte Esterase Urine WBC (Auto) Urine RBC (Auto) U Hyaline Cast (Auto) U Epithel Cells (Auto) Urine Bacteria (Auto) Ur Random Sodium Ur Random Urea Nitrogn Stool Occult Bld Scrn 06/20/18 06/20/18 06/20/18 16:09 16:14 16:17 WBC RBC Hgb Hct MCV MCH MCHC RDW Std Deviation RDW Coeff of Johnny Plt Count MPV Immature Gran % (Auto) Neut % (Auto) Lymph % (Auto) Clinch % (Auto) Eos % (Auto) Baso % (Auto) Immature Gran # (Auto) Neut # (Auto) Lymph # (Auto) Clinch # (Auto) Eos # (Auto) Baso # (Auto) RBC Morphology PT INR APTT PTT Ratio Specimen Type Sample Site Art Line Patient Temperature POC pH 7.36 POC pCO2 42 POC pO2 141 H POC HCO3 25 H POC Total CO2 27 POC Base Excess -1.0 O2 Sat Pulse Oximetry ABG pH (Temp Correct) ABG pCO2 (Temp Corrct POC ABG pO2 at Pt Temp POC ABG O2 Sat 99.0 H Gurpreet Test NA O2 Delivery Device Ventilator POC O2 Rate 26 Minute Ventilation 12.8 Vent Mode POC FiO2 40 Tidal Volume 550 End Tidal CO2 PEEP Sodium Potassium Chloride Carbon Dioxide Anion Gap BUN Creatinine Est Cr Clr Drug Dosing Est GFR ( Amer) Est GFR (Non-Af Amer) BUN/Creatinine Ratio Glucose POC Glucose (other) 106 H Estimat Average Glucose Hemoglobin A1c Calcium Ionized Calcium Phosphorus Magnesium Total Bilirubin Direct Bilirubin AST ALT Alkaline Phosphatase Troponin I 0.683 H* Total Protein Albumin Urine Color Urine Appearance Urine pH Ur Specific [place] Urine Protein Urine Glucose (UA) Urine Ketones Urine Blood Urine Nitrite Urine Bilirubin Urine Urobilinogen Ur Leukocyte Esterase Urine WBC (Auto) Urine RBC (Auto) U Hyaline Cast (Auto) U Epithel Cells (Auto) Urine Bacteria (Auto) Ur Random Sodium Ur Random Urea Nitrogn Stool Occult Bld Scrn 06/20/18 06/20/18 06/20/18 16:31 16:47 17:19 WBC RBC Hgb Hct MCV MCH MCHC RDW Std Deviation RDW Coeff of Johnny Plt Count MPV Immature Gran % (Auto) Neut % (Auto) Lymph % (Auto) Clinch % (Auto) Eos % (Auto) Baso % (Auto) Immature Gran # (Auto) Neut # (Auto) Lymph # (Auto) Clinch # (Auto) Eos # (Auto) Baso # (Auto) RBC Morphology PT 12.7 H INR 1.3 H APTT 30.1 PTT Ratio 1.2 Specimen Type Sample Site Patient Temperature POC pH POC pCO2 POC pO2 POC HCO3 POC Total CO2 POC Base Excess O2 Sat Pulse Oximetry ABG pH (Temp Correct) ABG pCO2 (Temp Corrct POC ABG pO2 at Pt Temp POC ABG O2 Sat Gurpreet Test O2 Delivery Device POC O2 Rate Minute Ventilation Vent Mode POC FiO2 Tidal Volume End Tidal CO2 PEEP Sodium Potassium Chloride Carbon Dioxide Anion Gap BUN Creatinine Est Cr Clr Drug Dosing Est GFR ( Amer) Est GFR (Non-Af Amer) BUN/Creatinine Ratio Glucose POC Glucose (other) 98 98 Estimat Average Glucose Hemoglobin A1c Calcium Ionized Calcium Phosphorus Magnesium Total Bilirubin Direct Bilirubin AST ALT Alkaline Phosphatase Troponin I Total Protein Albumin Urine Color Urine Appearance Urine pH Ur Specific [place] Urine Protein Urine Glucose (UA) Urine Ketones Urine Blood Urine Nitrite Urine Bilirubin Urine Urobilinogen Ur Leukocyte Esterase Urine WBC (Auto) Urine RBC (Auto) U Hyaline Cast (Auto) U Epithel Cells (Auto) Urine Bacteria (Auto) Ur Random Sodium Ur Random Urea Nitrogn Stool Occult Bld Scrn 06/20/18 06/20/18 06/20/18 17:19 17:38 18:00 WBC RBC Hgb Hct MCV MCH MCHC RDW Std Deviation RDW Coeff of Johnny Plt Count MPV Immature Gran % (Auto) Neut % (Auto) Lymph % (Auto) Clinch % (Auto) Eos % (Auto) Baso % (Auto) Immature Gran # (Auto) Neut # (Auto) Lymph # (Auto) Clinch # (Auto) Eos # (Auto) Baso # (Auto) RBC Morphology PT INR APTT PTT Ratio Specimen Type Sample Site Patient Temperature POC pH POC pCO2 POC pO2 POC HCO3 POC Total CO2 POC Base Excess O2 Sat Pulse Oximetry ABG pH (Temp Correct) ABG pCO2 (Temp Corrct POC ABG pO2 at Pt Temp POC ABG O2 Sat Gurpreet Test O2 Delivery Device POC O2 Rate Minute Ventilation Vent Mode POC FiO2 Tidal Volume End Tidal CO2 PEEP Sodium Potassium Chloride Carbon Dioxide Anion Gap BUN Creatinine Est Cr Clr Drug Dosing Est GFR ( Amer) Est GFR (Non-Af Amer) BUN/Creatinine Ratio Glucose POC Glucose (other) 135 H Estimat Average Glucose Hemoglobin A1c Calcium Ionized Calcium 1.08 L Phosphorus Magnesium Total Bilirubin Direct Bilirubin AST ALT Alkaline Phosphatase Troponin I Total Protein Albumin Urine Color Urine Appearance Urine pH Ur Specific [place] Urine Protein Urine Glucose (UA) Urine Ketones Urine Blood Urine Nitrite Urine Bilirubin Urine Urobilinogen Ur Leukocyte Esterase Urine WBC (Auto) Urine RBC (Auto) U Hyaline Cast (Auto) U Epithel Cells (Auto) Urine Bacteria (Auto) Ur Random Sodium Ur Random Urea Nitrogn Stool Occult Bld Scrn Positive H 06/20/18 06/20/18 06/20/18 20:09 22:29 23:26 WBC RBC Hgb Hct MCV MCH MCHC RDW Std Deviation RDW Coeff of Johnny Plt Count MPV Immature Gran % (Auto) Neut % (Auto) Lymph % (Auto) Clinch % (Auto) Eos % (Auto) Baso % (Auto) Immature Gran # (Auto) Neut # (Auto) Lymph # (Auto) Clinch # (Auto) Eos # (Auto) Baso # (Auto) RBC Morphology PT INR APTT PTT Ratio Specimen Type Sample Site Art Line Patient Temperature POC pH 7.37 POC pCO2 41 POC pO2 76 L POC HCO3 25 H POC Total CO2 26 POC Base Excess -1.0 O2 Sat Pulse Oximetry ABG pH (Temp Correct) ABG pCO2 (Temp Corrct POC ABG pO2 at Pt Temp POC ABG O2 Sat 97.0 H Gurpreet Test NA O2 Delivery Device Ventilator POC O2 Rate 26 Minute Ventilation 12.9 Vent Mode POC FiO2 30 Tidal Volume 550 End Tidal CO2 PEEP 8 Sodium Potassium Chloride Carbon Dioxide Anion Gap BUN Creatinine Est Cr Clr Drug Dosing Est GFR ( Amer) Est GFR (Non-Af Amer) BUN/Creatinine Ratio Glucose POC Glucose (other) 131 H 121 H Estimat Average Glucose Hemoglobin A1c Calcium Ionized Calcium Phosphorus Magnesium Total Bilirubin Direct Bilirubin AST ALT Alkaline Phosphatase Troponin I Total Protein Albumin Urine Color Urine Appearance Urine pH Ur Specific [place] Urine Protein Urine Glucose (UA) Urine Ketones Urine Blood Urine Nitrite Urine Bilirubin Urine Urobilinogen Ur Leukocyte Esterase Urine WBC (Auto) Urine RBC (Auto) U Hyaline Cast (Auto) U Epithel Cells (Auto) Urine Bacteria (Auto) Ur Random Sodium Ur Random Urea Nitrogn Stool Occult Bld Scrn 06/20/18 06/20/18 06/20/18 23:26 23:36 23:36 WBC RBC Hgb Hct MCV MCH MCHC RDW Std Deviation RDW Coeff of Johnny Plt Count MPV Immature Gran % (Auto) Neut % (Auto) Lymph % (Auto) Clinch % (Auto) Eos % (Auto) Baso % (Auto) Immature Gran # (Auto) Neut # (Auto) Lymph # (Auto) Clinch # (Auto) Eos # (Auto) Baso # (Auto) RBC Morphology PT 12.5 H INR 1.3 H APTT 30.8 PTT Ratio 1.2 Specimen Type Sample Site Patient Temperature POC pH POC pCO2 POC pO2 POC HCO3 POC Total CO2 POC Base Excess O2 Sat Pulse Oximetry ABG pH (Temp Correct) ABG pCO2 (Temp Corrct POC ABG pO2 at Pt Temp POC ABG O2 Sat Gurpreet Test O2 Delivery Device POC O2 Rate Minute Ventilation Vent Mode POC FiO2 Tidal Volume End Tidal CO2 PEEP Sodium 141 Potassium 4.8 Chloride 107 Carbon Dioxide 25 Anion Gap 8.0 BUN 83 H Creatinine 1.81 H Est Cr Clr Drug Dosing 54.7 Est GFR ( Amer) 43.6 Est GFR (Non-Af Amer) 37.6 BUN/Creatinine Ratio 45.9 H Glucose 121 H POC Glucose (other) Estimat Average Glucose Hemoglobin A1c Calcium 7.9 L Ionized Calcium 1.08 L Phosphorus Magnesium 1.8 Total Bilirubin Direct Bilirubin AST ALT Alkaline Phosphatase Troponin I 0.478 H* Total Protein Albumin Urine Color Urine Appearance Urine pH Ur Specific [place] Urine Protein Urine Glucose (UA) Urine Ketones Urine Blood Urine Nitrite Urine Bilirubin Urine Urobilinogen Ur Leukocyte Esterase Urine WBC (Auto) Urine RBC (Auto) U Hyaline Cast (Auto) U Epithel Cells (Auto) Urine Bacteria (Auto) Ur Random Sodium Ur Random Urea Nitrogn Stool Occult Bld Scrn 06/21/18 06/21/18 06/21/18 03:24 04:23 05:35 WBC 6.78 RBC 3.12 L Hgb 8.7 L Hct 29.8 L MCV 95.5 D MCH 27.9 MCHC 29.2 L RDW Std Deviation 49.8 H RDW Coeff of Johnny 14.5 Plt Count 217 MPV 9.8 Immature Gran % (Auto) 0.7 Neut % (Auto) 80.1 Lymph % (Auto) 9.9 Clinch % (Auto) 9.3 Eos % (Auto) 0.0 Baso % (Auto) 0.0 Immature Gran # (Auto) 0.05 H Neut # (Auto) 5.43 Lymph # (Auto) 0.67 L Clinch # (Auto) 0.63 H Eos # (Auto) 0.00 Baso # (Auto) 0.00 RBC Morphology Unremarkable PT INR APTT PTT Ratio Specimen Type Sample Site Art Line Patient Temperature POC pH 7.37 POC pCO2 39 POC pO2 55 L POC HCO3 23 POC Total CO2 25 POC Base Excess -3.0 O2 Sat Pulse Oximetry ABG pH (Temp Correct) ABG pCO2 (Temp Corrct POC ABG pO2 at Pt Temp POC ABG O2 Sat 93.0 Gurpreet Test NA O2 Delivery Device Ventilator POC O2 Rate 26 Minute Ventilation 12.7 Vent Mode POC FiO2 30 Tidal Volume 550 End Tidal CO2 PEEP 8 Sodium Potassium Chloride Carbon Dioxide Anion Gap BUN Creatinine Est Cr Clr Drug Dosing Est GFR ( Amer) Est GFR (Non-Af Amer) BUN/Creatinine Ratio Glucose POC Glucose (other) 104 H Estimat Average Glucose Hemoglobin A1c Calcium Ionized Calcium Phosphorus Magnesium Total Bilirubin Direct Bilirubin AST ALT Alkaline Phosphatase Troponin I Total Protein Albumin Urine Color Urine Appearance Urine pH Ur Specific [place] Urine Protein Urine Glucose (UA) Urine Ketones Urine Blood Urine Nitrite Urine Bilirubin Urine Urobilinogen Ur Leukocyte Esterase Urine WBC (Auto) Urine RBC (Auto) U Hyaline Cast (Auto) U Epithel Cells (Auto) Urine Bacteria (Auto) Ur Random Sodium Ur Random Urea Nitrogn Stool Occult Bld Scrn 06/21/18 06/21/18 06/21/18 05:35 05:35 05:35 WBC RBC Hgb Hct MCV MCH MCHC RDW Std Deviation RDW Coeff of Johnny Plt Count MPV Immature Gran % (Auto) Neut % (Auto) Lymph % (Auto) Clinch % (Auto) Eos % (Auto) Baso % (Auto) Immature Gran # (Auto) Neut # (Auto) Lymph # (Auto) Clinch # (Auto) Eos # (Auto) Baso # (Auto) RBC Morphology PT 12.6 H INR 1.3 H APTT 32.3 H PTT Ratio 1.2 Specimen Type Sample Site Patient Temperature POC pH POC pCO2 POC pO2 POC HCO3 POC Total CO2 POC Base Excess O2 Sat Pulse Oximetry ABG pH (Temp Correct) ABG pCO2 (Temp Corrct POC ABG pO2 at Pt Temp POC ABG O2 Sat Gurpreet Test O2 Delivery Device POC O2 Rate Minute Ventilation Vent Mode POC FiO2 Tidal Volume End Tidal CO2 PEEP Sodium 141 Potassium 4.7 Chloride 108 H Carbon Dioxide 22 Anion Gap 11.0 BUN 85 H Creatinine 1.92 H Est Cr Clr Drug Dosing 53.7 Est GFR ( Amer) 40.6 Est GFR (Non-Af Amer) 35.0 BUN/Creatinine Ratio 44.0 H Glucose 127 H POC Glucose (other) Estimat Average Glucose 120 Hemoglobin A1c 5.8 H Calcium 7.5 L Ionized Calcium Phosphorus 2.5 Magnesium 1.8 Total Bilirubin 0.6 Direct Bilirubin 0.3 H AST 275 H ALT 233 H Alkaline Phosphatase 49 Troponin I Total Protein 6.0 L Albumin 2.1 L Urine Color Urine Appearance Urine pH Ur Specific [place] Urine Protein Urine Glucose (UA) Urine Ketones Urine Blood Urine Nitrite Urine Bilirubin Urine Urobilinogen Ur Leukocyte Esterase Urine WBC (Auto) Urine RBC (Auto) U Hyaline Cast (Auto) U Epithel Cells (Auto) Urine Bacteria (Auto) Ur Random Sodium Ur Random Urea Nitrogn Stool Occult Bld Scrn 06/21/18 06/21/18 06/21/18 05:35 07:38 10:36 WBC RBC Hgb Hct MCV MCH MCHC RDW Std Deviation RDW Coeff of Johnny Plt Count MPV Immature Gran % (Auto) Neut % (Auto) Lymph % (Auto) Clinch % (Auto) Eos % (Auto) Baso % (Auto) Immature Gran # (Auto) Neut # (Auto) Lymph # (Auto) Clinch # (Auto) Eos # (Auto) Baso # (Auto) RBC Morphology PT INR APTT PTT Ratio Specimen Type Sample Site Art Line Patient Temperature POC pH 7.41 POC pCO2 35 POC pO2 131 H POC HCO3 23 POC Total CO2 24 POC Base Excess -2.0 O2 Sat Pulse Oximetry ABG pH (Temp Correct) ABG pCO2 (Temp Corrct POC ABG pO2 at Pt Temp POC ABG O2 Sat 99.0 H Gurpreet Test NA O2 Delivery Device Ventilator POC O2 Rate 26 Minute Ventilation 14.3 Vent Mode POC FiO2 40 Tidal Volume 550 End Tidal CO2 PEEP 8 Sodium Potassium Chloride Carbon Dioxide Anion Gap BUN Creatinine Est Cr Clr Drug Dosing Est GFR ( Amer) Est GFR (Non-Af Amer) BUN/Creatinine Ratio Glucose POC Glucose (other) 115 H Estimat Average Glucose Hemoglobin A1c Calcium Ionized Calcium 1.09 L Phosphorus Magnesium Total Bilirubin Direct Bilirubin AST ALT Alkaline Phosphatase Troponin I Total Protein Albumin Urine Color Urine Appearance Urine pH Ur Specific [place] Urine Protein Urine Glucose (UA) Urine Ketones Urine Blood Urine Nitrite Urine Bilirubin Urine Urobilinogen Ur Leukocyte Esterase Urine WBC (Auto) Urine RBC (Auto) U Hyaline Cast (Auto) U Epithel Cells (Auto) Urine Bacteria (Auto) Ur Random Sodium Ur Random Urea Nitrogn Stool Occult Bld Scrn Diagnostic Findings Telemetry personally reviewed: Atrial fibrillation. Multiple ECGs personally reviewed. ECG 06/20/2018 at 10:57 p.m.: AFib 59 bpm. RSR' in V1. ECG 06/21/2018 at 10:57 a.m.: AFib [address] abnormality. RSR'. Echo 06/20/2018: Normal LV size with hyperdynamic systolic function. EF > 70% . Normal wall motion. Mild LVH. No significant valvular abnormalities. Abdomen/pelvis CT 06/20/2018: Findings raise the possibility of early cirrhosis per Radiology. Mild splenomegaly. Small common bile duct calculi without biliary ductal dilation. Chest CTA 06/20/2018: Mild pulmonary edema with trace pleural effusions per Radiology. Patchy bilateral consolidative opacities, most pronounced within the left lung base suggesting atelectasis or pneumonitis. Acute bilateral rib fractures. Suggestion of pulmonary arterial hypertension per Radiology. Medications Administered Current Inpatient Medications Acetaminophen (Tylenol) 650 mg PO Q6H PRN PRN Reason: Pain or Fever Stop: 07/20/18 08:20 Bisacodyl (Dulcolax) 10 mg [place] DAILY PRN PRN Reason: Constipation Stop: 07/20/18 08:20 Dextrose (Dextrose 50%) 25 - 50 ml IV UD PRN; Protocol PRN Reason: Hypoglycemia Protocol Stop: 07/20/18 08:48 Last Admin: 06/20/18 16:50 Dose: 25 ml Docusate Sodium (Colace) 100 mg PO BID PRN PRN Reason: constipation Stop: 07/20/18 08:20 Glucagon (Glucagen) 1 mg IM UD PRN; Protocol PRN Reason: Hypoglycemia Protocol Stop: 07/20/18 08:48 Glucose (Glucose 40%) 15 - 30 gm PO UD PRN; Protocol PRN Reason: Hypoglycemia Protocol Stop: 07/20/18 08:48 Glucose (Dex4 Glucose) 4 - 8 tabs PO UD PRN; Protocol PRN Reason: Hypoglycemia Protocol Stop: 07/20/18 08:48 Insulin Human Regular 250 (units/ Sodium Chloride) 250 mls @ 0 mls/hr IV .Q0M [facility]; Protocol Stop: 07/20/18 07:44 Last Titration: 06/20/18 19:08 Dose: 0 units/hr, 0 mls/hr Pantoprazole Sodium 40 mg/ (Syringe) 10 mls @ 5 mls/min IV DAILY@1100 [facility] Stop: 07/20/18 10:59 Last Admin: 06/21/18 10:44 Dose: 5 mls/min Piperacillin Sod/Tazobactam (Sod 4.5 gm/ Dextrose) 120 mls @ 30 mls/hr IV Q8H [facility]; Protocol Stop: 06/22/18 09:59 Last Admin: 06/21/18 09:33 Dose: 30 mls/hr Midazolam HCl (Versed) 125 mg in 250 mls @ 8 mls/hr IV .[id number] [facility]; Protocol Stop: 07/20/18 08:20 Last Titration: 06/21/18 07:09 Dose: 4 mg/hr, 8 mls/hr Vancomycin HCl 1,500 mg/ (Sodium Chloride) 530 mls @ 200 mls/hr IV Q14H [facility] Stop: 06/22/18 20:59 Last Admin: 06/21/18 10:43 Dose: 200 mls/hr Fentanyl Citrate (Fentanyl Drip) 1,250 mcg in 250 mls @ 10 mls/hr IV .[id number] [facility]; Protocol Stop: 07/04/18 15:59 Last Titration: 06/21/18 07:09 Dose: 50 mcg/hr, 10 mls/hr Sodium Chloride (Nss 1000ml) 1,000 mls @ 100 mls/hr IV .Q10H [facility] Stop: 07/20/18 22:14 Last Admin: 06/21/18 07:25 Dose: 100 mls/hr Dopamine HCl/Dextrose (Dopamine / D5w) 400 mg in 250 mls @ 0 mls/hr IV .Q24H [facility]; Protocol Stop: 07/21/18 03:29 Last Titration: 06/21/18 09:43 Dose: 0 mcg/kg/min, 0 mls/hr Magnesium Sulfate/Dextrose (Magnesium Sulfate / D5w) 1 gm in 100 mls @ 100 mls/ hr IV Q1H [facility] Stop: 06/21/18 12:29 Last Admin: 06/21/18 11:45 Dose: 100 mls/hr Insulin Aspart (Novolog Flexpen) 0 units SC Q4 [facility] Stop: 07/20/18 19:59 Last Admin: 06/21/18 08:01 Dose: Not Given Ioversol (Optiray 320 125ml) 119 ml IV ONCE PRN PRN Reason: Interaction Checking Stop: 06/24/18 07:39 Last Admin: 06/20/18 07:40 Dose: 119 ml Meperidine HCl (Demerol) 12.5 mg IV Q4 PRN PRN Reason: Shivering Stop: 07/04/18 22:37 Last Admin: 06/20/18 23:27 Dose: 12.5 mg Miscellaneous (Carbohydrates For Hypoglycemia) 15 - 30 gm PO UD PRN PRN Reason: Hypoglycemia Treatment Stop: 07/20/18 08:48 Miscellaneous Information (Consult) 1 ea N/A UD PRN PRN Reason: Consult Stop: 07/20/18 05:53 Miscellaneous Information (Consult) 1 ea N/A UD PRN PRN Reason: Consult Stop: 07/20/18 08:20 Miscellaneous Information (Consult Glycemic Management Pharmacy) 1 ea N/A UD PRN PRN Reason: Consult Stop: 07/20/18 19:26 Polyethylene Glycol (Miralax Powder Packet) 17 gm PO DAILY PRN PRN Reason: Constipation Stop: 07/20/18 08:20
[2018-06-21 12:17] LABS: INR 1.3 (0.9-1.1); Partial Thromboplastin Ratio 1.3; Partial Thromboplastin Time 33.6 Seconds (21.0-31.0); Prothrombin Time 12.6 Seconds (9.0-12.0)
[2018-06-21 12:24] LABS: Hematocrit (blood only) 26.5 % (42-52); Hemoglobin 7.7 g/dL (14.0-18.0)
[2018-06-21 12:34] LABS: BUN Creatinine Ratio 43.1 (10-20); Calcium 7.7 mg/dl (8.5-10.1); Creatinine Clr Calc Pharmacy 54.9 ml/min; Est GFR (African American) 41.6; Est GFR (Non-African American) 35.9; Magnesium 2.3 mg/dl (1.8-2.4); Potassium 4.3 mmol/L (3.5-5.1)
--- NOTE | 2018-06-21 12:46 | Nephrology Consultation ---
Date of Consultation June 21, 2018 Assessment & Plan (1) Acute renal insufficiency: -- Clinically consistent with ATN -- CT did not demonstrate evidence of obstruction -- Tracy intact -- Metabolic profile otherwise acceptable -- Volume status is reasonable -- Obligatory intake high but improving -- No emergent need for [employer] -- Close monitoring will be provided -- Document I/O's -- Check metabolic profile at least twice daily -- Medications are appropriately dosed for kidney function -- Diuretic trial as needed to encourage urine output (2) Cardiac arrest: -- Suspected primary respiratory (not primary cardiac event) -- Patient is currently being rewarmed -- Extent of anoxic injury unclear -- Brother is reported POA (3) CHF (congestive heart failure): -- Volume status appears appropriate -- Avoid Aggressive volume replacement -- Stop IV NS @ 100 ml/hr -- Strive for even fluid balance (4) Peripheral arterial disease: (5) Obesity hypoventilation syndrome: History of Present Illness Reason for Consultation: Acute renal insufficiency Requesting Physician: Ollie Rios MD Attending Physician: Ollie Rios MD History of Present Illness Mr. Erik Escobar is a 68-year-old male with obesity, obesity hypoventilation syndrome, peripheral arterial disease, diabetes mellitus, hypertension, atrial fibrillation, dyslipidemia, and Klinefelter syndrome. Baseline serum creatinine has been 1.0 mg/dL. Nephrology consultation was requested to assist in the management of acute renal insufficiency. Medical history was obtained through discussion with physicians and nursing staff in the ICU as well as by review of the medical record. Mr. Escobar is sedated and intubated and unable to provide history. Hypothermic protocol was provided following witnessed cardiac arrest. The patient presented to [facility] from [facility] where he is a resident. Baseline functional status is reportedly limited. The patient was being turned by nursing staff when he became acutely unresponsive and cyanotic by report. There were no complaints or concerns prior to the event. Cardiac arrest was managed with IV epinephrine provided. Telemetry has demonstrated persistent bradycardia with atrial fibrillation. Blood pressure has been appropriate. Dopamine gtt has been provided. Creatinine marianela to 1.9 mg/dL. Urine output has been reduced. Erik has been maintained in a positive fluid balance. Tracy is draining small amount of yellow urine. Cardiology consultation was reviewed. Abdominal CT scan demonstrates normal appearing kidneys. Mr. Escobar was admitted to [facility] in July 2017 with acute on chronic diastolic CHF. He was admitted earlier this month (discharged June 16) with acute respiratory failure attributed to poor compliance with BIPAP. Allergies Allergy/AdvReac Type Severity Reaction Status Date / Time NSAIDS (Non-Steroidal Allergy Unknown . Unverified 06/20/18 06:08 Anti-Inflamma Home Medications Home Medications Medication Instructions Recorded Confirmed Type aspirin 81 mg PO DAILY 06/13/18 06/20/18 History atorvastatin [Lipitor] 40 mg PO HS 06/13/18 06/20/18 History escitalopram oxalate [Lexapro] 5 mg PO DAILY 06/13/18 06/20/18 History glucagon (human recombinant) 1 dose SUBCUT UD PRN 06/13/18 06/20/18 History [Glucagon Emergency Kit (human)] loratadine [Claritin] 10 mg PO DAILY 06/13/18 06/20/18 History magnesium oxide 400 mg PO DAILY 06/13/18 06/20/18 History acetaminophen 650 mg PO Q6H PRN MDD 3gm/24hr 06/20/18 06/20/18 History acetaminophen 650 mg PO Q6H PRN MDD 3gm/24hrs 06/20/18 06/20/18 History apixaban [Eliquis] 5 mg PO BID 06/20/18 06/20/18 History ascorbic acid (vitamin C) [Vitamin 250 mg PO BID 06/20/18 06/20/18 History C] baclofen 10 mg PO Q8 PRN 06/20/18 06/20/18 History bumetanide 0.5 mg PO BID 06/20/18 06/20/18 History calcium carbonate [Oyster Shell 500 mg PO DAILY 06/20/18 06/20/18 History Calcium] cyanocobalamin (vitamin B-12) 1,000 mcg PO DAILY 06/20/18 06/20/18 History [Vitamin B-12] ergocalciferol (vitamin D2) 50,000 unit PO WK 06/20/18 06/20/18 History famotidine 40 mg PO HS 06/20/18 06/20/18 History fenofibrate micronized 67 mg PO HS 06/20/18 06/20/18 History ferrous sulfate 325 mg PO BID 06/20/18 06/20/18 History insulin aspart U-100 [Novolog 4 unit SUBCUT QPM 06/20/18 06/20/18 History Flexpen U-100 Insulin] insulin aspart U-100 [Novolog 6 unit SUBCUT QAM 06/20/18 06/20/18 History Flexpen U-100 Insulin] insulin detemir U-100 [Levemir 15 unit SUBCUT BID 06/20/18 06/20/18 History FlexTouch U-100 Insuln] lactase 3,000 unit PO AC 06/20/18 06/20/18 History metformin 1,000 mg PO BID 06/20/18 06/20/18 History oxycodone 10 mg PO TID 06/20/18 06/20/18 History polyethylene glycol 3350 [Miralax] 17 g PO DAILY 06/20/18 06/20/18 History sennosides [senna] 8.6 mg PO DAILY 06/20/18 06/20/18 History vit A,C and R-vqqohb-mighlabt 1 tab PO DAILY 06/20/18 06/20/18 History [Ocuvite with Lutein] Patient History Medical History Obesity hypoventilation syndrome OTONIEL (obstructive sleep apnea) Hypertension (Chronic) Obesity (Chronic) Hyperlipidemia (Chronic) Atrial fibrillation (Chronic) Diabetes mellitus, type II (Chronic) Klinefelter syndrome (Chronic) CHF (congestive heart failure) (Acute) Atrial fibrillation (Chronic) HTN (hypertension) (Chronic) Altered mental status Respiratory acidosis Family History Other No pertinent family history Social History Current Living Situation: [facility] current occupational status: retired Other Information That Helps Us Care for You: No Feels Safe at Home: Yes Safety Concerns: Feels Safe At This Time Smoking Status: Former smoker Second Hand Exposure: No Hx Alcohol Use: No Beliefs That Will Affect Care: None Communication Ability: Unable Review of Systems Unable to obtain due to sedation and mechanical ventilation. Physical Exam 2 Vital Signs (Past 24 Hours): Last Vital Signs Temp 32.9 C L 06/21/18 11:00 Pulse 56 L 06/21/18 11:00 Resp 26 H 06/21/18 11:00 BP 155/76 H 06/21/18 11:00 Pulse Ox 100 06/21/18 11:00 Constitutional: well developed, + obese and + edematous; no acute distress Eyes: no conjunctival abnormality and no scleral abnormality ENMT: Mouth: no oral mucosal abnormality ETT intact Neck: trachea midline and + thick neck Thyroid: normal thyroid Respiratory: Auscultation: lungs clear to auscultation bilaterally; no rhonchi and no wheezes Cardiovascular: Heart Sounds: normal S1 and normal S2; no gallop and no murmur Extremities: + edema Gastrointestinal (Abdomen): Inspection/Auscultation: + abdomen distended and + hypoactive bowel sounds Percussion/Palpation: abdomen soft Musculoskeletal: Head/Neck/Chest: normal inspection of chest wall and normal palpation of chest wall Skin: no rashes, no ulcers and no purpura Neurologic: sedated, minimally responsive Results & Data Laboratory Results Laboratory Results - last 24 hr 06/20/18 06/20/18 06/20/18 04:38 04:38 04:38 WBC RBC Hgb Hct MCV MCH MCHC RDW Std Deviation RDW Coeff of Johnny Plt Count MPV Immature Gran % (Auto) Neut % (Auto) Lymph % (Auto) [place] % (Auto) Eos % (Auto) Baso % (Auto) Immature Gran # (Auto) Neut # (Auto) Lymph # (Auto) [place] # (Auto) Eos # (Auto) Baso # (Auto) RBC Morphology PT INR APTT PTT Ratio Specimen Type Sample Site Patient Temperature POC pH POC pCO2 POC pO2 POC HCO3 POC Total CO2 POC Base Excess O2 Sat Pulse Oximetry ABG pH (Temp Correct) ABG pCO2 (Temp Corrct POC ABG pO2 at Pt Temp POC ABG O2 Sat Gurpreet Test O2 Delivery Device POC O2 Rate Minute Ventilation Vent Mode POC FiO2 Tidal Volume End Tidal CO2 PEEP Sodium Potassium Chloride Carbon Dioxide Anion Gap BUN Creatinine Est Cr Clr Drug Dosing Est GFR ( Amer) Est GFR (Non-Af Amer) BUN/Creatinine Ratio Glucose POC Glucose (other) Estimat Average Glucose Hemoglobin A1c Calcium Ionized Calcium Phosphorus Magnesium Total Bilirubin Direct Bilirubin AST ALT Alkaline Phosphatase Troponin I Total Protein Albumin Urine Color Dark Yellow Urine Appearance Cloudy H Urine pH 5.0 Ur Specific Vincent 1.016 Urine Protein Negative Urine Glucose (UA) Negative Urine Ketones Negative Urine Blood Negative Urine Nitrite Negative Urine Bilirubin Negative Urine Urobilinogen Negative Ur Leukocyte Esterase Negative Urine WBC (Auto) 0 Urine RBC (Auto) 0-4 U Hyaline Cast (Auto) 1-5 U Epithel Cells (Auto) 5-10 H Urine Bacteria (Auto) Negative Ur Random Sodium 25 Ur Random Urea Nitrogn 466 Stool Occult Bld Scrn 06/20/18 06/20/18 06/20/18 07:19 10:34 12:01 WBC RBC Hgb Hct MCV MCH MCHC RDW Std Deviation RDW Coeff of Johnny Plt Count MPV Immature Gran % (Auto) Neut % (Auto) Lymph % (Auto) [place] % (Auto) Eos % (Auto) Baso % (Auto) Immature Gran # (Auto) Neut # (Auto) Lymph # (Auto) [place] # (Auto) Eos # (Auto) Baso # (Auto) RBC Morphology PT INR APTT PTT Ratio Specimen Type Arterial Sample Site Art Line Patient Temperature 37.0 POC pH 7.32 L POC pCO2 54 H POC pO2 308 H POC HCO3 28 H POC Total CO2 30 POC Base Excess 2.0 H O2 Sat Pulse Oximetry 100 ABG pH (Temp Correct) 7.320 L ABG pCO2 (Temp Corrct 54 H POC ABG pO2 at Pt Temp 308 POC ABG O2 Sat 100.0 H Gurpreet Test Acceptable O2 Delivery Device Ventilator POC O2 Rate 26 Minute Ventilation 550 Vent Mode AC POC FiO2 80 Tidal Volume 12.8 End Tidal CO2 40 PEEP 10 Sodium 140 142 Potassium 4.9 D 4.5 Chloride 109 H 106 Carbon Dioxide 25 26 Anion Gap 6.0 10.0 BUN 79 H 78 H Creatinine 1.73 H 1.75 H Est Cr Clr Drug Dosing 57.3 56.6 Est GFR ( Amer) 46.0 45.4 Est GFR (Non-Af Amer) 39.7 39.1 BUN/Creatinine Ratio 45.8 H 44.4 H Glucose 136 H 156 H POC Glucose (other) Estimat Average Glucose Hemoglobin A1c Calcium 7.7 L D 8.0 L Ionized Calcium Phosphorus Magnesium 1.8 1.9 Total Bilirubin 0.6 Direct Bilirubin 0.4 H AST 416 H ALT 254 H Alkaline Phosphatase 51 Troponin I Total Protein 5.7 L D Albumin 2.1 L Urine Color Urine Appearance Urine pH Ur Specific Vincent Urine Protein Urine Glucose (UA) Urine Ketones Urine Blood Urine Nitrite Urine Bilirubin Urine Urobilinogen Ur Leukocyte Esterase Urine WBC (Auto) Urine RBC (Auto) U Hyaline Cast (Auto) U Epithel Cells (Auto) Urine Bacteria (Auto) Ur Random Sodium Ur Random Urea Nitrogn Stool Occult Bld Scrn 06/20/18 06/20/18 06/20/18 12:34 13:32 14:32 WBC RBC Hgb Hct MCV MCH MCHC RDW Std Deviation RDW Coeff of Johnny Plt Count MPV Immature Gran % (Auto) Neut % (Auto) Lymph % (Auto) [place] % (Auto) Eos % (Auto) Baso % (Auto) Immature Gran # (Auto) Neut # (Auto) Lymph # (Auto) [place] # (Auto) Eos # (Auto) Baso # (Auto) RBC Morphology PT INR APTT PTT Ratio Specimen Type Sample Site Patient Temperature POC pH POC pCO2 POC pO2 POC HCO3 POC Total CO2 POC Base Excess O2 Sat Pulse Oximetry ABG pH (Temp Correct) ABG pCO2 (Temp Corrct POC ABG pO2 at Pt Temp POC ABG O2 Sat Gurpreet Test O2 Delivery Device POC O2 Rate Minute Ventilation Vent Mode POC FiO2 Tidal Volume End Tidal CO2 PEEP Sodium Potassium Chloride Carbon Dioxide Anion Gap BUN Creatinine Est Cr Clr Drug Dosing Est GFR ( Amer) Est GFR (Non-Af Amer) BUN/Creatinine Ratio Glucose POC Glucose (other) 141 H 121 H 103 H Estimat Average Glucose Hemoglobin A1c Calcium Ionized Calcium Phosphorus Magnesium Total Bilirubin Direct Bilirubin AST ALT Alkaline Phosphatase Troponin I Total Protein Albumin Urine Color Urine Appearance Urine pH Ur Specific Vincent Urine Protein Urine Glucose (UA) Urine Ketones Urine Blood Urine Nitrite Urine Bilirubin Urine Urobilinogen Ur Leukocyte Esterase Urine WBC (Auto) Urine RBC (Auto) U Hyaline Cast (Auto) U Epithel Cells (Auto) Urine Bacteria (Auto) Ur Random Sodium Ur Random Urea Nitrogn Stool Occult Bld Scrn 06/20/18 06/20/18 06/20/18 14:59 16:09 16:14 WBC RBC Hgb Hct MCV MCH MCHC RDW Std Deviation RDW Coeff of Johnny Plt Count MPV Immature Gran % (Auto) Neut % (Auto) Lymph % (Auto) [place] % (Auto) Eos % (Auto) Baso % (Auto) Immature Gran # (Auto) Neut # (Auto) Lymph # (Auto) [place] # (Auto) Eos # (Auto) Baso # (Auto) RBC Morphology PT INR APTT PTT Ratio Specimen Type Sample Site Patient Temperature POC pH POC pCO2 POC pO2 POC HCO3 POC Total CO2 POC Base Excess O2 Sat Pulse Oximetry ABG pH (Temp Correct) ABG pCO2 (Temp Corrct POC ABG pO2 at Pt Temp POC ABG O2 Sat Gurpreet Test O2 Delivery Device POC O2 Rate Minute Ventilation Vent Mode POC FiO2 Tidal Volume End Tidal CO2 PEEP Sodium Potassium Chloride Carbon Dioxide Anion Gap BUN Creatinine Est Cr Clr Drug Dosing Est GFR ( Amer) Est GFR (Non-Af Amer) BUN/Creatinine Ratio Glucose POC Glucose (other) 149 H 106 H Estimat Average Glucose Hemoglobin A1c Calcium Ionized Calcium Phosphorus Magnesium Total Bilirubin Direct Bilirubin AST ALT Alkaline Phosphatase Troponin I 0.683 H* Total Protein Albumin Urine Color Urine Appearance Urine pH Ur Specific Vincent Urine Protein Urine Glucose (UA) Urine Ketones Urine Blood Urine Nitrite Urine Bilirubin Urine Urobilinogen Ur Leukocyte Esterase Urine WBC (Auto) Urine RBC (Auto) U Hyaline Cast (Auto) U Epithel Cells (Auto) Urine Bacteria (Auto) Ur Random Sodium Ur Random Urea Nitrogn Stool Occult Bld Scrn 06/20/18 06/20/18 06/20/18 16:17 16:31 16:47 WBC RBC Hgb Hct MCV MCH MCHC RDW Std Deviation RDW Coeff of Johnny Plt Count MPV Immature Gran % (Auto) Neut % (Auto) Lymph % (Auto) [place] % (Auto) Eos % (Auto) Baso % (Auto) Immature Gran # (Auto) Neut # (Auto) Lymph # (Auto) [place] # (Auto) Eos # (Auto) Baso # (Auto) RBC Morphology PT INR APTT PTT Ratio Specimen Type Sample Site Art Line Patient Temperature POC pH 7.36 POC pCO2 42 POC pO2 141 H POC HCO3 25 H POC Total CO2 27 POC Base Excess -1.0 O2 Sat Pulse Oximetry ABG pH (Temp Correct) ABG pCO2 (Temp Corrct POC ABG pO2 at Pt Temp POC ABG O2 Sat 99.0 H Gurpreet Test NA O2 Delivery Device Ventilator POC O2 Rate 26 Minute Ventilation 12.8 Vent Mode POC FiO2 40 Tidal Volume 550 End Tidal CO2 PEEP Sodium Potassium Chloride Carbon Dioxide Anion Gap BUN Creatinine Est Cr Clr Drug Dosing Est GFR ( Amer) Est GFR (Non-Af Amer) BUN/Creatinine Ratio Glucose POC Glucose (other) 98 98 Estimat Average Glucose Hemoglobin A1c Calcium Ionized Calcium Phosphorus Magnesium Total Bilirubin Direct Bilirubin AST ALT Alkaline Phosphatase Troponin I Total Protein Albumin Urine Color Urine Appearance Urine pH Ur Specific Vincent Urine Protein Urine Glucose (UA) Urine Ketones Urine Blood Urine Nitrite Urine Bilirubin Urine Urobilinogen Ur Leukocyte Esterase Urine WBC (Auto) Urine RBC (Auto) U Hyaline Cast (Auto) U Epithel Cells (Auto) Urine Bacteria (Auto) Ur Random Sodium Ur Random Urea Nitrogn Stool Occult Bld Scrn 06/20/18 06/20/18 06/20/18 17:19 17:19 17:38 WBC RBC Hgb Hct MCV MCH MCHC RDW Std Deviation RDW Coeff of Johnny Plt Count MPV Immature Gran % (Auto) Neut % (Auto) Lymph % (Auto) [place] % (Auto) Eos % (Auto) Baso % (Auto) Immature Gran # (Auto) Neut # (Auto) Lymph # (Auto) [place] # (Auto) Eos # (Auto) Baso # (Auto) RBC Morphology PT 12.7 H INR 1.3 H APTT 30.1 PTT Ratio 1.2 Specimen Type Sample Site Patient Temperature POC pH POC pCO2 POC pO2 POC HCO3 POC Total CO2 POC Base Excess O2 Sat Pulse Oximetry ABG pH (Temp Correct) ABG pCO2 (Temp Corrct POC ABG pO2 at Pt Temp POC ABG O2 Sat Gurpreet Test O2 Delivery Device POC O2 Rate Minute Ventilation Vent Mode POC FiO2 Tidal Volume End Tidal CO2 PEEP Sodium Potassium Chloride Carbon Dioxide Anion Gap BUN Creatinine Est Cr Clr Drug Dosing Est GFR ( Amer) Est GFR (Non-Af Amer) BUN/Creatinine Ratio Glucose POC Glucose (other) 135 H Estimat Average Glucose Hemoglobin A1c Calcium Ionized Calcium 1.08 L Phosphorus Magnesium Total Bilirubin Direct Bilirubin AST ALT Alkaline Phosphatase Troponin I Total Protein Albumin Urine Color Urine Appearance Urine pH Ur Specific Vincent Urine Protein Urine Glucose (UA) Urine Ketones Urine Blood Urine Nitrite Urine Bilirubin Urine Urobilinogen Ur Leukocyte Esterase Urine WBC (Auto) Urine RBC (Auto) U Hyaline Cast (Auto) U Epithel Cells (Auto) Urine Bacteria (Auto) Ur Random Sodium Ur Random Urea Nitrogn Stool Occult Bld Scrn 06/20/18 06/20/18 06/20/18 18:00 20:09 22:29 WBC RBC Hgb Hct MCV MCH MCHC RDW Std Deviation RDW Coeff of Johnny Plt Count MPV Immature Gran % (Auto) Neut % (Auto) Lymph % (Auto) [place] % (Auto) Eos % (Auto) Baso % (Auto) Immature Gran # (Auto) Neut # (Auto) Lymph # (Auto) [place] # (Auto) Eos # (Auto) Baso # (Auto) RBC Morphology PT INR APTT PTT Ratio Specimen Type Sample Site Art Line Patient Temperature POC pH 7.37 POC pCO2 41 POC pO2 76 L POC HCO3 25 H POC Total CO2 26 POC Base Excess -1.0 O2 Sat Pulse Oximetry ABG pH (Temp Correct) ABG pCO2 (Temp Corrct POC ABG pO2 at Pt Temp POC ABG O2 Sat 97.0 H Gurpreet Test NA O2 Delivery Device Ventilator POC O2 Rate 26 Minute Ventilation 12.9 Vent Mode POC FiO2 30 Tidal Volume 550 End Tidal CO2 PEEP 8 Sodium Potassium Chloride Carbon Dioxide Anion Gap BUN Creatinine Est Cr Clr Drug Dosing Est GFR ( Amer) Est GFR (Non-Af Amer) BUN/Creatinine Ratio Glucose POC Glucose (other) 131 H Estimat Average Glucose Hemoglobin A1c Calcium Ionized Calcium Phosphorus Magnesium Total Bilirubin Direct Bilirubin AST ALT Alkaline Phosphatase Troponin I Total Protein Albumin Urine Color Urine Appearance Urine pH Ur Specific Vincent Urine Protein Urine Glucose (UA) Urine Ketones Urine Blood Urine Nitrite Urine Bilirubin Urine Urobilinogen Ur Leukocyte Esterase Urine WBC (Auto) Urine RBC (Auto) U Hyaline Cast (Auto) U Epithel Cells (Auto) Urine Bacteria (Auto) Ur Random Sodium Ur Random Urea Nitrogn Stool Occult Bld Scrn Positive H 06/20/18 06/20/18 06/20/18 23:26 23:26 23:36 WBC RBC Hgb Hct MCV MCH MCHC RDW Std Deviation RDW Coeff of Johnny Plt Count MPV Immature Gran % (Auto) Neut % (Auto) Lymph % (Auto) [place] % (Auto) Eos % (Auto) Baso % (Auto) Immature Gran # (Auto) Neut # (Auto) Lymph # (Auto) [place] # (Auto) Eos # (Auto) Baso # (Auto) RBC Morphology PT 12.5 H INR 1.3 H APTT 30.8 PTT Ratio 1.2 Specimen Type Sample Site Patient Temperature POC pH POC pCO2 POC pO2 POC HCO3 POC Total CO2 POC Base Excess O2 Sat Pulse Oximetry ABG pH (Temp Correct) ABG pCO2 (Temp Corrct POC ABG pO2 at Pt Temp POC ABG O2 Sat Gurpreet Test O2 Delivery Device POC O2 Rate Minute Ventilation Vent Mode POC FiO2 Tidal Volume End Tidal CO2 PEEP Sodium 141 Potassium 4.8 Chloride 107 Carbon Dioxide 25 Anion Gap 8.0 BUN 83 H Creatinine 1.81 H Est Cr Clr Drug Dosing 54.7 Est GFR ( Amer) 43.6 Est GFR (Non-Af Amer) 37.6 BUN/Creatinine Ratio 45.9 H Glucose 121 H POC Glucose (other) 121 H Estimat Average Glucose Hemoglobin A1c Calcium 7.9 L Ionized Calcium Phosphorus Magnesium 1.8 Total Bilirubin Direct Bilirubin AST ALT Alkaline Phosphatase Troponin I 0.478 H* Total Protein Albumin Urine Color Urine Appearance Urine pH Ur Specific Vincent Urine Protein Urine Glucose (UA) Urine Ketones Urine Blood Urine Nitrite Urine Bilirubin Urine Urobilinogen Ur Leukocyte Esterase Urine WBC (Auto) Urine RBC (Auto) U Hyaline Cast (Auto) U Epithel Cells (Auto) Urine Bacteria (Auto) Ur Random Sodium Ur Random Urea Nitrogn Stool Occult Bld Scrn 06/20/18 06/21/18 06/21/18 23:36 03:24 04:23 WBC RBC Hgb Hct MCV MCH MCHC RDW Std Deviation RDW Coeff of Johnny Plt Count MPV Immature Gran % (Auto) Neut % (Auto) Lymph % (Auto) [place] % (Auto) Eos % (Auto) Baso % (Auto) Immature Gran # (Auto) Neut # (Auto) Lymph # (Auto) [place] # (Auto) Eos # (Auto) Baso # (Auto) RBC Morphology PT INR APTT PTT Ratio Specimen Type Sample Site Art Line Patient Temperature POC pH 7.37 POC pCO2 39 POC pO2 55 L POC HCO3 23 POC Total CO2 25 POC Base Excess -3.0 O2 Sat Pulse Oximetry ABG pH (Temp Correct) ABG pCO2 (Temp Corrct POC ABG pO2 at Pt Temp POC ABG O2 Sat 93.0 Gurpreet Test NA O2 Delivery Device Ventilator POC O2 Rate 26 Minute Ventilation 12.7 Vent Mode POC FiO2 30 Tidal Volume 550 End Tidal CO2 PEEP 8 Sodium Potassium Chloride Carbon Dioxide Anion Gap BUN Creatinine Est Cr Clr Drug Dosing Est GFR ( Amer) Est GFR (Non-Af Amer) BUN/Creatinine Ratio Glucose POC Glucose (other) 104 H Estimat Average Glucose Hemoglobin A1c Calcium Ionized Calcium 1.08 L Phosphorus Magnesium Total Bilirubin Direct Bilirubin AST ALT Alkaline Phosphatase Troponin I Total Protein Albumin Urine Color Urine Appearance Urine pH Ur Specific Vincent Urine Protein Urine Glucose (UA) Urine Ketones Urine Blood Urine Nitrite Urine Bilirubin Urine Urobilinogen Ur Leukocyte Esterase Urine WBC (Auto) Urine RBC (Auto) U Hyaline Cast (Auto) U Epithel Cells (Auto) Urine Bacteria (Auto) Ur Random Sodium Ur Random Urea Nitrogn Stool Occult Bld Scrn 06/21/18 06/21/18 06/21/18 05:35 05:35 05:35 WBC 6.78 RBC 3.12 L Hgb 8.7 L Hct 29.8 L MCV 95.5 D MCH 27.9 MCHC 29.2 L RDW Std Deviation 49.8 H RDW Coeff of Johnny 14.5 Plt Count 217 MPV 9.8 Immature Gran % (Auto) 0.7 Neut % (Auto) 80.1 Lymph % (Auto) 9.9 [place] % (Auto) 9.3 Eos % (Auto) 0.0 Baso % (Auto) 0.0 Immature Gran # (Auto) 0.05 H Neut # (Auto) 5.43 Lymph # (Auto) 0.67 L [place] # (Auto) 0.63 H Eos # (Auto) 0.00 Baso # (Auto) 0.00 RBC Morphology Unremarkable PT 12.6 H INR 1.3 H APTT 32.3 H PTT Ratio 1.2 Specimen Type Sample Site Patient Temperature POC pH POC pCO2 POC pO2 POC HCO3 POC Total CO2 POC Base Excess O2 Sat Pulse Oximetry ABG pH (Temp Correct) ABG pCO2 (Temp Corrct POC ABG pO2 at Pt Temp POC ABG O2 Sat Gurperet Test O2 Delivery Device POC O2 Rate Minute Ventilation Vent Mode POC FiO2 Tidal Volume End Tidal CO2 PEEP Sodium Potassium Chloride Carbon Dioxide Anion Gap BUN Creatinine Est Cr Clr Drug Dosing Est GFR ( Amer) Est GFR (Non-Af Amer) BUN/Creatinine Ratio Glucose POC Glucose (other) Estimat Average Glucose 120 Hemoglobin A1c 5.8 H Calcium Ionized Calcium Phosphorus Magnesium Total Bilirubin Direct Bilirubin AST ALT Alkaline Phosphatase Troponin I Total Protein Albumin Urine Color Urine Appearance Urine pH Ur Specific Vincent Urine Protein Urine Glucose (UA) Urine Ketones Urine Blood Urine Nitrite Urine Bilirubin Urine Urobilinogen Ur Leukocyte Esterase Urine WBC (Auto) Urine RBC (Auto) U Hyaline Cast (Auto) U Epithel Cells (Auto) Urine Bacteria (Auto) Ur Random Sodium Ur Random Urea Nitrogn Stool Occult Bld Scrn 06/21/18 06/21/18 06/21/18 05:35 05:35 07:38 WBC RBC Hgb Hct MCV MCH MCHC RDW Std Deviation RDW Coeff of Johnny Plt Count MPV Immature Gran % (Auto) Neut % (Auto) Lymph % (Auto) [place] % (Auto) Eos % (Auto) Baso % (Auto) Immature Gran # (Auto) Neut # (Auto) Lymph # (Auto) [place] # (Auto) Eos # (Auto) Baso # (Auto) RBC Morphology PT INR APTT PTT Ratio Specimen Type Sample Site Patient Temperature POC pH POC pCO2 POC pO2 POC HCO3 POC Total CO2 POC Base Excess O2 Sat Pulse Oximetry ABG pH (Temp Correct) ABG pCO2 (Temp Corrct POC ABG pO2 at Pt Temp POC ABG O2 Sat Gurpreet Test O2 Delivery Device POC O2 Rate Minute Ventilation Vent Mode POC FiO2 Tidal Volume End Tidal CO2 PEEP Sodium 141 Potassium 4.7 Chloride 108 H Carbon Dioxide 22 Anion Gap 11.0 BUN 85 H Creatinine 1.92 H Est Cr Clr Drug Dosing 53.7 Est GFR ( Amer) 40.6 Est GFR (Non-Af Amer) 35.0 BUN/Creatinine Ratio 44.0 H Glucose 127 H POC Glucose (other) 115 H Estimat Average Glucose Hemoglobin A1c Calcium 7.5 L Ionized Calcium 1.09 L Phosphorus 2.5 Magnesium 1.8 Total Bilirubin 0.6 Direct Bilirubin 0.3 H AST 275 H ALT 233 H Alkaline Phosphatase 49 Troponin I Total Protein 6.0 L Albumin 2.1 L Urine Color Urine Appearance Urine pH Ur Specific Vincent Urine Protein Urine Glucose (UA) Urine Ketones Urine Blood Urine Nitrite Urine Bilirubin Urine Urobilinogen Ur Leukocyte Esterase Urine WBC (Auto) Urine RBC (Auto) U Hyaline Cast (Auto) U Epithel Cells (Auto) Urine Bacteria (Auto) Ur Random Sodium Ur Random Urea Nitrogn Stool Occult Bld Scrn 06/21/18 06/21/18 06/21/18 10:36 11:52 11:52 WBC RBC Hgb Hct MCV MCH MCHC RDW Std Deviation RDW Coeff of Johnny Plt Count MPV Immature Gran % (Auto) Neut % (Auto) Lymph % (Auto) [place] % (Auto) Eos % (Auto) Baso % (Auto) Immature Gran # (Auto) Neut # (Auto) Lymph # (Auto) [place] # (Auto) Eos # (Auto) Baso # (Auto) RBC Morphology PT 12.6 H INR 1.3 H APTT 33.6 H PTT Ratio 1.3 Specimen Type Sample Site Art Line Patient Temperature POC pH 7.41 POC pCO2 35 POC pO2 131 H POC HCO3 23 POC Total CO2 24 POC Base Excess -2.0 O2 Sat Pulse Oximetry ABG pH (Temp Correct) ABG pCO2 (Temp Corrct POC ABG pO2 at Pt Temp POC ABG O2 Sat 99.0 H Gurpreet Test NA O2 Delivery Device Ventilator POC O2 Rate 26 Minute Ventilation 14.3 Vent Mode POC FiO2 40 Tidal Volume 550 End Tidal CO2 PEEP 8 Sodium 141 Potassium 4.3 Chloride 109 H Carbon Dioxide 20 L Anion Gap 12.0 H BUN 81 H Creatinine 1.88 H Est Cr Clr Drug Dosing 54.9 Est GFR ( Amer) 41.6 Est GFR (Non-Af Amer) 35.9 BUN/Creatinine Ratio 43.1 H Glucose 104 H POC Glucose (other) Estimat Average Glucose Hemoglobin A1c Calcium 7.7 L Ionized Calcium Phosphorus Magnesium 2.3 Total Bilirubin Direct Bilirubin AST ALT Alkaline Phosphatase Troponin I Total Protein Albumin Urine Color Urine Appearance Urine pH Ur Specific Vincent Urine Protein Urine Glucose (UA) Urine Ketones Urine Blood Urine Nitrite Urine Bilirubin Urine Urobilinogen Ur Leukocyte Esterase Urine WBC (Auto) Urine RBC (Auto) U Hyaline Cast (Auto) U Epithel Cells (Auto) Urine Bacteria (Auto) Ur Random Sodium Ur Random Urea Nitrogn Stool Occult Bld Scrn 06/21/18 06/21/18 11:52 11:52 WBC RBC Hgb 7.7 L Hct 26.5 L MCV MCH MCHC RDW Std Deviation RDW Coeff of Johnny Plt Count MPV Immature Gran % (Auto) Neut % (Auto) Lymph % (Auto) [place] % (Auto) Eos % (Auto) Baso % (Auto) Immature Gran # (Auto) Neut # (Auto) Lymph # (Auto) [place] # (Auto) Eos # (Auto) Baso # (Auto) RBC Morphology PT INR APTT PTT Ratio Specimen Type Sample Site Patient Temperature POC pH POC pCO2 POC pO2 POC HCO3 POC Total CO2 POC Base Excess O2 Sat Pulse Oximetry ABG pH (Temp Correct) ABG pCO2 (Temp Corrct POC ABG pO2 at Pt Temp POC ABG O2 Sat Gurpreet Test O2 Delivery Device POC O2 Rate Minute Ventilation Vent Mode POC FiO2 Tidal Volume End Tidal CO2 PEEP Sodium Potassium Chloride Carbon Dioxide Anion Gap BUN Creatinine Est Cr Clr Drug Dosing Est GFR ( Amer) Est GFR (Non-Af Amer) BUN/Creatinine Ratio Glucose POC Glucose (other) Estimat Average Glucose Hemoglobin A1c Calcium Ionized Calcium 1.05 L Phosphorus Magnesium Total Bilirubin Direct Bilirubin AST ALT Alkaline Phosphatase Troponin I Total Protein Albumin Urine Color Urine Appearance Urine pH Ur Specific Vincent Urine Protein Urine Glucose (UA) Urine Ketones Urine Blood Urine Nitrite Urine Bilirubin Urine Urobilinogen Ur Leukocyte Esterase Urine WBC (Auto) Urine RBC (Auto) U Hyaline Cast (Auto) U Epithel Cells (Auto) Urine Bacteria (Auto) Ur Random Sodium Ur Random Urea Nitrogn Stool Occult Bld Scrn
[2018-06-21] MEDS ORDERED: ATROPINE SULFATE 0.1 MG/ML 10ML SYR IV ONE (12:51)
--- NOTE | 2018-06-21 12:55 | Pharmacy Report ---
Pharm Abx/Gly Prg Nt - Date of Service June 21, 2018 - [facility] has been consulted to manage VANCOMYCIN + ZOSYN and GLYCEMIC CONTROL for this patient as per the Pharmacy & Therapeutics Committee approved dosing protocols. - Objective Vital Signs (Past 12hrs): Vital Signs Temp Pulse Resp BP BP Pulse Ox 06/21/18 11:00 32.9 C L 56 L 26 H 155/76 H 133/54 L 100 06/21/18 10:40 58 L 26 H 100 06/21/18 10:00 32.6 C L 57 L 26 H 126/86 129/55 L 100 06/21/18 09:00 32.6 C L 46 L 26 H 168/79 H 153/54 H 100 06/21/18 08:00 32.6 C L 64 26 H 158/111 H 150/56 H 100 06/21/18 07:33 62 27 H 100 06/21/18 07:00 32.6 C L 67 26 H 166/76 H 156/59 H 100 06/21/18 06:00 32.6 C L 68 26 H 151/67 H 151/57 H 100 06/21/18 05:23 60 26 H 100 06/21/18 05:00 32.6 C L 66 26 H 136/73 133/53 L 100 06/21/18 04:00 32.5 C L 86 26 H 199/80 H 186/72 H 100 06/21/18 03:00 32.9 C L 51 L 26 H 160/55 H 117/48 L 100 06/21/18 02:05 60 26 H 97 06/21/18 02:00 32.6 C L 48 L 26 H 132/56 L 136/53 L 100 06/21/18 01:15 32.6 C L 54 L 26 H 154/79 H 133/54 L 100 Lab Results: Laboratory Tests (24 Hours) 06/21/18 06/21/18 06/21/18 11:52 05:35 05:35 WBC 6.78 Neut # (Auto) 5.43 Creatinine 1.88 H 1.92 H Est Cr Clr Drug Dosing 54.9 53.7 06/20/18 06/20/18 06/20/18 23:36 12:01 07:19 WBC Neut # (Auto) Creatinine 1.81 H 1.75 H 1.73 H Est Cr Clr Drug Dosing 54.7 56.6 57.3 Micro Results: 06/20/18 Unknown Gram Stain - Final Bronch Wash,Right Lower Lobe 06/20/18 09:06 Blood Culture - Pending Blood 06/20/18 09:13 Blood Culture - Pending Blood MRSA nasal swab + Accuchecks BSG (last 24 hours):: 06/20/18 06/20/18 06/20/18 07:19 12:01 12:34 Glucose 136 H 156 H POC Glucose (other) 141 H 06/20/18 06/20/18 06/20/18 13:32 14:32 14:59 Glucose POC Glucose (other) 121 H 103 H 149 H 06/20/18 06/20/18 06/20/18 16:09 16:31 16:47 Glucose POC Glucose (other) 106 H 98 98 06/20/18 06/20/18 06/20/18 17:38 20:09 23:26 Glucose POC Glucose (other) 135 H 131 H 121 H 06/20/18 06/21/18 06/21/18 23:36 03:24 05:35 Glucose 121 H 127 H POC Glucose (other) 104 H 06/21/18 06/21/18 07:38 11:52 Glucose 104 H POC Glucose (other) 115 H HbA1C: Hemoglobin A1c 5.8 % (4.5-5.6) H 06/21/18 05:35 - Outpatient Anti-Diabetic Regimen Recent Pertinent Medications: Outpatient Anti-diabetic Regimen: * Levemir 15 units BID * Novolog 6 units w/ breakfast + 4 units w/ dinner * Metformin 1000mg BID * A1c = 5.8 % 06/21/18 The patient is currently receiving: * Basal insulin: Levemir 15 units SQ x 1 last evening * Correctional Insulin: Novolog Correction per scale Q 4 hrs Goal Range: Low 140 mg/dL - High 180 mg/dL Correction Factor: 20 mg/dL/unit * Prandial insulin: Per carb ratio of 1 unit per 6 grams CHO consumed * Oral Agents: None Risk Factors for Insulin Resistance: * Infection: empiric abx for pulm infxn * Pressors: dopamine ran for a short period of time overnight, this was titrated off this AM * Diet: NPO * Mechanical Ventilation: yes - Assessment & Plan Assessment: ID: * 68 year old M receiving VANCOMYCIN + ZOSYN as empiric treatment for respiratory failure/pna * Day # 2 of 2 of antimicrobial therapy (only 48 hrs of empiric therapy has been ordered) * MRSA nasal swab was + * BAL gram stain showed GPC and GNC * Blood and BAL cx's - no growth thus far * Renal fxn worsening over last 24 hrs, SCr 1.58 --> 1.92 and U.O. poor (only 230cc yesterday) Glycemic: * Pt's glycemic control has improved over the last 24 hrs * [employer] requested that insulin drip be cut and only SQ basal/bolus regimen be used despite therapeutic hypothermia protocol and questionable SQ absorption while cooled and receiving pressors. * Rewarming has already restarted as of this AM and his insulin sensitivity will likely improve as a result * Will place a Levemir scale on for this evening's dose should BSGs rise * Current Novolog CF and CR are reasonable starting points for given severe stressors * It is very important that we avoid both hypo- and hyper-glycemia in a patient w/ neurologic injury following cardiac arrest Plan: ANTIMICROBIAL THERAPY Vancomycin * Continue 1500mg IV Q 14 hours, however check a trough level prior to the 0100 dose tonight to screen for poor clearance * Will hold the 1300 dose until trough result interpreted INPATIENT GLYCEMIC CONTROL * Continue to hold outpatient oral diabetes medications (metformin) Basal Insulin * Levemir units SQ HS per scale: * 0 units if < 130 * 8 units if 130-170 * 15 units if 170-200 * 22 units if > 200 Bolus Insulin * NovoLog per scale Q 4 hrs * Goal Range: Low 140 mg/dL - High 180 mg/dL * Correction Factor: 20 mg/dL/unit * Nutritional / Prandial insulin per carb ratio of 1 unit per 6 grams CHO consumed * Please note that the plan above was derived based on current level of insulin resistance and hospital stress. These recommendations are appropriate for inpatient admission only. Plan of care upon discharge will need to be reassessed to avoid potential outpatient hypo/hyperglycemia. Glycemic Control Discharge Recommendations: * to be determined Pharmacy will follow patient and adjust orders on a daily basis. Thank you for allowing us to participate in this patient�s care.
[2018-06-21] MEDS ORDERED: ATROPINE SULFATE 0.1 MG/ML 10ML SYR IV STA (13:06)
[2018-06-21] MEDS: MIDAZOLAM HCL 125 MG/250 ML BAG IV SCH (13:38)
[2018-06-21 16:53] LABS: iSTAT Arterial Blood Gas HCO3 21 meg/L (19-24); iSTAT Carbon Dioxide 22 mEq/l (24-31); iSTAT FiO2 30 %
--- NOTE | 2018-06-21 17:08 | Hospitalist Progress Note ---
Date of Service June 21, 2018 Assessment & Plan (1) Cardiac arrest: Patient brought in s/p witnessed asystolic cardiac arrest in the field. ROSC achieved with CPR and epinephrine x 2. Currently unclear etiology. Possibly hypoxemic as patient had thick secretions on intubation; however, primary cardiac arrythmia also possible. - Undergoing cooling protocol in the rewarming stage - Management per critical care (2) Bradycardia: Patient in afib with bradycardia. Seen by cardiology with thought that it is related to his cooling. - Rewarming in process - Dobutamine per critical care team - If/once awake, will have to determine if bradycardia is causing any symptoms; BP has been stable (3) Atrial fibrillation: (4) NSTEMI (non-ST elevated myocardial infarction): Initially troponin was negative; bumped to 0.68, then downtrending. No concern for acute ischemic event per cardiology. - Restart ASA when able - No urgent cath warranted (5) CHF (congestive heart failure): Currently appears euvolemic; will attempt to keep net even as able. (6) Diabetes mellitus, type II: A1c was 5.8% on admission. On insulin as outpatient. - While intubated, frequent blood sugars - Restart insulin regimen as able/needed (7) Obesity hypoventilation syndrome: (8) OTONIEL (obstructive sleep apnea): (9) Hypertension: BP remaining stable while bradycardic. Holding home meds at present. 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 Now intubated and undergoing cooling protocol with rewarming underway. Review of Systems Unobtainable due to endotracheal tube Physical Exam 2 Vital Signs (Past 24 Hours): Last Vital Signs Temp 34.0 C L 06/21/18 16:00 Pulse 66 06/21/18 16:40 Resp 26 H 06/21/18 16:40 BP 146/78 H 06/21/18 16:00 Pulse Ox 99 06/21/18 16:40 Constitutional: well developed, + acute distress and + obese Eyes: no conjunctival abnormality and no scleral abnormality ENMT: Mouth: no oral mucosal abnormality Neck: trachea midline and + thick neck Thyroid: normal thyroid Respiratory: Auscultation: lungs clear to auscultation bilaterally; no rhonchi and no wheezes Cardiovascular: Heart Sounds: normal S1 and normal S2; no gallop and no murmur Extremities: + edema Gastrointestinal (Abdomen): Inspection/Auscultation: + hypoactive bowel sounds Percussion/Palpation: abdomen soft Musculoskeletal: Head/Neck/Chest: normal inspection of chest wall and normal palpation of chest wall Skin: no rashes, no ulcers and no purpura
--- NOTE | 2018-06-21 17:09 | Critical Care Progress Note ---
Date of Service June 21, 2018 Assessment & Plan (1) Acute renal insufficiency: Impression: 1. V. fib arrest, required 2 doses of epinephrine. 2. Acute respiratory failure requiring intubation. 3. History of obstructive sleep apnea, noncompliant with BiPAP. 4. Aspiration pneumonia bilaterally. MRSA suspected. Positive sputum as well as nasal swabs. 5. Acute kidney insufficiency. 6. Morbid obesity. 7. Diabetes mellitus with diabetic foot. 8. History of hypertension. 9. Peripheral arterial disease. 10. Non-ST elevation CT. Plan: 1. Start the patient phase II of the TTM. 2. Appreciate cardiology and renal consult. 3. Replace magnesium. 4. The patient is guaiac positive, I would watch for his hematocrit as it dropped to 26. 5. Once the patient is warm we will start the weaning process from the ventilator. 6. Evaluation of his brain function once he completed the rewarming process. 7. Discussed with the family in details in regard of treatment. They are pleased and in agreement with the treatment. 8. Glucose control, DVT and GI prophylaxis. 9. Continue with BIS monitoring. 10. Continue current antibiotics. Vanco and Zosyn. 11. He may require imaging of the brain if neurologic deficit is noted. 12. Due to the brief period of bradycardia, etiology could be related to A. fib , sick sinus syndrome, the patient was placed on dopamine. He did receive 1 dose of 0.5 mg of atropine. 13. Discussed with the staff on rounds and details. Critical care time spent with the patient was 60 minutes. (2) Bradycardia: Subjective The patient remains intubated and vented, he open his eyes but not sure if he is following commands, he is still in the warming process at the moment. Review of system was not obtainable as the patient is intubated and sedated. Physical Exam 2 Vital Signs (Past 24 Hours): Last Vital Signs Temp 34.0 C L 06/21/18 16:00 Pulse 66 06/21/18 16:40 Resp 26 H 06/21/18 16:40 BP 146/78 H 06/21/18 16:00 Pulse Ox 99 06/21/18 16:40 Physical Exam: Vital signs remained stable, blood pressure slightly elevated at 146/78, heart rate drift down to the 40s occasionally, back again on the dopamine. Requiring 1 dose of half a milligram of atropine. No JVP, ET tube in good position, S1-S2 regular rate and rhythm, lungs were distant and clear, abdomen is benign, edema in the periphery. Right groin lines in place. Neurologically he is sedated. No skin rash and no skin breakdown. Results & Data Laboratory Results Labs were reviewed personally which showed stable CBC, slight drop in hematocrit to 26, ABG was 7.4 1/33/72/20 1/96%, BUN and creatinine 81 and 1.8. Troponin 0 0.478. Diagnostic Findings No new imaging.
[2018-06-21 18:17] LABS: INR 1.3 (0.9-1.1); Partial Thromboplastin Ratio 1.4; Partial Thromboplastin Time 37.3 Seconds (21.0-31.0); Prothrombin Time 13.1 Seconds (9.0-12.0)
[2018-06-21 18:27] LABS: BUN Creatinine Ratio 45.7 (10-20); Calcium 6.7 mg/dl (8.5-10.1); Creatinine Clr Calc Pharmacy 65.7 ml/min; Est GFR (African American) 51.7; Est GFR (Non-African American) 44.6; Potassium 3.7 mmol/L (3.5-5.1)
[2018-06-21] MEDS: INSULIN DETEMIR FLEXPEN/FLEX TOUCH 100 UNITS/ML 3ML SC SCH (20:06)
[2018-06-21 22:45] LABS: iSTAT Arterial Blood Gas HCO3 21 meg/L (19-24); iSTAT Carbon Dioxide 22 mEq/l (24-31); iSTAT FiO2 30 %
[2018-06-21] MEDS: MEPERIDINE HCL 25 MG/ML CARP IV PRN (23:17)
[2018-06-21 23:32] LABS: INR 1.2 (0.9-1.1); Partial Thromboplastin Ratio 1.3; Partial Thromboplastin Time 33.8 Seconds (21.0-31.0); Prothrombin Time 12.2 Seconds (9.0-12.0)
[2018-06-21 23:37] LABS: Calcium 8.1 mg/dl (8.5-10.1); Creatinine Clr Calc Pharmacy 48.9 ml/min; Est GFR (African American) 36.2; Est GFR (Non-African American) 31.2; Magnesium 2.1 mg/dl (1.8-2.4); Potassium 4.4 mmol/L (3.5-5.1)
[2018-06-22] MEDS ORDERED: VANCOMYCIN TROUGH ONE (00:30)
[2018-06-22] MEDS: PIPERACILLIN/TAZOBACTAM 4.5 GM in DEXTROSE 5% 100 ML IV SCH ×3 (01:35→18:09)
[2018-06-22] MEDS: SODIUM CHLORIDE 0.9% 1000ML 1,000 ML IV SCH (02:59)
[2018-06-22] MEDS: INSULIN ASPART 100 UNITS/ML 3 ML PEN SC SCH ×5 (03:23→20:20)
[2018-06-22 04:59] LABS: iSTAT Arterial Blood Gas HCO3 20 meg/L (19-24); iSTAT Carbon Dioxide 21 mEq/l (24-31); iSTAT FiO2 30 %
[2018-06-22 06:14] LABS: Eosinophils # (auto) 0.02 K/uL (0-0.5); Eosinophils % (auto) 0.3 %; Hematocrit (blood only) 26.3 % (42-52); Hemoglobin 7.9 g/dL (14.0-18.0); Immature Granulocytes # (auto) 0.03 K/uL (0.00-0.02); Immature Granulocytes % (auto) 0.4 %; Lymphocytes # (auto) 0.86 K/uL (1.2-3.4); Lymphocytes % (auto) 12.1 %; Mean Corpuscular Volume 92.3 fL (80-100); Mean Platelet Volume 9.9 fL (7.4-10.4); Monocytes # (auto) 0.35 K/uL (0.11-0.59); Monocytes % (auto) 4.9 %; Neutrophils # (auto) 5.82 K/uL (1.4-6.5); Neutrophils % (auto) 82.3 %; Platelet Count 247 K/uL (130-400); RDW Standard Deviation 50.7 fL (36.4-46.3); Red Blood Count 2.85 M/uL (4.7-6.1); White Blood Count 7.08 K/uL (4.8-10.8)
[2018-06-22 06:22] LABS: INR 1.3 (0.9-1.1); Partial Thromboplastin Ratio 1.3; Partial Thromboplastin Time 33.4 Seconds (21.0-31.0); Prothrombin Time 12.6 Seconds (9.0-12.0)
[2018-06-22 06:37] LABS: Ovalocytes 1+
[2018-06-22 06:50] LABS: BUN Creatinine Ratio 37.4 (10-20); Bilirubin Direct 0.2 mg/dl (0-0.2); Calcium 7.8 mg/dl (8.5-10.1); Creatinine Clr Calc Pharmacy 46.6 ml/min; Est GFR (African American) 33.8; Est GFR (Non-African American) 29.2; Potassium 4.5 mmol/L (3.5-5.1)
[2018-06-22 06:53] LABS: Bilirubin,Total 0.5 mg/dl (0.2-1); Total Protein 5.5 gm/dl (6.4-8.2)
--- NOTE | 2018-06-22 08:48 | Nephrology Progress Note ---
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 -- Document I/O's -- Monitor metabolic profile at least twice daily -- Medications are appropriately dosed for kidney function -- Diuretic trial with Bumex 1 mg (2) Cardiac arrest: -- Plan of care discussed with cardiology this AM: suspicion of a primary ischemic cardiac event is low -- Sedation currently being weaned -- Continue to assess extent of anoxic injury (3) CHF (congestive heart failure): -- Volume status hypervolemic but acceptable -- Avoid Aggressive volume replacement -- Diuretic challenge as needed -- No emergent indication for dialysis (4) Peripheral arterial disease: (5) Obesity hypoventilation syndrome: -- Oxygenating well on vent -- Vent weaning trial to be provided once patient is more awake Subjective No acute events overnight. Remains relatively oliguric. Sedation being wean. Not currently responsive but reported to be respond to voice last night. Review of Systems Unobtainable due to endotracheal tube Physical Exam 2 Vital Signs (Past 24 Hours): Last Vital Signs Temp 37 C 06/22/18 08:00 Pulse 113 H 06/22/18 08:30 Resp 26 H 06/22/18 08:30 BP 108/69 06/22/18 08:00 Pulse Ox 95 06/22/18 08:30 Constitutional: well developed, + obese and + edematous; no acute distress Eyes: no conjunctival abnormality and no scleral abnormality ENMT: Mouth: no oral mucosal abnormality Neck: trachea midline and + thick neck Thyroid: normal thyroid Respiratory: Auscultation: lungs clear to auscultation bilaterally; no rhonchi and no wheezes Cardiovascular: Rate/Rhythm: + tachycardic Heart Sounds: normal S1 and normal S2; no gallop and no murmur Vessels: + JVD Extremities: + edema Gastrointestinal (Abdomen): Inspection/Auscultation: + abdomen distended and + hypoactive bowel sounds Percussion/Palpation: abdomen soft Musculoskeletal: Head/Neck/Chest: normal inspection of chest wall and normal palpation of chest wall Skin: no rashes, no ulcers and no purpura Genitourinary: Tracy with small amount of yellow urine in bag Results & Data Laboratory Results Laboratory Results - last 24 hr 06/21/18 06/21/18 06/21/18 10:36 11:52 11:52 WBC RBC Hgb Hct MCV MCH MCHC RDW Std Deviation RDW Coeff of Johnny Plt Count MPV Immature Gran % (Auto) Neut % (Auto) Lymph % (Auto) Barth[place]omew % (Auto) Eos % (Auto) Baso % (Auto) Immature Gran # (Auto) Neut # (Auto) Lymph # (Auto) Bartholomew # (Auto) Eos # (Auto) Baso # (Auto) Ovalocytes PT 12.6 H INR 1.3 H APTT 33.6 H PTT Ratio 1.3 Sample Site Art Line POC pH 7.41 POC pCO2 35 POC pO2 131 H POC HCO3 23 POC Total CO2 24 POC Base Excess -2.0 POC ABG O2 Sat 99.0 H Gurpreet Test NA O2 Delivery Device Ventilator POC O2 Rate 26 Minute Ventilation 14.3 POC FiO2 40 Tidal Volume 550 PEEP 8 Sodium 141 Potassium 4.3 Chloride 109 H Carbon Dioxide 20 L Anion Gap 12.0 H BUN 81 H Creatinine 1.88 H Est Cr Clr Drug Dosing 54.9 Est GFR ( Amer) 41.6 Est GFR (Non-Af Amer) 35.9 BUN/Creatinine Ratio 43.1 H Glucose 104 H POC Glucose POC Glucose (other) Calcium 7.7 L Ionized Calcium Magnesium 2.3 Total Bilirubin Direct Bilirubin AST ALT Alkaline Phosphatase Total Protein Albumin Vancomycin Trough 06/21/18 06/21/18 06/21/18 11:52 11:52 16:12 WBC RBC Hgb 7.7 L Hct 26.5 L MCV MCH MCHC RDW Std Deviation RDW Coeff of Johnny Plt Count MPV Immature Gran % (Auto) Neut % (Auto) Lymph % (Auto) [place]th[place]omew % (Auto) Eos % (Auto) Baso % (Auto) Immature Gran # (Auto) Neut # (Auto) Lymph # (Auto) [place]th[place]w # (Auto) Eos # (Auto) Baso # (Auto) Ovalocytes PT INR APTT PTT Ratio Sample Site POC pH POC pCO2 POC pO2 POC HCO3 POC Total CO2 POC Base Excess POC ABG O2 Sat Gurpreet Test O2 Delivery Device POC O2 Rate Minute Ventilation POC FiO2 Tidal Volume PEEP Sodium Potassium Chloride Carbon Dioxide Anion Gap BUN Creatinine Est Cr Clr Drug Dosing Est GFR ( Amer) Est GFR (Non-Af Amer) BUN/Creatinine Ratio Glucose POC Glucose POC Glucose (other) 87 Calcium Ionized Calcium 1.05 L Magnesium Total Bilirubin Direct Bilirubin AST ALT Alkaline Phosphatase Total Protein Albumin Vancomycin Trough 06/21/18 06/21/18 06/21/18 16:38 17:58 17:58 WBC RBC Hgb Hct MCV MCH MCHC RDW Std Deviation RDW Coeff of Johnny Plt Count MPV Immature Gran % (Auto) Neut % (Auto) Lymph % (Auto) [place]th[place]omew % (Auto) Eos % (Auto) Baso % (Auto) Immature Gran # (Auto) Neut # (Auto) Lymph # (Auto) Bartholomew # (Auto) Eos # (Auto) Baso # (Auto) Ovalocytes PT 13.1 H INR 1.3 H APTT 37.3 H PTT Ratio 1.4 Sample Site Art Line POC pH 7.41 POC pCO2 33 L POC pO2 72 L POC HCO3 21 POC Total CO2 22 L POC Base Excess -4.0 POC ABG O2 Sat 96.0 H Gurpreet Test NA O2 Delivery Device Ventilator POC O2 Rate 26 Minute Ventilation 14.3 POC FiO2 30 Tidal Volume 550 PEEP 8 Sodium 143 Potassium 3.7 Chloride 115 H Carbon Dioxide 18 L Anion Gap 11.0 BUN 72 H Creatinine 1.57 H D Est Cr Clr Drug Dosing 65.7 Est GFR ( Amer) 51.7 Est GFR (Non-Af Amer) 44.6 BUN/Creatinine Ratio 45.7 H Glucose 74 POC Glucose POC Glucose (other) Calcium 6.7 L Ionized Calcium Magnesium Total Bilirubin Direct Bilirubin AST ALT Alkaline Phosphatase Total Protein Albumin Vancomycin Trough 06/21/18 06/21/18 06/21/18 17:58 17:58 19:31 WBC RBC Hgb Hct MCV MCH MCHC RDW Std Deviation RDW Coeff of Johnny Plt Count MPV Immature Gran % (Auto) Neut % (Auto) Lymph % (Auto) Bartholomew % (Auto) Eos % (Auto) Baso % (Auto) Immature Gran # (Auto) Neut # (Auto) Lymph # (Auto) Bartholomew # (Auto) Eos # (Auto) Baso # (Auto) Ovalocytes PT INR APTT PTT Ratio Sample Site POC pH POC pCO2 POC pO2 POC HCO3 POC Total CO2 POC Base Excess POC ABG O2 Sat Gurpreet Test O2 Delivery Device POC O2 Rate Minute Ventilation POC FiO2 Tidal Volume PEEP Sodium Potassium Chloride Carbon Dioxide Anion Gap BUN Creatinine Est Cr Clr Drug Dosing Est GFR ( Amer) Est GFR (Non-Af Amer) BUN/Creatinine Ratio Glucose POC Glucose POC Glucose (other) 79 Calcium Ionized Calcium 1.00 L Magnesium 1.8 Total Bilirubin Direct Bilirubin AST ALT Alkaline Phosphatase Total Protein Albumin Vancomycin Trough 06/21/18 06/21/18 06/21/18 22:30 23:05 23:05 WBC RBC Hgb Hct MCV MCH MCHC RDW Std Deviation RDW Coeff of Johnny Plt Count MPV Immature Gran % (Auto) Neut % (Auto) Lymph % (Auto) [place]th[place]w % (Auto) Eos % (Auto) Baso % (Auto) Immature Gran # (Auto) Neut # (Auto) Lymph # (Auto) Bartholomew # (Auto) Eos # (Auto) Baso # (Auto) Ovalocytes PT 12.2 H INR 1.2 H APTT 33.8 H PTT Ratio 1.3 Sample Site Art Line POC pH 7.39 POC pCO2 34 L POC pO2 84 POC HCO3 21 POC Total CO2 22 L POC Base Excess -4.0 POC ABG O2 Sat 97.0 H Gurpreet Test NA O2 Delivery Device Ventilator POC O2 Rate 26 Minute Ventilation 12.8 POC FiO2 30 Tidal Volume 500 PEEP 8 Sodium Potassium Chloride Carbon Dioxide Anion Gap BUN Creatinine Est Cr Clr Drug Dosing Est GFR ( Amer) Est GFR (Non-Af Amer) BUN/Creatinine Ratio Glucose POC Glucose POC Glucose (other) Calcium Ionized Calcium 1.08 L Magnesium Total Bilirubin Direct Bilirubin AST ALT Alkaline Phosphatase Total Protein Albumin Vancomycin Trough 06/21/18 06/21/18 06/22/18 23:05 23:13 00:10 WBC RBC Hgb Hct MCV MCH MCHC RDW Std Deviation RDW Coeff of Johnny Plt Count MPV Immature Gran % (Auto) Neut % (Auto) Lymph % (Auto) Bartholomew % (Auto) Eos % (Auto) Baso % (Auto) Immature Gran # (Auto) Neut # (Auto) Lymph # (Auto) Bartholomew # (Auto) Eos # (Auto) Baso # (Auto) Ovalocytes PT INR APTT PTT Ratio Sample Site POC pH POC pCO2 POC pO2 POC HCO3 POC Total CO2 POC Base Excess POC ABG O2 Sat Gurpreet Test O2 Delivery Device POC O2 Rate Minute Ventilation POC FiO2 Tidal Volume PEEP Sodium 141 Potassium 4.4 D Chloride 109 H Carbon Dioxide 20 L Anion Gap 12.0 H BUN 82 H Creatinine 2.11 H D Est Cr Clr Drug Dosing 48.9 Est GFR ( Amer) 36.2 Est GFR (Non-Af Amer) 31.2 BUN/Creatinine Ratio 39.0 H Glucose 80 POC Glucose POC Glucose (other) 79 Calcium 8.1 L D Ionized Calcium Magnesium 2.1 Total Bilirubin Direct Bilirubin AST ALT Alkaline Phosphatase Total Protein Albumin Vancomycin Trough 43.6 06/22/18 06/22/18 06/22/18 03:23 04:40 06:01 WBC 7.08 RBC 2.85 L Hgb 7.9 L Hct 26.3 L MCV 92.3 MCH 27.7 MCHC 30.0 L RDW Std Deviation 50.7 H RDW Coeff of Johnny 15.0 H Plt Count 247 MPV 9.9 Immature Gran % (Auto) 0.4 Neut % (Auto) 82.3 Lymph % (Auto) 12.1 Bartholomew % (Auto) 4.9 Eos % (Auto) 0.3 Baso % (Auto) 0.0 Immature Gran # (Auto) 0.03 H Neut # (Auto) 5.82 Lymph # (Auto) 0.86 L Bartholomew # (Auto) 0.35 Eos # (Auto) 0.02 Baso # (Auto) 0.00 Ovalocytes 1+ PT INR APTT PTT Ratio Sample Site Art Line POC pH 7.40 POC pCO2 32 L POC pO2 81 POC HCO3 20 POC Total CO2 21 L POC Base Excess -5.0 POC ABG O2 Sat 96.0 H Gurpreet Test NA O2 Delivery Device Ventilator POC O2 Rate 26 Minute Ventilation 12.7 POC FiO2 30 Tidal Volume 550 PEEP 8 Sodium Potassium Chloride Carbon Dioxide Anion Gap BUN Creatinine Est Cr Clr Drug Dosing Est GFR ( Amer) Est GFR (Non-Af Amer) BUN/Creatinine Ratio Glucose POC Glucose POC Glucose (other) 86 Calcium Ionized Calcium Magnesium Total Bilirubin Direct Bilirubin AST ALT Alkaline Phosphatase Total Protein Albumin Vancomycin Trough 06/22/18 06/22/18 06/22/18 06:01 06:01 06:01 WBC RBC Hgb Hct MCV MCH MCHC RDW Std Deviation RDW Coeff of Johnny Plt Count MPV Immature Gran % (Auto) Neut % (Auto) Lymph % (Auto) Bartholomew % (Auto) Eos % (Auto) Baso % (Auto) Immature Gran # (Auto) Neut # (Auto) Lymph # (Auto) Bartholomew # (Auto) Eos # (Auto) Baso # (Auto) Ovalocytes PT 12.6 H INR 1.3 H APTT 33.4 H PTT Ratio 1.3 Sample Site POC pH POC pCO2 POC pO2 POC HCO3 POC Total CO2 POC Base Excess POC ABG O2 Sat Gurpreet Test O2 Delivery Device POC O2 Rate Minute Ventilation POC FiO2 Tidal Volume PEEP Sodium 138 Potassium 4.5 Chloride 111 H Carbon Dioxide 21 Anion Gap 6.0 BUN 84 H Creatinine 2.23 H Est Cr Clr Drug Dosing 46.6 Est GFR ( Amer) 33.8 Est GFR (Non-Af Amer) 29.2 BUN/Creatinine Ratio 37.4 H Glucose 84 POC Glucose POC Glucose (other) Calcium 7.8 L Ionized Calcium 1.09 L Magnesium 2.0 Total Bilirubin 0.5 Direct Bilirubin 0.2 AST 162 H ALT 156 H Alkaline Phosphatase 43 L Total Protein 5.5 L Albumin 2.0 L Vancomycin Trough 06/22/18 07:26 WBC RBC Hgb Hct MCV MCH MCHC RDW Std Deviation RDW Coeff of Johnny Plt Count MPV Immature Gran % (Auto) Neut % (Auto) Lymph % (Auto) Bartholomew % (Auto) Eos % (Auto) Baso % (Auto) Immature Gran # (Auto) Neut # (Auto) Lymph # (Auto) Bartholomew # (Auto) Eos # (Auto) Baso # (Auto) Ovalocytes PT INR APTT PTT Ratio Sample Site POC pH POC pCO2 POC pO2 POC HCO3 POC Total CO2 POC Base Excess POC ABG O2 Sat Gurpreet Test O2 Delivery Device POC O2 Rate Minute Ventilation POC FiO2 Tidal Volume PEEP Sodium Potassium Chloride Carbon Dioxide Anion Gap BUN Creatinine Est Cr Clr Drug Dosing Est GFR ( Amer) Est GFR (Non-Af Amer) BUN/Creatinine Ratio Glucose POC Glucose 73 POC Glucose (other) Calcium Ionized Calcium Magnesium Total Bilirubin Direct Bilirubin AST ALT Alkaline Phosphatase Total Protein Albumin Vancomycin Trough
--- NOTE | 2018-06-22 09:18 | Cardiology Progress Note ---
Date of Service June 22, 2018 Assessment & Plan (1) Cardiac arrest: He reportedly had thick secretions on presentation and was found to be in asystole. This is suspicious for hypoxic event which could lead to asystole. There are no dynamic ST abnormalities on ECG. Troponin is mildly elevated however this is not unexpected given respiratory/cardiac arrest with hypoxia and also in the setting of ATN. He is status post hypothermic protocol. He remains on mechanical ventilator as per critical care team. (2) Atrial fibrillation: Heart rate has improved. He is now intermittently tachycardic. If he becomes more significantly tachycardic, could consider low-dose beta-anabelle. Consider resuming anticoagulation therapy when safe. Can use heparin drip while hospitalized and while in ATN. (3) Bradycardia: Heart rate has improved after his body temperature has been Re warmed. (4) Hypertension: Blood pressure acceptable. Diuretic therapy recommended by Nephrology. (5) NSTEMI (non-ST elevated myocardial infarction): Troponins are mildly elevated in the setting of hypoxic event with respiratory failure/cardiac arrest. Small increase in troponin is not unexpected with recent events. He has hyperdynamic LV systolic function with normal wall motion on echocardiogram. His cardiac arrest is not likely secondary to primary ischemic event. Would recommend resuming home dose of aspirin 81 mg daily if no contraindications. (He also has history of peripheral arterial disease). Consider restarting statin therapy when transaminase levels have improved. Continue medical therapy. (6) Chronic diastolic CHF (congestive heart failure): He has a history of diastolic CHF and takes Bumex 0.5 mg twice daily at home. He did not present with heart failure but overall fluid balance is quite positive as he is oliguric. His CVP is only mildly elevated. A Bumex trial has been recommended by Nephrology. Monitor I&Os. Disposition: Cardiology will continue to follow. Patient care was discussed with Nephrology. Subjective He remains on mechanical ventilation. He does not respond to verbal stimuli. Heart rate has improved during the warming phase following hypothermic protocol. Telemetry reviewed. Patient care discussed with Nephrology, Dr. Terry. Review of systems: Unobtainable due to patient's mechanically ventilated state. Physical Exam 2 Vital Signs (Past 24 Hours): Last Vital Signs Temp 37 C 06/22/18 08:00 Pulse 113 H 06/22/18 08:30 Resp 26 H 06/22/18 08:47 BP 108/69 06/22/18 08:00 Pulse Ox 95 06/22/18 08:30 Intake & Output 06/20/18 06/21/18 06/22/18 06/23/18 06:59 06:59 06:59 06:59 Intake Total 3107.133 / 3107.13 3 4983.414 / 4983.41 4 7.267 / 7.267 Output Total 230 / 230 253 / 253 28 / 28 Balance 2877.133 / 2877.13 3 4730.414 / 4730.41 4 -20.733 / -20.733 Weight 127.8 kg 138.1 kg 140 kg Physical Exam: Gen.: No acute distress. On mechanical ventilator. HEENT: Anicteric sclera. Neck: Thick neck. Cardiac: Irregularly irregular. Normal S1-S2. No murmurs, rubs, or gallops. Pulmonary: No rales. Inspiratory wheeze, otherwise clear. Abdomen: Soft, nondistended. No bruits noted. Extremities: 1+ radial pulses bilaterally. Trace bilateral lower extremity edema with 1+ right foot edema. Trace to 1+ bilateral upper extremity edema. No cyanosis. Results & Data Laboratory Results Laboratory Results - last 24 hr 06/21/18 06/21/18 06/21/18 10:36 11:52 11:52 WBC RBC Hgb Hct MCV MCH MCHC RDW Std Deviation RDW Coeff of Johnny Plt Count MPV Immature Gran % (Auto) Neut % (Auto) Lymph % (Auto) Calhoun % (Auto) Eos % (Auto) Baso % (Auto) Immature Gran # (Auto) Neut # (Auto) Lymph # (Auto) Calhoun # (Auto) Eos # (Auto) Baso # (Auto) Ovalocytes PT 12.6 H INR 1.3 H APTT 33.6 H PTT Ratio 1.3 Sample Site Art Line POC pH 7.41 POC pCO2 35 POC pO2 131 H POC HCO3 23 POC Total CO2 24 POC Base Excess -2.0 POC ABG O2 Sat 99.0 H Gurpreet Test NA O2 Delivery Device Ventilator POC O2 Rate 26 Minute Ventilation 14.3 POC FiO2 40 Tidal Volume 550 PEEP 8 Sodium 141 Potassium 4.3 Chloride 109 H Carbon Dioxide 20 L Anion Gap 12.0 H BUN 81 H Creatinine 1.88 H Est Cr Clr Drug Dosing 54.9 Est GFR ( Amer) 41.6 Est GFR (Non-Af Amer) 35.9 BUN/Creatinine Ratio 43.1 H Glucose 104 H POC Glucose POC Glucose (other) Calcium 7.7 L Ionized Calcium Magnesium 2.3 Total Bilirubin Direct Bilirubin AST ALT Alkaline Phosphatase Total Protein Albumin Vancomycin Trough 06/21/18 06/21/18 06/21/18 11:52 11:52 16:12 WBC RBC Hgb 7.7 L Hct 26.5 L MCV MCH MCHC RDW Std Deviation RDW Coeff of Johnny Plt Count MPV Immature Gran % (Auto) Neut % (Auto) Lymph % (Auto) Calhoun % (Auto) Eos % (Auto) Baso % (Auto) Immature Gran # (Auto) Neut # (Auto) Lymph # (Auto) Calhoun # (Auto) Eos # (Auto) Baso # (Auto) Ovalocytes PT INR APTT PTT Ratio Sample Site POC pH POC pCO2 POC pO2 POC HCO3 POC Total CO2 POC Base Excess POC ABG O2 Sat Gurpreet Test O2 Delivery Device POC O2 Rate Minute Ventilation POC FiO2 Tidal Volume PEEP Sodium Potassium Chloride Carbon Dioxide Anion Gap BUN Creatinine Est Cr Clr Drug Dosing Est GFR ( Amer) Est GFR (Non-Af Amer) BUN/Creatinine Ratio Glucose POC Glucose POC Glucose (other) 87 Calcium Ionized Calcium 1.05 L Magnesium Total Bilirubin Direct Bilirubin AST ALT Alkaline Phosphatase Total Protein Albumin Vancomycin Trough 06/21/18 06/21/18 06/21/18 16:38 17:58 17:58 WBC RBC Hgb Hct MCV MCH MCHC RDW Std Deviation RDW Coeff of Johnny Plt Count MPV Immature Gran % (Auto) Neut % (Auto) Lymph % (Auto) Calhoun % (Auto) Eos % (Auto) Baso % (Auto) Immature Gran # (Auto) Neut # (Auto) Lymph # (Auto) Calhoun # (Auto) Eos # (Auto) Baso # (Auto) Ovalocytes PT 13.1 H INR 1.3 H APTT 37.3 H PTT Ratio 1.4 Sample Site Art Line POC pH 7.41 POC pCO2 33 L POC pO2 72 L POC HCO3 21 POC Total CO2 22 L POC Base Excess -4.0 POC ABG O2 Sat 96.0 H Gurpreet Test NA O2 Delivery Device Ventilator POC O2 Rate 26 Minute Ventilation 14.3 POC FiO2 30 Tidal Volume 550 PEEP 8 Sodium 143 Potassium 3.7 Chloride 115 H Carbon Dioxide 18 L Anion Gap 11.0 BUN 72 H Creatinine 1.57 H D Est Cr Clr Drug Dosing 65.7 Est GFR ( Amer) 51.7 Est GFR (Non-Af Amer) 44.6 BUN/Creatinine Ratio 45.7 H Glucose 74 POC Glucose POC Glucose (other) Calcium 6.7 L Ionized Calcium Magnesium Total Bilirubin Direct Bilirubin AST ALT Alkaline Phosphatase Total Protein Albumin Vancomycin Trough 06/21/18 06/21/18 06/21/18 17:58 17:58 19:31 WBC RBC Hgb Hct MCV MCH MCHC RDW Std Deviation RDW Coeff of Johnny Plt Count MPV Immature Gran % (Auto) Neut % (Auto) Lymph % (Auto) Calhoun % (Auto) Eos % (Auto) Baso % (Auto) Immature Gran # (Auto) Neut # (Auto) Lymph # (Auto) Calhoun # (Auto) Eos # (Auto) Baso # (Auto) Ovalocytes PT INR APTT PTT Ratio Sample Site POC pH POC pCO2 POC pO2 POC HCO3 POC Total CO2 POC Base Excess POC ABG O2 Sat Gurpreet Test O2 Delivery Device POC O2 Rate Minute Ventilation POC FiO2 Tidal Volume PEEP Sodium Potassium Chloride Carbon Dioxide Anion Gap BUN Creatinine Est Cr Clr Drug Dosing Est GFR ( Amer) Est GFR (Non-Af Amer) BUN/Creatinine Ratio Glucose POC Glucose POC Glucose (other) 79 Calcium Ionized Calcium 1.00 L Magnesium 1.8 Total Bilirubin Direct Bilirubin AST ALT Alkaline Phosphatase Total Protein Albumin Vancomycin Trough 06/21/18 06/21/18 06/21/18 22:30 23:05 23:05 WBC RBC Hgb Hct MCV MCH MCHC RDW Std Deviation RDW Coeff of Johnny Plt Count MPV Immature Gran % (Auto) Neut % (Auto) Lymph % (Auto) Calhoun % (Auto) Eos % (Auto) Baso % (Auto) Immature Gran # (Auto) Neut # (Auto) Lymph # (Auto) Calhoun # (Auto) Eos # (Auto) Baso # (Auto) Ovalocytes PT 12.2 H INR 1.2 H APTT 33.8 H PTT Ratio 1.3 Sample Site Art Line POC pH 7.39 POC pCO2 34 L POC pO2 84 POC HCO3 21 POC Total CO2 22 L POC Base Excess -4.0 POC ABG O2 Sat 97.0 H Gurpreet Test NA O2 Delivery Device Ventilator POC O2 Rate 26 Minute Ventilation 12.8 POC FiO2 30 Tidal Volume 500 PEEP 8 Sodium Potassium Chloride Carbon Dioxide Anion Gap BUN Creatinine Est Cr Clr Drug Dosing Est GFR ( Amer) Est GFR (Non-Af Amer) BUN/Creatinine Ratio Glucose POC Glucose POC Glucose (other) Calcium Ionized Calcium 1.08 L Magnesium Total Bilirubin Direct Bilirubin AST ALT Alkaline Phosphatase Total Protein Albumin Vancomycin Trough 06/21/18 06/21/18 06/22/18 23:05 23:13 00:10 WBC RBC Hgb Hct MCV MCH MCHC RDW Std Deviation RDW Coeff of Johnny Plt Count MPV Immature Gran % (Auto) Neut % (Auto) Lymph % (Auto) Calhoun % (Auto) Eos % (Auto) Baso % (Auto) Immature Gran # (Auto) Neut # (Auto) Lymph # (Auto) Calhoun # (Auto) Eos # (Auto) Baso # (Auto) Ovalocytes PT INR APTT PTT Ratio Sample Site POC pH POC pCO2 POC pO2 POC HCO3 POC Total CO2 POC Base Excess POC ABG O2 Sat Gurpreet Test O2 Delivery Device POC O2 Rate Minute Ventilation POC FiO2 Tidal Volume PEEP Sodium 141 Potassium 4.4 D Chloride 109 H Carbon Dioxide 20 L Anion Gap 12.0 H BUN 82 H Creatinine 2.11 H D Est Cr Clr Drug Dosing 48.9 Est GFR ( Amer) 36.2 Est GFR (Non-Af Amer) 31.2 BUN/Creatinine Ratio 39.0 H Glucose 80 POC Glucose POC Glucose (other) 79 Calcium 8.1 L D Ionized Calcium Magnesium 2.1 Total Bilirubin Direct Bilirubin AST ALT Alkaline Phosphatase Total Protein Albumin Vancomycin Trough 43.6 06/22/18 06/22/18 06/22/18 03:23 04:40 06:01 WBC 7.08 RBC 2.85 L Hgb 7.9 L Hct 26.3 L MCV 92.3 MCH 27.7 MCHC 30.0 L RDW Std Deviation 50.7 H RDW Coeff of Johnny 15.0 H Plt Count 247 MPV 9.9 Immature Gran % (Auto) 0.4 Neut % (Auto) 82.3 Lymph % (Auto) 12.1 Calhoun % (Auto) 4.9 Eos % (Auto) 0.3 Baso % (Auto) 0.0 Immature Gran # (Auto) 0.03 H Neut # (Auto) 5.82 Lymph # (Auto) 0.86 L Calhoun # (Auto) 0.35 Eos # (Auto) 0.02 Baso # (Auto) 0.00 Ovalocytes 1+ PT INR APTT PTT Ratio Sample Site Art Line POC pH 7.40 POC pCO2 32 L POC pO2 81 POC HCO3 20 POC Total CO2 21 L POC Base Excess -5.0 POC ABG O2 Sat 96.0 H Gurpreet Test NA O2 Delivery Device Ventilator POC O2 Rate 26 Minute Ventilation 12.7 POC FiO2 30 Tidal Volume 550 PEEP 8 Sodium Potassium Chloride Carbon Dioxide Anion Gap BUN Creatinine Est Cr Clr Drug Dosing Est GFR ( Amer) Est GFR (Non-Af Amer) BUN/Creatinine Ratio Glucose POC Glucose POC Glucose (other) 86 Calcium Ionized Calcium Magnesium Total Bilirubin Direct Bilirubin AST ALT Alkaline Phosphatase Total Protein Albumin Vancomycin Trough 06/22/18 06/22/18 06/22/18 06:01 06:01 06:01 WBC RBC Hgb Hct MCV MCH MCHC RDW Std Deviation RDW Coeff of Johnny Plt Count MPV Immature Gran % (Auto) Neut % (Auto) Lymph % (Auto) Calhoun % (Auto) Eos % (Auto) Baso % (Auto) Immature Gran # (Auto) Neut # (Auto) Lymph # (Auto) Calhoun # (Auto) Eos # (Auto) Baso # (Auto) Ovalocytes PT 12.6 H INR 1.3 H APTT 33.4 H PTT Ratio 1.3 Sample Site POC pH POC pCO2 POC pO2 POC HCO3 POC Total CO2 POC Base Excess POC ABG O2 Sat Gurpreet Test O2 Delivery Device POC O2 Rate Minute Ventilation POC FiO2 Tidal Volume PEEP Sodium 138 Potassium 4.5 Chloride 111 H Carbon Dioxide 21 Anion Gap 6.0 BUN 84 H Creatinine 2.23 H Est Cr Clr Drug Dosing 46.6 Est GFR ( Amer) 33.8 Est GFR (Non-Af Amer) 29.2 BUN/Creatinine Ratio 37.4 H Glucose 84 POC Glucose POC Glucose (other) Calcium 7.8 L Ionized Calcium 1.09 L Magnesium 2.0 Total Bilirubin 0.5 Direct Bilirubin 0.2 AST 162 H ALT 156 H Alkaline Phosphatase 43 L Total Protein 5.5 L Albumin 2.0 L Vancomycin Trough 06/22/18 07:26 WBC RBC Hgb Hct MCV MCH MCHC RDW Std Deviation RDW Coeff of Johnny Plt Count MPV Immature Gran % (Auto) Neut % (Auto) Lymph % (Auto) Calhoun % (Auto) Eos % (Auto) Baso % (Auto) Immature Gran # (Auto) Neut # (Auto) Lymph # (Auto) Calhoun # (Auto) Eos # (Auto) Baso # (Auto) Ovalocytes PT INR APTT PTT Ratio Sample Site POC pH POC pCO2 POC pO2 POC HCO3 POC Total CO2 POC Base Excess POC ABG O2 Sat Gurpreet Test O2 Delivery Device POC O2 Rate Minute Ventilation POC FiO2 Tidal Volume PEEP Sodium Potassium Chloride Carbon Dioxide Anion Gap BUN Creatinine Est Cr Clr Drug Dosing Est GFR ( Amer) Est GFR (Non-Af Amer) BUN/Creatinine Ratio Glucose POC Glucose 73 POC Glucose (other) Calcium Ionized Calcium Magnesium Total Bilirubin Direct Bilirubin AST ALT Alkaline Phosphatase Total Protein Albumin Vancomycin Trough Diagnostic Findings Telemetry personally reviewed: Atrial fibrillation. Heart rate has trended upward. ECG personally reviewed: ECG 06/22/2018 at 2:36 a.m.: Atrial fibrillation 96 bpm. Incomplete RBBB. Prolonged QT. Medications Administered Current Inpatient Medications Acetaminophen (Tylenol) 650 mg PO Q6H PRN PRN Reason: Pain or Fever Stop: 07/20/18 08:20 Bisacodyl (Dulcolax) 10 mg SD DAILY PRN PRN Reason: Constipation Stop: 07/20/18 08:20 Dextrose (Dextrose 50%) 25 - 50 ml IV UD PRN; Protocol PRN Reason: Hypoglycemia Protocol Stop: 07/20/18 08:48 Last Admin: 06/20/18 16:50 Dose: 25 ml Docusate Sodium (Colace) 100 mg PO BID PRN PRN Reason: constipation Stop: 07/20/18 08:20 Glucagon (Glucagen) 1 mg IM UD PRN; Protocol PRN Reason: Hypoglycemia Protocol Stop: 07/20/18 08:48 Glucose (Glucose 40%) 15 - 30 gm PO UD PRN; Protocol PRN Reason: Hypoglycemia Protocol Stop: 07/20/18 08:48 Glucose (Dex4 Glucose) 4 - 8 tabs PO UD PRN; Protocol PRN Reason: Hypoglycemia Protocol Stop: 07/20/18 08:48 Pantoprazole Sodium 40 mg/ (Syringe) 10 mls @ 5 mls/min IV DAILY@1100 TENZIN Stop: 07/20/18 10:59 Last Admin: 06/21/18 10:44 Dose: 5 mls/min Piperacillin Sod/Tazobactam (Sod 4.5 gm/ Dextrose) 120 mls @ 30 mls/hr IV Q8H TENZIN; Protocol Stop: 06/27/18 23:59 Last Infusion: 06/22/18 05:35 Dose: Infused Midazolam HCl (Versed) 125 mg in 250 mls @ 0 mls/hr IV .Q24H TENZIN; Protocol Stop: 07/20/18 08:20 Last Titration: 06/22/18 08:13 Dose: 0 mg/hr, 0 mls/hr Vancomycin HCl 1,500 mg/ (Sodium Chloride) 530 mls @ 200 mls/hr IV Q14H TENZIN Stop: 06/22/18 20:59 Last Infusion: 06/21/18 13:08 Dose: Infused Fentanyl Citrate (Fentanyl Drip) 1,250 mcg in 250 mls @ 8 mls/hr IV .Q24H TENZIN; Protocol Stop: 07/04/18 15:59 Last Titration: 06/22/18 08:12 Dose: Infused Sodium Chloride (Nss 1000ml) 1,000 mls @ 100 mls/hr IV .Q10H TENZIN Stop: 07/20/18 22:14 Last Infusion: 06/22/18 05:51 Dose: 100 mls/hr Dopamine HCl/Dextrose (Dopamine / D5w) 400 mg in 250 mls @ 0 mls/hr IV .Q24H TENZIN; Protocol Stop: 07/21/18 03:29 Last Titration: 06/22/18 06:46 Dose: 0 mcg/kg/min, 0 mls/hr Insulin Aspart (Novolog Flexpen) 0 units SC Q4 TENZIN Stop: 07/20/18 19:59 Last Admin: 06/22/18 07:30 Dose: Not Given Insulin Detemir (Levemir Flextouch) 0 units SC HS TENZIN; Protocol Stop: 07/21/18 20:59 Last Admin: 06/21/18 20:06 Dose: Not Given Ioversol (Optiray 320 125ml) 119 ml IV ONCE PRN PRN Reason: Interaction Checking Stop: 06/24/18 07:39 Last Admin: 06/20/18 07:40 Dose: 119 ml Miscellaneous (Carbohydrates For Hypoglycemia) 15 - 30 gm PO UD PRN PRN Reason: Hypoglycemia Treatment Stop: 07/20/18 08:48 Miscellaneous Information (Consult) 1 ea N/A UD PRN PRN Reason: Consult Stop: 07/20/18 05:53 Miscellaneous Information (Consult) 1 ea N/A UD PRN PRN Reason: Consult Stop: 07/20/18 08:20 Miscellaneous Information (Consult Glycemic Management Pharmacy) 1 ea N/A UD PRN PRN Reason: Consult Stop: 07/20/18 19:26 Polyethylene Glycol (Miralax Powder Packet) 17 gm PO DAILY PRN PRN Reason: Constipation Stop: 07/20/18 08:20
[2018-06-22] MEDS: fentaNYL DRIP 1,250 MCG/250 ML BAG IV SCH ×2 (10:43→16:48)
[2018-06-22] MEDS: PANTOprazole 40 MG in SYRINGE 0 ML IV SCH (10:46)
[2018-06-22] MEDS ORDERED: BUMETANIDE 2 MG in SYRINGE 0 ML IV STA (11:08)
[2018-06-22] MEDS: METOPROLOL TARTRATE 1 MG/ML VIAL IV SCH ×2 (11:24→18:09)
--- NOTE | 2018-06-22 12:20 | Pharmacy Report ---
Pharm Abx/Gly Prg Nt - Date of Service June 22, 2018 - Scope Pharmacy has been consulted to manage VANCOMYCIN + ZOSYN and GLYCEMIC CONTROL for this patient as per the Pharmacy & Therapeutics Committee approved dosing protocols. - Objective Vital Signs (Past 12hrs): Vital Signs Temp Pulse Resp BP BP BP Pulse Ox 06/22/18 11:24 108 H 117/64 06/22/18 11:00 37 C 109 H 26 H 117/64 122/52 L 100 06/22/18 10:55 106 H 26 H 99 06/22/18 10:00 37 C 99 H 26 H 130/58 L 118/54 L 100 06/22/18 09:00 37 C 99 H 26 H 133/61 130/58 L 100 06/22/18 08:47 26 H 06/22/18 08:30 113 H 26 H 95 06/22/18 08:00 37 C 79 26 H 108/69 113/51 L 100 06/22/18 07:26 94 H 26 H 98 06/22/18 07:00 37 C 97 H 27 H 122/67 118/52 L 100 06/22/18 06:15 37 C 88 26 H 122/67 117/50 L 100 06/22/18 06:01 36.9 C 80 26 H 117/75 110/48 L 100 06/22/18 05:00 36.7 C 70 26 H 105/53 L 99/45 L 100 06/22/18 04:00 36.4 C L 87 26 H 125/79 114/52 L 100 06/22/18 03:00 36.2 C L 89 26 H 129/70 109/50 L 100 06/22/18 02:09 83 26 H 99 06/22/18 02:00 36 C L 81 26 H 118/88 120/52 L 100 06/22/18 01:00 35.8 C L 71 26 H 135/66 119/51 L 100 Lab Results: Laboratory Tests (24 Hours) 06/22/18 06/22/18 06/22/18 08:28 06:01 06:01 WBC 7.08 Neut # (Auto) 5.82 Creatinine 2.23 H Est Cr Clr Drug Dosing 46.6 Vancomycin Trough Random Vancomycin 47.1 06/22/18 06/21/18 06/21/18 00:10 23:05 17:58 WBC Neut # (Auto) Creatinine 2.11 H D 1.57 H D Est Cr Clr Drug Dosing 48.9 65.7 Vancomycin Trough 43.6 Random Vancomycin 06/21/18 11:52 WBC Neut # (Auto) Creatinine 1.88 H Est Cr Clr Drug Dosing 54.9 Vancomycin Trough Random Vancomycin Micro Results: 06/20/18 Unknown Bronch Wash,Right Lower Lobe Scant normal brenda No growth in BLCX's to date Accuchecks BSG (last 24 hours):: 06/21/18 06/21/18 06/21/18 11:52 12:00 16:12 Glucose 104 H POC Glucose POC Glucose (other) 98 87 06/21/18 06/21/18 06/21/18 17:58 19:31 23:05 Glucose 74 80 POC Glucose POC Glucose (other) 79 06/21/18 06/22/18 06/22/18 23:13 03:23 06:01 Glucose 84 POC Glucose POC Glucose (other) 79 86 06/22/18 06/22/18 07:26 11:32 Glucose POC Glucose 73 98 POC Glucose (other) HbA1C: Hemoglobin A1c 5.8 % (4.5-5.6) H 06/21/18 05:35 - Outpatient Anti-Diabetic Regimen Recent Pertinent Medications: Outpatient Anti-diabetic Regimen: * Levemir 15 units BID * Novolog 6 units w/ breakfast + 4 units w/ dinner * Metformin 1000mg BID * A1c = 5.8 % 06/21/18 The patient is currently receiving: * Basal insulin: Levemir 0 units in last 24 hrs * Correctional Insulin: Novolog Correction per scale Q 4 hrs Goal Range: Low 140 mg/dL - High 180 mg/dL Correction Factor: 20 mg/dL/unit * Prandial insulin: Per carb ratio of 1 unit per 6 grams CHO consumed * Oral Agents: None Risk Factors for Insulin Resistance: * Infection: empiric abx for pulm infxn * Diet: NPO * Mechanical Ventilation: yes - Assessment & Plan Assessment: ID: * 68 year old M receiving VANCOMYCIN + ZOSYN as empiric treatment for respiratory failure/pna * Day # 3 of antimicrobial therapy - 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 poor ( only 230cc yesterday) * There was discussion on mulidisciplinary rounds that vancomycin may be d/c'd if we have difficulty managing dosing in light of poor renal fxn - options include Linezolid however this patient will likely have therapeutic vancomycin levels for 24-48 hrs+ and this therapy could be delayed Glycemic: * BSGs have ranged 73-115 over the last 24 hrs with no insulin given * Rewarming completed this AM * Will continue a modest Levemir scale in the evening just in case tube feeds are started in the near future (this is day 3 ICU w/o nutrition) * Current Novolog CF and CR are reasonable starting points for given stressors * It is very important that we avoid both hypo- and hyper-glycemia in a patient w/ neurologic injury following cardiac arrest Plan: ANTIMICROBIAL THERAPY Vancomycin * Trough level of 43.6 mcg/mL is supratherapeutic. This level was drawn prior to 3rd maint dose. Level was appropriately timed and prior doses hung on time. This is not too surprising given poor U.O. The 3rd dose was not administered and vancomycin remains on hold at this time. * Repeat random vancomycin level of 47.1 drawn this AM confirmed lack of clearance. * Goal trough level: 15 to 20 mcg/mL for pulm infxn * Will repeat random level w/ AM labs to assess clearance. Zosyn * Renal clearance likely less than what is predicted from eCrCl and eGFR equations given low U.O. and delayed rise in SCr. * Will reduce Zosyn to 4.5gm Q 12 hrs for eCrCl < 20cc/min based upon U.O. over last 24 hrs and vancomycin clearance INPATIENT GLYCEMIC CONTROL * Continue to hold outpatient oral diabetes medications (metformin) Basal Insulin * Lantus SQ BID * 0 units if BSG less than 140 * 8 units if BSG 140-180 * 15 units if BSG above 180 Bolus Insulin * NovoLog per scale Q4hrs while NPO * Goal Range: Low 140 mg/dL - High 180 mg/dL * Correction Factor: 20 mg/dL/unit * Nutritional / Prandial insulin per carb ratio of 1 unit per 6 grams CHO consumed - please cover tube feeding carbs if ordered this evening * Please note that the plan above was derived based on current level of insulin resistance and hospital stress. These recommendations are appropriate for inpatient admission only. Plan of care upon discharge will need to be reassessed to avoid potential outpatient hypo/hyperglycemia. Glycemic Control Discharge Recommendations: * to be determined Pharmacy will follow patient and adjust orders on a daily basis. Thank you for allowing us to participate in this patient�s care.
[2018-06-22] MEDS ORDERED: PEPTAMEN INTENSE VHP 1.0 CAL 1,000 ML BAG OG SCH (12:30)
--- NOTE | 2018-06-22 13:27 | Procedure Note ---
EEG Procedure Note Date of Service June 22, 2018 Start / End Times Start Time: 12:49 PM End Time: 1:09 PM Referring Physician Edouard Velasco History This is a 68-year-old male status post cardiac arrest. EEG to evaluate for subclinical seizures Home Medication List Home Medications Medication Instructions Recorded Confirmed Type aspirin 81 mg PO DAILY 06/13/18 06/20/18 History atorvastatin [Lipitor] 40 mg PO HS 06/13/18 06/20/18 History escitalopram oxalate [Lexapro] 5 mg PO DAILY 06/13/18 06/20/18 History glucagon (human recombinant) 1 dose SUBCUT UD PRN 06/13/18 06/20/18 History [Glucagon Emergency Kit (human)] loratadine [Claritin] 10 mg PO DAILY 06/13/18 06/20/18 History magnesium oxide 400 mg PO DAILY 06/13/18 06/20/18 History acetaminophen 650 mg PO Q6H PRN MDD 3gm/24hr 06/20/18 06/20/18 History acetaminophen 650 mg PO Q6H PRN MDD 3gm/24hrs 06/20/18 06/20/18 History apixaban [Eliquis] 5 mg PO BID 06/20/18 06/20/18 History ascorbic acid (vitamin C) [Vitamin 250 mg PO BID 06/20/18 06/20/18 History C] baclofen 10 mg PO Q8 PRN 06/20/18 06/20/18 History bumetanide 0.5 mg PO BID 06/20/18 06/20/18 History calcium carbonate [Oyster Shell 500 mg PO DAILY 06/20/18 06/20/18 History Calcium] cyanocobalamin (vitamin B-12) 1,000 mcg PO DAILY 06/20/18 06/20/18 History [Vitamin B-12] ergocalciferol (vitamin D2) 50,000 unit PO WK 06/20/18 06/20/18 History famotidine 40 mg PO HS 06/20/18 06/20/18 History fenofibrate micronized 67 mg PO HS 06/20/18 06/20/18 History ferrous sulfate 325 mg PO BID 06/20/18 06/20/18 History insulin aspart U-100 [Novolog 4 unit SUBCUT QPM 06/20/18 06/20/18 History Flexpen U-100 Insulin] insulin aspart U-100 [Novolog 6 unit SUBCUT QAM 06/20/18 06/20/18 History Flexpen U-100 Insulin] insulin detemir U-100 [Levemir 15 unit SUBCUT BID 06/20/18 06/20/18 History FlexTouch U-100 Insuln] lactase 3,000 unit PO AC 06/20/18 06/20/18 History metformin 1,000 mg PO BID 06/20/18 06/20/18 History oxycodone 10 mg PO TID 06/20/18 06/20/18 History polyethylene glycol 3350 [Miralax] 17 g PO DAILY 06/20/18 06/20/18 History sennosides [senna] 8.6 mg PO DAILY 06/20/18 06/20/18 History vit A,C and Y-krwrlh-pdgzhvpl 1 tab PO DAILY 06/20/18 06/20/18 History [Ocuvite with Lutein] Inpatient Medication List Dextrose (Dextrose 50%) 25 - 50 ml IV UD PRN; Protocol PRN Reason: Hypoglycemia Protocol Stop: 07/20/18 08:48 Last Admin: 06/20/18 16:50 Dose: 25 ml Admin: 06/20/18 14:39 Dose: 25 ml Pantoprazole Sodium 40 mg/ (Syringe) 10 mls @ 5 mls/min IV DAILY@1100 TENZIN Stop: 07/20/18 10:59 Last Admin: 06/22/18 10:46 Dose: 5 mls/min Admin: 06/21/18 10:44 Dose: 5 mls/min Admin: 06/20/18 11:18 Dose: 5 mls/min Piperacillin Sod/Tazobactam (Sod 4.5 gm/ Dextrose) 120 mls @ 30 mls/hr IV Q8H TENZIN; Protocol Stop: 06/27/18 23:59 Last Admin: 06/22/18 09:45 Dose: 30 mls/hr Infusion: 06/22/18 05:35 Dose: 0 mls/hr Admin: 06/22/18 01:35 Dose: 30 mls/hr Infusion: 06/21/18 21:13 Dose: 0 mls/hr Admin: 06/21/18 17:13 Dose: 30 mls/hr Infusion: 06/21/18 13:30 Dose: 0 mls/hr Admin: 06/21/18 09:33 Dose: 30 mls/hr Infusion: 06/21/18 06:01 Dose: 0 mls/hr Admin: 06/21/18 02:01 Dose: 30 mls/hr Infusion: 06/20/18 22:09 Dose: 0 mls/hr Admin: 06/20/18 18:09 Dose: 30 mls/hr Infusion: 06/20/18 15:20 Dose: 0 mls/hr Admin: 06/20/18 11:18 Dose: 30 mls/hr Midazolam HCl (Versed) 125 mg in 250 mls @ 0 mls/hr IV .Q24H TENZIN; Protocol Stop: 07/20/18 08:20 Last Titration: 06/22/18 08:13 Dose: 0 mg/hr, 0 mls/hr Titration: 06/22/18 07:30 Dose: 2 mg/hr, 4 mls/hr Titration: 06/22/18 06:46 Dose: 3 mg/hr, 6 mls/hr Titration: 06/22/18 05:48 Dose: 3 mg/hr, 6 mls/hr Titration: 06/21/18 18:59 Dose: 4 mg/hr, 8 mls/hr Admin: 06/21/18 13:38 Dose: 4 mg/hr, 8 mls/hr Titration: 06/21/18 13:38 Dose: 4 mg/hr, 8 mls/hr Titration: 06/21/18 07:09 Dose: 4 mg/hr, 8 mls/hr Titration: 06/21/18 07:08 Dose: 4 mg/hr, 8 mls/hr Titration: 06/21/18 06:02 Dose: 4 mg/hr, 8 mls/hr Titration: 06/21/18 03:50 Dose: 4 mg/hr, 8 mls/hr Titration: 06/21/18 01:19 Dose: 7 mg/hr, 14 mls/hr Titration: 06/20/18 19:08 Dose: 5 mg/hr, 10 mls/hr Titration: 06/20/18 18:09 Dose: 5 mg/hr, 10 mls/hr Titration: 06/20/18 13:54 Dose: 4 mg/hr, 8 mls/hr Titration: 06/20/18 12:59 Dose: 3 mg/hr, 6 mls/hr Titration: 06/20/18 11:49 Dose: 2 mg/hr, 4 mls/hr Admin: 06/20/18 09:25 Dose: 1 mg/hr, 2 mls/hr Vancomycin HCl 1,500 mg/ (Sodium Chloride) 530 mls @ 200 mls/hr IV Q14H TENZIN Stop: 06/22/18 20:59 Last Infusion: 06/21/18 13:08 Dose: 0 mls/hr Admin: 06/21/18 10:43 Dose: 200 mls/hr Infusion: 06/20/18 22:51 Dose: 0 mls/hr Admin: 06/20/18 20:12 Dose: 200 mls/hr Fentanyl Citrate (Fentanyl Drip) 1,250 mcg in 250 mls @ 8 mls/hr IV .Q24H TENZIN; Protocol Stop: 07/04/18 15:59 Last Admin: 06/22/18 10:43 Dose: Not Given Titration: 06/22/18 08:12 Dose: 0 mcg/hr, 0 mls/hr Titration: 06/22/18 06:46 Dose: 40 mcg/hr, 8 mls/hr Titration: 06/22/18 05:48 Dose: 40 mcg/hr, 8 mls/hr Titration: 06/21/18 18:59 Dose: 50 mcg/hr, 10 mls/hr Titration: 06/21/18 07:09 Dose: 50 mcg/hr, 10 mls/hr Titration: 06/21/18 07:08 Dose: 50 mcg/hr, 10 mls/hr Titration: 06/21/18 06:02 Dose: 50 mcg/hr, 10 mls/hr Admin: 06/21/18 05:28 Dose: 50 mcg/hr, 10 mls/hr Titration: 06/21/18 05:23 Dose: 50 mcg/hr, 10 mls/hr Titration: 06/21/18 03:50 Dose: 50 mcg/hr, 10 mls/hr Titration: 06/20/18 19:08 Dose: 100 mcg/hr, 20 mls/hr Titration: 06/20/18 17:29 Dose: 100 mcg/hr, 20 mls/hr Admin: 06/20/18 15:39 Dose: 75 mcg/hr, 15 mls/hr Dopamine HCl/Dextrose (Dopamine / D5w) 400 mg in 250 mls @ 0 mls/hr IV .Q24H TENZIN; Protocol Stop: 07/21/18 03:29 Last Titration: 06/22/18 06:46 Dose: 0 mcg/kg/min, 0 mls/hr Titration: 06/22/18 05:48 Dose: 1 mcg/kg/min, 4.8 mls/hr Titration: 06/22/18 03:25 Dose: 1.5 mcg/kg/min, 7.2 mls/hr Titration: 06/21/18 21:25 Dose: 2 mcg/kg/min, 9.6 mls/hr Titration: 06/21/18 18:59 Dose: 1.5 mcg/kg/min, 7.2 mls/hr Titration: 06/21/18 15:08 Dose: 1.5 mcg/kg/min, 7.2 mls/hr Titration: 06/21/18 14:00 Dose: 2.5 mcg/kg/min, 12 mls/hr Titration: 06/21/18 13:08 Dose: 0 mcg/kg/min, 0 mls/hr Titration: 06/21/18 12:45 Dose: 5 mcg/kg/min, 24 mls/hr Titration: 06/21/18 09:43 Dose: 0 mcg/kg/min, 0 mls/hr Titration: 06/21/18 07:09 Dose: 1.5 mcg/kg/min, 7.2 mls/hr Titration: 06/21/18 07:08 Dose: 1.5 mcg/kg/min, 7.2 mls/hr Titration: 06/21/18 06:01 Dose: 1.5 mcg/kg/min, 7.2 mls/hr Titration: 06/21/18 05:18 Dose: 2 mcg/kg/min, 9.6 mls/hr Titration: 06/21/18 04:30 Dose: 1 mcg/kg/min, 4.8 mls/hr Titration: 06/21/18 04:20 Dose: 3 mcg/kg/min, 14.4 mls/hr Admin: 06/21/18 03:43 Dose: 5 mcg/kg/min, 24 mls/hr Insulin Aspart (Novolog Flexpen) 0 units SC Q4 TENZIN Stop: 07/20/18 19:59 Last Admin: 06/22/18 11:35 Dose: Not Given Admin: 06/22/18 07:30 Dose: Not Given Admin: 06/22/18 03:23 Dose: Not Given Admin: 06/21/18 23:15 Dose: Not Given Admin: 06/21/18 20:05 Dose: Not Given Admin: 06/21/18 16:27 Dose: Not Given Admin: 06/21/18 12:50 Dose: Not Given Admin: 06/21/18 08:01 Dose: Not Given Admin: 06/21/18 03:43 Dose: Not Given Admin: 06/20/18 23:28 Dose: Not Given Admin: 06/20/18 20:12 Dose: Not Given Insulin Detemir (Levemir Flextouch) 0 units SC HS [facility]; Protocol Stop: 07/21/18 20:59 Last Admin: 06/21/18 20:06 Dose: Not Given Ioversol (Optiray 320 125ml) 119 ml IV ONCE PRN PRN Reason: Interaction Checking Stop: 06/24/18 07:39 Last Admin: 06/20/18 07:40 Dose: 119 ml Metoprolol Tartrate (Lopressor) 5 mg IV Q6 [facility] Stop: 07/22/18 11:59 Last Admin: 06/22/18 11:24 Dose: 5 mg Discontinued Medications Atropine Sulfate (Atropine Sulfate) Confirm Administered Dose 1 mg IV .STK-MED ONE Stop: 06/21/18 12:52 Last Admin: 06/21/18 13:16 Dose: Not Given Atropine Sulfate (Atropine Sulfate) 0.5 mg IV NOW [facility] Stop: 06/21/18 13:07 Last Admin: 06/21/18 13:16 Dose: 0.5 mg Fentanyl Citrate (Fentanyl Citrate) Confirm Administered Dose 100 mcg .ROUTE .STK-MED ONE Stop: 06/20/18 09:20 Last Admin: 06/20/18 11:41 Dose: Not Given Fentanyl Citrate (Fentanyl Drip) Confirm Administered Dose 1,250 mcg IV .STK- MED ONE Stop: 06/20/18 15:28 Last Admin: 06/20/18 15:40 Dose: Not Given Sodium Chloride (Nss) 500 mls @ 999 mls/hr IV .Q31M ONE Stop: 06/20/18 04:57 Last Infusion: 06/20/18 05:18 Dose: Admin: 06/20/18 04:30 Dose: 999 mls/hr Piperacillin Sod/Tazobactam Sod (Zosyn) 4.5 gm in 120 mls @ 240 mls/hr IV NOW ONE Stop: 06/20/18 04:57 Last Infusion: 06/20/18 05:24 Dose: Admin: 06/20/18 04:54 Dose: 240 mls/hr Levofloxacin/Dextrose (Levaquin/D5w) 750 mg in 150 mls @ 100 mls/hr IV NOW STA Stop: 06/20/18 05:58 Last Infusion: 06/20/18 06:58 Dose: Admin: 06/20/18 05:18 Dose: 100 mls/hr Norepinephrine Bitartrate 8 mg (/ Dextrose) 508 mls @ 48.69 mls/hr IV .[id number] TENZIN; Protocol Stop: 07/20/18 04:44 Last Titration: 06/21/18 09:23 Dose: 0 mcg/kg/min, 0 mls/hr Titration: 06/20/18 07:40 Dose: 0 mcg/kg/min, 0 mls/hr Admin: 06/20/18 04:54 Dose: 0.1 mcg/kg/min, 48.7 mls/hr Sodium Chloride (Nss 1000ml) 1,000 mls @ 999 mls/hr IV .Q1H1M ONE Stop: 06/20/18 05:43 Last Infusion: 06/20/18 05:50 Dose: Admin: 06/20/18 04:51 Dose: 999 mls/hr Vancomycin HCl 2,500 mg/ (Sodium Chloride) 550 mls @ 200 mls/hr IV NOW ONE Stop: 06/20/18 08:59 Last Infusion: 06/20/18 09:42 Dose: 0 mls/hr Admin: 06/20/18 06:18 Dose: 200 mls/hr Insulin Human Regular 250 (units/ Sodium Chloride) 250 mls @ 0 mls/hr IV .Q0M TENZIN; Protocol Stop: 07/20/18 07:44 Last Titration: 06/22/18 06:48 Dose: 0 units/hr, 0 mls/hr Titration: 06/20/18 19:08 Dose: 0 units/hr, 0 mls/hr Titration: 06/20/18 16:10 Dose: 0 units/hr, 0 mls/hr Titration: 06/20/18 15:00 Dose: 1.8 units/hr, 1.8 mls/hr Titration: 06/20/18 14:40 Dose: 0 units/hr, 0 mls/hr Titration: 06/20/18 13:35 Dose: 3 units/hr, 3 mls/hr Titration: 06/20/18 12:37 Dose: 3.8 units/hr, 3.8 mls/hr Admin: 06/20/18 11:18 Dose: 4.8 units/hr, 4.8 mls/hr Sodium Chloride (Nss 1000ml) 1,000 mls @ 999 mls/hr IV .Q1H1M TENZIN Stop: 06/20/18 10:21 Last Admin: 06/20/18 12:19 Dose: Not Given Admin: 06/20/18 12:18 Dose: Not Given Calcium Gluconate 1,000 mg/ (Sodium Chloride) 60 mls @ 240 mls/hr IV 0845 ONE Stop: 06/20/18 08:59 Last Infusion: 06/20/18 10:00 Dose: 0 mls/hr Admin: 06/20/18 09:42 Dose: 240 mls/hr Norepinephrine Bitartrate 8 mg (/ Dextrose) 508 mls @ 24.34 mls/hr IV .[id number] STA; Protocol Stop: 06/21/18 05:13 Last Admin: 06/20/18 12:59 Dose: Not Given Sodium Chloride (Nss 1000ml) 1,000 mls @ 999 mls/hr IV .Q1H1M ONE Stop: 06/20/18 14:27 Last Infusion: 06/20/18 15:15 Dose: 0 mls/hr Admin: 06/20/18 14:01 Dose: 999 mls/hr Sodium Chloride (Nss 1000ml) 1,000 mls @ 100 mls/hr IV .Q10H TENZIN Stop: 07/20/18 22:14 Last Infusion: 06/22/18 10:44 Dose: 0 mls/hr Infusion: 06/22/18 05:51 Dose: 100 mls/hr Admin: 06/22/18 02:59 Dose: 100 mls/hr Infusion: 06/22/18 02:59 Dose: 100 mls/hr Admin: 06/21/18 17:13 Dose: 100 mls/hr Infusion: 06/21/18 17:13 Dose: 100 mls/hr Admin: 06/21/18 07:25 Dose: 100 mls/hr Infusion: 06/21/18 07:25 Dose: 100 mls/hr Admin: 06/20/18 22:28 Dose: 100 mls/hr Magnesium Sulfate/Dextrose (Magnesium Sulfate / D5w) 1 gm in 100 mls @ 100 mls/ hr IV Q1H TENZIN Stop: 06/21/18 12:29 Last Infusion: 06/21/18 13:30 Dose: 0 mls/hr Admin: 06/21/18 11:45 Dose: 100 mls/hr Infusion: 06/21/18 11:44 Dose: 100 mls/hr Admin: 06/21/18 10:44 Dose: 100 mls/hr Bumetanide 2 mg/ Syringe 8 mls @ 4 mls/min IV NOW STA Stop: 06/22/18 11:09 Last Admin: 06/22/18 11:24 Dose: 4 mls/min Insulin Aspart (Novolog Flexpen) 0 units SC [facility] Stop: 07/20/18 08:59 Last Admin: 06/20/18 12:59 Dose: Not Given Admin: 06/20/18 11:19 Dose: Not Given Admin: 06/20/18 09:40 Dose: Not Given Insulin Detemir (Levemir Flextouch) 15 units SC NOW STA; Protocol Stop: 06/20/18 19:40 Last Admin: 06/20/18 20:13 Dose: 15 units Insulin Human Regular (Novolin R Bolus From Bag) 5 units IV ONE ONE Stop: 06/20/18 11:16 Last Admin: 06/20/18 11:19 Dose: 5 units Meperidine HCl (Demerol) 12.5 mg IV Q4 PRN PRN Reason: Shivering Stop: 07/04/18 22:37 Last Admin: 06/21/18 23:17 Dose: 12.5 mg Admin: 06/20/18 23:27 Dose: 12.5 mg Miscellaneous (Insulin Protocol Goal Range) 1 ea N/A ONE ONE Stop: 06/20/18 07:40 Last Admin: 06/20/18 12:19 Dose: Not Given Miscellaneous (Insulin Protocol Severe Stress) 1 ea N/A ONE ONE Stop: 06/20/18 07:40 Last Admin: 06/20/18 12:19 Dose: Not Given Description This is a 21 electrode EEG with a single channel dedicated to limited EKG. The electrodes were placed in accordance with the International 10-20 system. At the start of this recording the patient was reportedly unresponsive. Background was poorly organized and often composed of attenuated or suppressed neuronal activity. Occasionally there was a low to moderate amplitude delta or theta activity seen. There was abundant generalized spike and slow wave discharges. Frequently these discharges were periodic at 1-2 Hz and rarely up to 3 Hz. There was no evolution to these generalized discharges. There was no state changes or sleep transients. Hyperventilation and photic stimulation were not done. Interpretation This is an abnormal routine EEG secondary to severe diffuse background disorganization and abundant generalized spike and slow wave epileptiform discharges (GPD) which were frequently periodic at 1-2 Hz and rarely up to 3Hz. There was no electrographic seizures. Clinical Correlation This EEG indicates a highly increased diffuse epileptogenic potential. Patient is at high risk for seizures and status epilepticus based off of the frequency of periodic generalized epileptiform discharges. This EEG is also consistent with the patient's history of anoxic brain injury.
--- NOTE | 2018-06-22 15:42 | Hospitalist Progress Note ---
Date of Service June 22, 2018 Assessment & Plan (1) Cardiac arrest: Patient brought in s/p witnessed asystolic cardiac arrest in the field. ROSC achieved with CPR and epinephrine x 2. Currently unclear etiology. Possibly hypoxemic as patient had thick secretions on intubation; however, primary cardiac arrythmia also possible. - Underwent cooling protocol - Management per critical care - Concern for anoxic brain injury given his code; getting EEG, MRI, and neurology consult - Palliative care consult (2) Pneumonia: CTA chest on 06/20 showed "moderate tracheobronchial secretions with patchy bilateral consolidative opacities" which may represent pneumonitis. Put on vanc/Zosyn given his critical illness in case this represents a pneumonia. - Continue antibiotics given severe illness (3) Bradycardia: Patient in afib with bradycardia. Seen by cardiology with thought that it is related to his cooling. - Resolved with rewarming; now with tachycardia (4) Atrial fibrillation: Permanent afib; now with tachycardia. - Labetalol IV pushes (5) NSTEMI (non-ST elevated myocardial infarction): Initially troponin was negative; bumped to 0.68, then downtrending. No concern for acute ischemic event per cardiology. - Restart ASA when able - No urgent cath warranted (6) CHF (congestive heart failure): Currently appears euvolemic; will attempt to keep net even as able. - Bumex IV PRN to keep him euvolemic (7) Diabetes mellitus, type II: A1c was 5.8% on admission. On insulin as outpatient. - While intubated, frequent blood sugars - Restart insulin regimen as able/needed (8) Obesity hypoventilation syndrome: (9) OTONIEL (obstructive sleep apnea): (10) Hypertension: BP is mildly elevated at 150/100. Holding oral meds at present. - Labetalol as above (11) Hyperlipidemia: (12) Klinefelter syndrome: (13) DVT prophylaxis: SCDs Subjective 68yo M w/ witnessed cardiac arrest in his residence. Now intubated and done with cooling protocol. He made no response to me today with verbal and physical stimulation. Physical Exam 2 Vital Signs (Past 24 Hours): Last Vital Signs Temp 37 C 06/22/18 14:00 Pulse 94 H 06/22/18 14:00 Resp 26 H 06/22/18 14:00 BP 147/106 H 06/22/18 14:00 Pulse Ox 100 06/22/18 14:00 Constitutional: well developed, + acute distress and + obese Eyes: no conjunctival abnormality and no scleral abnormality ENMT: Mouth: no oral mucosal abnormality Neck: trachea midline and + thick neck Thyroid: normal thyroid Respiratory: Auscultation: lungs clear to auscultation bilaterally; no rhonchi and no wheezes Cardiovascular: Heart Sounds: normal S1 and normal S2; no gallop and no murmur Extremities: + edema Gastrointestinal (Abdomen): Inspection/Auscultation: + abdomen distended and + hypoactive bowel sounds Percussion/Palpation: abdomen soft Musculoskeletal: Head/Neck/Chest: normal inspection of chest wall and normal palpation of chest wall Skin: no rashes, no ulcers and no purpura
--- NOTE | 2018-06-22 16:15 | Critical Care Progress Note ---
Date of Service June 22, 2018 Assessment & Plan (1) Acute renal insufficiency: Impression: 1. V. fib arrest, status post TTM. 2. Acute respiratory failure, intubated, failed CPAP trial. 3. Obstructive sleep apnea on BiPAP at the detention. 4. Aspiration pneumonia with MRSA. 5. Acute kidney insufficiency, oliguria. 6. Morbid obesity. 7. Diabetes mellitus with diabetic foot. 8. A. fib, rate controlled. 9. Peripheral arterial disease. 10. Non-ST elevation [place]. Plan: 1. The patient completed TTM process. 2. Appreciate cardiology and renal consult. 3. EEG results were noted the patient has abnormal spikes and at high risk for seizure activity, appreciate Dr. Cleaning and Dr. Izquierdo input, recommended starting the patient on Keppra, will start dose adjusted at 500 mg IV every 12. 4. Hematocrit is stable. 5. The patient failed spontaneous breathing trial we will attempt daily. 6. Neurology consult in the morning, discussed with Dr. Izquierdo, appreciated. 7. Agree with initiating palliative care consult. 8. Glucose control, DVT and GI prophylaxis. 9. Continue with BIS monitoring. 10. Continue Vanco and Zosyn. I would continue Vanco for at least 10 days and Zosyn for total of 7 days at most. 11. MRI of the brain once the family are available for consent. 12. The patient is off dopamine currently, he required restart of Lopressor for rate control. 13. Discussed with the staff on rounds and details. 14. Removal of the icy cool and a line. 15. Attempt of Bumex 2 mg IV every [address] Hayes input. From nephrology. 17. Continue with tube feeding. Appreciate nutrition consult. Critical care time spent with the patient was 60 minutes. (2) Bradycardia: Subjective The patient remains intubated, open his eyes however I am not sure if it was voluntary or involuntary. Did not this wound specifically to commands. He failed a CPAP trial. Review of system was not obtainable. Physical Exam 2 Vital Signs (Past 24 Hours): Last Vital Signs Temp 37 C 06/22/18 14:00 Pulse 94 H 06/22/18 14:00 Resp 26 H 06/22/18 14:00 BP 147/106 H 06/22/18 14:00 Pulse Ox 100 01/23/19 14:00 Physical Exam: Vital signs are stable, blood pressure has been stable, O2 saturation on 30% is 100%, S1-S2 in A. fib, rate controlled, lungs with rhonchi bilaterally, abdomen is obese and benign, lower extremities with chronic deformity and edema. Neurologically difficult to assess, the patient open his eyes but could not follow any commands. Results & Data Laboratory Results Labs were reviewed which showed stable hematocrit, WBC is normal, BUN and creatinine 84 and 2.2. ABG was 7.4 0/32/81/20/96. Diagnostic Findings No new imaging. EEG was done, appreciate Dr. Cleaning input, the patient is at risk for seizure activity according to the report.
[2018-06-22] MEDS: BUMETANIDE 2 MG in SYRINGE 0 ML IV SCH (16:55)
[2018-06-22] MEDS: MIDAZOLAM HCL 125 MG/250 ML BAG IV SCH (18:41)
[2018-06-22] MEDS: INSULIN DETEMIR FLEXPEN/FLEX TOUCH 100 UNITS/ML 3ML SC SCH (20:20)
--- NOTE | 2018-06-22 23:20 | XRay Report ---
SINGLE VIEW CHEST CLINICAL HISTORY: Enteric tube placement. FINDINGS: An AP, portable, semierect chest radiograph is compared to chest x-ray and chest CT dated . The examination is degraded by portable technique and patient rotation. An enteric tube is in position. This extends below the diaphragm and the tip is not visualized. An endotracheal tube is unchanged in position. The heart is enlarged and there is atherosclerotic calcification of the thorac ic aorta. There is mild pulmonary vascular congestion. Airspace consolidation is again seen at the le ft lung base. Airspace opacities in the right lung have largely cleared from 06/20/2018. A small left pleural effusion is suspected. No pneumothorax is seen. The skeletal structures are osteopenic. The b glenn thorax is grossly intact. IMPRESSION: 1. Endotracheal and enteric tubes as above. 2. Airspace consolidation is again seen at the left lung base and there is a small left pleural effus ion. Correlate clinically for evidence of pneumonia. 3. Airspace opacities throughout the right lung have largely cleared from 06/20/2018. 4. Cardiomegaly with mild pulmonary vascular congestion. Electronically signed by: Renzo Cabrera M.D. 06/22/2018 11:18 PM
--- NOTE | 2018-06-22 23:32 | XRay Report ---
KUB CLINICAL HISTORY: Enteric tube placement. FINDINGS: An AP, portable, semierect radiograph of the lower chest and upper abdomen is correlated wi th abdominal CT dated 06/20/2018. The enteric tube projects below the diaphragm over the proximal stom ach. There is no evidence of bowel obstruction in the upper abdomen. The heart is enlarged. Airspace consolidation an pleural effusion are noted at the left lung base. IMPRESSION: The enteric tube projects below the diaphragm over the proximal stomach. Electronically signed by: Renzo Cabrera M.D. 06/22/2018 11:30 PM
[2018-06-23] MEDS: METOPROLOL TARTRATE 1 MG/ML VIAL IV SCH ×3 (00:51→13:31)
[2018-06-23] MEDS: INSULIN ASPART 100 UNITS/ML 3 ML PEN SC SCH ×4 (00:53→13:35)
[2018-06-23 04:34] LABS: Basophils # (auto) 0.01 K/uL (0-0.2); Basophils % (auto) 0.1 %; Eosinophils # (auto) 0.03 K/uL (0-0.5); Eosinophils % (auto) 0.3 %; Immature Granulocytes # (auto) 0.06 K/uL (0.00-0.02); Immature Granulocytes % (auto) 0.6 %; Lymphocytes # (auto) 0.82 K/uL (1.2-3.4); Lymphocytes % (auto) 8.5 %; Mean Corpuscular Hgb Conc 30.8 g/dL (32-36); Mean Corpuscular Volume 92.2 fL (80-100); Mean Platelet Volume 10.3 fL (7.4-10.4); Monocytes # (auto) 0.58 K/uL (0.11-0.59); Neutrophils # (auto) 8.19 K/uL (1.4-6.5); Neutrophils % (auto) 84.5 %; Platelet Count 256 K/uL (130-400); RDW Coefficient of Variation 15.4 % (11.5-14.5); RDW Standard Deviation 52.1 fL (36.4-46.3); Red Blood Count 2.82 M/uL (4.7-6.1); White Blood Count 9.69 K/uL (4.8-10.8)
[2018-06-23] MEDS: PIPERACILLIN/TAZOBACTAM 4.5 GM in DEXTROSE 5% 100 ML IV SCH (04:40)
[2018-06-23 04:49] LABS: Albumin Level 2.1 gm/dl (3.4-5.0); BUN Creatinine Ratio 30.5 (10-20); Calcium 8.4 mg/dl (8.5-10.1); Creatinine Clr Calc Pharmacy 34.9 ml/min; Est GFR (African American) 23.8; Est GFR (Non-African American) 20.6; Potassium 4.8 mmol/L (3.5-5.1)
[2018-06-23 04:52] LABS: Bilirubin Direct 0.3 mg/dl (0-0.2); Bilirubin,Total 0.5 mg/dl (0.2-1); Total Protein 5.7 gm/dl (6.4-8.2)
[2018-06-23 05:06] LABS: Echinocytes 1+; Ovalocytes 1+
--- NOTE | 2018-06-23 06:41 | Magnetic Resonance Report ---
MRI OF THE BRAIN WITHOUT CONTRAST CLINICAL HISTORY: Post cardiac arrest. Anoxic brain injury. COMPARISON STUDY: Noncontrast head CT dated 06/20/2018 FINDINGS: Sagittal T1, axial diffusion, proton density and T2 weighted axial, coronal FLAIR, and axial T1-weigh jen images were acquired. No intra or extra-axial mass lesions are visualized There are small foci restricted water diffusion within the left cerebellar hemisphere consistent with acute/subacute infarcts. There is persistent ventricular dilatation. Proton density T2-weighted and FLAIR images reveal scattered foci of increased T2 signal within the w rupinder matter, likely on a small vessel basis. There are no abnormal flow voids. There is fluid within the nasopharynx. There is increased T2 signal within the maxillary sinuses likely on an inflammatory basis. IMPRESSION: 1. Small foci restricted water diffusion within the left cerebellar hemisphere consistent with acute/ subacute infarcts 2. Persistent ventricular dilatation, slightly out of proportion to the degree of atrophic change 3. Bilateral mastoid effusions 4. Nasopharyngeal fluid, likely secondary to intubation Electronically signed by: Conner Andres M.D. 06/23/2018 6:40 AM
--- NOTE | 2018-06-23 09:18 | Nephrology Progress Note ---
Date of Service June 23, 2018 Assessment & Plan (1) Acute renal insufficiency: -- Clinically consistent with ATN -- Urine output improving -- Continue Bumex to encourage urine output -- Metabolic profile otherwise acceptable -- NAGMA noted, defer HCO3 replacement for now - no diarrhea reported -- Minimize obligatory IVF/saline -- Volume status reasonable -- No emergent need for PULP COOKER -- Document I/O's -- Monitor metabolic profile at least twice daily -- Medications are appropriately dosed for kidney function -- Certainly, the trajectory of ASHELY suggests potential role for HD in the next 24-48 hours which should be discussed in any plan/goals of care discussion with patient's family (2) Cardiac arrest: -- Evidence of significant anoxic brain injury noted -- Prognosis unclear -- Sedation currently being weaned -- Continue to assess extent of anoxic injury (3) CHF (congestive heart failure): -- Volume status hypervolemic but acceptable -- Oxygenating well on FiO2 40% -- Avoid Aggressive volume replacement -- Bumex to encourage urine output (4) Peripheral arterial disease: (5) Obesity hypoventilation syndrome: Subjective No acute events overnight. Urine output improved slightly. Unfortunately, there has not been significant neurologic recovery. Erik remains unresponsive. Neurology consultation and EEG reviewed. Hemodynamics have been relatively stable. Review of Systems Unobtainable due to reduced consciousness Physical Exam 2 Vital Signs (Past 24 Hours): Last Vital Signs Temp 36.9 C 06/23/18 04:00 Pulse 151 H 06/23/18 07:45 Resp 26 H 06/23/18 07:45 BP 166/102 H 06/23/18 06:28 Pulse Ox 100 06/23/18 07:45 Constitutional: well developed, + obese and + edematous Eyes: no conjunctival abnormality and no scleral abnormality ENMT: ETT Neck: trachea midline and + thick neck Respiratory: Auscultation: lungs clear to auscultation bilaterally; no rhonchi and no wheezes Cardiovascular: Heart Sounds: normal S1 and normal S2; no gallop and no murmur Vessels: + JVD Extremities: + edema Gastrointestinal (Abdomen): Inspection/Auscultation: + abdomen distended and + hypoactive bowel sounds Percussion/Palpation: abdomen soft Musculoskeletal: Head/Neck/Chest: normal inspection of chest wall and normal palpation of chest wall Skin: no rashes, no ulcers and no purpura Neurologic: no response to voice or spontaneous movements Results & Data Laboratory Results Laboratory Results - last 24 hr 06/21/18 06/22/18 06/22/18 12:00 08:28 11:32 WBC RBC Hgb Hct MCV MCH MCHC RDW Std Deviation RDW Coeff of Johnny Plt Count MPV Immature Gran % (Auto) Neut % (Auto) Lymph % (Auto) [place] % (Auto) Eos % (Auto) Baso % (Auto) Immature Gran # (Auto) Neut # (Auto) Lymph # (Auto) [place] # (Auto) Eos # (Auto) Baso # (Auto) Ovalocytes Echinocytes Sodium Potassium Chloride Carbon Dioxide Anion Gap BUN Creatinine Est Cr Clr Drug Dosing Est GFR ( Amer) Est GFR (Non-Af Amer) BUN/Creatinine Ratio Glucose POC Glucose 98 POC Glucose (other) 98 Calcium Total Bilirubin Direct Bilirubin AST ALT Alkaline Phosphatase Total Protein Albumin Random Vancomycin 47.1 06/22/18 06/22/18 06/23/18 15:56 19:35 00:51 WBC RBC Hgb Hct MCV MCH MCHC RDW Std Deviation RDW Coeff of Johnny Plt Count MPV Immature Gran % (Auto) Neut % (Auto) Lymph % (Auto) [place] % (Auto) Eos % (Auto) Baso % (Auto) Immature Gran # (Auto) Neut # (Auto) Lymph # (Auto) [place] # (Auto) Eos # (Auto) Baso # (Auto) Ovalocytes Echinocytes Sodium Potassium Chloride Carbon Dioxide Anion Gap BUN Creatinine Est Cr Clr Drug Dosing Est GFR ( Amer) Est GFR (Non-Af Amer) BUN/Creatinine Ratio Glucose POC Glucose 84 105 H 127 H POC Glucose (other) Calcium Total Bilirubin Direct Bilirubin AST ALT Alkaline Phosphatase Total Protein Albumin Random Vancomycin 06/23/18 06/23/18 06/23/18 04:09 04:21 04:21 WBC 9.69 RBC 2.82 L Hgb 8.0 L Hct 26.0 L MCV 92.2 MCH 28.4 MCHC 30.8 L RDW Std Deviation 52.1 H RDW Coeff of Johnny 15.4 H Plt Count 256 MPV 10.3 Immature Gran % (Auto) 0.6 Neut % (Auto) 84.5 Lymph % (Auto) 8.5 [place] % (Auto) 6.0 Eos % (Auto) 0.3 Baso % (Auto) 0.1 Immature Gran # (Auto) 0.06 H Neut # (Auto) 8.19 H Lymph # (Auto) 0.82 L [place] # (Auto) 0.58 Eos # (Auto) 0.03 Baso # (Auto) 0.01 Ovalocytes 1+ Echinocytes 1+ Sodium 138 Potassium 4.8 Chloride 110 H Carbon Dioxide 20 L Anion Gap 8.0 BUN 91 H Creatinine 2.98 H D Est Cr Clr Drug Dosing 34.9 Est GFR ( Amer) 23.8 Est GFR (Non-Af Amer) 20.6 BUN/Creatinine Ratio 30.5 H Glucose 110 H POC Glucose 122 H POC Glucose (other) Calcium 8.4 L Total Bilirubin 0.5 Direct Bilirubin 0.3 H AST 105 H ALT 117 H Alkaline Phosphatase 46 Total Protein 5.7 L Albumin 2.1 L Random Vancomycin 06/23/18 04:21 WBC RBC Hgb Hct MCV MCH MCHC RDW Std Deviation RDW Coeff of Johnny Plt Count MPV Immature Gran % (Auto) Neut % (Auto) Lymph % (Auto) [place] % (Auto) Eos % (Auto) Baso % (Auto) Immature Gran # (Auto) Neut # (Auto) Lymph # (Auto) [place] # (Auto) Eos # (Auto) Baso # (Auto) Ovalocytes Echinocytes Sodium Potassium Chloride Carbon Dioxide Anion Gap BUN Creatinine Est Cr Clr Drug Dosing Est GFR ( Amer) Est GFR (Non-Af Amer) BUN/Creatinine Ratio Glucose POC Glucose POC Glucose (other) Calcium Total Bilirubin Direct Bilirubin AST ALT Alkaline Phosphatase Total Protein Albumin Random Vancomycin 38.7
--- NOTE | 2018-06-23 09:21 | Palliative Care Consultation ---
Date of Consultation June 23, 2018 Assessment & Plan (1) Goals of care, counseling/discussion: -68 year old male patient with PMH OTONIEL, obesity hypoventilation syndrome, chronic CHF, DM type 2 and others, resident of [facility] for 11 years, presented with cardiac arrest 2/2 respiratory failure. Patient was resuscitated after being given CPR and two doses of epi. Was intubated and admitted to ICU on therapeutic hypothermia protocol. Patient was cooled and now rewarmed. Unfortunately, patient had EEG yesterday that showed frequent seizure activity and risk for status epillepticus, was started on Keppra. Repeat EEG today was consistent with severe anoxic brain injury. MRI brain was completed last evening which showed acute/subacute cerebellar infarct. Patient also has acute kidney injury and elevated troponin. At baseline, [facility], has had multiple foot wounds over the years with poor healing. His prognosis is very, very poor. Palliative care consulted to discuss goals of care. -Patient is intubated, sedated with versed and fentanyl infusions. -Called patient's brother, Chris Escobar. Patient's mother is alive and has been visiting, but apparently has some dementia. Stated in front of staff that patient was 79 years old (he is 68). Abiel stated that the family has already prepared themselves for the worst. They do not want the patient to suffer and would not want life-prolonging measures to be added to his care such as dialysis , trach, or PEG tube. -Discussed CODE STATUS. patient will be DNR in event of cardiac arrest. Abiel states that his family has already contacted the "undertaker" in [place]. Again, they are prepared for the worst. -Plan as of this morning was to attempt spontaneous breathing trial and assess for readiness to extubate. Even if patient is extubated, prognosis is quite poor and patient could be in vegetative state. Patient's brother and family are aware of this and would want to make patient comfortable if this is the case. -Family will be visiting this afternoon to see how he doing and if any progress has been made. Continue current treatment at this time. (2) Cardiac arrest: (3) Obesity hypoventilation syndrome: (4) OTONIEL (obstructive sleep apnea): (5) Acute renal insufficiency: (6) Chronic diastolic CHF (congestive heart failure): (7) Anoxic brain injury: (8) Cerebellar stroke: Supervising Physician Co-Signing Physician Notes Patient seen and examined on 2 separate occasions today-once this afternoon after patient failed BiPAP trial, returned when family present at bedside for terminal extubation. Patient's brother and [id number] at bedside, patient terminally extubated- appears comfortable on O2 via nasal cannula. Family at bedside saying their goodbyes-patient did not respond-family did not wish to stay until patient's last moments-did request a call for notification. Family gave name of home to staff PE: Patient unresponsive to voice or touch Respiratory: Patient now extubated, on O2 via nasal cannula. Increased work of breathing, no acute distress CV: Regular rate Abdomen: Soft, no grimace on palpation Neuro: Patient unresponsive to voice or touch Agree with above note, assessment and plan as per SUNDAY Howell P- discussed end-of-life issues and provided support to family at bedside History of Present Illness Attending Physician: Ollie Rios MD History of Present Illness This 68 year old male patient with PMH OTONIEL, obesity hypoventilation syndrome, chronic CHF, DM type 2 and others, resident of [facility] for 11 years, presented with cardiac arrest 2/2 respiratory failure. Patient was resuscitated after being given CPR and two doses of epi. Was intubated and admitted to ICU on therapeutic hypothermia protocol. Patient was cooled and now rewarmed. Unfortunately, patient had EEG yesterday that showed frequent seizure activity and risk for status epillepticus, was started on Keppra. Repeat EEG today was consistent with severe anoxic brain injury. MRI brain was completed last evening which showed acute/subacute cerebellar infarct. Patient also has acute kidney injury and elevated troponin. At baseline, [facility], has had multiple foot wounds over the years with poor healing. His prognosis is very, very poor. Palliative care consulted to discuss goals of care. See A&P for details. Thank you kindly for this consult. I will follow as needed. Allergies Allergy/AdvReac Type Severity Reaction Status Date / Time NSAIDS (Non-Steroidal Allergy Unknown . Unverified 06/20/18 06:08 Anti-Inflamma Home Medications Home Medications Medication Instructions Recorded Confirmed Type aspirin 81 mg PO DAILY 06/13/18 06/20/18 History atorvastatin [Lipitor] 40 mg PO HS 06/13/18 06/20/18 History escitalopram oxalate [Lexapro] 5 mg PO DAILY 06/13/18 06/20/18 History glucagon (human recombinant) 1 dose SUBCUT UD PRN 06/13/18 06/20/18 History [Glucagon Emergency Kit (human)] loratadine [Claritin] 10 mg PO DAILY 06/13/18 06/20/18 History magnesium oxide 400 mg PO DAILY 06/13/18 06/20/18 History acetaminophen 650 mg PO Q6H PRN MDD 3gm/24hr 06/20/18 06/20/18 History acetaminophen 650 mg PO Q6H PRN MDD 3gm/24hrs 06/20/18 06/20/18 History apixaban [Eliquis] 5 mg PO BID 06/20/18 06/20/18 History ascorbic acid (vitamin C) [Vitamin 250 mg PO BID 06/20/18 06/20/18 History C] baclofen 10 mg PO Q8 PRN 06/20/18 06/20/18 History bumetanide 0.5 mg PO BID 06/20/18 06/20/18 History calcium carbonate [Oyster Shell 500 mg PO DAILY 06/20/18 06/20/18 History Calcium] cyanocobalamin (vitamin B-12) 1,000 mcg PO DAILY 06/20/18 06/20/18 History [Vitamin B-12] ergocalciferol (vitamin D2) 50,000 unit PO WK 06/20/18 06/20/18 History famotidine 40 mg PO HS 06/20/18 06/20/18 History fenofibrate micronized 67 mg PO HS 06/20/18 06/20/18 History ferrous sulfate 325 mg PO BID 06/20/18 06/20/18 History insulin aspart U-100 [Novolog 4 unit SUBCUT QPM 06/20/18 06/20/18 History Flexpen U-100 Insulin] insulin aspart U-100 [Novolog 6 unit SUBCUT QAM 06/20/18 06/20/18 History Flexpen U-100 Insulin] insulin detemir U-100 [Levemir 15 unit SUBCUT BID 06/20/18 06/20/18 History FlexTouch U-100 Insuln] lactase 3,000 unit PO AC 06/20/18 06/20/18 History metformin 1,000 mg PO BID 06/20/18 06/20/18 History oxycodone 10 mg PO TID 06/20/18 06/20/18 History polyethylene glycol 3350 [Miralax] 17 g PO DAILY 06/20/18 06/20/18 History sennosides [senna] 8.6 mg PO DAILY 06/20/18 06/20/18 History vit A,C and W-[id number] 1 tab PO DAILY 06/20/18 06/20/18 History [Ocuvite with Lutein] Patient History Medical History Obesity hypoventilation syndrome OTONIEL (obstructive sleep apnea) Hypertension (Chronic) Obesity (Chronic) Hyperlipidemia (Chronic) Atrial fibrillation (Chronic) Diabetes mellitus, type II (Chronic) Klinefelter syndrome (Chronic) CHF (congestive heart failure) (Acute) Atrial fibrillation (Chronic) HTN (hypertension) (Chronic) Altered mental status Respiratory acidosis Family History Other No pertinent family history Social History Current Living Situation: [facility] current occupational status: retired Other Information That Helps Us Care for You: No Feels Safe at Home: Yes Safety Concerns: Feels Safe At This Time Smoking Status: Former smoker Second Hand Exposure: No Hx Alcohol Use: No Beliefs That Will Affect Care: None Communication Ability: Unable Review of Systems Unable to obtain due to endotracheal tube and reduced consciousness. Physical Exam 2 Vital Signs (Past 24 Hours): Last Vital Signs Temp 36.9 C 06/23/18 04:00 Pulse 151 H 06/23/18 07:45 Resp 26 H 06/23/18 07:45 BP 166/102 H 06/23/18 06:28 Pulse Ox 100 06/23/18 07:45 Constitutional: + obese and + edematous Eyes: PERRL (3mm bilaterally) Neck: trachea midline and + thick neck Respiratory: no respiratory distress (mechanically ventilated) Auscultation : lungs clear to auscultation bilaterally and + diminished lung sounds Cardiovascular: Rate/Rhythm: + tachycardic Heart Sounds: normal S1 and normal S2; no murmur Extremities: + edema Gastrointestinal (Abdomen): Inspection/Auscultation: + abdomen distended and + hypoactive bowel sounds Percussion/Palpation: abdomen soft Neurologic: awake (stuporous state. opens eyes but no other response to stimuli. no eye contact. does not follow commands) Time Spent Midlevel 70 minutes with >50% of time spent at bedside with patient, on unit with ICU staff during rounds and on phone with patient's brother discussing condition, plan and goals of care. Attending In addition to time spent by Holly BRAND PFransiscaI spent an additional 45 minutes at bedside with family providing support and present at the time of terminal extubation.
[2018-06-23] MEDS ORDERED: APIXABAN 2.5 MG TAB PO SCH (09:30)
[2018-06-23] MEDS: BUMETANIDE 2 MG in SYRINGE 0 ML IV SCH ×2 (09:32→16:41)
[2018-06-23] MEDS: MIDAZOLAM HCL 125 MG/250 ML BAG IV SCH (09:33)
--- NOTE | 2018-06-23 10:33 | Neurology Consultation ---
Date of Consultation June 23, 2018 Assessment & Plan (1) Anoxic brain injury: Severe anoxic brain injury following cardiopulmonary arrest. Frequent periodic generalized discharges on EEG completed yesterday with high risk for status epilepticus. Would recommend Keppra 1000 mg IV every 12 hours. Follow- up with repeat EEG completed this morning. Prognosis poor. (2) Cerebellar stroke: Several small acute punctate left cerebellar hemispheric infarcts. Probably embolic. Would hold on angiography of the head and neck in light of patient's renal failure and poor prognosis. I will follow along. History of Present Illness Reason for Consultation: encephalpathy, s/p cardiac arrest Requesting Physician: Edouard Velasco MD Attending Physician: Ollie Rios MD History of Present Illness The patient is a 68-year old male, [facility] resident, who was admitted to the ICU after cardiac arrest. He was found unresponsive, pulseless, and cyanotic. CPR was administered in the field. Patient had return of spontaneous circulation. He was notably hypotensive in the emergency department, however. The patient remains on life support in the intensive care unit. He has been unresponsive to external stimulation although he will open his eyes periodically. An EEG completed yesterday revealed a generalized periodic spike and slow wave discharge consistent with severe anoxic brain injury. A brain MRI revealed several tiny, acute infarcts within the left cerebellar hemisphere. The study is also notable for markedly enlarged ventricles and chronic microvascular ischemic disease. A repeat EEG was completed this morning. Keppra has been recommended. Allergies Allergy/AdvReac Type Severity Reaction Status Date / Time NSAIDS (Non-Steroidal Allergy Unknown . Unverified 06/20/18 06:08 Anti-Inflamma Home Medications Home Medications Medication Instructions Recorded Confirmed Type aspirin 81 mg PO DAILY 06/13/18 06/20/18 History atorvastatin [Lipitor] 40 mg PO HS 06/13/18 06/20/18 History escitalopram oxalate [Lexapro] 5 mg PO DAILY 06/13/18 06/20/18 History glucagon (human recombinant) 1 dose SUBCUT UD PRN 06/13/18 06/20/18 History [Glucagon Emergency Kit (human)] loratadine [Claritin] 10 mg PO DAILY 06/13/18 06/20/18 History magnesium oxide 400 mg PO DAILY 06/13/18 06/20/18 History acetaminophen 650 mg PO Q6H PRN MDD 3gm/24hr 06/20/18 06/20/18 History acetaminophen 650 mg PO Q6H PRN MDD 3gm/24hrs 06/20/18 06/20/18 History apixaban [Eliquis] 5 mg PO BID 06/20/18 06/20/18 History ascorbic acid (vitamin C) [Vitamin 250 mg PO BID 06/20/18 06/20/18 History C] baclofen 10 mg PO Q8 PRN 06/20/18 06/20/18 History bumetanide 0.5 mg PO BID 06/20/18 06/20/18 History calcium carbonate [Oyster Shell 500 mg PO DAILY 06/20/18 06/20/18 History Calcium] cyanocobalamin (vitamin B-12) 1,000 mcg PO DAILY 06/20/18 06/20/18 History [Vitamin B-12] ergocalciferol (vitamin D2) 50,000 unit PO WK 06/20/18 06/20/18 History famotidine 40 mg PO HS 06/20/18 06/20/18 History fenofibrate micronized 67 mg PO HS 06/20/18 06/20/18 History ferrous sulfate 325 mg PO BID 06/20/18 06/20/18 History insulin aspart U-100 [Novolog 4 unit SUBCUT QPM 06/20/18 06/20/18 History Flexpen U-100 Insulin] insulin aspart U-100 [Novolog 6 unit SUBCUT QAM 06/20/18 06/20/18 History Flexpen U-100 Insulin] insulin detemir U-100 [Levemir 15 unit SUBCUT BID 06/20/18 06/20/18 History FlexTouch U-100 Insuln] lactase 3,000 unit PO AC 06/20/18 06/20/18 History metformin 1,000 mg PO BID 06/20/18 06/20/18 History oxycodone 10 mg PO TID 06/20/18 06/20/18 History polyethylene glycol 3350 [Miralax] 17 g PO DAILY 06/20/18 06/20/18 History sennosides [senna] 8.6 mg PO DAILY 06/20/18 06/20/18 History vit A,C and J-pzcotm-jbnashbc 1 tab PO DAILY 06/20/18 06/20/18 History [Ocuvite with Lutein] Patient History Medical History Obesity hypoventilation syndrome OTONIEL (obstructive sleep apnea) Hypertension (Chronic) Obesity (Chronic) Hyperlipidemia (Chronic) Atrial fibrillation (Chronic) Diabetes mellitus, type II (Chronic) Klinefelter syndrome (Chronic) CHF (congestive heart failure) (Acute) Atrial fibrillation (Chronic) HTN (hypertension) (Chronic) Altered mental status Respiratory acidosis Family History Other No pertinent family history Social History Current Living Situation: Long-Term current occupational status: retired Other Information That Helps Us Care for You: No Feels Safe at Home: Yes Safety Concerns: Feels Safe At This Time Smoking Status: Former smoker Second Hand Exposure: No Hx Alcohol Use: No Beliefs That Will Affect Care: None Communication Ability: Unable Review of Systems Patient is unable to answer questions pertaining to her review of systems as he is currently unresponsive on the ventilator. Physical Exam 2 Vital Signs (Past 24 Hours): Last Vital Signs Temp 36.9 C 06/23/18 04:00 Pulse 151 H 06/23/18 07:45 Resp 26 H 06/23/18 07:45 BP 166/102 H 06/23/18 06:28 Pulse Ox 100 06/23/18 07:45 Physical Exam: The patient is an obese elderly male. He has a wide neck potentially consistent with the stated history of Klinefelter syndrome. He is unresponsive on the mechanical ventilator, on life support. Testing of higher integrative cognitive functions cannot be completed. The patient does not respond to voice, tactile, or noxious stimulation. Pupils equal round reactive to light. There are no abnormal eye movements, gaze preference, or nystagmus. Corneal reflex is intact bilaterally. Unable to elicit a gag reflex. Oculocephalic reflex is intact. Sensation cannot be assessed. Deep tendon reflexes are diffusely diminished. Plantar responses silent. Testing of coordination cannot be completed. Patient does not cooperate adequately for direct ophthalmoscopic examination. Carotid pulses normal bilaterally, no bruits to auscultation. Gait and station cannot be tested. Muscle strength cannot be tested. Patient is flaccid throughout. No atrophy. No abnormal movements observed.
[2018-06-23] MEDS: PANTOprazole 40 MG in SYRINGE 0 ML IV SCH (11:02)
--- NOTE | 2018-06-23 12:28 | Hospitalist Progress Note ---
Date of Service June 23, 2018 Assessment & Plan (1) Cardiac arrest: Patient brought in s/p witnessed asystolic cardiac arrest in the field. ROSC achieved with CPR and epinephrine x 2. Currently unclear etiology. Possibly hypoxemia as patient had thick secretions on intubation; however, primary cardiac arrythmia also possible. - Underwent cooling protocol - Management per critical care - Concern for anoxic brain injury given his code. - EEG showed periodic generalized discharges on 06/22 - Consistent with anoxic brain injury - MRI brain on 06/23 showed left cerebellar hemisphere acute/subacute infarcts that were possibly embolic - Palliative care consult pending (2) Pneumonia: CTA chest on 06/20 showed "moderate tracheobronchial secretions with patchy bilateral consolidative opacities" which may represent pneumonitis. Put on vanc/Zosyn given his critical illness in case this represents a pneumonia. Vanc stopped due to negative MRSA swab - Continue Zosyn given severe illness (3) Bradycardia: Patient in afib with bradycardia. Seen by cardiology with thought that it is related to his cooling. - Resolved with rewarming; now with tachycardia (4) Atrial fibrillation: Permanent afib; now with tachycardia. - Labetalol IV pushes - Apixaban (5) NSTEMI (non-ST elevated myocardial infarction): Initially troponin was negative; bumped to 0.68, then downtrending. No concern for acute ischemic event per cardiology. - Restart ASA when able - No urgent cath warranted (6) CHF (congestive heart failure): Currently appears hypervolemic. - Bumex IV per pulm/cc (7) Diabetes mellitus, type II: A1c was 5.8% on admission. On insulin as outpatient. - While intubated, frequent blood sugars - Restart insulin regimen as able/needed (8) Obesity hypoventilation syndrome: (9) OTONIEL (obstructive sleep apnea): (10) Hypertension: BP is mildly elevated at 135/80 - 150/100. Holding oral meds at present. - Labetalol as above (11) Hyperlipidemia: (12) Klinefelter syndrome: (13) DVT prophylaxis: On apixaban Subjective 68yo M w/ witnessed cardiac arrest in his residence. Now intubated and done with cooling protocol. He made no response to me today with verbal and physical stimulation. Physical Exam 2 Vital Signs (Past 24 Hours): Last Vital Signs Temp 37 C 06/23/18 08:00 Pulse 77 06/23/18 11:10 Resp 30 H 06/23/18 11:10 BP 135/79 06/23/18 11:01 Pulse Ox 99 06/23/18 11:10 Constitutional: well developed, + acute distress and + obese Eyes: no conjunctival abnormality and no scleral abnormality ENMT: Mouth: no oral mucosal abnormality Neck: trachea midline and + thick neck Thyroid: normal thyroid Respiratory: Auscultation: lungs clear to auscultation bilaterally; no rhonchi and no wheezes Cardiovascular: Heart Sounds: normal S1 and normal S2; no gallop and no murmur Extremities: + edema Gastrointestinal (Abdomen): Inspection/Auscultation: + abdomen distended and + hypoactive bowel sounds Percussion/Palpation: abdomen soft Musculoskeletal: Head/Neck/Chest: normal inspection of chest wall and normal palpation of chest wall Skin: no rashes, no ulcers and no purpura
--- NOTE | 2018-06-23 12:39 | Critical Care Progress Note ---
Date of Service June 23, 2018 Assessment & Plan (1) Acute renal insufficiency: Impression: 1. V. fib arrest, status post TTM. 2. Acute respiratory failure, intubated, failed CPAP trial. 3. Obstructive sleep apnea on BiPAP at the half-way. 4. Aspiration pneumonia with MRSA. 5. Acute kidney insufficiency, remains with oliguria. 6. Anoxic brain injury. 7. Diabetes mellitus with diabetic foot. 8. A. fib, rate controlled. 9. Peripheral arterial disease. 10. Non-ST elevation OK. 11. Left cerebellar CVA, acute. Plan: 1. The patient completed TTM process. 2. Appreciate cardiology and renal consult. 3. EEG was reviewed by Dr. Izquierdo, appreciate his input, patient with anoxic encephalopathy. 4. Given his A. fib, recent CVA, I will start the patient on Eliquis. 5. The patient failed spontaneous breathing trial, we will continue to attempt daily. 6. Palliative care consult, appreciate their recommendation. 7. Family discussion once they arrive at the bedside. 8. Glucose control, DVT and GI prophylaxis. 9. Continue with BIS monitoring. 10. Continue Vanco and Zosyn. I would continue Vanco for at least 10 days and Zosyn for total of 7 days at most. 11. MRI of the brain was reviewed personally. 12. Beta-blockers for rate control of A. fib. 13. Discussed with the staff on rounds and details. 14. Discussed with multiple disciplines personally. 15. Attempt of Bumex 2 mg IV every 12 hours. 16. Prognosis is poor. Critical care time spent with the patient was 45 minutes. (2) Bradycardia: Subjective He open his eyes but not to commands, does not seem to interact, no significant movement, events overnight noted for MRI is consistent with acute CVA in the right cerebellar area. Remains vented, urine output is suboptimal. Physical Exam 2 Vital Signs (Past 24 Hours): Last Vital Signs Temp 37 C 06/23/18 08:00 Pulse 77 06/23/18 11:10 Resp 30 H 06/23/18 11:10 BP 135/79 06/23/18 11:01 Pulse Ox 99 06/23/18 11:10 Physical Exam: Vital signs are stable, remains in A. fib, S1-S2 A. fib, rate controlled, lungs with rhonchi, abdomen is benign, edema in the periphery, deformity in the lower extremities, neurologically he open his eyes but not to commands, no significant interaction and response. Results & Data Laboratory Results Labs were reviewed personally no leukocytosis, hematocrit has been stable, the rest of his labs showed BUN and creatinine slightly elevated from before. Diagnostic Findings EEG showed findings supporting the diagnosis of anoxic brain injury.
--- NOTE | 2018-06-23 13:20 | Pharmacy Report ---
Pharm Abx/Gly Prg Nt - Date of Service June 23, 2018 - Objective Vital Signs (Past 12hrs): Vital Signs Temp Pulse Resp BP Pulse Ox 06/23/18 11:10 77 30 H 99 06/23/18 11:01 77 135/79 99 06/23/18 11:00 30 H 06/23/18 10:00 75 156/97 H 97 06/23/18 09:45 30 H 06/23/18 09:01 76 157/100 H 99 06/23/18 08:01 74 161/99 H 99 06/23/18 08:00 37 C 26 H 99 06/23/18 07:45 151 H 26 H 100 06/23/18 07:01 75 149/93 H 100 06/23/18 06:28 74 166/102 H 06/23/18 06:07 102 H 26 H 95 06/23/18 06:01 74 166/102 H 100 06/23/18 05:10 74 181/114 H 99 06/23/18 04:00 36.9 C 75 144/95 H 98 06/23/18 03:19 88 150/96 H 96 06/23/18 02:00 100 H 26 H 94 Lab Results: Laboratory Tests (24 Hours) 06/23/18 06/23/18 06/23/18 04:21 04:21 04:21 WBC 9.69 Neut # (Auto) 8.19 H Creatinine 2.98 H D Est Cr Clr Drug Dosing 34.9 Random Vancomycin 38.7 Micro Results: 06/20/18 Unknown Gram Stain - Final Bronch Wash,Right Lower Lobe Bronchoalveolar Lavage Culture - Final Scant normal brenda. Accuchecks BSG (last 24 hours):: 06/22/18 06/22/18 06/23/18 15:56 19:35 00:51 Glucose POC Glucose 84 105 H 127 H 06/23/18 06/23/18 06/23/18 04:09 04:21 08:51 Glucose 110 H POC Glucose 122 H 124 H HbA1C: Hemoglobin A1c 5.8 % (4.5-5.6) H 06/21/18 05:35 - Outpatient Anti-Diabetic Regimen Recent Pertinent Medications: Outpatient Anti-diabetic Regimen: * Levemir 15 units BID * Novolog 6 units w/ breakfast + 4 units w/ dinner * Metformin 1000mg BID * A1c = 5.8 % 1/22/19 The patient is currently receiving: * Basal insulin: Levemir 0 units in last 24 hrs * Correctional Insulin: Novolog Correction per scale Q 4 hrs Goal Range: Low 140 mg/dL - High 180 mg/dL Correction Factor: 20 mg/dL/unit * Prandial insulin: Per carb ratio of 1 unit per 6 grams CHO consumed * Oral Agents: None Risk Factors for Insulin Resistance: * Infection: aspiration pna * Diet: Peptamen Intense VHP * Mechanical Ventilation: yes - Assessment & Plan Assessment: ID: * 68 year old M receiving VANCOMYCIN + ZOSYN as empiric treatment for respiratory failure/pna * Day # 4 of 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 poor ( only 253cc yesterday) * There was discussion on mulidisciplinary rounds that vancomycin may be d/c'd if we have difficulty managing dosing in light of poor renal fxn - options include Linezolid and this therapy could be delayed until vancomycin levels fall below therapeutic level (i.e., < 20mcg/mL) Glycemic: * BSGs have ranged 73-124 over the last 24 hrs with no insulin given - BSGs slowly marianela to 120's with tube feeds started * Rewarming completed 06/22 AM * Will continue a modest Levemir scale in the evening as BSGs continue to climb slowly with tube feedings * Current Novolog CF and CR are still reasonable and CR is now being used * It is very important that we avoid both hypo- and hyper-glycemia in a patient w/ neurologic injury following cardiac arrest Plan: ANTIMICROBIAL THERAPY Vancomycin * Vancomycin remains on hold at this time. * Last dose administered ~1100 on 06/21 * Random level this AM 38.7. Prior level was 47.1 drawn 20 hours earlier. Half -life is clearly > 24 hrs. * Will continue to monitor random level w/ AM labs to guide repeat dosing (if this agent is continued) * Goal trough level: 15 to 20 mcg/mL for pulm infxn Zosyn * Renal clearance likely less than what is predicted from eCrCl and eGFR equations given low U.O. and delayed rise in SCr. * Continue to dose Zosyn 4.5gm Q 12 hrs for eCrCl < 20cc/min based upon U.O. over last 24 hrs and vancomycin clearance INPATIENT GLYCEMIC CONTROL * Continue to hold outpatient oral diabetes medications (metformin) Basal Insulin * Levemir SQ HS * 0 units if BSG less than 140 * 8 units if BSG 140-180 * 15 units if BSG above 180 Bolus Insulin * NovoLog per scale Q4hrs while NPO * Goal Range: Low 140 mg/dL - High 180 mg/dL * Correction Factor: 20 mg/dL/unit * Nutritional / Prandial insulin per carb ratio of 1 unit per 6 grams CHO consumed - please cover tube feeding carbs * Please note that the plan above was derived based on current level of insulin resistance and hospital stress. These recommendations are appropriate for inpatient admission only. Plan of care upon discharge will need to be reassessed to avoid potential outpatient hypo/hyperglycemia. Glycemic Control Discharge Recommendations: * to be determined Pharmacy will follow patient and adjust orders on a daily basis. Thank you for allowing us to participate in this patient�s care.
--- NOTE | 2018-06-23 13:50 | Cardiology Progress Note ---
Date of Service June 23, 2018 Assessment & Plan (1) Cardiac arrest: He reportedly had thick secretions on presentation and was found to be in asystole. This is suspicious for hypoxic event which could lead to asystole. There have not been any significant dynamic ST abnormalities on ECG. Troponin is mildly elevated however this is not unexpected given respiratory/cardiac arrest with hypoxia and also in the setting of ATN. He is status post hypothermic protocol. He remains on mechanical ventilator as per critical care team. (2) Atrial fibrillation: He has spontaneously converted to sinus rhythm. Consider metoprolol tartrate 25 mg p.o. twice daily in place of intravenous metoprolol. Anticoagulation therapy has been resumed by critical care team. Consider heparin drip in place of Eliquis while hospitalized and while in ATN. (3) Bradycardia: He was bradycardic while hypothermic. Bradycardia has since resolved. (4) Hypertension: Blood pressure has recently been hypertensive. Beta-anabelle has been initiated by critical care team. (5) NSTEMI (non-ST elevated myocardial infarction): Troponins are mildly elevated in the setting of hypoxic event with respiratory failure/cardiac arrest. Small increase in troponin is not unexpected with recent events. He has hyperdynamic LV systolic function with normal wall motion on echocardiogram. His cardiac arrest is not likely secondary to primary ischemic event. Would recommend resuming home dose of aspirin 81 mg daily if no contraindications. (He also has history of peripheral arterial disease). Could consider resuming high-intensity statin therapy however if the plan is to withdraw care, statin therapy would not be necessary. (6) Chronic diastolic CHF (congestive heart failure): He has a history of diastolic CHF in takes Bumex at home. He appears to be hypervolemic and has demonstrated a positive fluid balance throughout this hospitalization. He is on Bumex. He has ATN. Nephrology is following. Disposition: Patient care discussed with Dr. Velasco other critical care team. Please call with any other questions or concerns. Subjective He remains on mechanical ventilator. According to critical care team, there have been discussions about potentially withdrawn. He is now DNR. He spontaneously converted to sinus rhythm today. He has been placed on metoprolol IV q.6 hours by critical care team as well as Eliquis p.o. b.i.d.. Review of systems: Unobtainable due to mental status. Physical Exam 2 Vital Signs (Past 24 Hours): Last Vital Signs Temp 37 C 06/23/18 08:00 Pulse 77 06/23/18 11:10 Resp 30 H 06/23/18 11:10 BP 135/79 06/23/18 11:01 Pulse Ox 99 06/23/18 11:10 Intake & Output 06/21/18 06/22/18 06/23/18 06/24/18 06:59 06:59 06:59 06:59 Intake Total 3107.133 / 3107.13 3 4983.414 / 4983.41 4 1135.150 / 1135.15 0 485.134 / 485.134 Output Total 230 / 230 253 / 253 678 / 678 340 / 340 Balance 2877.133 / 2877.13 3 4730.414 / 4730.41 4 457.150 / 457.150 145.134 / 145.134 Weight 138.1 kg 140 kg 140.3 kg Physical Exam: Gen.: No acute distress. HEENT: Anicteric sclera. Neck: No JVD. Cardiac: Regular. Normal S1-S2. No murmurs, rubs, or gallops. Pulmonary: Coarse breath sounds bilaterally. Abdomen: Soft. Nondistended. No bruits noted. Extremities: 1+ bilateral upper extremity edema. 1+ right foot edema and otherwise trace lower extremity edema bilaterally. No cyanosis. Psychiatric: Affect appears appropriate. Results & Data Laboratory Results Laboratory Results - last 24 hr 06/22/18 06/22/18 06/23/18 15:56 19:35 00:51 WBC RBC Hgb Hct MCV MCH MCHC RDW Std Deviation RDW Coeff of Johnny Plt Count MPV Immature Gran % (Auto) Neut % (Auto) Lymph % (Auto) [place] % (Auto) Eos % (Auto) Baso % (Auto) Immature Gran # (Auto) Neut # (Auto) Lymph # (Auto) [place] # (Auto) Eos # (Auto) Baso # (Auto) Ovalocytes Echinocytes Sodium Potassium Chloride Carbon Dioxide Anion Gap BUN Creatinine Est Cr Clr Drug Dosing Est GFR ( Amer) Est GFR (Non-Af Amer) BUN/Creatinine Ratio Glucose POC Glucose 84 105 H 127 H Calcium Total Bilirubin Direct Bilirubin AST ALT Alkaline Phosphatase Total Protein Albumin Random Vancomycin 06/23/18 06/23/18 06/23/18 04:09 04:21 04:21 WBC 9.69 RBC 2.82 L Hgb 8.0 L Hct 26.0 L MCV 92.2 MCH 28.4 MCHC 30.8 L RDW Std Deviation 52.1 H RDW Coeff of Johnny 15.4 H Plt Count 256 MPV 10.3 Immature Gran % (Auto) 0.6 Neut % (Auto) 84.5 Lymph % (Auto) 8.5 [place] % (Auto) 6.0 Eos % (Auto) 0.3 Baso % (Auto) 0.1 Immature Gran # (Auto) 0.06 H Neut # (Auto) 8.19 H Lymph # (Auto) 0.82 L [place] # (Auto) 0.58 Eos # (Auto) 0.03 Baso # (Auto) 0.01 Ovalocytes 1+ Echinocytes 1+ Sodium 138 Potassium 4.8 Chloride 110 H Carbon Dioxide 20 L Anion Gap 8.0 BUN 91 H Creatinine 2.98 H D Est Cr Clr Drug Dosing 34.9 Est GFR ( Amer) 23.8 Est GFR (Non-Af Amer) 20.6 BUN/Creatinine Ratio 30.5 H Glucose 110 H POC Glucose 122 H Calcium 8.4 L Total Bilirubin 0.5 Direct Bilirubin 0.3 H AST 105 H ALT 117 H Alkaline Phosphatase 46 Total Protein 5.7 L Albumin 2.1 L Random Vancomycin 06/23/18 06/23/18 04:21 08:51 WBC RBC Hgb Hct MCV MCH MCHC RDW Std Deviation RDW Coeff of Johnny Plt Count MPV Immature Gran % (Auto) Neut % (Auto) Lymph % (Auto) [place] % (Auto) Eos % (Auto) Baso % (Auto) Immature Gran # (Auto) Neut # (Auto) Lymph # (Auto) [place] # (Auto) Eos # (Auto) Baso # (Auto) Ovalocytes Echinocytes Sodium Potassium Chloride Carbon Dioxide Anion Gap BUN Creatinine Est Cr Clr Drug Dosing Est GFR ( Amer) Est GFR (Non-Af Amer) BUN/Creatinine Ratio Glucose POC Glucose 124 H Calcium Total Bilirubin Direct Bilirubin AST ALT Alkaline Phosphatase Total Protein Albumin Random Vancomycin 38.7 Diagnostic Findings Telemetry personally reviewed: Atrial fibrillation converted to sinus rhythm. ECG personally reviewed: ECG 06/23/2018: Sinus rhythm 76 bpm. RBBB. Nonspecific T-wave abnormality. Brain MRI 06/23/2018: Small left cerebellar hemisphere acute/subacute infarcts. Persistent ventricular dilation. Bilateral mastoid effusions. Medications Administered Current Inpatient Medications Acetaminophen (Tylenol) 650 mg PO Q6H PRN PRN Reason: Pain or Fever Stop: 07/20/18 08:20 Apixaban (Eliquis) 2.5 mg PO BID [facility] Stop: 07/23/18 09:29 Last Admin: 06/23/18 11:06 Dose: 2.5 mg Bisacodyl (Dulcolax) 10 mg HI DAILY PRN PRN Reason: Constipation Stop: 07/20/18 08:20 Dextrose (Dextrose 50%) 25 - 50 ml IV UD PRN; Protocol PRN Reason: Hypoglycemia Protocol Stop: 07/20/18 08:48 Last Admin: 06/20/18 16:50 Dose: 25 ml Docusate Sodium (Colace) 100 mg PO BID PRN PRN Reason: constipation Stop: 07/20/18 08:20 Glucagon (Glucagen) 1 mg IM UD PRN; Protocol PRN Reason: Hypoglycemia Protocol Stop: 07/20/18 08:48 Glucose (Glucose 40%) 15 - 30 gm PO UD PRN; Protocol PRN Reason: Hypoglycemia Protocol Stop: 07/20/18 08:48 Glucose (Dex4 Glucose) 4 - 8 tabs PO UD PRN; Protocol PRN Reason: Hypoglycemia Protocol Stop: 07/20/18 08:48 Pantoprazole Sodium 40 mg/ (Syringe) 10 mls @ 5 mls/min IV DAILY@1100 [facility] Stop: 07/20/18 10:59 Last Admin: 06/23/18 11:02 Dose: 5 mls/min Midazolam HCl (Versed) 125 mg in 250 mls @ 4 mls/hr IV .Q0M [facility]; Protocol Stop: 07/20/18 08:20 Last Admin: 06/23/18 09:33 Dose: Not Given Fentanyl Citrate (Fentanyl Drip) 1,250 mcg in 250 mls @ 0 mls/hr IV .Q24H [facility]; Protocol Stop: 07/04/18 15:59 Last Titration: 06/23/18 09:33 Dose: 0 mcg/hr, 0 mls/hr Dopamine HCl/Dextrose (Dopamine / D5w) 400 mg in 250 mls @ 0 mls/hr IV .Q24H [facility]; Protocol Stop: 07/21/18 03:29 Last Titration: 06/22/18 16:48 Dose: Infused Bumetanide 2 mg/ Syringe 8 mls @ 4 mls/min IV BID17 [facility] Stop: 07/22/18 16:59 Last Admin: 06/23/18 09:32 Dose: 4 mls/min Piperacillin Sod/Tazobactam (Sod 4.5 gm/ Dextrose) 120 mls @ 30 mls/hr IV Q12H [facility]; Protocol Stop: 06/27/18 23:59 Insulin Aspart (Novolog Flexpen) 0 units SC Q4 [facility] Stop: 07/20/18 19:59 Last Admin: 06/23/18 13:35 Dose: 1 units Insulin Detemir (Levemir Flextouch) 0 units SC HS [facility]; Protocol Stop: 07/21/18 20:59 Last Admin: 06/22/18 20:20 Dose: Not Given Ioversol (Optiray 320 125ml) 119 ml IV ONCE PRN PRN Reason: Interaction Checking Stop: 06/24/18 07:39 Last Admin: 06/20/18 07:40 Dose: 119 ml Metoprolol Tartrate (Lopressor) 5 mg IV Q6 [facility] Stop: 07/22/18 11:59 Last Admin: 06/23/18 13:31 Dose: Not Given Miscellaneous (Carbohydrates For Hypoglycemia) 15 - 30 gm PO UD PRN PRN Reason: Hypoglycemia Treatment Stop: 07/20/18 08:48 Miscellaneous Information (Consult) 1 ea N/A UD PRN PRN Reason: Consult Stop: 07/20/18 05:53 Miscellaneous Information (Consult) 1 ea N/A UD PRN PRN Reason: Consult Stop: 07/20/18 08:20 Miscellaneous Information (Consult Glycemic Management Pharmacy) 1 ea N/A UD PRN PRN Reason: Consult Stop: 07/20/18 19:26 Nutritional Formula (Peptamen Intense Vhp) 1,000 ml OG UD [facility]; Protocol Stop: 07/22/18 12:29 Last Admin: 06/22/18 13:57 Dose: 1,000 ml Polyethylene Glycol (Miralax Powder Packet) 17 gm PO DAILY PRN PRN Reason: Constipation Stop: 07/20/18 08:20
--- NOTE | 2018-06-23 14:11 | Procedure Note ---
EEG Procedure Note Date of Service June 23, 2018 Start / End Times Start Time: 8:32 AM End Time: 8:55 AM Referring Physician Alessandro Izquierdo History This is a 68-year-old male status post cardiac arrest and unresponsive. EEG for further evaluation of subclinical seizures Home Medication List Home Medications Medication Instructions Recorded Confirmed Type aspirin 81 mg PO DAILY 06/13/18 06/20/18 History atorvastatin [Lipitor] 40 mg PO HS 06/13/18 06/20/18 History escitalopram oxalate [Lexapro] 5 mg PO DAILY 06/13/18 06/20/18 History glucagon (human recombinant) 1 dose SUBCUT UD PRN 06/13/18 06/20/18 History [Glucagon Emergency Kit (human)] loratadine [Claritin] 10 mg PO DAILY 06/13/18 06/20/18 History magnesium oxide 400 mg PO DAILY 06/13/18 06/20/18 History acetaminophen 650 mg PO Q6H PRN MDD 3gm/24hr 06/20/18 06/20/18 History acetaminophen 650 mg PO Q6H PRN MDD 3gm/24hrs 06/20/18 06/20/18 History apixaban [Eliquis] 5 mg PO BID 06/20/18 06/20/18 History ascorbic acid (vitamin C) [Vitamin 250 mg PO BID 06/20/18 06/20/18 History C] baclofen 10 mg PO Q8 PRN 06/20/18 06/20/18 History bumetanide 0.5 mg PO BID 06/20/18 06/20/18 History calcium carbonate [Oyster Shell 500 mg PO DAILY 06/20/18 06/20/18 History Calcium] cyanocobalamin (vitamin B-12) 1,000 mcg PO DAILY 06/20/18 06/20/18 History [Vitamin B-12] ergocalciferol (vitamin D2) 50,000 unit PO WK 06/20/18 06/20/18 History famotidine 40 mg PO HS 06/20/18 06/20/18 History fenofibrate micronized 67 mg PO HS 06/20/18 06/20/18 History ferrous sulfate 325 mg PO BID 06/20/18 06/20/18 History insulin aspart U-100 [Novolog 4 unit SUBCUT QPM 06/20/18 06/20/18 History Flexpen U-100 Insulin] insulin aspart U-100 [Novolog 6 unit SUBCUT QAM 06/20/18 06/20/18 History Flexpen U-100 Insulin] insulin detemir U-100 [Levemir 15 unit SUBCUT BID 06/20/18 06/20/18 History FlexTouch U-100 Insuln] lactase 3,000 unit PO AC 06/20/18 06/20/18 History metformin 1,000 mg PO BID 06/20/18 06/20/18 History oxycodone 10 mg PO TID 06/20/18 06/20/18 History polyethylene glycol 3350 [Miralax] 17 g PO DAILY 06/20/18 06/20/18 History sennosides [senna] 8.6 mg PO DAILY 06/20/18 06/20/18 History vit A,C and I-danmgf-kxliedeh 1 tab PO DAILY 06/20/18 06/20/18 History [Ocuvite with Lutein] Inpatient Medication List Apixaban (Eliquis) 2.5 mg PO BID [facility] Stop: 07/23/18 09:29 Last Admin: 06/23/18 11:06 Dose: 2.5 mg Dextrose (Dextrose 50%) 25 - 50 ml IV UD PRN; Protocol PRN Reason: Hypoglycemia Protocol Stop: 07/20/18 08:48 Last Admin: 06/20/18 16:50 Dose: 25 ml Admin: 06/20/18 14:39 Dose: 25 ml Pantoprazole Sodium 40 mg/ (Syringe) 10 mls @ 5 mls/min IV DAILY@1100 [facility] Stop: 07/20/18 10:59 Last Admin: 06/23/18 11:02 Dose: 5 mls/min Admin: 06/22/18 10:46 Dose: 5 mls/min Admin: 06/21/18 10:44 Dose: 5 mls/min Admin: 06/20/18 11:18 Dose: 5 mls/min Midazolam HCl (Versed) 125 mg in 250 mls @ 4 mls/hr IV .Q0M [facility]; Protocol Stop: 07/20/18 08:20 Last Admin: 06/23/18 09:33 Dose: Not Given Titration: 06/23/18 09:32 Dose: 0 mg/hr, 0 mls/hr Titration: 06/23/18 07:22 Dose: 2 mg/hr, 4 mls/hr Titration: 06/22/18 23:25 Dose: 2 mg/hr, 4 mls/hr Admin: 06/22/18 18:41 Dose: Not Given Titration: 06/22/18 16:48 Dose: 2 mg/hr, 4 mls/hr Titration: 06/22/18 08:13 Dose: 0 mg/hr, 0 mls/hr Titration: 06/22/18 07:30 Dose: 2 mg/hr, 4 mls/hr Titration: 06/22/18 06:46 Dose: 3 mg/hr, 6 mls/hr Titration: 06/22/18 05:48 Dose: 3 mg/hr, 6 mls/hr Titration: 06/21/18 18:59 Dose: 4 mg/hr, 8 mls/hr Admin: 06/21/18 13:38 Dose: 4 mg/hr, 8 mls/hr Titration: 06/21/18 13:38 Dose: 4 mg/hr, 8 mls/hr Titration: 06/21/18 07:09 Dose: 4 mg/hr, 8 mls/hr Titration: 06/21/18 07:08 Dose: 4 mg/hr, 8 mls/hr Titration: 06/21/18 06:02 Dose: 4 mg/hr, 8 mls/hr Titration: 06/21/18 03:50 Dose: 4 mg/hr, 8 mls/hr Titration: 06/21/18 01:19 Dose: 7 mg/hr, 14 mls/hr Titration: 06/20/18 19:08 Dose: 5 mg/hr, 10 mls/hr Titration: 06/20/18 18:09 Dose: 5 mg/hr, 10 mls/hr Titration: 06/20/18 13:54 Dose: 4 mg/hr, 8 mls/hr Titration: 06/20/18 12:59 Dose: 3 mg/hr, 6 mls/hr Titration: 06/20/18 11:49 Dose: 2 mg/hr, 4 mls/hr Admin: 06/20/18 09:25 Dose: 1 mg/hr, 2 mls/hr Fentanyl Citrate (Fentanyl Drip) 1,250 mcg in 250 mls @ 0 mls/hr IV .Q24H [facility]; Protocol Stop: 07/04/18 15:59 Last Titration: 06/23/18 09:33 Dose: 0 mcg/hr, 0 mls/hr Titration: 06/23/18 07:22 Dose: 25 mcg/hr, 5 mls/hr Titration: 06/22/18 23:25 Dose: 25 mcg/hr, 5 mls/hr Admin: 06/22/18 16:48 Dose: 25 mcg/hr, 5 mls/hr Admin: 06/22/18 10:43 Dose: Not Given Titration: 06/22/18 08:12 Dose: 0 mcg/hr, 0 mls/hr Titration: 06/22/18 06:46 Dose: 40 mcg/hr, 8 mls/hr Titration: 06/22/18 05:48 Dose: 40 mcg/hr, 8 mls/hr Titration: 06/21/18 18:59 Dose: 50 mcg/hr, 10 mls/hr Titration: 06/21/18 07:09 Dose: 50 mcg/hr, 10 mls/hr Titration: 06/21/18 07:08 Dose: 50 mcg/hr, 10 mls/hr Titration: 06/21/18 06:02 Dose: 50 mcg/hr, 10 mls/hr Admin: 06/21/18 05:28 Dose: 50 mcg/hr, 10 mls/hr Titration: 06/21/18 05:23 Dose: 50 mcg/hr, 10 mls/hr Titration: 06/21/18 03:50 Dose: 50 mcg/hr, 10 mls/hr Titration: 06/20/18 19:08 Dose: 100 mcg/hr, 20 mls/hr Titration: 06/20/18 17:29 Dose: 100 mcg/hr, 20 mls/hr Admin: 06/20/18 15:39 Dose: 75 mcg/hr, 15 mls/hr Dopamine HCl/Dextrose (Dopamine / D5w) 400 mg in 250 mls @ 0 mls/hr IV .Q24H [facility]; Protocol Stop: 07/21/18 03:29 Last Titration: 06/22/18 16:48 Dose: 0 mcg/kg/min, 0 mls/hr Titration: 06/22/18 06:46 Dose: 0 mcg/kg/min, 0 mls/hr Titration: 06/22/18 05:48 Dose: 1 mcg/kg/min, 4.8 mls/hr Titration: 06/22/18 03:25 Dose: 1.5 mcg/kg/min, 7.2 mls/hr Titration: 06/21/18 21:25 Dose: 2 mcg/kg/min, 9.6 mls/hr Titration: 06/21/18 18:59 Dose: 1.5 mcg/kg/min, 7.2 mls/hr Titration: 06/21/18 15:08 Dose: 1.5 mcg/kg/min, 7.2 mls/hr Titration: 06/21/18 14:00 Dose: 2.5 mcg/kg/min, 12 mls/hr Titration: 06/21/18 13:08 Dose: 0 mcg/kg/min, 0 mls/hr Titration: 06/21/18 12:45 Dose: 5 mcg/kg/min, 24 mls/hr Titration: 06/21/18 09:43 Dose: 0 mcg/kg/min, 0 mls/hr Titration: 06/21/18 07:09 Dose: 1.5 mcg/kg/min, 7.2 mls/hr Titration: 06/21/18 07:08 Dose: 1.5 mcg/kg/min, 7.2 mls/hr Titration: 06/21/18 06:01 Dose: 1.5 mcg/kg/min, 7.2 mls/hr Titration: 06/21/18 05:18 Dose: 2 mcg/kg/min, 9.6 mls/hr Titration: 06/21/18 04:30 Dose: 1 mcg/kg/min, 4.8 mls/hr Titration: 06/21/18 04:20 Dose: 3 mcg/kg/min, 14.4 mls/hr Admin: 06/21/18 03:43 Dose: 5 mcg/kg/min, 24 mls/hr Bumetanide 2 mg/ Syringe 8 mls @ 4 mls/min IV [id number] [facility] Stop: 07/22/18 16:59 Last Admin: 06/23/18 09:32 Dose: 4 mls/min Admin: 06/22/18 16:55 Dose: 4 mls/min Insulin Aspart (Novolog Flexpen) 0 units SC Q4 [facility] Stop: 07/20/18 19:59 Last Admin: 06/23/18 13:35 Dose: 1 units Admin: 06/23/18 09:33 Dose: 1 units Admin: 06/23/18 04:37 Dose: Not Given Admin: 06/23/18 00:53 Dose: Not Given Admin: 06/22/18 20:20 Dose: Not Given Admin: 06/22/18 16:02 Dose: Not Given Admin: 06/22/18 11:35 Dose: Not Given Admin: 06/22/18 07:30 Dose: Not Given Admin: 06/22/18 03:23 Dose: Not Given Admin: 06/21/18 23:15 Dose: Not Given Admin: 06/21/18 20:05 Dose: Not Given Admin: 06/21/18 16:27 Dose: Not Given Admin: 06/21/18 12:50 Dose: Not Given Admin: 06/21/18 08:01 Dose: Not Given Admin: 06/21/18 03:43 Dose: Not Given Admin: 06/20/18 23:28 Dose: Not Given Admin: 06/20/18 20:12 Dose: Not Given Insulin Detemir (Levemir Flextouch) 0 units SC [facility]; Protocol Stop: 07/21/18 20:59 Last Admin: 06/22/18 20:20 Dose: Not Given Admin: 06/21/18 20:06 Dose: Not Given Ioversol (Optiray 320 125ml) 119 ml IV ONCE PRN PRN Reason: Interaction Checking Stop: 06/24/18 07:39 Last Admin: 06/20/18 07:40 Dose: 119 ml Metoprolol Tartrate (Lopressor) 5 mg IV Q6 [facility] Stop: 07/22/18 11:59 Last Admin: 06/23/18 13:31 Dose: Not Given Admin: 06/23/18 06:28 Dose: 5 mg Admin: 06/23/18 00:51 Dose: 5 mg Admin: 06/22/18 18:09 Dose: 5 mg Admin: 06/22/18 11:24 Dose: 5 mg Nutritional Formula (Peptamen Intense Vhp) 1,000 ml [facility] [place], [place]; Protocol Stop: 07/22/18 12:29 Last Admin: 06/22/18 13:57 Dose: 1,000 ml Discontinued Medications Atropine Sulfate (Atropine Sulfate) Confirm Administered Dose 1 mg IV .STK-MED ONE Stop: 06/21/18 12:52 Last Admin: 06/21/18 13:16 Dose: Not Given Atropine Sulfate (Atropine Sulfate) 0.5 mg IV NOW STA Stop: 06/21/18 13:07 Last Admin: 06/21/18 13:16 Dose: 0.5 mg Fentanyl Citrate (Fentanyl Citrate) Confirm Administered Dose 100 mcg .ROUTE .STK-MED ONE Stop: 06/20/18 09:20 Last Admin: 06/20/18 11:41 Dose: Not Given Fentanyl Citrate (Fentanyl Drip) Confirm Administered Dose 1,250 mcg IV .STK- MED ONE Stop: 06/20/18 15:28 Last Admin: 06/20/18 15:40 Dose: Not Given Sodium Chloride (Nss) 500 mls @ 999 mls/hr IV .Q31M ONE Stop: 06/20/18 04:57 Last Infusion: 06/20/18 05:18 Dose: Admin: 06/20/18 04:30 Dose: 999 mls/hr Piperacillin Sod/Tazobactam Sod (Zosyn) 4.5 gm in 120 mls @ 240 mls/hr IV NOW ONE Stop: 06/20/18 04:57 Last Infusion: 06/20/18 05:24 Dose: Admin: 06/20/18 04:54 Dose: 240 mls/hr Levofloxacin/Dextrose (Levaquin/D5w) 750 mg in 150 mls @ 100 mls/hr IV NOW STA Stop: 06/20/18 05:58 Last Infusion: 06/20/18 06:58 Dose: Admin: 06/20/18 05:18 Dose: 100 mls/hr Norepinephrine Bitartrate 8 mg (/ Dextrose) 508 mls @ 48.69 mls/hr IV .[id number] [facility]; Protocol Stop: 07/20/18 04:44 Last Titration: 06/21/18 09:23 Dose: 0 mcg/kg/min, 0 mls/hr Titration: 06/20/18 07:40 Dose: 0 mcg/kg/min, 0 mls/hr Admin: 06/20/18 04:54 Dose: 0.1 mcg/kg/min, 48.7 mls/hr Sodium Chloride (Nss 1000ml) 1,000 mls @ 999 mls/hr IV .Q1H1M ONE Stop: 06/20/18 05:43 Last Infusion: 06/20/18 05:50 Dose: Admin: 06/20/18 04:51 Dose: 999 mls/hr Vancomycin HCl 2,500 mg/ (Sodium Chloride) 550 mls @ 200 mls/hr IV NOW ONE Stop: 06/20/18 08:59 Last Infusion: 06/20/18 09:42 Dose: 0 mls/hr Admin: 06/20/18 06:18 Dose: 200 mls/hr Insulin Human Regular 250 (units/ Sodium Chloride) 250 mls @ 0 mls/hr IV .Q0M [facility]; Protocol Stop: 07/20/18 07:44 Last Titration: 06/22/18 06:48 Dose: 0 units/hr, 0 mls/hr Titration: 06/20/18 19:08 Dose: 0 units/hr, 0 mls/hr Titration: 06/20/18 16:10 Dose: 0 units/hr, 0 mls/hr Titration: 06/20/18 15:00 Dose: 1.8 units/hr, 1.8 mls/hr Titration: 06/20/18 14:40 Dose: 0 units/hr, 0 mls/hr Titration: 06/20/18 13:35 Dose: 3 units/hr, 3 mls/hr Titration: 06/20/18 12:37 Dose: 3.8 units/hr, 3.8 mls/hr Admin: 06/20/18 11:18 Dose: 4.8 units/hr, 4.8 mls/hr Sodium Chloride (Nss 1000ml) 1,000 mls @ 999 mls/hr IV .Q1H1M [facility] Stop: 06/20/18 10:21 Last Admin: 06/20/18 12:19 Dose: Not Given Admin: 06/20/18 12:18 Dose: Not Given Calcium Gluconate 1,000 mg/ (Sodium Chloride) 60 mls @ 240 mls/hr IV 0845 ONE Stop: 06/20/18 08:59 Last Infusion: 06/20/18 10:00 Dose: 0 mls/hr Admin: 06/20/18 09:42 Dose: 240 mls/hr Norepinephrine Bitartrate 8 mg (/ Dextrose) 508 mls @ 24.34 mls/hr IV .[id number] [facility]; Protocol Stop: 06/21/18 05:13 Last Admin: 06/20/18 12:59 Dose: Not Given Piperacillin Sod/Tazobactam (Sod 4.5 gm/ Dextrose) 120 mls @ 30 mls/hr IV Q8H [facility]; Protocol Stop: 06/27/18 23:59 Last Infusion: 06/23/18 08:47 Dose: 0 mls/hr Admin: 06/23/18 04:40 Dose: 30 mls/hr Infusion: 06/22/18 22:44 Dose: 0 mls/hr Admin: 06/22/18 18:09 Dose: 30 mls/hr Infusion: 06/22/18 13:57 Dose: 0 mls/hr Admin: 06/22/18 09:45 Dose: 30 mls/hr Infusion: 06/22/18 05:35 Dose: 0 mls/hr Admin: 06/22/18 01:35 Dose: 30 mls/hr Infusion: 06/21/18 21:13 Dose: 0 mls/hr Admin: 06/21/18 17:13 Dose: 30 mls/hr Infusion: 06/21/18 13:30 Dose: 0 mls/hr Admin: 06/21/18 09:33 Dose: 30 mls/hr Infusion: 06/21/18 06:01 Dose: 0 mls/hr Admin: 06/21/18 02:01 Dose: 30 mls/hr Infusion: 06/20/18 22:09 Dose: 0 mls/hr Admin: 06/20/18 18:09 Dose: 30 mls/hr Infusion: 06/20/18 15:20 Dose: 0 mls/hr Admin: 06/20/18 11:18 Dose: 30 mls/hr Vancomycin HCl 1,500 mg/ (Sodium Chloride) 530 mls @ 200 mls/hr IV Q14H [facility] Stop: 06/22/18 20:59 Last Infusion: 06/21/18 13:08 Dose: 0 mls/hr Admin: 06/21/18 10:43 Dose: 200 mls/hr Infusion: 06/20/18 22:51 Dose: 0 mls/hr Admin: 06/20/18 20:12 Dose: 200 mls/hr Sodium Chloride (Nss 1000ml) 1,000 mls @ 999 mls/hr IV .Q1H1M ONE Stop: 06/20/18 14:27 Last Infusion: 06/20/18 15:15 Dose: 0 mls/hr Admin: 06/20/18 14:01 Dose: 999 mls/hr Sodium Chloride (Nss 1000ml) 1,000 mls @ 100 mls/hr IV .Q10H [facility] Stop: 07/20/18 22:14 Last Infusion: 06/22/18 10:44 Dose: 0 mls/hr Infusion: 06/22/18 05:51 Dose: 100 mls/hr Admin: 06/22/18 02:59 Dose: 100 mls/hr Infusion: 06/22/18 02:59 Dose: 100 mls/hr Admin: 06/21/18 17:13 Dose: 100 mls/hr Infusion: 06/21/18 17:13 Dose: 100 mls/hr Admin: 06/21/18 07:25 Dose: 100 mls/hr Infusion: 06/21/18 07:25 Dose: 100 mls/hr Admin: 06/20/18 22:28 Dose: 100 mls/hr Magnesium Sulfate/Dextrose (Magnesium Sulfate / D5w) 1 gm in 100 mls @ 100 mls/ hr IV Q1H [facility] Stop: 06/21/18 12:29 Last Infusion: 06/21/18 13:30 Dose: 0 mls/hr Admin: 06/21/18 11:45 Dose: 100 mls/hr Infusion: 06/21/18 11:44 Dose: 100 mls/hr Admin: 06/21/18 10:44 Dose: 100 mls/hr Bumetanide 2 mg/ Syringe 8 mls @ 4 mls/min IV NOW ST[facility] Stop: 06/22/18 11:09 Last Admin: 06/22/18 11:24 Dose: 4 mls/min Levetiracetam 1,000 mg/ (Dextrose) 110 mls @ 440 mls/hr IV TODAY@0920 ONE Stop: 06/23/18 09:34 Last Infusion: 06/23/18 10:06 Dose: 0 mls/hr Admin: 06/23/18 09:31 Dose: 440 mls/hr Insulin Aspart (Novolog Flexpen) 0 units SC [facility] Stop: 07/20/18 08:59 Last Admin: 06/20/18 12:59 Dose: Not Given Admin: 06/20/18 11:19 Dose: Not Given Admin: 06/20/18 09:40 Dose: Not Given Insulin Detemir (Levemir Flextouch) 15 units SC [facility]; Protocol Stop: 06/20/18 19:40 Last Admin: 06/20/18 20:13 Dose: 15 units Insulin Human Regular (Novolin R Bolus From Bag) 5 units IV ONE ONE Stop: 06/20/18 11:16 Last Admin: 06/20/18 11:19 Dose: 5 units Meperidine HCl (Demerol) 12.5 mg IV Q4 PRN PRN Reason: Shivering Stop: 07/04/18 22:37 Last Admin: 06/21/18 23:17 Dose: 12.5 mg Admin: 06/20/18 23:27 Dose: 12.5 mg Miscellaneous (Insulin Protocol Goal Range) 1 ea N/A ONE ONE Stop: 06/20/18 07:40 Last Admin: 06/20/18 12:19 Dose: Not Given Miscellaneous (Insulin Protocol Severe Stress) 1 ea N/A ONE ONE Stop: 06/20/18 07:40 Last Admin: 06/20/18 12:19 Dose: Not Given Description This is a 21 electrode EEG with a single channel dedicated to limited EKG. The electrodes were placed in accordance with the International 10-20 system. There is diffuse electrical artifact that moderately limits the read of this EEG. At the start of this recording the patient is unresponsive. Background is poorly organized with no anterior to posterior gradient. Background is composed of predominantly diffuse suppression/attenuation (cannot rule out low amplitude background frequencies due to the diffuse electrical artifact). There was bursts of 1-3 Hz generalized spike waves lasting less than 1 second every 1- 2 seconds. Rarely there was a burst of 4-6 Hz spike waves lasting less than a second. There was no state changes or sleep transients. No signs of reactivity. Interpretation This is an abnormal routine EEG secondary to burst suppression pattern with bursts comprised entirely of 1-3 Hz generalized spike waves that were rarely up to 4-6 Hz lasting less than a second. No electrographic seizures. Clinical Correlation This EEG indicates a highly increased epileptogenic potential and high risk for status epilepticus. This EEG is also indicates severe encephalopathy that would be consistent with the patient's history of anoxic brain injury.
[2018-06-23] MEDS ORDERED: INSULIN ASPART 100 UNITS/ML 3 ML PEN SC SCH (15:41)
[2018-06-23] MEDS ORDERED: INSULIN DETEMIR FLEXPEN/FLEX TOUCH 100 UNITS/ML 3ML SC SCH (15:42)
[2018-06-23] MEDS ORDERED: PIPERACILLIN/TAZOBACTAM 4.5 GM in DEXTROSE 5% 100 ML IV SCH (16:00)
[2018-06-23] MEDS ORDERED: LORazepam 0.5 MG/1 ML VIAL IV PRN (16:19)
[2018-06-23] MEDS ORDERED: MoRPHine SULFATE 2 MG/ML CARP IV PRN (16:19)
[2018-06-23] MEDS ORDERED: MoRPHine SULFATE 4 MG/ML 1 ML CARP\\VIAL ONE (16:34)
[2018-06-23] MEDS ORDERED: MoRPHine SULFATE 4 MG/ML 1 ML CARP\\VIAL IV PRN (16:37)
[2018-06-23] MEDS ORDERED: LORazepam 1 MG/2 ML VIAL IV PRN (16:50)
--- NOTE | 2018-06-23 17:15 | Critical Care Progress Note ---
Date of Service June 23, 2018 Assessment & Plan (1) Acute renal insufficiency: Impression: 1. V. fib arrest, status post TTM. 2. Acute respiratory failure, intubated, failed CPAP trial. 3. Obstructive sleep apnea on BiPAP at the [facility]. 4. Aspiration pneumonia with MRSA. 5. Acute kidney insufficiency, remains with oliguria. 6. Anoxic brain injury. 7. Diabetes mellitus with diabetic foot. 8. A. fib, rate controlled. 9. Peripheral arterial disease. 10. Non-ST elevation ID. 11. Left cerebellar CVA, acute. Plan: 1. Family presented at the bedside, discussed the case with them in details, the family were leaning toward [employer]PER[employer] HELPER. The patient did not have a good neurologic recovery from a cardiac arrest. He open his eyes not purposefully. No movement was noted. The patient remains with profound anoxic brain injury. Based on discussion with the family, the brother and his who presented at the bedside discussed with the patient mother who is in agreement that his quality of life has been poor and did not want up prolonged his . Decided to extubate the patient terminally and start the patient on comfort measures. The patient was extubated and started on morphine and Ativan as needed. 2. We will keep the patient as comfortable as possible. The above medications seem to be the very well tolerable by the patient. 3. Dr. Tenorio from palliative care presented to the bedside and assist in the transition, appreciate her help. 4. Patient will be transferred to a private room afterward. Thank you, will sign off the case from critical care service. (2) Bradycardia: Physical Exam 2 Vital Signs (Past 24 Hours): Last Vital Signs Temp 37 C 06/23/18 08:00 Pulse 78 06/23/18 14:15 Resp 26 H 06/23/18 14:15 BP 153/86 H 06/23/18 14:00 Pulse Ox 99 06/23/18 14:15
--- NOTE | 2018-06-23 17:59 | Discharge Summary ---
Date of Service June 23, 2018 Admission HPI Per Admitting Provider History obtained through chart review and discussion with ER attending. Patient is a 68yo male with history of OTONIEL, Obesity hypoventilation syndrome, non-adherence with home BiPAP, HTN, HLP, PAF on Eliquis, DM presenting from [facility] s/p cardiac arrest. Per report, patient was found to be incontinent of urine at the care home. He rang the call waller and was being changed by nursing staff when he developed respiratory distress and turned blue. He then proceeded to have an asystolic cardiac arrest. He was administered epinephrine x 2 with ROSC. He was intubated upon arrival to the ER - found to have considerable amount of thick yellow secretions that were removed. ER Course: Intubation, Vancomycin, Zosyn, Levaquin, NSS x 2 liters, Levophed gtt Principal Diagnosis Cardiac arrest of unknown cause Discharge Exam Eyes Pupils fixed and dilated. Respiratory None Cardiovascular No heart sounds Discharge Data Allergies Allergy/AdvReac Type Severity Reaction Status Date / Time NSAIDS (Non-Steroidal Allergy Unknown . Unverified 06/20/18 06:08 Anti-Inflamma Consultations 06/20/18 04:45 ED Decision to Admit Stat 06/20/18 08:21 Consult Case Management - Discharge Planning Routine Consult Oil Truck Driver Routine 06/21/18 10:20 Consult Cardiology Routine Consult Nephrology Routine 06/22/18 10:56 Consult Neurology Routine 06/22/18 14:33 Consult Palliative Care Routine Ordered Studies 06/20/18 05:46 CT angio chest PE protocol Stat CT head/brain wo con Stat 06/20/18 05:49 CT abd pelvis IV con only Stat 06/23/18 01:37 MR brain wo con Routine Hospital Course (1) Cardiac arrest: Patient brought in s/p witnessed asystolic cardiac arrest in the field. ROSC achieved with CPR and epinephrine x 2. Currently unclear etiology. Possibly hypoxemia as patient had thick secretions on intubation; however, primary cardiac arrythmia also possible. - Underwent cooling protocol - Management per critical care - Concern for anoxic brain injury given his code. - EEG showed periodic generalized discharges on 06/22 - Consistent with anoxic brain injury - MRI brain on 06/23 showed left cerebellar hemisphere acute/subacute infarcts that were possibly embolic On 06/23/2018 at 5:19pm, the patient stopped breathing and was pronounced . Family was notified. Total Time Total Time Spent Total Time Spent (In Minutes): 35 Total Time Includes: Examination of the Patient, Discharge Planning and Medication Reconciliation Discharge Plan Discharge Items Disposition: Admission Data Admit Date/Time: 06/20/18 05:46 Attending Provider: Ollie Rios Admit Provider: Blaire Kearney Primary Care Provider: Donaldo Martínez Other Providers: Alessandro Morelos ; Nilton Vitale ; Jarod Terry ; Alessandro Izquierdo ; Holly Jimenez ; Giana Felipe ; Sharon Becerra Service: Intensive Care Unit Other DC Date/Time DO NOT enter until pt leaves facility: 06/23/18 17:19
--- NOTE | 2018-07-11 07:59 | Coding Query ---
CODING QUERY To promote full compliance with coding requirements relating to patient care, provider participation is requested in all cases of machine erector uncertainty. Please assist us with the question(s) below: Dr Rios: Several diagnoses were documented early in this patient's encounter, but not carried through to the discharge summary. For correct coding of this account, please clarify if: SEPSIS: ( x ) Severe sepsis with septic shock was present and treated during this encounter ( ) Severe sepsis with septic shock was ruled out ( ) Unable to determine ( ) Other, please explain SHOCK LIVER: ( ) Shock liver was present and treated during this encounter ( ) Shock liver was ruled out ( ) Unable to determine ( x ) Other, please explain - Shock liver was likely the cause of the elevated AST/ALT, but was not treated. Also, please clarify if: Cerebellar infarct was ( x ) POA ( ) Not POA ( ) Unable to determine Physician's Response(s): Thank you for your time, Karie Preston, MIMA, [facility]
== END 2018-06-23 17:19 | disposition expired ==
LOC: ED 03:45 → 1E 05:46 → SUATTDRO 05:46 → 1E 07:10